=== PATIENT | male | born 1965 | race Caucasian/White ===

== ENCOUNTER 2017-03-22 09:59 | Inpatient (IN) | payer OTHER ==
[2017-03-22] VITALS (16 sets, daily range): BP systolic 146–196; BP diastolic 76–104; PULSE 64–115; RESP 16–24; TEMP 97.8–98.7; O2SAT 94–100
[~2017-03-22] VITALS: Ht 175.3 cm; Wt 85.0 kg
[~2017-03-22 09:59] MED LIST: AMIO200T PO; ASPI81CH CHEW; BRIL90TA PO; FURO1TAB60 PO; LIPI10TA PO; LISI-515 PO; METF500T PO; METO-309 PO; POTA-163 PO; Spironolactone PO
[2017-03-22] MEDS ORDERED: SODIUM CHLORIDE 0.9% FLUSH 10 ML FLUSH IVF PRN ×2 (10:30→12:15)
--- NOTE | 2017-03-22 10:34 | PD ---
HPI Chief Complaint: Cardiac Complaint Time Seen by Provider: 10:12 Travel History International Travel<30 days: No Contact w/Intl Traveler<30days: No Traveled to known affect area: No History of Present Illness HPI This patient reports that he had about 30 minutes of dizziness today while he was watching TV and then his defibrillator fired. Positive that it shocked him. One time it went off. No syncope or chest pain. Patient stopped taking his cardiac medicines one or 2 months ago. He has not followed up with physician recently. He is a daily alcohol drinker. He was drinking this morning. Duration 2 hours. Symptoms severity was moderate. No alleviating factors. PFSH Past Medical History Hx Anticoagulant Therapy: Yes (BRILINTA) Arthritis: No Heart Rhythm Problems: Yes Cancer: No Cardiac Catheterization: Yes Cardiovascular Problems: Yes (DEFIB/ 3 STENTS ) High Cholesterol: Yes Chest Pain: Yes Congestive Heart Failure: Yes Diabetes: Yes Diminished Hearing: No Endocrine: Yes Gastrointestinal Disorders: No Genitourinary: No Hypertension: Yes Immune Disorder: No Implanted Vascular Access Dvce: Yes Musculoskeletal: No Neurologic: No Psychiatric: No Reproductive: No Respiratory: Yes (PE) Immunizations Current: Yes Past Surgical History Abdominal Surgery: No AICD: Yes Cardiac Surgery: Yes (CATH W/STENTS) Coronary Stent: Yes Ear Surgery: No Endocrine Surgery: No Eye Surgery: No Genitourinary Surgery: No Neurologic Surgery: No Oral Surgery: No Thoracic Surgery: Yes (AICD ON 08/2016) Other Surgery: Yes Social History Alcohol Use: Yes ( BEER DAILY) Tobacco Use: Yes (3-4 CIG/DAY) Substance Use: No Allergies-Medications (Allergen,Severity, Reaction): Coded Allergies: No Known Allergies (Unverified , 09/08/16) Reported Meds & Prescriptions Reported Meds & Active Scripts Active Lopressor (Metoprolol Tartrate) 50 Mg Tab 50 Mg PO BID 30 Days Amiodarone (Amiodarone HCl) 200 Mg Tab 200 Mg PO DAILY 30 Days Potassium Chloride ER (Potassium Chloride) 20 Meq Tab 20 Meq PO DAILY [Spironolactone] 25 MG Tab 25 Mg PO DAILY 30 Days Metformin (Metformin HCl) 500 Mg Tab 500 Mg PO BIDPC With meals Lasix (Furosemide) 40 Mg Tab 40 Mg PO DAILY 30 Days Lipitor (Atorvastatin Calcium) 10 Mg Tab 40 Mg PO HS 30 Days Brilinta (Ticagrelor) 90 Mg Tab 90 Mg PO BID Reported Aspirin 81 Mg Chew 81 Mg CHEW DAILY Review of Systems General / Constitutional: No: Fever Eyes: No: Visual changes HENT: Positive: Lightheadedness, No: Headaches Cardiovascular: No: Chest Pain or Discomfort Respiratory: No: Shortness of Breath Gastrointestinal: No: Abdominal Pain Genitourinary: No: Dysuria Musculoskeletal: No: Pain Skin: No Rash Neurologic: Positive: Dizziness, No: Weakness Psychiatric: Positive: Substance Abuse, No: Depression Endocrine: No: Polydipsia Hematologic/Lymphatic: No: Easy Bruising Physical Exam Narrative GENERAL: Disheveled , well-developed patient in no apparent distress. SKIN: Focused skin assessment reveals no rash and nodules. Skin is Warm and dry. Multiple tattoos HEAD: Atraumatic. Normocephalic. EYES: Pupils equal and round. No scleral icterus. No injection or drainage. ENT: No nasal bleeding or discharge. Mucous membranes pink and moist. NECK: Trachea midline. No JVD. CARDIOVASCULAR: Regular rate and rhythm. No murmur appreciated. RESPIRATORY: No accessory muscle use. Clear to auscultation. Breath sounds equal bilaterally. GASTROINTESTINAL: Abdomen soft, non-tender, nondistended. Hepatic and splenic margins not palpable. MUSCULOSKELETAL: No obvious deformities. No clubbing. No cyanosis. No edema. NEUROLOGICAL: Awake and alert. No obvious cranial nerve deficits. Motor grossly within normal limits. Normal speech. PSYCHIATRIC: Appropriate mood and affect; insight and judgment poor. Data Data Last Documented VS Vital Signs Date Time Temp Pulse Resp B/P Pulse Ox O2 Delivery O2 Flow Rate FiO2 03/22/17 10:30 160/89 03/22/17 10:27 93 16 94 Room Air 03/22/17 10:15 98.1 Orders Electrocardiogram (03/22/17 10:23) Basic Metabolic Panel (Bmp) (03/22/17 10:23) Ckmb (Isoenzyme) Profile (03/22/17 10:23) Complete Blood Count With Diff (03/22/17 10:23) Magnesium (Mg) (03/22/17 10:23) Prothrombin Time / Inr (Pt) (03/22/17 10:23) Act Partial Throm Time (Ptt) (03/22/17 10:23) Troponin I (03/22/17 10:23) Ecg Monitoring (03/22/17 10:23) Iv Access Insert/Monitor (03/22/17 10:23) Oximetry (03/22/17 10:23) Sodium Chloride 0.9% Flush (Ns Flush) (03/22/17 10:30) Alcohol (Ethanol) (03/22/17 10:23) CKMB (03/22/17 10:25) CKMB% (03/22/17 10:25) Amiodarone Inj (Cordarone Inj) (03/22/17 12:15) Amiodarone Inj (Cordarone Inj) (03/22/17 12:30) Sodium Chloride 0.9% Flush (Ns Flush) (03/22/17 12:15) Amiodarone Inj (Cordarone Inj) (03/22/17 12:15) Labs Laboratory Tests Test 03/22/17 10:25 White Blood Count 8.2 TH/MM3 Red Blood Count 4.73 MIL/MM3 Hemoglobin 14.9 GM/DL Hematocrit 45.1 % Mean Corpuscular Volume 95.3 FL Mean Corpuscular Hemoglobin 31.5 PG Mean Corpuscular Hemoglobin 33.0 % Concent Red Cell Distribution Width 13.4 % Platelet Count 233 TH/MM3 Mean Platelet Volume 8.6 FL Neutrophils (%) (Auto) 58.5 % Lymphocytes (%) (Auto) 30.8 % Monocytes (%) (Auto) 8.5 % Eosinophils (%) (Auto) 1.3 % Basophils (%) (Auto) 0.9 % Neutrophils # (Auto) 4.8 TH/MM3 Lymphocytes # (Auto) 2.5 TH/MM3 Monocytes # (Auto) 0.7 TH/MM3 Eosinophils # (Auto) 0.1 TH/MM3 Basophils # (Auto) 0.1 TH/MM3 CBC Comment DIFF FINAL Differential Comment Prothrombin Time 10.1 SEC Prothromb Time International 0.9 RATIO Ratio Activated Partial 25.4 SEC Thromboplast Time Sodium Level 138 MEQ/L Potassium Level 4.0 MEQ/L Chloride Level 107 MEQ/L Carbon Dioxide Level 19.9 MEQ/L Anion Gap 11 MEQ/L Blood Urea Nitrogen 12 MG/DL Creatinine 1.17 MG/DL Estimat Glomerular Filtration 66 ML/MIN Rate Random Glucose 226 MG/DL Calcium Level 8.7 MG/DL Magnesium Level 2.3 MG/DL Total Creatine Kinase 119 U/L Creatine Kinase MB 1.2 NG/ML Troponin I 0.06 NG/ML Ethyl Alcohol Level 85 MG/DL MDM Medical Decision Making Medical Screen Exam Complete: Yes Emergency Medical Condition: Yes Medical Record Reviewed: Yes Differential Diagnosis Ventricular tachycardia, ventricular fibrillation, noncompliance, alcohol intoxication Narrative Course I have reviewed the patient's electronic medical record. Reviewed his cardiology consultation from September 2016. He has history of stopping his medicines and then going into ventricular tachycardia storm. He has challenging IV placement I placed a left external jugular IV Reviewed his EKG which shows sinus rhythm at 96 without ectopy. No acute ST elevation but he does have inferior lead Q waves CBC is normal Metabolic profile shows minor hyperglycemia CK is normal Troponin is 0.06 Magnesium is normal Coagulation studies are normal Extended cardiac monitoring reveals sinus rhythm without ectopy Defibrillator rep has been called in to interrogate the device. I reviewed with the defibrillator rep. This patient had 4 separate shocks yesterday between 9 AM and noon. He had 4 episodes of ventricular tachycardia between 220 240 beats that degenerated into ventricular fibrillation which triggered the shocks. Each time the device worked properly Patient is currently intoxicated with an alkaline level of 85 He's been off his amiodarone for one or 2 months I reviewed with community support associate Dr. Moffett. He recommended loading him back with IV amiodarone and placing him on amiodarone drip and CIC admission. Patient is agreeable. I've placed a call to the medical residents for admission Critical Care Narrative Aggregate critical care time was 40 minutes. Time to perform other separately billable procedures was not included in the critical care time. My time did not include minutes spent treating any other patients simultaneously or on activities that did not directly contribute to the patient's treatment. The services I provided to this patient were to treat and/or prevent clinically significant deterioration that could result in: Ventricular fibrillation, cardiopulmonary arrest, myocardial damage I provided critical care services requiring my management, as noted below: Chart data review, documentation time, medication orders and management, vital sign assessments/reviewing monitor data, ordering and reviewing lab tests, ordering and interpreting/reviewing x-rays and diagnostic studies, care of the patient and discussion of the patient with the admitting physicians. Diagnosis Primary Impression: Ventricular fibrillation, paroxysmal Additional Impressions: Ventricular tachycardia AICD discharge Alcohol intoxication Qualified Code: F10.920 - Alcohol intoxication, uncomplicated Admitting Information Admitting Physician Requests: Admit Benson Dai MD Mar 22, 2017 10:34
[2017-03-22 10:59] LABS: AUTOMATED NEUTROPHIL # 4.8 TH/MM3 (1.8-7.7); BASOPHIL # 0.1 TH/MM3 (0-0.2); BASOPHIL % 0.9 % (0.0-2.0); EOSINOPHIL # 0.1 TH/MM3 (0-0.4); EOSINOPHIL % 1.3 % (0.0-4.0); HEMATOCRIT 45.1 % (39.0-51.0); HEMO FLAGS DIFF FINAL; LYMPH % 30.8 % (9.0-44.0); LYMPHOCYTE # 2.5 TH/MM3 (1.0-4.8); MEAN CELL VOLUME 95.3 FL (80.0-100.0); MEAN CORPUSCULAR HEMOGLOBIN 31.5 PG (27.0-34.0); MONO % 8.5 % (0.0-8.0); NEUT % 58.5 % (16.0-70.0); PLATELET COUNT 233 TH/MM3 (150-450); RED BLOOD COUNT 4.73 MIL/MM3 (4.50-5.90); RED CELL DISTRIBUTION WIDTH 13.4 % (11.6-17.2); WHITE BLOOD COUNT 8.2 TH/MM3 (4.0-11.0)
[2017-03-22 11:12] LABS: APTT (PATIENT) 25.4 SEC (24.3-30.1); INTERNATIONAL NORMALIZED RATIO 0.9 RATIO; PROTHROMBIN TIME - PATIENT 10.1 SEC (9.8-11.6)
[2017-03-22 11:19] LABS: ANION GAP 11 MEQ/L (5-15); BICARBONATE 19.9 MEQ/L (21.0-32.0); BLOOD UREA NITROGEN 12 MG/DL (7-18); CHLORIDE 107 MEQ/L (98-107); GLOMERULAR FILTRATION RATE 66 ML/MIN (>89); MAGNESIUM 2.3 MG/DL (1.5-2.5); SODIUM (NA) 138 MEQ/L (136-145)
[2017-03-22 11:24] LABS: CREATINE KINASE 119 U/L (39-308)
[2017-03-22 11:36] LABS: CKMB 1.2 NG/ML (0.5-3.6)
[2017-03-22] MEDS ORDERED: AMIODARONE INJ 150 MG in DEXTROSE 5% IN WATER 100ML INJ 97 ML IV ONE ×4 (12:15)
[2017-03-22] MEDS ORDERED: AMIODARONE INJ 900 MG in D5W 500 ML (EXCEL BAG) 482 ML IV SCH (12:30)
[2017-03-22] MEDS ORDERED: SODIUM CHLORIDE 0.9% FLUSH 10 ML FLUSH IV FLUSH PRN ×2 (13:00→14:00)
[2017-03-22] MEDS ORDERED: SODIUM CHLORIDE 0.9% FLUSH 10 ML FLUSH IV FLUSH SCH (13:00)
[2017-03-22] MEDS: AMIODARONE INJ 450 MG in D5W (EXCEL BAG) 241 ML IV SCH ×2 (13:37→21:39)
--- NOTE | 2017-03-22 13:55 | HHI.HP ---
HPI Service Family Medicine Primary Care Physician No Primary Care Physician Admission Diagnosis V FIB, V tach, defib firing,alcohol intox Diagnoses: International Travel<30 Days: No Contact w/Intl Traveler<30days: No Known Affected Area: No History of Present Illness Patient is a 51 year old male with a past history of chronic alcohol use and coronary artery disease with prior placement of defibrillator. He presents today due to his defibrillator going off multiple times in the last 24 hours. He denied having any chest pain or shortness of breath yesterday but was experiencing these symptoms on exam as his defibrillator had just discharged again. He is currently experiencing a headache, is seeing some spots, feels dizzy, short of breath and has sharp chest pain which started following defibrillator discharge. He admitted to alcohol use, with his last drink being 2 -3 cans of beer before 9am today, followed by his defibrillator discharging. He denied recently feeling ill, denied sick contacts, denied nausea, vomiting, and pain anywhere else. Patient smokes about one half packs of cigarettes per day but denied other recreational drug use. 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 (Jono Evans MD R2) Review of Systems Constitutional: DENIES: Fatigue, Fever, Chills Eyes: COMPLAINS OF: Blurred vision Respiratory: DENIES: Cough, Shortness of breath Cardiovascular: COMPLAINS OF: Chest pain, Palpitations, DENIES: Syncope Gastrointestinal: DENIES: Abdominal pain, Black stools, Diarrhea, Nausea, Vomiting Musculoskeletal: DENIES: Joint pain Integumentary: DENIES: Rash (Jono Evans MD R2) Past Family Social History Past Medical History Coronary artery disease s/p stents x 3 Diabetes mellitus on metformin Hyperlipidemia Tobacco abuse Alcohol abuse Withdrawal from EtOH Past Surgical History Pacemaker in August 2016 Left lower extremity orthopedic repair n.o.s. (Jono Evans MD R2) Allergies: Coded Allergies: No Known Allergies (Unverified , 09/08/16) Family History Non contributory Social History Smokes cigarettes since a teenager - 1/2 ppd EtOH drinks 16 x 16 ounce beers a day Unemployed, lives with significant other Cocaine use prior but denies current use. (Jono Evans MD R2) Physical Exam Vital Signs Vital Signs Date Time Temp Pulse Resp B/P Pulse Ox O2 Delivery O2 Flow Rate FiO2 03/22/17 13:16 96 03/22/17 13:16 170/91 03/22/17 10:30 160/89 03/22/17 10:27 93 16 160/89 94 Room Air 03/22/17 10:20 Room Air 03/22/17 10:15 98.1 96 16 190/101 95 03/22/17 10:01 97.8 115 24 194/101 100 Physical Exam Physical Exam: Vitals: afebrile, blood pressure 170/91 mmHg, Pulse 117 bpm, pulse oximetry 96% on room air. General: patient was sitting up in bed, appeared uncomfortable taking slow deep breaths. Able to communicate properly and oriented to person, place and time. Cardio: Pulses equal in all 4 extremities, heart rate with occasional irregular beats but no murmurs, rubs or gallops. No JVD was noted on exam. Pulmonary: AP diameter of chest was not increased; breath sounds were appreciated in all lung areas and were clear to auscultation with no crackles or wheezes. Abdominal: abdomen was symmetrical, non-distended, non-tender, and soft with no voluntary or involuntary guarding. EXT: Well perfused, 5/5 strength throughout, fine tremors on extension of hands. Laboratory Laboratory Tests Test 03/22/17 10:25 White Blood Count 8.2 Red Blood Count 4.73 Hemoglobin 14.9 Hematocrit 45.1 Mean Corpuscular Volume 95.3 Mean Corpuscular Hemoglobin 31.5 Mean Corpuscular Hemoglobin 33.0 Concent Red Cell Distribution Width 13.4 Platelet Count 233 Mean Platelet Volume 8.6 Neutrophils (%) (Auto) 58.5 Lymphocytes (%) (Auto) 30.8 Monocytes (%) (Auto) 8.5 Eosinophils (%) (Auto) 1.3 Basophils (%) (Auto) 0.9 Neutrophils # (Auto) 4.8 Lymphocytes # (Auto) 2.5 Monocytes # (Auto) 0.7 Eosinophils # (Auto) 0.1 Basophils # (Auto) 0.1 CBC Comment DIFF FINAL Differential Comment Prothrombin Time 10.1 Prothromb Time International 0.9 Ratio Activated Partial 25.4 Thromboplast Time Sodium Level 138 Potassium Level 4.0 Chloride Level 107 Carbon Dioxide Level 19.9 Anion Gap 11 Blood Urea Nitrogen 12 Creatinine 1.17 Estimat Glomerular Filtration 66 Rate Random Glucose 226 Calcium Level 8.7 Magnesium Level 2.3 Total Creatine Kinase 119 Creatine Kinase MB 1.2 Troponin I 0.06 Ethyl Alcohol Level 85 (Jono Evans MD R2) Result Diagram: 03/22/17 1025 03/22/17 1025 Septic Shock Reassessment Heart: Regular rate and rhythm Lungs: Clear Skin: Warm Peripheral Pulses: Bounding Right Radial Bounding Left Radial (Jono Evans MD R2) Assessment and Plan Assessment and Plan Mr. Inman is a 51-year-old male, with a past medical history of severe coronary artery disease / status post stents 3, alcohol abuse, type 2 diabetes mellitus, and hyperlipidemia, presenting to [place] emergency department after his cardiac defibrillator fired while he was at rest. On interrogation, he was found to have a short run of ventricular tachycardia. He will be admitted to the cardiac intensive care unit on amiodarone drip, and continuous cardiopulmonary telemetry. Code Status Full code. (Jono Evans MD R2) Attending Attestation The patient has been seen and examined. The chart and all resident notes have been reviewed. I agree that inpatient care is appropriate and that a two midnight stay is expected for the reasons documented in the resident history and physical. I have discussed this with the resident and certify the resident s order for inpatient admission. Patient seen and examined with the resident team this am Case reviewed and discussed Please refer to resident H&P for further details regarding HPI, ROS, PMH, SurgHx , FH and SocHx In summary, patient is a 51yoM with a history of VT arrest, SD s/p PCI and ICD placement, alcohol dependence and medical non-adherence. He presented to the ED after defibrillator shock after stopping his necessary cardiac medications, including his Amiodarone and anti-platelet therapy. He was placed on an Amiodarone gtt and is seen this am. He denies further shocks overnight. Per nursing, no acute events. He denies chest pain. GENERAL: wdwn, NAD, mildly tremulous SKIN: Warm and dry. No rashes, tattoos. HEAD: Normocephalic. AT EYES: No scleral icterus. No injection or drainage. ENT: OP clear. MMM. NC in place. NECK: Supple, trachea midline. CARDIOVASCULAR: Regular rate and rhythm without audible murmurs, gallops, or rubs. RESPIRATORY: Breath sounds equal bilaterally. There is mild bibasilar crackles. NO wheezing. No accessory muscle use. GASTROINTESTINAL: Abdomen soft, non-tender, nondistended. Normal active BS. No rebound. MUSCULOSKELETAL: No cyanosis, or edema. NO calf tenderness. BACK: Nontender without obvious deformity. No CVA tenderness. NEURO: Awake and alert. Normal speech. A/P: 51yoM admitted with: defibrillator shock Hx VT arrest, SD s/p PCI, ICD placement Medical non-adherence Alcoholism Tobaccoism HTN DM HL Amiodarone gtt Cardiology consulted, appreciate recs Monitor electrolytes resume Amio, DAPT Telemetry Resume home meds as appropriate Monitor for chest pain [facility] protocol Counseled extensively on EtOH, tob Case management assistance with Patient Assistance Program Lovenox Patient seen and examined. Case reviewed and discussed Agree with plan of care as discussed with me and documented in the resident note. (Aissatou Gilliam MD) Problem List: (1) Alcohol ingestion Status: Acute Plan: Patient appears tremulous on exam. Likely to withdrawal. Drinks 16 16 ounce beers per day. [facility] protocol in place. We'll monitor for signs of delirium tremens. (2) Hypertension Status: Chronic Plan: BP elevated on admission to 188/99. Continue home lisinopril 20 mg daily, spironolactone 25 mg BID, and Lasix 40 mg daily. Hold beta gorge while on amiodarone gtt or as guided by cardiology. Clonidine 0.1 mg PO q 6 hr systolic > 180 mm Hg. (3) Diabetes mellitus Status: Chronic Plan: Glucose on admission was 226. Start low dose insulin (NovoLOG sliding scale). Hold home metformin. (4) AICD discharge Status: Acute Plan: Consult cardiology. Previous cardiac catheterization (August 2016, performed by Dr. Rincon) showed moderate left ventricular dysfunction with an EF of 35%, single vessel disease, with a total occlusion of the right coronary artery. A drug-eluting stent was placed at that time. He has been off of his Aspirin and Brilinta. Restart during hospitalization. (5) CAD (coronary artery disease) Status: Chronic Plan: Troponin on admission was 0.06. EKG grossly unchanged since September 2016. Restart antiplatelet therapy. Trend EKG and cardiac enzymes q 6 hours. CXR. Nitro 0.4 mg sublingual PRN chest pain. Amiodarone gtt for arrhythmia. (6) History of pulmonary embolus (PE) Status: Chronic Plan: Previous pulmonary embolism was after surgery on left leg )provoked). SInce, has not had any issues with clotting. Wells Criteria score 1.5, (Low risk). Perc rule was negative (screening out for d-dimer level). (7) Disorders of fluid, electrolyte, and acid-base balance Status: Acute Plan: Fluids: NS 50 ml/hr (approximately half maintenance). DVT: Lovenox 40 mg SubQ daily. Nutrition: Reg meal as tolerated GI prophylaxis: Not indicated. wdw Dr. Gilliam sdw Eneida Clemons (note assisted by MS4). (Jono Evans MD R2) Jono Evans MD R2 Mar 22, 2017 13:55 Aissatou Gilliam MD Mar 23, 2017 15:53
[2017-03-22] MEDS: SODIUM CHLOR 0.9% 1000 ML INJ 1,000 ML IV SCH (14:00)
[2017-03-22] MEDS ORDERED: LORazepam 2 MG/ML VIAL IV PUSH PRN ×3 (14:00)
[2017-03-22] MEDS ORDERED: ONDANSETRON HCL 4 MG/2 ML VIAL IVP PRN (14:00)
[2017-03-22] MEDS ORDERED: NALOXONE HCL 0.4 MG/ML AMP IV PRN (14:00)
[2017-03-22] MEDS ORDERED: LORazepam 2 MG TAB PO PRN (14:00)
[2017-03-22] MEDS ORDERED: TEMAZEPAM 15 MG CAP PO PRN ×2 (14:00→15:15)
[2017-03-22] MEDS ORDERED: FLUMAZENIL 0.5 MG/5 ML VIAL IV PUSH PRN (14:00)
[2017-03-22] MEDS ORDERED: SPIR25 PO (14:20)
--- NOTE | 2017-03-22 14:30 | RADRPT ---
EXAM DATE/TIME: 03/22/2017 13:59 [facility] COMPARISON: CHEST SINGLE AP, September 08, 2016, 2:02. INDICATIONS : Chest pain, defibrillator went off twice today MEDICAL HISTORY : Cardiovascular disease. SURGICAL HISTORY : Defibrillator ENCOUNTER: Initial ACUITY: 1 day PAIN SCORE: 5/10 LOCATION: Bilateral chest FINDINGS: Pacemaker is implanted in the left chest. The heart and pulmonary vascularity are normal. Portions of the bony skeleton visualized are unremarkable. CONCLUSION: Pacer, otherwise negative. Juarez Miguel MD FACR on March 22, 2017 at 14:24 Board Certified Radiologist. This report was verified electronically.
[2017-03-22] MEDS: ENOXAPARIN SODIUM 40 MG/0.4 ML SYRINGE SQ SCH (15:09)
[2017-03-22] MEDS: LORazepam 2 MG/ML VIAL IV PUSH PRN ×2 (15:09→18:13)
[2017-03-22] MEDS ORDERED: NITROGLYCERIN 0.4 MG SL 25 TABS/BTL SL PRN (15:15)
[2017-03-22] MEDS ORDERED: cloNIDine HCL 0.1 MG TAB PO PRN (15:15)
[2017-03-22] MEDS ORDERED: ASPIRIN 81 MG CHEW TAB CHEW ONE (15:15)
--- NOTE | 2017-03-22 15:18 | PD.CONS ---
HPI Service Cardiology Consult Requested By Primary Care Physician No Primary Care Physician History of Present Illness 51 y/o M with alcoholic, hx of DT's, noncompliance with medications, VT arrest, MA s/p PCI and s/p AICD that presents with several defibrillator shocks in the setting of noncompliance with medications. Patient stop taking his Amiodarone. Device has been interrogated confirming several appropriate shock due to VT. He remains intoxicated however denies chest pain. Cardiology has been consulted for further management and evaluation. He has been given Amiodorome bolus and started on a drip. Review of Systems Consitutional: DENIES: Fatigue, Fever, Chills, Weight gain, Weight loss Eyes: DENIES: Amaurosis Fugax, Change in vision HEENT: DENIES: Lightheadedness, Change in hearing Respiratory: DENIES: See HPI, Cough, Snoring, Shortness of breath, Wheezing, Sputum production Cardiovascular: DENIES: See HPI, Chest pain, Palpitations, Syncope, Tachycardia Gastrointestinal: DENIES: Nausea, Vomiting, Change in bowel habits, Reflux, Bloody stools, Melena Genitourinary: DENIES: Urinary incontinence, Difficulty voiding Integumentary: DENIES: Rash Neurologic: DENIES: Tingling or numbness, Memory problems, Poor Balance, Stroke symptoms Musculoskeletal: DENIES: Joint pain, Muscle pain, Limited range of motion, Back pain Psychiatric: DENIES: Anxiety, Depression, Sleep disturbances Hematologic: DENIES: Bruising tendencies, Bleeding tendencies Endocrine: DENIES: Weight gain, Weight loss, Thyroid disease Past Family Social History Allergies: Coded Allergies: No Known Allergies (Unverified , 09/08/16) Past Medical History Inferior MA 2016 Noncompliance AICD Past Surgical History AICD Reported Medications Reported Meds & Active Scripts Active Lopressor (Metoprolol Tartrate) 50 Mg Tab 50 Mg PO BID 30 Days Amiodarone (Amiodarone HCl) 200 Mg Tab 200 Mg PO DAILY 30 Days Potassium Chloride ER (Potassium Chloride) 20 Meq Tab 20 Meq PO DAILY Lisinopril 20 Mg Tab 20 Mg PO DAILY Metformin (Metformin HCl) 500 Mg Tab 500 Mg PO BIDPC With meals Lasix (Furosemide) 40 Mg Tab 40 Mg PO DAILY 30 Days Lipitor (Atorvastatin Calcium) 10 Mg Tab 40 Mg PO HS 30 Days Brilinta (Ticagrelor) 90 Mg Tab 90 Mg PO BID Reported Aldactone (Spironolactone) 25 Mg Tab 25 Mg PO DAILY Aspirin 81 Mg Chew 81 Mg CHEW DAILY Active Ordered Medications Current Medications Medications (Trade) Dose Ordered Sig/Karma Route Start Time Stop Time Status Last Admin (NS Flush) 2 ml UNSCH PRN IVF 03/22/17 10:30 Sodium Chloride 2 ml 2 ml UNSCH PRN IVF 03/22/17 12:15 Amiodarone HCl 450 mg/Dextrose 250 ml @ 0 mls/hr CONTINUOUS IV 03/22/17 13:30 03/22/17 13:37 (NS 1000 ml Inj) 1,000 ml @ 100 mls/hr Q10H IV 03/22/17 14:00 03/22/17 14:00 (NS Flush) 2 ml UNSCH PRN IV FLUSH 03/22/17 14:00 (NS Flush) 2 ml BID IV FLUSH 03/22/17 21:00 (Zofran Inj) 4 mg Q6H PRN IVP 03/22/17 14:00 (Restoril) 15 mg HS PRN PO 03/22/17 14:00 (Lovenox Inj) 40 mg Q24H SQ 03/22/17 15:00 (Narcan Inj) 0.4 mg UNSCH PRN IV 03/22/17 14:00 (Danielle-Colace) 1 tab BID PO 03/22/17 21:00 (Romazicon Inj) 0.2 mg Q1M PRN IV PUSH 03/22/17 14:00 (Ativan) 1 mg Q4H PRN PO 03/22/17 14:00 (Ativan Inj) 1 mg Q4H PRN IV PUSH 03/22/17 14:00 (Ativan) 2 mg Q2H PRN PO 03/22/17 14:00 (Ativan Inj) 2 mg Q2H PRN IV PUSH 03/22/17 14:00 (Ativan Inj) 2 mg Q1H PRN IV PUSH 03/22/17 14:00 (Ativan Inj) 2 mg Q15M PRN IV PUSH 03/22/17 14:00 Physical Exam Vital Signs Vital Signs Date Time Temp Pulse Resp B/P Pulse Ox O2 Delivery O2 Flow Rate FiO2 03/22/17 14:42 183/99 03/22/17 14:38 98.5 88 16 183/99 100 Room Air 03/22/17 13:16 96 03/22/17 13:16 170/91 03/22/17 10:30 160/89 03/22/17 10:27 93 16 160/89 94 Room Air 03/22/17 10:20 Room Air 03/22/17 10:15 98.1 96 16 190/101 95 03/22/17 10:01 97.8 115 24 194/101 100 Physical Exam GENERAL: Well-nourished, well-developed patient. SKIN: Warm and dry. HEAD: Normocephalic. EYES: No scleral icterus. No injection or drainage. NECK: Supple, trachea midline. No JVD or lymphadenopathy. CARDIOVASCULAR: Regular rate and rhythm without murmurs, gallops, or rubs. RESPIRATORY: Breath sounds equal bilaterally. No accessory muscle use. GASTROINTESTINAL: Abdomen soft, non-tender, nondistended. EXTREMITIES: No cyanosis, or edema. NEUROLOGICAL: Awake, alert, and oriented x 3. Non-focal. Laboratory Laboratory Tests Test 03/22/17 10:25 White Blood Count 8.2 Red Blood Count 4.73 Hemoglobin 14.9 Hematocrit 45.1 Mean Corpuscular Volume 95.3 Mean Corpuscular Hemoglobin 31.5 Mean Corpuscular Hemoglobin 33.0 Concent Red Cell Distribution Width 13.4 Platelet Count 233 Mean Platelet Volume 8.6 Neutrophils (%) (Auto) 58.5 Lymphocytes (%) (Auto) 30.8 Monocytes (%) (Auto) 8.5 Eosinophils (%) (Auto) 1.3 Basophils (%) (Auto) 0.9 Neutrophils # (Auto) 4.8 Lymphocytes # (Auto) 2.5 Monocytes # (Auto) 0.7 Eosinophils # (Auto) 0.1 Basophils # (Auto) 0.1 CBC Comment DIFF FINAL Differential Comment Prothrombin Time 10.1 Prothromb Time International 0.9 Ratio Activated Partial 25.4 Thromboplast Time Sodium Level 138 Potassium Level 4.0 Chloride Level 107 Carbon Dioxide Level 19.9 Anion Gap 11 Blood Urea Nitrogen 12 Creatinine 1.17 Estimat Glomerular Filtration 66 Rate Random Glucose 226 Calcium Level 8.7 Magnesium Level 2.3 Total Creatine Kinase 119 Creatine Kinase MB 1.2 Troponin I 0.06 Ethyl Alcohol Level 85 Result Diagram: 03/22/17 1025 03/22/17 1025 Assessment and Plan Problem List: (1) AICD discharge Assessment and Plan: VT storm likely precipitated by discontinuation of home medications. He has been reloaded with Amiodarone. He has a normal LHC last year thus I dont think we need to pursue another on this admission. Agree with admission for medication optimization. Also restart home dose of Beta Blockers. Recommendations: 1. Cont Amio IV per protocol, after 24 hrs and no more episodes of VT start Amiodarone 200mg PO BID 2. Restart Beta Blockers 3. Telemetry monitoring 4. Avoid electrolytes abnormalities. 5. Cont DAPT with ASA and Brilinta 6. Cont statin 7. CIWA protocol per primary team Thank you for the opportunity to participate in the care of this patient (2) Hypertension (3) Diabetes mellitus (4) Alcohol intoxication (5) Ventricular tachycardia (6) Tobacco use disorder Problem Qualifiers (1) Alcohol intoxication: Qualified Code: F10.920 - Alcohol intoxication, uncomplicated Moffett-Agapito Shepard MD Mar 22, 2017 15:18
[2017-03-22] MEDS ORDERED: DEXTROSE 50% IN WATER 50 ML VIAL(D50) IV PRN (15:30)
[2017-03-22] MEDS ORDERED: GLUCAGON 1 MG/ML VIAL OTHER PRN (15:30)
[2017-03-22] MEDS: LISINOPRIL 20 MG TAB PO SCH (15:31)
[2017-03-22] MEDS: SPIRONOLACTONE 25 MG TAB PO SCH (15:31)
[2017-03-22] MEDS: INSULIN ASPART SUPPLEMENTAL SCALE SQ SCH ×2 (16:05→20:43)
[2017-03-22] MEDS: DOCUSATE SODIUM 50 MG/SENNA 8.6 MG TAB PO SCH (20:40)
[2017-03-22] MEDS: TICAGRELOR 90 MG TAB PO SCH (20:40)
[2017-03-22] MEDS: METOPROLOL TARTRATE 50 MG TAB PO SCH (20:40)
[2017-03-22] MEDS: ATORVASTATIN 40 MG TAB PO SCH (20:41)
[2017-03-22] MEDS: LORazepam 1 MG TAB PO PRN (20:41)
[2017-03-22] MEDS: SODIUM CHLORIDE 0.9% FLUSH 10 ML FLUSH IV FLUSH SCH (20:44)
[2017-03-23] VITALS (23 sets, daily range): BP systolic 129–151; BP diastolic 69–93; PULSE 55–72; RESP 16–18; TEMP 97.7–98.7; O2SAT 98–100
[2017-03-23] MEDS: LORazepam 1 MG TAB PO PRN ×2 (06:38→20:47)
[2017-03-23] MEDS: INSULIN ASPART SUPPLEMENTAL SCALE SQ SCH ×4 (06:38→20:54)
[2017-03-23] MEDS: TICAGRELOR 90 MG TAB PO SCH ×2 (07:52→21:00)
[2017-03-23] MEDS: LISINOPRIL 20 MG TAB PO SCH (07:52)
[2017-03-23] MEDS: ASPIRIN 81 MG CHEW TAB CHEW SCH (07:52)
[2017-03-23] MEDS: METOPROLOL TARTRATE 50 MG TAB PO SCH ×2 (07:52→20:47)
[2017-03-23] MEDS: SPIRONOLACTONE 25 MG TAB PO SCH (07:52)
[2017-03-23] MEDS: FUROSEMIDE 40 MG TAB PO SCH (07:53)
[2017-03-23] MEDS: DOCUSATE SODIUM 50 MG/SENNA 8.6 MG TAB PO SCH ×2 (07:53→20:47)
[2017-03-23] MEDS: SODIUM CHLORIDE 0.9% FLUSH 10 ML FLUSH IV FLUSH SCH ×2 (07:53→20:47)
[2017-03-23] MEDS: SODIUM CHLOR 0.9% 1000 ML INJ 1,000 ML IV SCH ×3 (07:53→20:00)
[2017-03-23 08:45] LABS: AUTOMATED NEUTROPHIL # 4.5 TH/MM3 (1.8-7.7); BASOPHIL % 0.5 % (0.0-2.0); EOSINOPHIL # 0.1 TH/MM3 (0-0.4); EOSINOPHIL % 1.7 % (0.0-4.0); HEMATOCRIT 43.2 % (39.0-51.0); HEMO FLAGS DIFF FINAL; LYMPH % 21.2 % (9.0-44.0); LYMPHOCYTE # 1.4 TH/MM3 (1.0-4.8); MEAN CELL VOLUME 94.3 FL (80.0-100.0); MEAN CORPUSCULAR HEMOGLOBIN 32.2 PG (27.0-34.0); MEAN CORPUSCULAR HGB CONC 34.1 % (32.0-36.0); MONO % 10.2 % (0.0-8.0); NEUT % 66.4 % (16.0-70.0); PLATELET COUNT 217 TH/MM3 (150-450); RED BLOOD COUNT 4.58 MIL/MM3 (4.50-5.90); RED CELL DISTRIBUTION WIDTH 12.9 % (11.6-17.2); WHITE BLOOD COUNT 6.8 TH/MM3 (4.0-11.0)
[2017-03-23 09:21] LABS: ANION GAP 10 MEQ/L (5-15); AST (GOT) 25 U/L (15-37); BICARBONATE 22.6 MEQ/L (21.0-32.0); BLOOD UREA NITROGEN 10 MG/DL (7-18); CHLORIDE 106 MEQ/L (98-107); GLOMERULAR FILTRATION RATE 67 ML/MIN (>89); POTASSIUM 3.8 MEQ/L (3.5-5.1); SODIUM (NA) 139 MEQ/L (136-145)
[2017-03-23 09:22] LABS: ALT (GPT) 35 U/L (12-78)
[2017-03-23 09:24] LABS: ALKALINE PHOSPHATASE 70 U/L (45-117); TOTAL BILIRUBIN ADULT 0.7 MG/DL (0.2-1.0)
[2017-03-23 11:00] LABS: AMPHETAMINE, URINE NEG (NEG); BARBITURATES, URINE NEG (NEG); COCAINE, URINE NEG (NEG)
[2017-03-23] MEDS: ENOXAPARIN SODIUM 40 MG/0.4 ML SYRINGE SQ SCH (14:35)
[2017-03-23 17:14] LABS: HEMOGLOBIN A1a 1.3 %; HEMOGLOBIN A1b 1.9 %; HEMOGLOBIN Ao 82.4 %
--- NOTE | 2017-03-23 17:59 | PD.CARD.PN ---
Subjective Subjective Remarks no complaints no overnight events no events on telemetry Objective Medications Current Medications Medications (Trade) Dose Ordered Sig/Karma Route Start Time Stop Time Status Last Admin (NS Flush) 2 ml UNSCH PRN IVF 03/22/17 10:30 Sodium Chloride 2 ml 2 ml UNSCH PRN IVF 03/22/17 12:15 Amiodarone HCl 450 mg/Dextrose 250 ml @ 0 mls/hr CONTINUOUS IV 03/22/17 13:30 03/23/17 21:00 03/22/17 21:39 (NS 1000 ml Inj) 1,000 ml @ 100 mls/hr Q10H IV 03/22/17 14:00 03/23/17 07:53 (NS Flush) 2 ml UNSCH PRN IV FLUSH 03/22/17 14:00 (NS Flush) 2 ml BID IV FLUSH 03/22/17 21:00 (Zofran Inj) 4 mg Q6H PRN IVP 03/22/17 14:00 (Restoril) 15 mg HS PRN PO 03/22/17 14:00 (Lovenox Inj) 40 mg Q24H SQ 03/22/17 15:00 03/23/17 14:35 (Narcan Inj) 0.4 mg UNSCH PRN IV 03/22/17 14:00 (Danielle-Colace) 1 tab BID PO 03/22/17 21:00 03/22/17 20:40 (Romazicon Inj) 0.2 mg Q1M PRN IV PUSH 03/22/17 14:00 (Ativan) 1 mg Q4H PRN PO 03/22/17 14:00 03/23/17 06:38 (Ativan Inj) 1 mg Q4H PRN IV PUSH 03/22/17 14:00 (Ativan) 2 mg Q2H PRN PO 03/22/17 14:00 03/22/17 22:48 (Ativan Inj) 2 mg Q2H PRN IV PUSH 03/22/17 14:00 03/22/17 18:13 (Ativan Inj) 2 mg Q1H PRN IV PUSH 03/22/17 14:00 (Ativan Inj) 2 mg Q15M PRN IV PUSH 03/22/17 14:00 (Aspirin Chew) 81 mg DAILY CHEW 03/23/17 09:00 03/23/17 07:52 (Lipitor) 40 mg HS PO 03/22/17 21:00 03/22/17 20:41 (Lasix) 40 mg DAILY PO 03/23/17 09:00 03/23/17 07:53 (Prinivil) 20 mg DAILY PO 03/22/17 15:15 03/23/17 07:52 (Aldactone) 25 mg DAILY PO 03/22/17 15:15 03/23/17 07:52 (Brilinta) 90 mg BID PO 03/22/17 21:00 03/23/17 07:52 (Nitrostat Sl) 0.4 mg Q5M PRN SL 03/22/17 15:15 (Lopressor) 50 mg Q12HR PO 03/22/17 21:00 03/23/17 07:52 (Catapres) 0.1 mg Q6H PRN PO 03/22/17 15:15 (D50w (Vial) Inj) 50 ml UNSCH PRN IV 03/22/17 15:30 (Glucagon Inj) 1 mg UNSCH PRN OTHER 03/22/17 15:30 (Cordarone) 400 mg Q12HR PO 03/23/17 21:00 Vital Signs / I&O Vital Signs Date Time Temp Pulse Resp B/P Pulse Ox O2 Delivery O2 Flow Rate FiO2 03/23/17 17:04 72 03/23/17 16:33 67 03/23/17 15:16 Nasal Cannula 2.00 03/23/17 15:06 60 03/23/17 15:06 97.8 71 16 129/70 100 03/23/17 14:00 67 03/23/17 13:06 65 03/23/17 12:02 62 03/23/17 11:21 97.7 55 16 136/69 100 03/23/17 11:21 65 03/23/17 10:00 58 03/23/17 09:23 65 03/23/17 08:15 65 03/23/17 08:15 97.9 66 18 147/93 98 03/23/17 05:00 60 03/23/17 04:00 63 03/23/17 04:00 98.7 70 18 144/75 98 03/23/17 03:00 58 03/23/17 02:00 58 03/23/17 01:00 60 03/23/17 00:00 55 03/23/17 00:00 98.1 60 18 146/90 98 03/22/17 23:00 64 03/22/17 22:00 64 03/22/17 21:00 76 03/22/17 20:00 75 03/22/17 20:00 98.7 79 18 146/76 97 03/22/17 19:00 72 03/22/17 18:00 152/84 03/22/17 18:00 84 I/O 03/22/17 03/22/17 03/22/17 03/23/17 03/23/17 03/23/17 07:00 15:00 23:00 07:00 15:00 23:00 Intake Total 360 ml 2130 ml Output Total 1000 ml 3650 ml Balance -640 ml -1520 ml Intake Oral 360 ml 960 ml IV Total 1170 ml Output Urine Total 1000 ml 3650 ml # Bowel Movements 1 Physical Exam GENERAL: Well-nourished, well-developed patient. SKIN: Warm and dry. HEAD: Normocephalic. EYES: No scleral icterus. No injection or drainage. NECK: Supple, trachea midline. No JVD or lymphadenopathy. CARDIOVASCULAR: Regular rate and rhythm without murmurs, gallops, or rubs. RESPIRATORY: Breath sounds equal bilaterally. No accessory muscle use. GASTROINTESTINAL: Abdomen soft, non-tender, nondistended. EXTREMITIES: No cyanosis, or edema. NEUROLOGICAL: Awake, alert, and oriented x 3. Non-focal. Laboratory Laboratory Tests Test 03/22/17 03/23/17 03/23/17 22:38 07:50 10:25 Troponin I 0.06 NG/ML White Blood Count 6.8 TH/MM3 Red Blood Count 4.58 MIL/MM3 Hemoglobin 14.7 GM/DL Hematocrit 43.2 % Mean Corpuscular Volume 94.3 FL Mean Corpuscular Hemoglobin 32.2 PG Mean Corpuscular Hemoglobin 34.1 % Concent Red Cell Distribution Width 12.9 % Platelet Count 217 TH/MM3 Mean Platelet Volume 8.7 FL Neutrophils (%) (Auto) 66.4 % Lymphocytes (%) (Auto) 21.2 % Monocytes (%) (Auto) 10.2 % Eosinophils (%) (Auto) 1.7 % Basophils (%) (Auto) 0.5 % Neutrophils # (Auto) 4.5 TH/MM3 Lymphocytes # (Auto) 1.4 TH/MM3 Monocytes # (Auto) 0.7 TH/MM3 Eosinophils # (Auto) 0.1 TH/MM3 Basophils # (Auto) 0.0 TH/MM3 CBC Comment DIFF FINAL Differential Comment Sodium Level 139 MEQ/L Potassium Level 3.8 MEQ/L Chloride Level 106 MEQ/L Carbon Dioxide Level 22.6 MEQ/L Anion Gap 10 MEQ/L Blood Urea Nitrogen 10 MG/DL Creatinine 1.16 MG/DL Estimat Glomerular Filtration 67 ML/MIN Rate Random Glucose 175 MG/DL Calcium Level 8.2 MG/DL Total Bilirubin 0.7 MG/DL Aspartate Amino Transf 25 U/L (AST/SGOT) Alanine Aminotransferase 35 U/L (ALT/SGPT) Alkaline Phosphatase 70 U/L Total Protein 6.7 GM/DL Albumin 3.2 GM/DL Urine Opiates Screen NEG Urine Barbiturates Screen NEG Urine Amphetamines Screen NEG Urine Benzodiazepines Screen NEG Urine Cocaine Screen NEG Urine Cannabinoids Screen NEG Assessment and Plan Problem List: (1) AICD discharge Assessment and Plan: D/C Amio drip after 24hrs, then start Amiodarone PO 200mg BID Cont BB I (2) Hypertension (3) Diabetes mellitus (4) Alcohol intoxication (5) Ventricular tachycardia (6) Tobacco use disorder Problem Qualifiers (1) Alcohol intoxication: Qualified Code: F10.920 - Alcohol intoxication, uncomplicated Moffett-Agapito Shepard MD Mar 23, 2017 17:59
[2017-03-23] MEDS: AMIODARONE 200 MG TAB PO SCH (20:47)
[2017-03-23] MEDS: ATORVASTATIN 40 MG TAB PO SCH (20:47)
[2017-03-23] MEDS ORDERED: AMIODARONE 200 MG TAB PO SCH (21:00)
--- NOTE | 2017-03-23 22:19 | EKG ---
Date Performed: 03/22/2017 Time Performed: 10:12:29 PTAGE: 51 years EKG: Sinus rhythm PROBABLE INFERIOR MYOCARDIAL INFARCTION Since previous tracing, no significant change noted ABNORMAL ECG PREVIOUS TRACING : 10/13/2016 09.11 DOCTOR: Kassidy Shell Interpretating Date/Time 03/23/2017 22:18:31
--- NOTE | 2017-03-23 22:21 | EKG ---
Date Performed: 03/22/2017 Time Performed: 21:51:46 PTAGE: 51 years EKG: Sinus rhythm Prolonged QT interval Inferior infarct - age undetermined Since previous tracing, no significant marion nge noted Abnormal ECG PREVIOUS TRACING : 03/22/2017 17.49.24 DOCTOR: Kassidy Shell Interpretating Date/Time 03/23/2017 22:19:42
--- NOTE | 2017-03-23 22:21 | EKG ---
Date Performed: 03/22/2017 Time Performed: 17:49:24 PTAGE: 51 years EKG: Sinus rhythm . Inferior infarct - age undetermined Possible anterior infarct - age undetermined Lateral T wave marion nges may be due to myocardial ischemia Since previous tracing, no significant change noted Abnormal E CG PREVIOUS TRACING : 03/22/2017 10.12.29 DOCTOR: Kassidy Shell Interpretating Date/Time 03/23/2017 22:19:05
[2017-03-24] VITALS (13 sets, daily range): BP systolic 130–142; BP diastolic 68–89; PULSE 54–68; RESP 16; TEMP 97.7–98.2; O2SAT 98–99
[2017-03-24] MEDS: LORazepam 1 MG TAB PO PRN (04:45)
[2017-03-24] MEDS: SODIUM CHLOR 0.9% 1000 ML INJ 1,000 ML IV SCH (05:21)
[2017-03-24 06:07] LABS: BICARBONATE 25.3 MEQ/L (21.0-32.0); POTASSIUM 3.9 MEQ/L (3.5-5.1)
[2017-03-24] MEDS: INSULIN ASPART SUPPLEMENTAL SCALE SQ SCH ×2 (06:15→10:37)
[2017-03-24] MEDS: TICAGRELOR 90 MG TAB PO SCH (08:35)
[2017-03-24] MEDS: LISINOPRIL 20 MG TAB PO SCH (08:35)
[2017-03-24] MEDS: SPIRONOLACTONE 25 MG TAB PO SCH (08:35)
[2017-03-24] MEDS: ASPIRIN 81 MG CHEW TAB CHEW SCH (08:35)
[2017-03-24] MEDS: METOPROLOL TARTRATE 50 MG TAB PO SCH (08:35)
[2017-03-24] MEDS: DOCUSATE SODIUM 50 MG/SENNA 8.6 MG TAB PO SCH (08:35)
[2017-03-24] MEDS: FUROSEMIDE 40 MG TAB PO SCH (08:35)
[2017-03-24] MEDS: AMIODARONE 200 MG TAB PO SCH (08:35)
[2017-03-24] MEDS: SODIUM CHLORIDE 0.9% FLUSH 10 ML FLUSH IV FLUSH SCH (08:37)
--- NOTE | 2017-03-24 09:08 | HHI.FPPN ---
Subjective Remarks Patient was afebrile overnight with no acute events and stable vital signs. Patient spoke to Case Management and would like to work on obtaining insurance. He complains of shortness of breath which began when his defibrillator fired in the ED on admission and continues such that the patient does not feel comfortable without oxygen. He denies any leg swelling or discomfort. He denies chest pain but felt "some flutters" last night. Denies symptoms of alcohol withdrawal, however required Ativan twice last night. (Khalida Waldron MD R3) Objective Vitals Vital Signs Date Time Temp Pulse Resp B/P Pulse Ox O2 Delivery O2 Flow Rate FiO2 03/24/17 08:14 64 03/24/17 07:00 59 03/24/17 07:00 97.7 54 16 142/89 99 03/24/17 06:00 60 03/24/17 05:00 61 03/24/17 04:00 63 03/24/17 04:00 97.8 62 16 130/68 98 03/24/17 03:00 61 03/24/17 02:00 60 03/24/17 01:00 60 03/24/17 00:00 55 03/23/17 23:00 64 03/23/17 22:00 64 03/23/17 21:00 62 03/23/17 20:57 98 21 03/23/17 20:00 97.9 68 16 151/75 98 03/23/17 20:00 70 03/23/17 19:00 66 03/23/17 18:00 69 03/23/17 17:04 72 03/23/17 16:33 67 03/23/17 15:16 Nasal Cannula 2.00 03/23/17 15:06 60 03/23/17 15:06 97.8 71 16 129/70 100 03/23/17 14:00 67 03/23/17 13:06 65 03/23/17 12:02 62 03/23/17 11:21 97.7 55 16 136/69 100 03/23/17 11:21 65 03/23/17 10:00 58 03/23/17 09:23 65 I/O 03/23/17 03/23/17 03/23/17 03/24/17 03/24/17 03/24/17 07:00 15:00 23:00 07:00 15:00 23:00 Intake Total 360 ml 2130 ml 240 ml Output Total 1000 ml 3650 ml 675 ml Balance -640 ml -1520 ml -435 ml Intake Oral 360 ml 960 ml 240 ml IV Total 1170 ml Output Urine Total 1000 ml 3650 ml 675 ml # Bowel Movements 1 0 (Khalida Waldron MD R3) Result Diagram: 03/23/17 0750 03/24/17 0515 Objective Remarks Gen.: No acute distress Head: Normocephalic. Atraumatic. EENT: Pupils equal round and reactive to light. Nose without drainage. Airway intact. Throat without injection. Cardiovascular: Regular rate and rhythm. No murmurs, rubs or gallops. Respiratory: Lungs clear to auscultation bilaterally. No wheezes or rhonchi. Abdomen: Soft, nontender, nondistended. No peritoneal signs. Musculoskeletal: No gross deformities. No edema. No calf swelling or tenderness. Negative homans sign. Skin: No obvious rashes or erythema. Neuro: Sensory and motor grossly intact. Cranial nerves II through XII grossly intact. Psych: Appropriate mood and affect (Khalida Waldron MD R3) Urinary Catheter: No (Khalida Waldron MD R3) Vascular Central Line Catheter: No (Khalida Waldron MD R3) A/P Assessment and Plan Mr. Inman is a 51-year-old male, with a past medical history of severe coronary artery disease / status post stents 3, alcohol abuse, type 2 diabetes mellitus, and hyperlipidemia, presenting to [place] emergency department after his cardiac defibrillator fired while he was at rest. On interrogation, he was found to have a short run of ventricular tachycardia. Discharge Planning To home today (Khalida Waldron MD R3) Attending Attestation Patient seen and examined. Case reviewed and discussed Agree with plan of care as discussed with me and documented in the resident note. Improved, tolerating PO Amio. 9 beat run VTach on telemetry No chest pain Counseled again extensively regarding alcohol and tobacco use as well as medication compliance (Aissatou Gilliam MD) Problem List: (1) Shortness of breath Status: Acute Plan: Patient complains of continued shortness of breath since his defibrillator firing. He has not tachypneic or hypoxic however does not feel comfortable unless he is wearing oxygen. Currently on 2 L nasal cannula. Stat d-dimer within normal limits. (2) AICD discharge Status: Acute Plan: Status post defibrillator discharge. Patient has been off all of his home medications including amiodarone, metoprolol, aspirin and Brilinta. Patient was started on amiodarone bolus and drip with good results, transitioned to by mouth. No further cardiac events. Restart home medications. Patient likely to be discharged today. Cardiology consulted, appreciate their recommendations. (3) Alcohol ingestion Status: Acute Plan: Patient showed no signs of alcohol withdrawal, appeared comfortable. Required 1mg of Ativan twice last night. CIWA protocol in place. We'll monitor for signs of delirium tremens. (4) Hypertension Status: Chronic Plan: Normotensive with medication. Continue home lisinopril 20 mg daily, spironolactone 25 mg BID, and Lasix 40 mg daily. Restarted beta gorge and oral amiodarone as per cardiology. Clonidine 0.1 mg PO q 6 hr systolic > 180 mm Hg. (5) Diabetes mellitus Status: Chronic Plan: Glucose on admission was 226. Start low dose insulin (NovoLOG sliding scale). Hold home metformin. (6) CAD (coronary artery disease) Status: Chronic Plan: Troponin on admission was 0.06, ACS rule out negative. EKG grossly unchanged since September 2016. Patient status post stent placement. Patient has been off his anticoagulation secondary to not having insurance. Restart antiplatelet therapy. (7) History of pulmonary embolus (PE) Status: Chronic Plan: Previous pulmonary embolism was after surgery on left leg (provoked). Since, has not had any issues with clotting. Given patient's persistent shortness of breath, obtaining stat d-dimer. (8) Disorders of fluid, electrolyte, and acid-base balance Status: Acute Plan: Fluids: NS 50 ml/hr (approximately half maintenance). DVT: Lovenox 40 mg SubQ daily. Nutrition: Reg meal as tolerated GI prophylaxis: Not indicated. (Khalida Waldron MD R3) Khalida Waldron MD R3 Mar 24, 2017 09:08 Aissatou Gilliam MD Mar 24, 2017 16:04
[2017-03-24] MEDS ORDERED: AMIO200T PO (11:06)
[2017-03-24] MEDS ORDERED: FURO40TA PO (11:06)
[2017-03-24] MEDS ORDERED: ATOR40TA16 PO (11:06)
[2017-03-24] MEDS ORDERED: LISI-515 PO (11:06)
[2017-03-24] MEDS ORDERED: SPIR25 PO (11:06)
[2017-03-24] MEDS ORDERED: METO-309 PO (11:06)
[2017-03-24] MEDS ORDERED: BRIL90TA PO (11:06)
[2017-03-24] MEDS ORDERED: METF500T PO (11:06)
[2017-03-24] MEDS ORDERED: ASPI81CH25 CHEW (11:06)
--- NOTE | 2017-03-24 11:07 | HHI.DCPOC ---
Discharge Care Plan Goals to Promote Your Health * To prevent worsening of your condition and complications take all medications as prescribed * To maintain your health at the optimal level follow all discharge instructions Directions to Meet Your Goals Take your medications as prescribed Follow your dietary instruction Follow activity as directed Keep your appointments as scheduled Take your immunizations and boosters as scheduled If your symptoms worsen call your PCP, if no PCP go to Urgent Care Center or Emergency Room Smoking is Dangerous to Your Health. Avoid second hand smoke Call the 24-hour hour crisis hotline for domestic abuse at Khalida Waldron MD R3 Mar 24, 2017 11:07
--- NOTE | 2017-03-24 11:13 | HHI.DS ---
Discharge Summary Admission Date Mar 22, 2017 at 12:25 Discharge Date: Mar 24, 2017 Admitting Diagnosis V FIB, V tach, defib firing,alcohol intox (1) Shortness of breath Diagnosis: Principal Plan: Patient complains of continued shortness of breath since his defibrillator firing. He has not tachypneic or hypoxic however does not feel comfortable unless he is wearing oxygen. Currently on 2 L nasal cannula. Stat d-dimer within normal limits. (2) AICD discharge Diagnosis: Principal Plan: Status post defibrillator discharge. Patient has been off all of his home medications including amiodarone, metoprolol, aspirin and Brilinta. Patient was started on amiodarone bolus and drip with good results, transitioned to by mouth. No further cardiac events. Restart home medications. Patient likely to be discharged today. Cardiology consulted, appreciate their recommendations. (3) Alcohol ingestion Diagnosis: Principal Plan: Patient showed no signs of alcohol withdrawal, appeared comfortable. Required 1mg of Ativan twice last night. CIWA protocol in place. We'll monitor for signs of delirium tremens. (4) Hypertension Diagnosis: Principal Plan: Normotensive with medication. Continue home lisinopril 20 mg daily, spironolactone 25 mg BID, and Lasix 40 mg daily. Restarted beta gorge and oral amiodarone as per cardiology. Clonidine 0.1 mg PO q 6 hr systolic > 180 mm Hg. (5) Diabetes mellitus Diagnosis: Principal Plan: Glucose on admission was 226. Start low dose insulin (NovoLOG sliding scale). Hold home metformin. (6) CAD (coronary artery disease) Diagnosis: Secondary Plan: Troponin on admission was 0.06, ACS rule out negative. EKG grossly unchanged since September 2016. Patient status post stent placement. Patient has been off his anticoagulation secondary to not having insurance. Restart antiplatelet therapy. (7) History of pulmonary embolus (PE) Diagnosis: Secondary Plan: Previous pulmonary embolism was after surgery on left leg (provoked). Since, has not had any issues with clotting. Given patient's persistent shortness of breath, obtaining stat d-dimer. [facility] Cardiology Brief History History of present illness: Patient is a 51 year old male with a past history of chronic alcohol use and coronary artery disease with prior placement of defibrillator. He presents today due to his defibrillator going off multiple times in the last 24 hours. He denied having any chest pain or shortness of breath yesterday but was experiencing these symptoms on exam as his defibrillator had just discharged again. He is currently experiencing a headache , is seeing some spots, feels dizzy, short of breath and has sharp chest pain which started following defibrillator discharge. He admitted to alcohol use, with his last drink being 2-3 cans of beer before 9am today, followed by his defibrillator discharging. He denied recently feeling ill, denied sick contacts , denied nausea, vomiting, and pain anywhere else. Patient smokes about one half packs of cigarettes per day but denied other recreational drug use. He does not follow with a primary care physician or cloth roll winder. CBC/BMP: 03/23/17 0750 03/24/17 0515 Significant Findings Laboratory Tests Test 03/22/17 03/22/17 03/22/17 03/23/17 10:25 16:35 22:38 07:50 Monocytes (%) (Auto) 8.5 % (0.0-8.0) 10.2 % (0.0-8.0) Carbon Dioxide Level 19.9 MEQ/L (21.0-32.0) Estimat Glomerular Filtration 66 ML/MIN (>89) 67 ML/MIN (>89) Rate Random Glucose 226 MG/DL 175 MG/DL (74-106) (74-106) Troponin I 0.06 NG/ML 0.07 NG/ML 0.06 NG/ML (0.02-0.05) (0.02-0.05) (0.02-0.05) Ethyl Alcohol Level 85 MG/DL (0-5) Hemoglobin A1c 7.7 % (4.3-6.0) Calcium Level 8.2 MG/DL (8.5-10.1) Albumin 3.2 GM/DL (3.4-5.0) Test 03/24/17 05:15 Estimat Glomerular Filtration 63 ML/MIN (>89) Rate Random Glucose 180 MG/DL (74-106) Imaging Last Impressions Chest X-Ray 03/22/17 1349 Signed Impressions: Service Date/Time: Wednesday, March 22, 2017 13:59 - CONCLUSION: Pacer, otherwise negative. Juarez Miguel MD FACR PE at Discharge Gen.: No acute distress Head: Normocephalic. Atraumatic. EENT: Pupils equal round and reactive to light. Nose without drainage. Airway intact. Throat without injection. Cardiovascular: Regular rate and rhythm. No murmurs, rubs or gallops. Respiratory: Lungs clear to auscultation bilaterally. No wheezes or rhonchi. Abdomen: Soft, nontender, nondistended. No peritoneal signs. Musculoskeletal: No gross deformities. No edema. No calf swelling or tenderness. Negative homans sign. Skin: No obvious rashes or erythema. Neuro: Sensory and motor grossly intact. Cranial nerves II through XII grossly intact. Psych: Appropriate mood and affect Hospital Course Patient admitted from the emergency department where he experienced several discharges of his AICD secondary to ventricular fibrillation. Was started on an amiodarone bolus/drip. He responded clinically and remained in sinus rhythm. His home medications were started including furosemide, metoprolol, brilinta and the patient was transitioned to by mouth amiodarone after 24 hours on the amiodarone drip without any dysrhythmias. The patient did have persistent shortness of breath however a d-dimer was negative and he never became hypoxic. He was discharged in stable condition with refills of his home medications and extensive counseling as to the importance of medication compliance, and follow-up with both cardiology and PCP. Pt Condition on Discharge: Stable Discharge Disposition: Discharge Home Discharge Instructions DIET: Follow Instructions for: Heart Healthy Diet Activities you can perform: Regular-No Restrictions Follow up Referrals: Cardiology - 2 Weeks with Kuldip Moser MD PCP Follow-up - 1 Week New Medications: Amiodarone (Amiodarone) 200 Mg Tab 200 MG PO Q12HR #60 TAB Aspirin (Aspirin Low Strength) 81 Mg Chew 81 MG CHEW DAILY #30 EA Atorvastatin (Atorvastatin) 40 Mg Tab 40 MG PO HS #30 TAB Furosemide (Furosemide) 40 Mg Tab 40 MG PO DAILY #30 TAB Lisinopril (Lisinopril) 20 Mg Tab 20 MG PO DAILY #30 TAB Metoprolol Tartrate (Lopressor) 50 Mg Tab 50 MG PO Q12HR #60 TAB Spironolactone (Aldactone) 25 Mg Tab 25 MG PO DAILY #30 TAB Ticagrelor (Brilinta) 90 Mg Tab 90 MG PO BID #60 TAB Continued Medications: Amiodarone (Amiodarone) 200 Mg Tab 200 MG PO DAILY control heart rythem Days 30 TAB Metformin (Metformin) 500 Mg Tab 500 MG PO BIDPC With meals Blood Sugar Management #60 Ref 0 TAB (This prescription has been renewed) Metoprolol Tartrate (Lopressor) 50 Mg Tab 50 MG PO BID control heart rhythm Days 30 TAB Potassium Chloride ER (Potassium Chloride ER) 20 Meq Tab 20 MEQ PO DAILY Electrolyte Replacement #7 Ref 0 TAB Discontinued Medications: Aspirin (Aspirin) 81 Mg Chew 81 MG CHEW DAILY Ref 0 TAB Atorvastatin (Lipitor) 10 Mg Tab 40 MG PO HS Cholesterol Management Days 30 TAB Furosemide (Lasix) 40 Mg Tab 40 MG PO DAILY CHF Days 30 TAB Lisinopril (Lisinopril) 20 Mg Tab 20 MG PO DAILY Blood Pressure Management #30 TAB Spironolactone (Aldactone) 25 Mg Tab 25 MG PO DAILY #30 Ref 0 TAB Ticagrelor (Brilinta) 90 Mg Tab 90 MG PO BID Blood Clot Prevention #60 Ref 3 TAB Khalida Waldron MD R3 Mar 24, 2017 11:13
== END 2017-03-24 13:46 | disposition home or self-care (01) | DRG 309 ==
LOC: NEPE 09:59 → NEDA 12:25 → HCIS 15:23
PROVIDERS: ADMIT Family Medicine; ATTEND Family Medicine
DX: I47.2 Ventricular tachycardia (principal); F10.239 Alcohol dependence with withdrawal, unspecified; I25.82 Chronic total occlusion of coronary artery; I10 Essential (primary) hypertension; F17.210 Nicotine dependence, cigarettes, uncomplicated; I25.10 Atherosclerotic heart disease of native coronary artery without angina pectoris; E11.9 Type 2 diabetes mellitus without complications; F10.229 Alcohol dependence with intoxication, unspecified; E78.5 Hyperlipidemia, unspecified; Z91.19 Patient's noncompliance with other medical treatment and regimen; Z79.84 Long term (current) use of oral hypoglycemic drugs; Z79.01 Long term (current) use of anticoagulants; Z95.5 Presence of coronary angioplasty implant and graft; Y90.4 Blood alcohol level of 80-99 mg/100 ml; Z95.810 Presence of automatic (implantable) cardiac defibrillator; Z86.711 Personal history of pulmonary embolism; I25.2 Old myocardial infarction
CPT/HCPCS: 71010; 80048; 80053; 80307; 82550; 82552; 82948; 83036; 83735; 84484; 85025; 85379; 85610; 85730; 93005; 94150; J0282; J1650; J1815; J2060; J7030; J7060

== ENCOUNTER 2017-04-05 04:00 | Observation (INO) | payer OTHER ==
[~2017-04-05] VITALS: Ht 175.3 cm; Wt 82.0 kg
[~2017-04-05 04:00] MED LIST changes: -ASPI81CH CHEW; +ASPI81CH25 CHEW; +ATOR40TA16 PO; -FURO1TAB60 PO; +FURO40TA PO; -LIPI10TA PO; +SPIR25 PO; -Spironolactone PO
[2017-04-05 04:04] VITALS: BP 152/84; PULSE 70; RESP 17; TEMP 98.6; O2SAT 99
--- NOTE | 2017-04-05 04:38 | PD ---
HPI Chief Complaint: Chest Pain Time Seen by Provider: 04:16 Travel History International Travel<30 days: No Contact w/Intl Traveler<30days: No Traveled to known affect area: No History of Present Illness HPI The patient is a 51-year-old male that complains of a sharp chest pain in the left anterior chest since 2:00 this morning. He does have shortness of breath but denies any nausea or diaphoresis. He states he has numbness on the right arm. He denies any syncopal or near syncopal spells. The patient does have a history of coronary artery disease and does have an internal defibrillator in place. He does smoke one fourth pack a day, have elevated cholesterol, hypertension and ike-[id number] diabetes. He is already had 3 coronary stents. He also has a history of congestive heart failure. His last stress test was over a year ago. He does not have a tube worker or primary care physician and does not have insurance. He states he is currently applying for disability. PFSH Past Medical History Hx Anticoagulant Therapy: Yes (BRILINTA) Arthritis: No Heart Rhythm Problems: Yes Cancer: No Cardiac Catheterization: Yes Cardiovascular Problems: Yes High Cholesterol: Yes Chest Pain: Yes Congestive Heart Failure: Yes Diabetes: Yes Patient Takes Glucophage: Yes Diminished Hearing: No Endocrine: Yes Gastrointestinal Disorders: No Genitourinary: No Hypertension: Yes Immune Disorder: No Implanted Vascular Access Dvce: Yes Musculoskeletal: No Neurologic: No Psychiatric: No Reproductive: No Respiratory: Yes (smoker) Immunizations Current: Yes Thyroid Disease: No Tetanus Vaccination: < 5 Years Influenza Vaccination: Yes Past Surgical History Abdominal Surgery: No AICD: Yes Cardiac Surgery: Yes (CATH W/STENTS) Coronary Stent: Yes (X3) Ear Surgery: No Endocrine Surgery: No Eye Surgery: No Genitourinary Surgery: No Neurologic Surgery: No Oral Surgery: No Thoracic Surgery: Yes (AICD ON 08/2016) Other Surgery: Yes Social History Alcohol Use: Yes (OCC) Tobacco Use: Yes (3-4 CIG/DAY) Substance Use: No Allergies-Medications (Allergen,Severity, Reaction): Coded Allergies: No Known Allergies (Unverified , 04/05/17) Reported Meds & Prescriptions Reported Meds & Active Scripts Active Brilinta (Ticagrelor) 90 Mg Tab 90 Mg PO BID Lisinopril 20 Mg Tab 20 Mg PO DAILY Furosemide 40 Mg Tab 40 Mg PO DAILY Atorvastatin (Atorvastatin Calcium) 40 Mg Tab 40 Mg PO HS Aspirin Low Strength (Aspirin) 81 Mg Chew 81 Mg CHEW DAILY Metformin (Metformin HCl) 500 Mg Tab 500 Mg PO BIDPC With meals Lopressor (Metoprolol Tartrate) 50 Mg Tab 50 Mg PO BID 30 Days Amiodarone (Amiodarone HCl) 200 Mg Tab 200 Mg PO DAILY 30 Days Review of Systems Except as stated in HPI: all other systems reviewed are Neg Physical Exam Narrative GENERAL: The patient is alert, oriented 3 and minimal apparent distress with his chest discomfort. His vital signs show blood pressure 152/84 but are otherwise normal. SKIN: Focused skin assessment warm/dry. HEAD: Atraumatic. Normocephalic. EYES: Pupils equal and round. No scleral icterus. No injection or drainage. ENT: No nasal bleeding or discharge. Mucous membranes pink and moist. NECK: Trachea midline. No JVD. No neck vein distention is noted. CARDIOVASCULAR: Regular rate and rhythm. No murmur appreciated. RESPIRATORY: No accessory muscle use. Clear to auscultation. Breath sounds equal bilaterally. GASTROINTESTINAL: Abdomen soft, non-tender, nondistended. Hepatic and splenic margins not palpable. MUSCULOSKELETAL: No obvious deformities. No clubbing. No cyanosis. No edema. I cannot reproduce the patient's chest pain by pressing on the chest wall. NEUROLOGICAL: Awake and alert. No obvious cranial nerve deficits. Motor grossly within normal limits. Normal speech. PSYCHIATRIC: Appropriate mood and affect; insight and judgment normal. Data Data Last Documented VS Vital Signs Date Time Temp Pulse Resp B/P Pulse Ox O2 Delivery O2 Flow Rate FiO2 04/05/17 06:20 63 18 139/77 97 Room Air 04/05/17 04:04 98.6 Orders Electrocardiogram (04/05/17 04:33) B-Type Natriuretic Peptide (04/05/17 04:33) Complete Blood Count With Diff (04/05/17 04:33) Comprehensive Metabolic Panel (04/05/17 04:33) Magnesium (Mg) (04/05/17 04:33) Prothrombin Time / Inr (Pt) (04/05/17 04:33) Act Partial Throm Time (Ptt) (04/05/17 04:33) Troponin I (04/05/17 04:33) Ecg Monitoring (04/05/17 04:33) Bilateral Bp Monitoring (04/05/17 04:33) Iv Access Insert/Monitor (04/05/17 04:33) Oximetry (04/05/17 04:33) Oxygen Administration (04/05/17 04:33) Aspirin Chew (Aspirin Chew) (04/05/17 04:45) Sodium Chloride 0.9% Flush (Ns Flush) (04/05/17 04:45) Nitroglycerin Sl (Nitrostat Sl) (04/05/17 04:45) Chest, Pa & Lat (04/05/17 04:33) Labs Laboratory Tests Test 04/05/17 04:41 White Blood Count 8.8 TH/MM3 Red Blood Count 4.64 MIL/MM3 Hemoglobin 15.0 GM/DL Hematocrit 43.3 % Mean Corpuscular Volume 93.2 FL Mean Corpuscular Hemoglobin 32.4 PG Mean Corpuscular Hemoglobin 34.7 % Concent Red Cell Distribution Width 13.1 % Platelet Count 269 TH/MM3 Mean Platelet Volume 9.2 FL Neutrophils (%) (Auto) 57.1 % Lymphocytes (%) (Auto) 30.1 % Monocytes (%) (Auto) 10.0 % Eosinophils (%) (Auto) 1.5 % Basophils (%) (Auto) 1.3 % Neutrophils # (Auto) 5.0 TH/MM3 Lymphocytes # (Auto) 2.6 TH/MM3 Monocytes # (Auto) 0.9 TH/MM3 Eosinophils # (Auto) 0.1 TH/MM3 Basophils # (Auto) 0.1 TH/MM3 CBC Comment DIFF FINAL Differential Comment Prothrombin Time 10.2 SEC Prothromb Time International 0.9 RATIO Ratio Activated Partial 25.4 SEC Thromboplast Time Sodium Level 138 MEQ/L Potassium Level 4.1 MEQ/L Chloride Level 105 MEQ/L Carbon Dioxide Level 25.9 MEQ/L Anion Gap 7 MEQ/L Blood Urea Nitrogen 18 MG/DL Creatinine 1.38 MG/DL Estimat Glomerular Filtration 55 ML/MIN Rate Random Glucose 137 MG/DL Calcium Level 8.6 MG/DL Magnesium Level 2.0 MG/DL Total Bilirubin 0.6 MG/DL Aspartate Amino Transf 31 U/L (AST/SGOT) Alanine Aminotransferase 28 U/L (ALT/SGPT) Alkaline Phosphatase 56 U/L Troponin I 0.04 NG/ML Total Protein 7.2 GM/DL Albumin 3.7 GM/DL MDM Medical Decision Making Medical Screen Exam Complete: Yes Emergency Medical Condition: Yes Medical Record Reviewed: Yes Interpretation(s) The CBC is normal. The coagulation profile is normal. The complete metabolic profile shows a creatinine of 1.38, GFR of 55, glucose of 137 but is otherwise unremarkable. The troponin I is normal. Differential Diagnosis Unstable angina, acute coronary syndrome, chest wall pain, pleuritic pain, gastrointestinal pain, electrolyte disorder, anemia, renal insufficiency, congestive heart failure Narrative Course The patient has chest pain etiology undetermined. He will be admitted to the chest pain center. He has numerous risk factors and a stress test over a year may be out of date for this individual. Diagnosis Primary Impression: Chest pain of unknown etiology Admitting Information Admitting Physician Requests: Observation Emmanuel Rosenbaum MD Apr 05, 2017 04:38 Admitting Physician Requests: Observation Emmanuel Rosenbaum MD Apr 05, 2017 04:38
[2017-04-05] MEDS ORDERED: ASPIRIN 81 MG CHEW TAB PO ONE (04:45)
[2017-04-05] MEDS ORDERED: SODIUM CHLORIDE 0.9% FLUSH 10 ML FLUSH IVF PRN (04:45)
[2017-04-05 04:51] LABS: BASOPHIL # 0.1 TH/MM3 (0-0.2); BASOPHIL % 1.3 % (0.0-2.0); EOSINOPHIL # 0.1 TH/MM3 (0-0.4); EOSINOPHIL % 1.5 % (0.0-4.0); HEMATOCRIT 43.3 % (39.0-51.0); HEMO FLAGS DIFF FINAL; LYMPH % 30.1 % (9.0-44.0); LYMPHOCYTE # 2.6 TH/MM3 (1.0-4.8); MEAN CELL VOLUME 93.2 FL (80.0-100.0); MEAN CORPUSCULAR HEMOGLOBIN 32.4 PG (27.0-34.0); MEAN CORPUSCULAR HGB CONC 34.7 % (32.0-36.0); NEUT % 57.1 % (16.0-70.0); PLATELET COUNT 269 TH/MM3 (150-450); RED BLOOD COUNT 4.64 MIL/MM3 (4.50-5.90); RED CELL DISTRIBUTION WIDTH 13.1 % (11.6-17.2); WHITE BLOOD COUNT 8.8 TH/MM3 (4.0-11.0)
[2017-04-05] MEDS: NITROGLYCERIN 0.4 MG SL 25 TABS/BTL SL SCH ×3 (04:54→05:03)
[2017-04-05 05:03] VITALS: BP 116/73; PULSE 60; RESP 18; O2SAT 97
[2017-04-05 05:11] LABS: APTT (PATIENT) 25.4 SEC (24.3-30.1); INTERNATIONAL NORMALIZED RATIO 0.9 RATIO; PROTHROMBIN TIME - PATIENT 10.2 SEC (9.8-11.6)
[2017-04-05 05:13] LABS: ALT (GPT) 28 U/L (12-78); ANION GAP 7 MEQ/L (5-15); AST (GOT) 31 U/L (15-37); BICARBONATE 25.9 MEQ/L (21.0-32.0); BLOOD UREA NITROGEN 18 MG/DL (7-18); CHLORIDE 105 MEQ/L (98-107); GLOMERULAR FILTRATION RATE 55 ML/MIN (>89); SODIUM (NA) 138 MEQ/L (136-145)
[2017-04-05 05:14] LABS: POTASSIUM 4.1 MEQ/L (3.5-5.1)
--- NOTE | 2017-04-05 05:14 | RADRPT ---
EXAM DATE/TIME: 04/05/2017 04:46 [facility] COMPARISON: No previous studies available for comparison. INDICATIONS : Pt. having chest pain and right arm numbness this morning. MEDICAL HISTORY : Congestive heart failure. Diabetes mellitus type II. Hypertension. Coronary artery stent SURGICAL HISTORY : Pacemaker. ENCOUNTER: Initial ACUITY: 1 day PAIN SCORE: 7/10 LOCATION: Bilateral chest FINDINGS: PA and lateral views of the chest demonstrate the lungs to be symmetrically aerated without evidence of mass, infiltrate or effusion. The cardiomediastinal contours are unremarkable. Osseous structure s are intact. Cardiac pacer again noted. CONCLUSION: No acute cardiopulmonary disease demonstrated. Star Herrmann MD on April 05, 2017 at 5:12 Board Certified Radiologist. This report was verified electronically.
[2017-04-05 05:15] LABS: ALKALINE PHOSPHATASE 56 U/L (45-117); TOTAL BILIRUBIN ADULT 0.6 MG/DL (0.2-1.0)
[2017-04-05 06:20] VITALS: BP 139/77; PULSE 63; RESP 18; O2SAT 97
[2017-04-05 07:51] VITALS: BP 149/85; PULSE 69; RESP 15; TEMP 97.9; O2SAT 99
[2017-04-05] MEDS ORDERED: TICAGRELOR 90 MG TAB PO SCH (09:00)
[2017-04-05] MEDS ORDERED: PANTOPRAZOLE SOD 40 MG DELAYED RELEASE TAB PO SCH (09:00)
[2017-04-05] MEDS ORDERED: ACETAMINOPHEN/HYDROcodone 325 MG/7.5 MG TAB PO PRN (09:00)
[2017-04-05] MEDS ORDERED: LISINOPRIL 20 MG TAB PO SCH (09:00)
[2017-04-05] MEDS ORDERED: SODIUM CHLORIDE 0.9% FLUSH 5 ML FLUSH IVF PRN (09:00)
[2017-04-05] MEDS ORDERED: ACETAMINOPHEN 500 MG CPLT PO PRN (09:00)
[2017-04-05] MEDS ORDERED: ONDANSETRON HCL 4 MG/2 ML VIAL IV PRN (09:00)
[2017-04-05] MEDS ORDERED: AMIODARONE 200 MG TAB PO SCH (09:00)
[2017-04-05] MEDS ORDERED: METOPROLOL TARTRATE 50 MG TAB PO SCH (09:00)
[2017-04-05] MEDS ORDERED: SODIUM CHLORIDE 0.9% FLUSH 5 ML FLUSH IVF SCH (09:00)
[2017-04-05] MEDS ORDERED: FUROSEMIDE 40 MG TAB PO SCH (09:00)
[2017-04-05 09:07] VITALS: BP 138/70; PULSE 67; RESP 16; TEMP 98; O2SAT 100
[2017-04-05 09:38] LABS: CREATINE KINASE 119 U/L (39-308)
[2017-04-05 09:52] LABS: CKMB 0.8 NG/ML (0.5-3.6)
--- NOTE | 2017-04-05 09:57 | HHI.HP ---
HPI Primary Care Physician No Primary Care Physician Chief Complaint Chest pain History of Present Illness This is a 51-year-old male with history of coronary artery disease and cardiomyopathy with history of a defibrillator as well as stents. He presents to ED with a complaint of feeling weird when he woke up this morning. Did not specifically have chest discomfort but felt as if his defibrillator was about the fire. He has a hard time describing that sensation. He was in the hospital earlier this month for chest pain and for his defibrillator firing. He was seen in consultation by cardiology. He had at that time not been compliant with his medications and was placed back on his medications. He does not believe the defibrillator has fired since. He does not follow election watcher and states he has no primary care physician. He states he is uninsured. Review of Systems General: Patient denies fevers, chills recent, and recent travel HEENT: Patient denies headache, sore throat, difficulty swallowing. Cardiovascular: Has the chest discomfort as mentioned above. Denies sensation of heart beating rapidly or irregularly. No syncope. [place] like he could pass out. Respiratory: Denies shortness of breath or inspirational chest discomfort. Denies coughing wheezing or hemoptysis. GI: Patient denies nausea, vomiting, diarrhea, abdominal pain, bloody stools. Musculoskeletal: Patient denies joint pain or edema. Denies calf pain or edema. Neurovascular: Patient denies numbness, tingling, weakness in extremities. Denies headache. Endocrine: Denies polyuria and polydipsia. Hematologic: Denies easy bruising. Skin: Denies rash or itching. Past Family Social History Allergies: Coded Allergies: No Known Allergies (Unverified , 04/05/17) Past Medical History Coronary disease with stenting. Last stent was in April 2016. Last cardiac catheterization was August 2016 and at that time stent was patent and other coronary arteries were normal. Hypertension, cardiomyopathy, hyperlipidemia, diabetes, tobacco abuse, and alcohol abuse. Past Surgical History Cardiac catheterizations with stenting. Defibrillator. Reported Medications Reported Meds & Active Scripts Active Brilinta (Ticagrelor) 90 Mg Tab 90 Mg PO BID Lisinopril 20 Mg Tab 20 Mg PO DAILY Furosemide 40 Mg Tab 40 Mg PO DAILY Atorvastatin (Atorvastatin Calcium) 40 Mg Tab 40 Mg PO HS Aspirin Low Strength (Aspirin) 81 Mg Chew 81 Mg CHEW DAILY Metformin (Metformin HCl) 500 Mg Tab 500 Mg PO BIDPC With meals Lopressor (Metoprolol Tartrate) 50 Mg Tab 50 Mg PO BID 30 Days Amiodarone (Amiodarone HCl) 200 Mg Tab 200 Mg PO DAILY 30 Days Active Ordered Medications Current Medications Medications (Trade) Dose Ordered Sig/Karma Route Start Time Stop Time Status Last Admin (Cordarone) 200 mg DAILY PO 04/05/17 09:00 (Lipitor) 40 mg HS PO 04/05/17 21:00 (Lasix) 40 mg DAILY PO 04/05/17 09:00 (Prinivil) 20 mg DAILY PO 04/05/17 09:00 (Lopressor) 50 mg BID PO 04/05/17 09:00 (Brilinta) 90 mg BID PO 04/05/17 09:00 (NS Flush) 2 ml UNSCH PRN IVF 04/05/17 09:00 (NS Flush) 2 ml BID IVF 04/05/17 09:00 (Tylenol) 500 mg Q4H PRN PO 04/05/17 09:00 ([place] 7.5-325 Mg) 1 tab Q4H PRN PO 04/05/17 09:00 (Zofran Inj) 4 mg Q6H PRN IV 04/05/17 09:00 (Protonix) 40 mg DAILY PO 04/05/17 09:00 (Aspirin) 325 mg DAILY PO 04/06/17 09:00 Family History There is family history of CAD. Social History Patient continues to smoke cigarettes. He smokes about one quarter pack a day. He drinks alcohol but will not elaborate how much. Denies illicit drugs. Physical Exam Vital Signs Vital Signs Date Time Temp Pulse Resp B/P Pulse Ox O2 Delivery O2 Flow Rate FiO2 04/05/17 09:07 98.0 67 16 138/70 100 04/05/17 07:51 97.9 69 15 149/85 99 Room Air 04/05/17 06:20 63 18 139/77 97 Room Air 04/05/17 05:03 60 18 116/73 97 Room Air 04/05/17 04:06 Room Air 04/05/17 04:04 98.6 70 17 152/84 99 Physical Exam GENERAL: This is a well-nourished, well-developed patient, in no apparent distress. Patient speaks in clear complete sentences. Patient is pleasant. HEENT: Head is atraumatic and normocephalic. Neck is supple without lymphadenopathy and trachea is midline. No JVD or carotid bruits. CARDIOVASCULAR: Regular rate and rhythm without murmurs, gallops, or rubs. RESPIRATORY: Clear to auscultation. Breath sounds equal bilaterally. No wheezes , rales, or rhonchi. Chest wall is nontender. No use of accessory muscles. GASTROINTESTINAL: Abdomen is nontender, nondistended. Abdomen soft. No obvious pulsatile mass or bruit. No CVA tenderness. Strong femoral pulses bilaterally. Normal bowel sounds in all quadrants. MUSCULOSKELETAL: Patient is moving upper and lower extremities freely. No calf tenderness or edema, no Homans sign. Strong pulses in upper and lower extremities. NEUROLOGICAL: Patient is alert and oriented. Cranial nerves 2-12 are grossly intact. No focal deficits and speech is clear. SKIN: No rash and turgor is normal. Laboratory Laboratory Tests Test 04/05/17 04/05/17 04:41 08:12 White Blood Count 8.8 Red Blood Count 4.64 Hemoglobin 15.0 Hematocrit 43.3 Mean Corpuscular Volume 93.2 Mean Corpuscular Hemoglobin 32.4 Mean Corpuscular Hemoglobin 34.7 Concent Red Cell Distribution Width 13.1 Platelet Count 269 Mean Platelet Volume 9.2 Neutrophils (%) (Auto) 57.1 Lymphocytes (%) (Auto) 30.1 Monocytes (%) (Auto) 10.0 Eosinophils (%) (Auto) 1.5 Basophils (%) (Auto) 1.3 Neutrophils # (Auto) 5.0 Lymphocytes # (Auto) 2.6 Monocytes # (Auto) 0.9 Eosinophils # (Auto) 0.1 Basophils # (Auto) 0.1 CBC Comment DIFF FINAL Differential Comment Prothrombin Time 10.2 Prothromb Time International 0.9 Ratio Activated Partial 25.4 Thromboplast Time Sodium Level 138 Potassium Level 4.1 Chloride Level 105 Carbon Dioxide Level 25.9 Anion Gap 7 Blood Urea Nitrogen 18 Creatinine 1.38 Estimat Glomerular Filtration 55 Rate Random Glucose 137 Calcium Level 8.6 Magnesium Level 2.0 Total Bilirubin 0.6 Aspartate Amino Transf 31 (AST/SGOT) Alanine Aminotransferase 28 (ALT/SGPT) Alkaline Phosphatase 56 Troponin I 0.04 0.03 Total Protein 7.2 Albumin 3.7 Total Creatine Kinase 119 Result Diagram: 04/05/17 0441 04/05/17 0441 Imaging Last 24 hours Impressions Chest X-Ray 04/05/17 0433 Signed Impressions: Service Date/Time: Wednesday, April 05, 2017 04:46 - CONCLUSION: No acute cardiopulmonary disease demonstrated. Star Herrmann MD Course EKGs have sinus rhythm without significant ST segment depressions or elevations. Assessment and Plan Assessment and Plan * Atypical chest pain: Patient is denying chest pain to me. He states he had a weird feeling. He has been seen by Dr. Nico Ha of cardiology in the chest pain center. His defibrillator will be interrogated. The plan will be as follows: If defibrillator has fired since his last admission he will have a stress test. If the defibrillator has not fired he will have serial cardiac enzymes and EKGs for ruling out purposes and will be discharged home. He needs to follow-up with local primary care doctor as well as a election watcher. * Cardiomyopathy: Patient has a defibrillator. Continue current medications. Follow-up with her election watcher. * Hypertension: Continue current medication. * Hyperlipidemia: Continue current medication. * Diabetes: Continue current medication. * Tobacco abuse: Patient has been counseled on the importance of smoking cessation. Patient is stable at this time. He is agreeable to this plan. Jeremy Urias Apr 05, 2017 09:57
--- NOTE | 2017-04-05 10:25 | HHI.DCPOC ---
Discharge Care Plan Diagnosis: (1) Chest pain (2) CAD (coronary artery disease) (3) Tobacco use disorder (4) Diabetes mellitus (5) H/O heart artery stent (6) Hypertension (7) Hyperlipidemia (8) Cardiomyopathy Goals to Promote Your Health * To prevent worsening of your condition and complications * To maintain your health at the optimal level Directions to Meet Your Goals Take your medications as prescribed Follow your dietary instruction Follow activity as directed Keep your appointments as scheduled Take your immunizations and boosters as scheduled If your symptoms worsen call your PCP, if no PCP go to Urgent Care Center or Emergency Room Smoking is Dangerous to Your Health. Avoid second hand smoke Call the 24-hour hour crisis hotline for domestic abuse at Jeremy Urias Apr 05, 2017 10:25
--- NOTE | 2017-04-05 15:01 | EKG ---
Date Performed: 04/05/2017 Time Performed: 04:06:47 PTAGE: 51 years EKG: Sinus rhythm POSSIBLE INFERIOR MYOCARDIAL INFARCTION ABNORMAL ECG PREVIOUS TRACING : 03/22/2017 21.51 Since previous tracing, no significant change noted DOCTOR: Nico Ha Interpretating Date/Time 04/05/2017 14:59:37
--- NOTE | 2017-04-05 15:03 | EKG ---
Date Performed: 04/05/2017 Time Performed: 08:05:33 PTAGE: 51 years EKG: Sinus rhythm NONSPECIFIC T-WAVE ABNORMALITY BORDERLINE ECG OLD INFERIOR [place] PREVIOUS TRACING : 04/05/2017 04.06 Since previous tracing, no significant change noted DOCTOR: Nico Ha Interpretating Date/Time 04/05/2017 15:02:12
[2017-04-05] MEDS ORDERED: ATORVASTATIN 40 MG TAB PO SCH (21:00)
[2017-04-06] MEDS ORDERED: ASPIRIN 325 MG TAB PO SCH (09:00)
== END 2017-04-05 11:20 | disposition home or self-care (01) ==
LOC: NEPC 04:00 → NEDA 06:34 → NEPFCDU 08:33
PROVIDERS: ADMIT Family Medicine; ATTEND Family Medicine
DX: R07.89 Other chest pain (principal); R06.02 Shortness of breath; R94.31 Abnormal electrocardiogram [ECG] [EKG]; R20.0 Anesthesia of skin; I42.9 Cardiomyopathy, unspecified; I25.10 Atherosclerotic heart disease of native coronary artery without angina pectoris; I11.0 Hypertensive heart disease with heart failure; I50.9 Heart failure, unspecified; E78.00 Pure hypercholesterolemia, unspecified; E78.5 Hyperlipidemia, unspecified; E11.9 Type 2 diabetes mellitus without complications; F17.210 Nicotine dependence, cigarettes, uncomplicated; F10.10 Alcohol abuse, uncomplicated; Z79.899 Other long term (current) drug therapy; Z79.82 Long term (current) use of aspirin; Z79.01 Long term (current) use of anticoagulants; Z95.5 Presence of coronary angioplasty implant and graft; Z95.810 Presence of automatic (implantable) cardiac defibrillator; Z82.49 Family history of ischemic heart disease and other diseases of the circulatory system
CPT/HCPCS: 71020; 80053; 82550; 82552; 83735; 83880; 84484; 85025; 85610; 85730; 93005; 99285; G0378

== ENCOUNTER 2017-12-06 16:52 | Emergency (ER) | payer OTHER ==
[~2017-12-06 16:52] MED LIST changes: -POTA-163 PO; -SPIR25 PO
[2017-12-06 16:54] VITALS: BP 128/88; PULSE 92; RESP 18; TEMP 98.1; O2SAT 97
[2017-12-06] MEDS ORDERED: SODIUM CHLOR 0.9% 1000 ML INJ 1,000 ML IV SCH (17:28)
[2017-12-06] MEDS ORDERED: KETOROLAC TROMETHAMINE 30 MG/ML (IVP) VIAL IVP ONE (17:30)
[2017-12-06] MEDS ORDERED: SODIUM CHLORIDE 0.9% FLUSH 10 ML FLUSH IV FLUSH PRN (17:30)
[2017-12-06] MEDS ORDERED: CLINDAMYCIN 600 MG/NS PREMIX 50 ML IV ONE (17:30)
--- NOTE | 2017-12-06 17:38 | PD ---
HPI Chief Complaint: General Weakness Time Seen by Provider: 17:26 Travel History International Travel<30 days: No Contact w/Intl Traveler<30days: No Traveled to known affect area: No History of Present Illness HPI 51-year-old male presents emergency department with history of dental pain and swelling to the right lower jaw for 4 days. Patient states this has gotten worse in the past 4 days. He denies significant fever but has had chills. He also states bilateral lower extremity weakness which is worsened in the past 2 days. He has overall malaise is weakness as well. He denies back pain or changes in his bowel or bladder. He denies abdominal pain or chest pain. Pain notes the swelling in the right jaw is extended down into the neck. He denies difficulty swallowing however. Pain in the face is about an 8 out of 10. He has no pain in the lower extremities unless he is walking any distance. He has had no nausea or vomiting. He has had no diarrhea. He has no known drug allergies. PFSH Past Medical History Hx Anticoagulant Therapy: Yes (BRILINTA) Arthritis: No Heart Rhythm Problems: Yes Cancer: No Cardiac Catheterization: Yes Cardiovascular Problems: Yes (DEFIBRILATOR) High Cholesterol: Yes Chest Pain: Yes Congestive Heart Failure: No Diabetes: Yes Diminished Hearing: No Endocrine: Yes Gastrointestinal Disorders: No Genitourinary: No Hypertension: Yes Immune Disorder: No Implanted Vascular Access Dvce: Yes Musculoskeletal: No Neurologic: No Psychiatric: No Reproductive: No Respiratory: Yes (smoker) Immunizations Current: Yes Thyroid Disease: No Past Surgical History Abdominal Surgery: No AICD: Yes Cardiac Surgery: Yes (CATH W/STENTS) Coronary Artery Bypass Graft: No Coronary Stent: Yes (X3) Ear Surgery: No Endocrine Surgery: No Eye Surgery: No Genitourinary Surgery: No Neurologic Surgery: No Oral Surgery: No Thoracic Surgery: Yes (AICD ON 08/2016) Other Surgery: Yes Social History Alcohol Use: Yes (OCC) Tobacco Use: Yes (3-4 CIG/DAY) Substance Use: No Allergies-Medications (Allergen,Severity, Reaction): Coded Allergies: No Known Allergies (Unverified Allergy, Unknown, 12/13/17) Uncoded Allergies: IMPLANTED DEFIBRILLATOR (Adverse Reaction, Severe, 12/13/17) Non-conditional Biotronik implanted defibrilator. Not MRI conditional. AW 12/13/17 Reported Meds & Prescriptions Reported Meds & Active Scripts Active Metformin (Metformin HCl) 500 Mg Tab 500 Mg PO BIDPC With meals Lopressor (Metoprolol Tartrate) 50 Mg Tab 50 Mg PO BID 30 Days Reported Amlodipine (Amlodipine Besylate) 2.5 Mg Tab 2.5 Mg PO DAILY Spironolactone 25 Mg Tab 25 Mg PO DAILY Lisinopril 40 Mg Tab 40 Mg PO DAILY Review of Systems Except as stated in HPI: all other systems reviewed are Neg General / Constitutional: Positive: Fever, Chills Eyes: No: Visual changes HENT: Positive: Headaches (Subjective), Lightheadedness, Dental Difficulties, No: Vertigo, Sore Throat, Rhinitis, Rhinorrhea, Congestion, Nosebleed, Neck Stiffness, Neck Pain, Earache Cardiovascular: No: Chest Pain or Discomfort Respiratory: No: Cough (See history present), Shortness of Breath, Wheezing Gastrointestinal: Positive: Nausea, No: Vomiting, Diarrhea, Abdominal Pain Genitourinary: No: Urgency, Frequency, Dysuria Musculoskeletal: Positive: Myalgias, Weakness, No: Arthralgias, Limited ROM ( See history of present), Pain Skin: No Rash Neurologic: No: Weakness Psychiatric: No: Depression Endocrine: No: Polydipsia Hematologic/Lymphatic: No: Easy Bruising Physical Exam Narrative GENERAL: Patient appears ill and possibly septic. SKIN: Warm and dry. Normal color. Normal turgor. No rash HEAD: Atraumatic. Normocephalic. Patient has large swelling to the right lower jaw. He has tenderness in the #29 through 31 tooth. EYES: Pupils equal and round. No scleral icterus. No injection or drainage. ENT: No nasal bleeding or discharge. Mucous membranes pink and moist. Pharynx is clear. Airways patent. Uvula is midline. No significant tonsillitis per NECK: Trachea midline. Supple with mild tenderness in the left anterior neck without signs of Abdullahi's angina. No significant lymphadenopathy is noted. CARDIOVASCULAR: Regular rate and rhythm. RESPIRATORY: No accessory muscle use. Clear to auscultation. Breath sounds equal bilaterally. GASTROINTESTINAL: Abdomen soft, non-tender, nondistended. Hepatic and splenic margins not palpable. MUSCULOSKELETAL: Extremities without clubbing, cyanosis, or edema. No obvious deformities. Patient is able to stand but feels weak. Deep tendon reflexes are NEUROLOGICAL: Awake and alert. No obvious cranial nerve deficits. Motor grossly within normal limits. Five out of 5 muscle strength in the arms and legs. Normal speech. PSYCHIATRIC: Appropriate mood and affect; insight and judgment normal. Data Data Last Documented VS Orders Orders Complete Blood Count With Diff (12/06/17 17:00) Creatine Kinase (Cpk) (12/06/17 17:00) Urinalysis - C+S If Indicated (12/06/17 17:00) Lactic Acid (12/06/17 17:28) Iv Access Insert/Monitor (12/06/17 17:28) Ecg Monitoring (12/06/17 17:28) Oximetry (12/06/17 17:28) Sodium Chlor 0.9% 1000 Ml Inj (Ns 1000 M (12/06/17 17:28) Sodium Chloride 0.9% Flush (Ns Flush) (12/06/17 17:30) Chest, Single Ap (12/06/17 17:28) Ketorolac Inj (Toradol Inj) (12/06/17 17:30) Clindamycin 600 Mg/Ns Premix (Cleocin 60 (12/06/17 17:30) Comprehensive Metabolic Panel (12/06/17 17:40) Sodium Chlor 0.9% 1000 Ml Inj (Ns 1000 M (12/06/17 19:30) Insulin Human Regular Inj (Novolin R Inj (12/06/17 19:30) Blood Glucose (12/06/17 21:01) Ed Discharge Order (12/06/17 21:38) Labs Laboratory Tests Test 12/06/17 17:40 12/06/17 18:10 White Blood Count 9.2 TH/MM3 Red Blood Count 4.88 MIL/MM3 Hemoglobin 15.3 GM/DL Hematocrit 43.9 % Mean Corpuscular Volume 89.9 FL Mean Corpuscular Hemoglobin 31.4 PG Mean Corpuscular Hemoglobin Concent 34.9 % Red Cell Distribution Width 13.4 % Platelet Count 302 TH/MM3 Mean Platelet Volume 8.2 FL Neutrophils (%) (Auto) 64.6 % Lymphocytes (%) (Auto) 23.7 % Monocytes (%) (Auto) 10.7 % Eosinophils (%) (Auto) 0.4 % Basophils (%) (Auto) 0.6 % Neutrophils # (Auto) 5.9 TH/MM3 Lymphocytes # (Auto) 2.2 TH/MM3 Monocytes # (Auto) 1.0 TH/MM3 Eosinophils # (Auto) 0.0 TH/MM3 Basophils # (Auto) 0.1 TH/MM3 CBC Comment DIFF FINAL Differential Comment Blood Urea Nitrogen 26 MG/DL Creatinine 1.59 MG/DL Random Glucose 486 MG/DL Total Protein 9.1 GM/DL Albumin 4.1 GM/DL Calcium Level 10.1 MG/DL Alkaline Phosphatase 82 U/L Aspartate Amino Transf (AST/SGOT) 12 U/L Alanine Aminotransferase (ALT/SGPT) 21 U/L Total Bilirubin 0.3 MG/DL Sodium Level 127 MEQ/L Potassium Level 4.8 MEQ/L Chloride Level 92 MEQ/L Carbon Dioxide Level 27.1 MEQ/L Anion Gap 8 MEQ/L Estimat Glomerular Filtration Rate 47 ML/MIN Lactic Acid Level 2.2 mmol/L Total Creatine Kinase 108 U/L Urine Color LIGHT-YELLOW Urine Turbidity CLEAR Urine pH 5.5 Urine Specific [place] 1.030 Urine Protein NEG mg/dL Urine Glucose (UA) 1000 mg/dL Urine Ketones NEG mg/dL Urine Occult Blood NEG Urine Nitrite NEG Urine Bilirubin NEG Urine Urobilinogen LESS THAN 2.0 MG/DL Urine Leukocyte Esterase NEG Urine WBC LESS THAN 1 /hpf Microscopic Urinalysis Comment CULT NOT INDICATED MDM Medical Decision Making Medical Screen Exam Complete: Yes Emergency Medical Condition: Yes Differential Diagnosis Dental abscess. Sepsis. Electrolyte imbalance. Dehydration. Narrative Course Patient appears medically stable at time of exam. Labs ordered including CBC, CMP, lactic acid, CRP and urinalysis. Chest x-ray is ordered. IV access is obtained the patient is given 1000 mL's normal saline bolus. 1900 hrs., the patient was turned over to Doc Jones PA-C for final disposition. Scripts Metformin (Metformin) 500 Mg Tab 500 MG PO BIDPC for Blood Sugar Management, #60 TAB 0 Refills With meals Prov: Gen Crenshaw MD 12/06/17 Condition: Stable Blayne Connolly Dec 06, 2017 17:38
[2017-12-06 17:44] VITALS: O2SAT 97
--- NOTE | 2017-12-06 17:51 | RADRPT ---
EXAM DATE/TIME: 12/06/2017 17:46 [facility] COMPARISON: CHEST SINGLE AP, March 22, 2017, 13:59. INDICATIONS : Fever and pain in legs. MEDICAL HISTORY : Congestive heart failure. Diabetes mellitus type II. Hypertension. SURGICAL HISTORY : Coronary artery stent. Defibrillator. ENCOUNTER: Initial ACUITY: 1 day PAIN SCORE: 4/10 LOCATION: Bilateral chest FINDINGS: Stable single lead pacemaker obscuring a portion of the left lung base. No new focal pleural or paren chymal opacities are noted. Cardiomediastinal contours are within normal limits. Remainder of exam is unchanged. CONCLUSION: 1. No acute abnormality or significant interval change. Yinka Becerril MD on December 06, 2017 at 17:49 Board Certified Radiologist. This report was verified electronically.
[2017-12-06 17:52] LABS: AUTOMATED NEUTROPHIL # 5.9 TH/MM3 (1.8-7.7); BASOPHIL # 0.1 TH/MM3 (0-0.2); BASOPHIL % 0.6 % (0.0-2.0); EOSINOPHIL % 0.4 % (0.0-4.0); HEMATOCRIT 43.9 % (39.0-51.0); HEMOGLOBIN 15.3 GM/DL (13.0-17.0); LYMPH % 23.7 % (9.0-44.0); LYMPHOCYTE # 2.2 TH/MM3 (1.0-4.8); MEAN CELL VOLUME 89.9 FL (80.0-100.0); MEAN CORPUSCULAR HEMOGLOBIN 31.4 PG (27.0-34.0); MEAN CORPUSCULAR HGB CONC 34.9 % (32.0-36.0); MEAN PLATELET VOLUME 8.2 FL (7.0-11.0); MONO % 10.7 % (0.0-8.0); NEUT % 64.6 % (16.0-70.0); PLATELET COUNT 302 TH/MM3 (150-450); RED BLOOD COUNT 4.88 MIL/MM3 (4.50-5.90); RED CELL DISTRIBUTION WIDTH 13.4 % (11.6-17.2); WHITE BLOOD COUNT 9.2 TH/MM3 (4.0-11.0)
[2017-12-06 18:30] LABS: ALBUMIN 4.1 GM/DL (3.4-5.0); ALKALINE PHOSPHATASE 82 U/L (45-117); ALT (GPT) 21 U/L (12-78); AST (GOT) 12 U/L (15-37); BICARBONATE 27.1 MEQ/L (21.0-32.0); BLOOD UREA NITROGEN 26 MG/DL (7-18); CALCIUM 10.1 MG/DL (8.5-10.1); CHLORIDE 92 MEQ/L (98-107); CREATININE 1.59 MG/DL (0.60-1.30); GLOMERULAR FILTRATION RATE 47 ML/MIN (>89); SODIUM (NA) 127 MEQ/L (136-145); TOTAL BILIRUBIN ADULT 0.3 MG/DL (0.2-1.0); TOTAL PROTEIN 9.1 GM/DL (6.4-8.2)
[2017-12-06 18:34] LABS: GLUCOSE,RANDOM 486 MG/DL (74-106)
[2017-12-06 18:43] LABS: BILIRUBIN, URINE NEG (NEG); BLOOD, URINE NEG (NEG); GLUCOSE,URINE 1000 mg/dL (NEG); KETONE, URINE NEG (NEG); NITRITE,URINE NEG (NEG); PH, URINE 5.5 (5.0-8.5); URINE COLOR LIGHT-YELLOW (YELLW/STRAW); URINE LEUKOCYTE ESTERASE NEG (NEG)
[2017-12-06] MEDS ORDERED: AMIO0.1T PO (19:01)
[2017-12-06] MEDS ORDERED: SODIUM CHLOR 0.9% 1000 ML INJ 1,000 ML IV ONE (19:30)
[2017-12-06] MEDS ORDERED: INSULIN HUMAN REGULAR 1,000 UNITS/10 ML VIAL IV PUSH ONE (19:30)
[2017-12-06] MEDS ORDERED: CLEO300C2 PO (21:43)
[2017-12-06] MEDS ORDERED: NORC5TAB PO (21:43)
[2017-12-06] MEDS ORDERED: METF500T PO (21:43)
--- NOTE | 2017-12-06 21:49 | PD ---
Physical Exam Date Seen by Provider: Dec 06, 2017 Time Seen by Provider: 21:45 Data Data Last Documented VS Vital Signs Date Time Temp Pulse Resp B/P (MAP) Pulse Ox O2 Delivery O2 Flow Rate FiO2 12/06/17 17:44 97 Room Air 12/06/17 16:54 98.1 92 18 Orders Orders Complete Blood Count With Diff (12/06/17 17:00) Creatine Kinase (Cpk) (12/06/17 17:00) Urinalysis - C+S If Indicated (12/06/17 17:00) Lactic Acid (12/06/17 17:28) Iv Access Insert/Monitor (12/06/17 17:28) Ecg Monitoring (12/06/17 17:28) Oximetry (12/06/17 17:28) Sodium Chlor 0.9% 1000 Ml Inj (Ns 1000 M (12/06/17 17:28) Sodium Chloride 0.9% Flush (Ns Flush) (12/06/17 17:30) Chest, Single Ap (12/06/17 17:28) Ketorolac Inj (Toradol Inj) (12/06/17 17:30) Clindamycin 600 Mg/Ns Premix (Cleocin 60 (12/06/17 17:30) Comprehensive Metabolic Panel (12/06/17 17:40) Sodium Chlor 0.9% 1000 Ml Inj (Ns 1000 M (12/06/17 19:30) Insulin Human Regular Inj (Novolin R Inj (12/06/17 19:30) Blood Glucose (12/06/17 21:01) Ed Discharge Order (12/06/17 21:38) Labs Laboratory Tests Test 12/06/17 17:40 12/06/17 18:10 White Blood Count 9.2 TH/MM3 Red Blood Count 4.88 MIL/MM3 Hemoglobin 15.3 GM/DL Hematocrit 43.9 % Mean Corpuscular Volume 89.9 FL Mean Corpuscular Hemoglobin 31.4 PG Mean Corpuscular Hemoglobin Concent 34.9 % Red Cell Distribution Width 13.4 % Platelet Count 302 TH/MM3 Mean Platelet Volume 8.2 FL Neutrophils (%) (Auto) 64.6 % Lymphocytes (%) (Auto) 23.7 % Monocytes (%) (Auto) 10.7 % Eosinophils (%) (Auto) 0.4 % Basophils (%) (Auto) 0.6 % Neutrophils # (Auto) 5.9 TH/MM3 Lymphocytes # (Auto) 2.2 TH/MM3 Monocytes # (Auto) 1.0 TH/MM3 Eosinophils # (Auto) 0.0 TH/MM3 Basophils # (Auto) 0.1 TH/MM3 CBC Comment DIFF FINAL Differential Comment Blood Urea Nitrogen 26 MG/DL Creatinine 1.59 MG/DL Random Glucose 486 MG/DL Total Protein 9.1 GM/DL Albumin 4.1 GM/DL Calcium Level 10.1 MG/DL Alkaline Phosphatase 82 U/L Aspartate Amino Transf (AST/SGOT) 12 U/L Alanine Aminotransferase (ALT/SGPT) 21 U/L Total Bilirubin 0.3 MG/DL Sodium Level 127 MEQ/L Potassium Level 4.8 MEQ/L Chloride Level 92 MEQ/L Carbon Dioxide Level 27.1 MEQ/L Anion Gap 8 MEQ/L Estimat Glomerular Filtration Rate 47 ML/MIN Lactic Acid Level 2.2 mmol/L Total Creatine Kinase 108 U/L Urine Color LIGHT-YELLOW Urine Turbidity CLEAR Urine pH 5.5 Urine Specific [place] 1.030 Urine Protein NEG mg/dL Urine Glucose (UA) 1000 mg/dL Urine Ketones NEG mg/dL Urine Occult Blood NEG Urine Nitrite NEG Urine Bilirubin NEG Urine Urobilinogen LESS THAN 2.0 MG/DL Urine Leukocyte Esterase NEG Urine WBC LESS THAN 1 /hpf Microscopic Urinalysis Comment CULT NOT INDICATED MDM Medical Record Reviewed: Yes Supervised Visit with SCOTTIE: Yes Interpretation(s) Last 24 hours Impressions Chest X-Ray [id number]/06/[id number] Signed Impressions: Service Date/Time: Wednesday, December 06, 2017 17:46 - CONCLUSION: 1. No acute abnormality or significant interval change. Yinka Becerril MD CBC & BMP Diagram 12/06/17 17:40 Total Protein 9.1 H, Albumin 4.1, Calcium Level 10.1, Alkaline Phosphatase 82, Aspartate Amino Transf (AST/SGOT) 12 L, Alanine Aminotransferase (ALT/SGPT) 21, Total Bilirubin 0.3 Last 24 hours Impressions Chest X-Ray [id number]/06/[id number] Signed Impressions: Service Date/Time: Wednesday, December 06, 2017 17:46 - CONCLUSION: 1. No acute abnormality or significant interval change. Yinka Becerril MD Differential Diagnosis . Narrative Course IV access is obtained. Routine laboratory sent for analysis. Patient given clindamycin 600 mg IV. Patient's blood glucose was elevated almost 500. He was given 10 units of regular insulin IV and 2 L of normal saline. His blood glucose has improved now the patient is feeling improved. I have agreed to refill his metformin. He is aware that he will most likely require additional glucose control. He is also given prescription for clindamycin and Lortab. He is encouraged to follow-up with the [facility] the next 1-2 days for recheck. We will also need to see a dentist. Diagnosis Primary Impression: Hyperglycemia Additional Impressions: Diabetes mellitus Dental abscess with facial cellulitis Weakness Referrals: [facility] 1 day Patient Instructions: General Instructions Additional Instruction: Rest. Saltwater gargles. Schuyler oil on cotton balls. 3 Advil every 6 hours. Clindamycin, hydrocodone, and metformin. He will most likely need additional glucose management in addition to your metformin. Follow-up with the [facility] tomorrow for recheck. follow-up with a dentist as soon as possible. And return to the ER if any problems. Med/Other Pt SpecificInfo: Prescription(s) given Scripts Hydrocodone-Acetaminophen ([place]) 5 Mg-325 Mg Tab 1 TAB PO Q6H Y for PAIN, #10 TAB 0 Refills Prov: Gen Crenshaw MD 12/06/17 Clindamycin (Cleocin) 300 Mg Cap 300 MG PO Q6H for Infection for 10 Days, #40 CAP 0 Refills Prov: Gen Crenshaw MD 12/06/17 Metformin (Metformin) 500 Mg Tab 500 MG PO BIDPC for Blood Sugar Management, #60 TAB 0 Refills With meals Prov: Gen Crenshaw MD 12/06/17 Disposition: 01 DISCHARGE HOME Condition: Stable Doc Shah Dec 06, 2017 21:49
== END 2017-12-06 21:58 | disposition home or self-care (01) ==
LOC: NEPD 16:52
DX: E11.65 Type 2 diabetes mellitus with hyperglycemia (principal); L03.211 Cellulitis of face; K04.7 Periapical abscess without sinus; R53.1 Weakness; I11.0 Hypertensive heart disease with heart failure; I50.9 Heart failure, unspecified; E78.00 Pure hypercholesterolemia, unspecified; F17.210 Nicotine dependence, cigarettes, uncomplicated; Z95.810 Presence of automatic (implantable) cardiac defibrillator; Z79.84 Long term (current) use of oral hypoglycemic drugs; Z79.899 Other long term (current) drug therapy
CPT/HCPCS: 71045; 80053; 81001; 82550; 83605; 85025; 96361; 96365; 96375; 99284; J1815; J1885; J7030

== ENCOUNTER 2017-12-13 11:45 | Observation (INO) | payer OTHER ==
[2017-12-13] VITALS (9 sets, daily range): BP systolic 103–119; BP diastolic 56–69; PULSE 64–82; RESP 16–20; TEMP 97.8–98.7; O2SAT 96–98
[~2017-12-13] VITALS: Ht 175.3 cm; Wt 89.0 kg
[~2017-12-13 11:45] MED LIST changes: +AMIO0.1T PO; -AMIO200T PO; -ASPI81CH25 CHEW; -ATOR40TA16 PO; -BRIL90TA PO; +CLEO300C2 PO; -FURO40TA PO; +NORC5TAB PO
[2017-12-13] MEDS ORDERED: SPIR25TA PO (12:03)
[2017-12-13] MEDS ORDERED: AMLO2.5T PO (12:03)
[2017-12-13] MEDS ORDERED: LISI40TA PO (12:03)
--- NOTE | 2017-12-13 12:13 | PD ---
HPI Chief Complaint: Diabetic Time Seen by Provider: 12:13 Travel History International Travel<30 days: No Contact w/Intl Traveler<30days: No Traveled to known affect area: No History of Present Illness HPI 51-year-old male came to the emergency room with history of high blood sugar. Patient says that he has history of diabetes and today it was more than 400. He also woke up this morning and noticed that his left arm was normal. Has had tingling and numbness of his left foot for over a week now. Patient says that he was in the emergency room one week ago for high blood sugar. He went to see his primary care the next day who refilled his prescription for metformin. Patient takes 500 mg twice a day which he has been taking like he supposed to. He says he has been eating healthy but does not understand why his blood sugar continues to be high. No history of fever or chills. No history of vomiting or diarrhea. No speech issues. No history of syncope. [facility] Past Medical History Narrative Medical List of his past medical, surgical, social and family history is reviewed from the nursing note. Hx Anticoagulant Therapy: Yes (BRILINTA) Arthritis: No Heart Rhythm Problems: Yes Cancer: No Cardiac Catheterization: Yes Cardiovascular Problems: Yes (DEFIBRILATOR) High Cholesterol: Yes Chest Pain: Yes Congestive Heart Failure: No Cerebrovascular Accident: Yes (2013) Diabetes: Yes Patient Takes Glucophage: Yes Diminished Hearing: No Endocrine: Yes Gastrointestinal Disorders: No Genitourinary: No Heparin Induced Thrombocytopen: No Hypertension: Yes Immune Disorder: No Implanted Vascular Access Dvce: Yes Musculoskeletal: No Neurologic: No Psychiatric: No Reproductive: No Respiratory: Yes (smoker) Immunizations Current: Yes Thyroid Disease: No Influenza Vaccination: No Past Surgical History Abdominal Surgery: No AICD: Yes Cardiac Surgery: Yes (CATH W/STENTS) Coronary Artery Bypass Graft: No Coronary Stent: Yes (X3) Ear Surgery: No Endocrine Surgery: No Eye Surgery: No Genitourinary Surgery: No Neurologic Surgery: No Oral Surgery: No Thoracic Surgery: Yes (AICD ON 08/2016) Other Surgery: Yes Social History Alcohol Use: No Tobacco Use: No Substance Use: No Allergies-Medications (Allergen,Severity, Reaction): Coded Allergies: No Known Allergies (Unverified Allergy, Unknown, 12/13/17) Uncoded Allergies: IMPLANTED DEFIBRILLATOR (Adverse Reaction, Severe, 12/13/17) Non-conditional Biotronik implanted defibrilator. Not MRI conditional. AW 12/13/17 Comments No known drug allergies. Reported Meds & Prescriptions Reported Meds & Active Scripts Active Lopressor (Metoprolol Tartrate) 50 Mg Tab 50 Mg PO BID 30 Days Reported Amlodipine (Amlodipine Besylate) 2.5 Mg Tab 2.5 Mg PO DAILY Spironolactone 25 Mg Tab 25 Mg PO DAILY Lisinopril 40 Mg Tab 40 Mg PO DAILY Narrative Medication List of his home medications reviewed from the nursing note. Review of Systems Except as stated in HPI: all other systems reviewed are Neg Neurologic: Positive: Paresthesia Physical Exam Narrative GENERAL: Awake, alert, no obvious distress SKIN: Focused skin assessment warm/dry. HEAD: Atraumatic. Normocephalic. EYES: Pupils equal and round. No scleral icterus. No injection or drainage. ENT: No nasal bleeding or discharge. Mucous membranes pink and moist. NECK: Trachea midline. No JVD. CARDIOVASCULAR: Regular rate and rhythm. No murmur appreciated. RESPIRATORY: No accessory muscle use. Clear to auscultation. Breath sounds equal bilaterally. GASTROINTESTINAL: Abdomen soft, non-tender, nondistended. Hepatic and splenic margins not palpable. MUSCULOSKELETAL: No obvious deformities. No clubbing. No cyanosis. No edema. Left upper extremity numbness NEUROLOGICAL: Awake and alert. No obvious cranial nerve deficits. Motor grossly within normal limits. Normal speech. PSYCHIATRIC: Appropriate mood and affect; insight and judgment normal. Data Data Last Documented VS Vital Signs Date Time Temp Pulse Resp B/P (MAP) Pulse Ox O2 Delivery O2 Flow Rate FiO2 12/13/17 12:48 18 98 Room Air 12/13/17 12:23 73 12/13/17 12:23 98.3 Orders Orders Complete Blood Count With Diff (12/13/17 12:34) Comprehensive Metabolic Panel (12/13/17 12:34) Beta Hydroxybutyrate (Acetone) (12/13/17 12:34) Urinalysis - C+S If Indicated (12/13/17 12:34) Blood Gas Venous (Vbg) (12/13/17 12:34) Ecg Monitoring (12/13/17 12:34) Iv Access Insert/Monitor (12/13/17 12:34) Oximetry (12/13/17 12:34) NPO (12/13/17 12:34) Sodium Chlor 0.9% 1000 Ml Inj (Ns 1000 M (12/13/17 12:34) Sodium Chloride 0.9% Flush (Ns Flush) (12/13/17 12:45) Ct Brain W/O Iv Contrast(Rout) (12/13/17 ) Insulin Human Regular Inj (Novolin R Inj (12/13/17 12:45) Admit Order (Ed Use Only) (12/13/17 14:17) Labs Laboratory Tests Test 12/13/17 12:47 12/13/17 12:51 White Blood Count 7.5 TH/MM3 Red Blood Count 4.44 MIL/MM3 Hemoglobin 13.3 GM/DL Hematocrit 39.3 % Mean Corpuscular Volume 88.6 FL Mean Corpuscular Hemoglobin 30.0 PG Mean Corpuscular Hemoglobin Concent 33.9 % Red Cell Distribution Width 13.1 % Platelet Count 343 TH/MM3 Mean Platelet Volume 8.1 FL Neutrophils (%) (Auto) 65.2 % Lymphocytes (%) (Auto) 22.8 % Monocytes (%) (Auto) 10.9 % Eosinophils (%) (Auto) 0.6 % Basophils (%) (Auto) 0.5 % Neutrophils # (Auto) 4.9 TH/MM3 Lymphocytes # (Auto) 1.7 TH/MM3 Monocytes # (Auto) 0.8 TH/MM3 Eosinophils # (Auto) 0.0 TH/MM3 Basophils # (Auto) 0.0 TH/MM3 CBC Comment DIFF FINAL Differential Comment Blood Urea Nitrogen 24 MG/DL Creatinine 1.53 MG/DL Random Glucose 390 MG/DL Total Protein 7.9 GM/DL Albumin 3.6 GM/DL Calcium Level 9.5 MG/DL Alkaline Phosphatase 62 U/L Aspartate Amino Transf (AST/SGOT) 11 U/L Alanine Aminotransferase (ALT/SGPT) 16 U/L Total Bilirubin 0.4 MG/DL Sodium Level 129 MEQ/L Potassium Level 4.4 MEQ/L Chloride Level 95 MEQ/L Carbon Dioxide Level 24.7 MEQ/L Anion Gap 9 MEQ/L Estimat Glomerular Filtration Rate 49 ML/MIN Hemoglobin A1c 11.2 % Troponin I LESS THAN 0.02 NG/ML B-Hydroxybutyrate 0.10 MMOL/L Blood Gas Puncture Site LINE Blood Gas Patient Temperature 98.6 Venous Blood pH 7.41 Venous Blood Partial Pressure CO2 39 mmHg Venous Blood Partial Pressure O2 40 mmHg Venous Blood HCO3 24 mmol/L Venous Blood Oxygen Saturation 73 % Venous Blood Oxygen Content 13.2 Vol % Venous Blood Base Excess 0.1 mmol/L MDM Medical Decision Making Medical Screen Exam Complete: Yes Emergency Medical Condition: Yes Medical Record Reviewed: Yes Interpretation(s) Twelve-lead EKG was reviewed by me. Normal sinus rhythm, normal axis, nonspecific ST-T wave changes. Heart rate of 70 bpm. Differential Diagnosis CVA, neuropathy, DKA, hyperglycemia Narrative Course 1:56 PM patient was given IV fluid bolus and subcutaneous insulin. Repeat blood sugar is 356. Head CT is negative. I decided to admit the patient for observation for workup of the tingling and numbness. Awaiting for the hospitalist to call back. Procedures EKG Prior to Arrival: No Diagnosis Primary Impression: Hyperglycemia Additional Impression: TIA (transient ischemic attack) Qualified Codes: G45.9 - Transient cerebral ischemic attack, unspecified Admitting Information Admitting Physician Requests: Observation Scripts Walker with Front Wheels (Walker with Front Wheels) 1 Mis Mis EA .XX DIRECTED, #1 0 Refills Prov: Jalil Fontenot MD, R3 12/15/17 Aspirin (Px Aspirin) 325 Mg Tab 325 MG PO DAILY, #30 TAB 0 Refills Prov: Jalil Fontenot MD, R3 12/15/17 Metformin ER (Metformin ER) 1,000 Mg Kelly 2000 MG PO DAILY for Blood Sugar Management, #60 TAB 0 Refills With evening meal Prov: Jalil Fontenot MD, R3 12/15/17 Atorvastatin (Atorvastatin) 40 Mg Tab 40 MG PO HS, #30 TAB 0 Refills Prov: Jalil Fontenot MD, R3 12/15/17 Adilson Toure MD Dec 13, 2017 12:13
[2017-12-13] MEDS ORDERED: SODIUM CHLOR 0.9% 1000 ML INJ 1,000 ML IV ONE (12:34)
[2017-12-13] MEDS ORDERED: INSULIN HUMAN REGULAR 1,000 UNITS/10 ML VIAL SQ ONE (12:45)
[2017-12-13] MEDS ORDERED: SODIUM CHLORIDE 0.9% FLUSH 10 ML FLUSH IVF PRN (12:45)
[2017-12-13 13:00] LABS: AUTOMATED NEUTROPHIL # 4.9 TH/MM3 (1.8-7.7); BASOPHIL % 0.5 % (0.0-2.0); EOSINOPHIL % 0.6 % (0.0-4.0); HEMATOCRIT 39.3 % (39.0-51.0); HEMOGLOBIN 13.3 GM/DL (13.0-17.0); LYMPH % 22.8 % (9.0-44.0); LYMPHOCYTE # 1.7 TH/MM3 (1.0-4.8); MEAN CELL VOLUME 88.6 FL (80.0-100.0); MEAN CORPUSCULAR HGB CONC 33.9 % (32.0-36.0); MEAN PLATELET VOLUME 8.1 FL (7.0-11.0); MONO % 10.9 % (0.0-8.0); MONOCYTE # 0.8 TH/MM3 (0-0.9); NEUT % 65.2 % (16.0-70.0); PLATELET COUNT 343 TH/MM3 (150-450); RED BLOOD COUNT 4.44 MIL/MM3 (4.50-5.90); RED CELL DISTRIBUTION WIDTH 13.1 % (11.6-17.2); WHITE BLOOD COUNT 7.5 TH/MM3 (4.0-11.0)
[2017-12-13 13:17] LABS: ALBUMIN 3.6 GM/DL (3.4-5.0); AST (GOT) 11 U/L (15-37); BICARBONATE 24.7 MEQ/L (21.0-32.0); BLOOD UREA NITROGEN 24 MG/DL (7-18); CALCIUM 9.5 MG/DL (8.5-10.1); CHLORIDE 95 MEQ/L (98-107); CREATININE 1.53 MG/DL (0.60-1.30); GLOMERULAR FILTRATION RATE 49 ML/MIN (>89); GLUCOSE,RANDOM 390 MG/DL (74-106); SODIUM (NA) 129 MEQ/L (136-145)
[2017-12-13 13:18] LABS: ALT (GPT) 16 U/L (12-78)
[2017-12-13 13:20] LABS: ALKALINE PHOSPHATASE 62 U/L (45-117); TOTAL BILIRUBIN ADULT 0.4 MG/DL (0.2-1.0); TOTAL PROTEIN 7.9 GM/DL (6.4-8.2)
--- NOTE | 2017-12-13 13:37 | RADRPT ---
EXAM DATE/TIME: 12/13/2017 13:30 [facility] COMPARISON: No previous studies available for comparison. INDICATIONS : Left sided numbness, slurred speech, and headache all week RADIATION DOSE: 38.98 CTDIvol (mGy) MEDICAL HISTORY : Hypertension. Cardiovascular disease Diabetes mellitus type 2. SURGICAL HISTORY : None. ENCOUNTER: Initial ACUITY: 1 week PAIN SCALE: 5/10 LOCATION: cranial TECHNIQUE: Multiple contiguous axial images were obtained of the head. Using automated exposure control and adj ustment of the mA and/or kV according to patient size, radiation dose was kept as low as reasonably a chievable to obtain optimal diagnostic quality images. DICOM format image data is available electro nically for review and comparison. FINDINGS: CEREBRUM: The ventricles are normal for age. No evidence of midline shift, mass lesion, hemorrhage or acute in farction. No extra-axial fluid collections are seen. POSTERIOR FOSSA: The cerebellum and brainstem are intact. The 4th ventricle is midline. The cerebellopontine angle i s unremarkable. EXTRACRANIAL: The visualized portion of the orbits is intact. SKULL: The calvaria is intact. No evidence of skull fracture. CONCLUSION: Negative for acute process. MRI may give more information. Juarez Miguel MD FACR on December 13, 2017 at 13:36 Board Certified Radiologist. This report was verified electronically.
--- NOTE | 2017-12-13 14:38 | HHI.HP ---
HPI Service Family Medicine Primary Care Physician Unknown Admission Diagnosis TIA, hypoglycemia Diagnoses: International Travel<30 Days: No Contact w/Intl Traveler<30days: No Known Affected Area: No History of Present Illness 51 year old male with hx of poorly controlled DM, CAD with 3 [place] and stent placement; he presents because earlier this morning he had left hand and foot numbness. His mom had a stroke in her 50s and she encouraged him to come to the ED for treatment. Initially his hold left arm was feeling numb, but now the numbness and tingling is mostly located in the 3rd-5th digits of his left hand and big toe on the left. He also has had a constant 5/10 headache which is sharp and has not gone away. He denies any double vision but does state that he is seeing dots from time to time. He does not have a history of migraines and this has never happened to him before. He has felt like vomiting earlier in the day, but now feels better. He denies chest pain. Normally he is able to walk blocks without becoming SOB, but recently after only a few blocks he will stop b/c his legs are tired. 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 Moser every 3 months. He recently saw a PCP for the first time, Dr. Pan last Wednesday. He says he had his metformin refilled and he was going to follow him up this week for a repeat exam. (Jalil Fontenot MD, R3) Review of Systems Constitutional: COMPLAINS OF: Fatigue, DENIES: Fever, Chills Eyes: DENIES: Blurred vision, Diplopia, Vision loss, Photosensitivity, Double Vision Ears, nose, mouth, throat: DENIES: Tinnitus, Vertigo, Throat pain Respiratory: DENIES: Apneas, Cough, Snoring, Wheezing Cardiovascular: DENIES: Chest pain, Palpitations, Syncope Gastrointestinal: COMPLAINS OF: Nausea, DENIES: Abdominal pain, Black stools, Bloody stools, Constipation, Diarrhea, Vomiting Neurologic: COMPLAINS OF: Headache, DENIES: Abnormal gait Psychiatric: DENIES: Anxiety, Confusion (Jalil Fontenot MD, R3) Past Family Social History Past Medical History Coronary disease with stenting x 3. Last stent was in April 2016. Last cardiac catheterization was August 2016 and at that time stent was patent and other coronary arteries were normal. Hypertension, cardiomyopathy, hyperlipidemia, diabetes (poorly controlled) tobacco abuse (quit 7 months ago), Alcohol abuse (no longer drinks) Past Surgical History Cardiac catheterizations with stenting. Defibrillator. Reported Medications Reported Meds & Active Scripts Active Metformin (Metformin HCl) 500 Mg Tab 500 Mg PO BIDPC With meals Lopressor (Metoprolol Tartrate) 50 Mg Tab 50 Mg PO BID 30 Days Reported Amlodipine (Amlodipine Besylate) 2.5 Mg Tab 2.5 Mg PO DAILY Spironolactone 25 Mg Tab 25 Mg PO DAILY Lisinopril 40 Mg Tab 40 Mg PO DAILY (Jalil Fontenot MD, R3) Allergies: Coded Allergies: No Known Allergies (Unverified Allergy, Unknown, 12/13/17) Uncoded Allergies: IMPLANTED DEFIBRILLATOR (Adverse Reaction, Severe, 12/13/17) Non-conditional Biotronik implanted defibrilator. Not MRI conditional. AW 12/13/17 Active Ordered Medications Active Medications Insulin Human Regular (NovoLIN R INJ) 10 units ONCE ONCE SQ Last administered on 12/13/17at 12:49; Admin Dose 10 UNITS; Start 12/13/17 at 12:45; Stop 12/13/17 at 12:46; Status DC Sodium Chloride 1,000 ml @ 2,000 mls/hr Q30M ONCE IV Last administered on at 12:49; Admin Dose 2,000 MLS/HR; Start 12/13/17 at 12:34; Stop 12/13/17 at 13:03; Status DC Sodium Chloride (NS Flush) 2 ml UNSCH PRN IVF; Start 12/13/17 at 12:45 Family History Mom with stroke at 58 and DM Grandma with DM Social History Patient quit cigarettes 7 months ago. Prior was smoking 1/2 PPD from 18 years of age. Alcohol: none; quit 7 months ago Denies illicit drugs. (Jalil Fontenot MD, R3) Physical Exam Vital Signs Vital Signs Date Time Temp Pulse Resp B/P (MAP) Pulse Ox O2 Delivery O2 Flow Rate FiO2 12/13/17 12:48 18 98 Room Air 12/13/17 12:23 73 18 97 Room Air 12/13/17 12:23 98.3 71 18 104/56 (72) 97 Room Air 12/13/17 11:53 77 17 104/56 (72) 97 Physical Exam GENERAL: This is a well-nourished, well-developed patient, in no apparent distress. SKIN: No rashes, ecchymoses or lesions. Cool and dry. Multiple tatooes HEAD: Atraumatic. Normocephalic. No temporal or scalp tenderness. EYES: Pupils equal round and reactive. Extraocular motions intact. No scleral icterus. No injection or drainage. ENT: Nose without bleeding, purulent drainage or septal hematoma. Throat without erythema, tonsillar hypertrophy or exudate. Uvula midline. Airway patent. NECK: Trachea midline. No JVD or lymphadenopathy. Supple, nontender, no meningeal signs. CARDIOVASCULAR: Regular rate and rhythm without murmurs, gallops, or rubs. RESPIRATORY: Clear to auscultation. Breath sounds equal bilaterally. No wheezes , rales, or rhonchi. GASTROINTESTINAL: Abdomen soft, non-tender, nondistended. No hepato-splenomegaly , or palpable masses. No guarding. MUSCULOSKELETAL: Extremities without clubbing, cyanosis, or edema. No joint tenderness, effusion, or edema noted. No calf tenderness. Negative Homans sign bilaterally. NEUROLOGICAL: Awake and alert. Cranial nerves II through XII intact. Motor grossly within normal limits. Sensory deficit in an ulnar distribution on left hand 3rd-5th digits with numbness. Left big toe with decreased sensation. Normal safety and security officer strength. Five out of 5 muscle strength in all muscle groups. Normal speech. Laboratory Laboratory Tests Test 12/13/17 12:47 12/13/17 12:51 White Blood Count 7.5 Red Blood Count 4.44 Hemoglobin 13.3 Hematocrit 39.3 Mean Corpuscular Volume 88.6 Mean Corpuscular Hemoglobin 30.0 Mean Corpuscular Hemoglobin Concent 33.9 Red Cell Distribution Width 13.1 Platelet Count 343 Mean Platelet Volume 8.1 Neutrophils (%) (Auto) 65.2 Lymphocytes (%) (Auto) 22.8 Monocytes (%) (Auto) 10.9 Eosinophils (%) (Auto) 0.6 Basophils (%) (Auto) 0.5 Neutrophils # (Auto) 4.9 Lymphocytes # (Auto) 1.7 Monocytes # (Auto) 0.8 Eosinophils # (Auto) 0.0 Basophils # (Auto) 0.0 CBC Comment DIFF FINAL Differential Comment Blood Urea Nitrogen 24 Creatinine 1.53 Random Glucose 390 Total Protein 7.9 Albumin 3.6 Calcium Level 9.5 Alkaline Phosphatase 62 Aspartate Amino Transf (AST/SGOT) 11 Alanine Aminotransferase (ALT/SGPT) 16 Total Bilirubin 0.4 Sodium Level 129 Potassium Level 4.4 Chloride Level 95 Carbon Dioxide Level 24.7 Anion Gap 9 Estimat Glomerular Filtration Rate 49 B-Hydroxybutyrate 0.10 Blood Gas Puncture Site LINE Blood Gas Patient Temperature 98.6 Venous Blood pH 7.41 Venous Blood Partial Pressure CO2 39 Venous Blood Partial Pressure O2 40 Venous Blood HCO3 24 Venous Blood Oxygen Saturation 73 Venous Blood Oxygen Content 13.2 Venous Blood Base Excess 0.1 (Jalil Fontenot MD, R3) Result Diagram: 12/13/17 1247 12/13/[address]- negative for acute process (Jalil Fontenot MD, R3) Caprini VTE Risk Assessment Caprini VTE Risk Assessment: Mod/High Risk (score >= 2) Caprini Risk Assessment Model Point Value = 1 Point Value = 2 Point Value = 3 Point Value = 5 Age 41-60 Minor surgery BMI > 25 kg/m2 Swollen legs Varicose veins or History of unexplained or recurrent spontaneous Oral contraceptives or hormone replacement Sepsis (< 1 month) Serious lung disease, including pneumonia (< 1 month) Abnormal pulmonary function Acute myocardial infarction Congestive heart failure (< 1 month) History of inflammatory bowel disease Medical patient at bed rest Age 61-74 Arthroscopic surgery Major open surgery (> 45 min) Laparoscopic surgery (> 45 min) Malignancy Confined to bed (> 72 hours) Immobilizing plaster cast Central venous access Age >= 75 History of VTE Family history of VTE Factor V Leiden Prothrombin [id number] Lupus anticoagulant Anticardiolipin antibodies Elevated serum homocysteine Heparin-induced thrombocytopenia Other congenital or acquired thrombophilia Stroke (< 1 month) Elective arthroplasty Hip, pelvis, or leg fracture Acute spinal cord injury (< 1 month) Prophylaxis Regimen Total Risk Factor Score Risk Level Prophylaxis Regimen 0-1 Low Early ambulation 2 Moderate Order ONE of the following: *Sequential Compression Device (SCD) *Heparin 5000 units SQ BID 3-4 Higher Order ONE of the following medications: *Heparin 5000 units SQ TID *Enoxaparin/Lovenox 40 mg SQ daily (WT < 150 kg, CrCl > 30 mL/min) *Enoxaparin/Lovenox 30 mg SQ daily (WT < 150 kg, CrCl > 10-29 mL/min) *Enoxaparin/Lovenox 30 mg SQ BID (WT < 150 kg, CrCl > 30 mL/min) AND/OR *Sequential Compression Device (SCD) 5 or more Highest Order ONE of the following medications: *Heparin 5000 units SQ TID (Preferred with Epidurals) *Enoxaparin/Lovenox 40 mg SQ daily (WT < 150 kg, CrCl > 30 mL/min) *Enoxaparin/Lovenox 30 mg SQ daily (WT < 150 kg, CrCl > 10-29 mL/min) *Enoxaparin/Lovenox 30 mg SQ BID (WT < 150 kg, CrCl > 30 mL/min) AND *Sequential Compression Device (SCD) (Jalil Fontenot MD, R3) Assessment and Plan Assessment and Plan 51-year-old poorly controlled diabetic with CAD presents with findings concerning for TIA versus stroke and hyperglycemia. Treatment as below. Code Status Full Discussed Condition With Dr. Cardenas (Jalil Fontenot MD, R3) Attending Attestation Patient seen and examined. Case reviewed and discussed with the resident team. Agree with plan of care as discussed with me and documented in the resident note. saw him briefly in ED. agree with CVA workup (Virgie Cardenas MD) Problem List: (1) TIA (transient ischemic attack) ICD Codes: G45.9 - Transient cerebral ischemic attack, unspecified Status: Acute Plan: Concern for TIA versus stroke CT within normal limits Patient given aspirin in the ED, will continue aspirin daily MRI and ultrasound carotids now Neuro checks Consider neurology consult depending on results of imaging. It is possible he has neuropathy from control diabetes. (2) Diabetes mellitus ICD Codes: E11.9 - Type 2 diabetes mellitus without complications Status: Chronic Plan: Poorly controlled at this time Currently patient getting metformin 500 twice a day. Diabetic education Repeat HgA1c (03/22/17--> 7.7) Patient has recently established with a primary care physician. Ideally, patient will be maximized on metformin. And then start on glyburide. While inpatient, will cover with sliding scale insulin. Consider long-acting insulin. (3) KALINA (acute kidney injury) ICD Codes: N17.9 - Acute kidney failure, unspecified Status: Acute Plan: Cr. 1.53 (1.59 on 12/06); this could be a new baseline, however 03/2017 baseline was 1.2 Likely pre-renal vs chronic injury from DM/HTN. Start IVF at 125 ml/hr (4) Hypertension ICD Codes: I10 - Essential (primary) hypertension Status: Chronic Plan: Holding lisinopril Continue amlodipine and spirinolactone (5) CAD (coronary artery disease) ICD Codes: I25.10 - Atherosclerotic heart disease of [place] coronary artery without angina pectoris Status: Chronic Plan: [employer] is Dr. Moser Will obtain troponin stat given concerning HPI and history EKG reviewed as NSR, HR 70 (6) FEN/PPX Status: Acute Plan: Fluids: tolerating PO Electrolytes: monitor and replace as needed Nutrition: diabetic diet PPX: heparin, scds (Jalil Fontenot MD, R3) Problem Qualifiers (1) TIA (transient ischemic attack): Qualified Codes: G45.9 - Transient cerebral ischemic attack, unspecified (2) Diabetes mellitus: Qualified Codes: E11.8 - Type 2 diabetes mellitus with unspecified complications (3) Hypertension: Qualified Codes: I10 - Essential (primary) hypertension (4) CAD (coronary artery disease): Qualified Codes: I25.10 - Atherosclerotic heart disease of [place] coronary artery without angina pectoris Jalil Fontenot MD, R3 Dec 13, 2017 14:38 Virgie Cardenas MD Dec 14, 2017 14:06
[2017-12-13] MEDS ORDERED: LACTULOSE SYRUP 20 GM/30 ML CUP PO PRN (15:30)
[2017-12-13] MEDS: ASPIRIN 325 MG TAB PO SCH (15:30)
[2017-12-13] MEDS ORDERED: BISACODYL 10 MG SUPP RECTAL PRN (15:30)
[2017-12-13] MEDS ORDERED: GLUCAGON 1 MG/ML VIAL OTHER PRN (15:30)
[2017-12-13] MEDS ORDERED: ONDANSETRON HCL 4 MG/2 ML VIAL IVP PRN (15:30)
[2017-12-13] MEDS ORDERED: NALOXONE HCL 0.4 MG/ML AMP IV PUSH PRN (15:30)
[2017-12-13] MEDS ORDERED: MAGNESIUM HYDROXIDE SUSP 30 ML CUP PO PRN (15:30)
[2017-12-13] MEDS ORDERED: PILL SPLITTER OTHER PRN (15:30)
[2017-12-13] MEDS ORDERED: ZOLPIDEM TARTRATE 5 MG TAB PO PRN (15:30)
[2017-12-13] MEDS ORDERED: SODIUM CHLORIDE 0.9% FLUSH 10 ML FLUSH IV FLUSH PRN (15:30)
[2017-12-13] MEDS ORDERED: DEXTROSE 50% IN WATER 50 ML VIAL(D50) IV PUSH PRN (15:30)
[2017-12-13] MEDS ORDERED: SENNOSIDES 8.6 MG TAB PO PRN (15:30)
[2017-12-13] MEDS: HEPARIN SODIUM - SQ 10,000 UNITS/ML VIAL SQ SCH (15:50)
[2017-12-13] MEDS: ACETAMINOPHEN 325 MG TAB PO PRN ×2 (16:30→20:55)
--- NOTE | 2017-12-13 16:37 | RADRPT ---
EXAM DATE/TIME: 12/13/2017 15:35 [facility] COMPARISON: No previous studies available for comparison. INDICATIONS : Cerebral vascular accident. MEDICAL HISTORY : Hypercholesterolemia. Hypertension. Cardiac disorder. Irregular heart beat. Dibetes. SURGICAL HISTORY : Cath with stent. Cardiac cath. Orthopedic surgery. Nerve/ tendon repair. ENCOUNTER: Initial ACUITY: 1 day PAIN SCORE: 0/10 LOCATION: Bilateral neck PEAK SYSTOLIC VELOCITIES (cm/sec): ICA/CCA RATIO: Right: 0.6 Left: 0.6 ICA: Right: 58 Left: 71 CCA: Right: 103 Left: 118 ECA: Right: 62 Left: 89 VERTEBRAL: Right: absent Left: 37 antegrade Elevated flow velocities and ICA/CCA ratios have been found to correlate with increased degrees of vessel stenosis, calculated as percentage of diameter relative to a normal segment of distal ICA/CCA FINDINGS: RIGHT CAROTID: No significant stenosis is visualized. The waveforms are within normal limits. LEFT CAROTID: No significant stenosis is visualized. The waveforms are within normal limits. VERTEBRAL ARTERIES: Right vertebral is not visualized.. MISCELLANEOUS: None. CONCLUSION: Negative for hemodynamically significant carotid stenosis. Right vertebral not visualized. Juarez Miguel MD FACR on December 13, 2017 at 16:35 Board Certified Radiologist. This report was verified electronically.
[2017-12-13 16:49] LABS: BILIRUBIN, URINE NEG (NEG); BLOOD, URINE NEG (NEG); GLUCOSE,URINE 1000 mg/dL (NEG); KETONE, URINE NEG (NEG); MUCUS URINE FEW /lpf (OCC); NITRITE,URINE NEG (NEG); PH, URINE 5.5 (5.0-8.5); SQUAMOUS EPITHELIAL CELL URINE <1 /hpf (0-5); URINE COLOR YELLOW (YELLW/STRAW); URINE LEUKOCYTE ESTERASE NEG (NEG)
[2017-12-13] MEDS: INSULIN ASPART SUPPLEMENTAL SCALE SQ SCH ×2 (17:00→23:15)
[2017-12-13] MEDS: SODIUM CHLOR 0.9% 1000 ML INJ 1,000 ML IV SCH (17:14)
[2017-12-13] MEDS: SODIUM CHLORIDE 0.9% FLUSH 10 ML FLUSH IV FLUSH SCH (20:53)
[2017-12-13] MEDS: DOCUSATE SODIUM 50 MG/SENNA 8.6 MG TAB PO SCH (20:54)
[2017-12-13] MEDS: METOPROLOL TARTRATE 50 MG TAB PO SCH (20:54)
[2017-12-13] MEDS ORDERED: ATORVASTATIN 10 MG TAB PO SCH (21:00)
[2017-12-13 22:23] LABS: HEMOGLOBIN A1C 11.2 % (4.3-6.0)
[2017-12-14] VITALS (12 sets, daily range): BP systolic 11–129; BP diastolic 61–79; PULSE 60–82; RESP 16–20; TEMP 97.5–98.5; O2SAT 96–97
[2017-12-14] MEDS: SODIUM CHLOR 0.9% 1000 ML INJ 1,000 ML IV SCH ×3 (01:36→18:19)
[2017-12-14] MEDS ORDERED: CALCIUM CARBONATE 500 MG CHEWABLE TAB CHEW PRN (03:15)
[2017-12-14] MEDS: HEPARIN SODIUM - SQ 10,000 UNITS/ML VIAL SQ SCH ×2 (04:07→17:22)
[2017-12-14 06:57] LABS: BASOPHIL % 0.4 % (0.0-2.0); EOSINOPHIL # 0.1 TH/MM3 (0-0.4); EOSINOPHIL % 0.8 % (0.0-4.0); HEMATOCRIT 35.4 % (39.0-51.0); HEMOGLOBIN 12.3 GM/DL (13.0-17.0); LYMPH % 33.5 % (9.0-44.0); LYMPHOCYTE # 2.4 TH/MM3 (1.0-4.8); MEAN CELL VOLUME 87.1 FL (80.0-100.0); MEAN CORPUSCULAR HEMOGLOBIN 30.3 PG (27.0-34.0); MEAN CORPUSCULAR HGB CONC 34.8 % (32.0-36.0); MEAN PLATELET VOLUME 7.9 FL (7.0-11.0); MONO % 10.8 % (0.0-8.0); MONOCYTE # 0.8 TH/MM3 (0-0.9); NEUT % 54.5 % (16.0-70.0); PLATELET COUNT 289 TH/MM3 (150-450); RED BLOOD COUNT 4.07 MIL/MM3 (4.50-5.90); RED CELL DISTRIBUTION WIDTH 12.9 % (11.6-17.2); WHITE BLOOD COUNT 7.3 TH/MM3 (4.0-11.0)
[2017-12-14 07:30] LABS: BICARBONATE 24.2 MEQ/L (21.0-32.0); CHOLESTEROL/ HDL RATIO 4.57 RATIO; CREATININE 1.15 MG/DL (0.60-1.30); HDL CHOLESTEROL 44.4 MG/DL (40.0-60.0)
[2017-12-14] MEDS: INSULIN ASPART SUPPLEMENTAL SCALE SQ SCH ×4 (08:43→21:00)
[2017-12-14] MEDS: METOPROLOL TARTRATE 50 MG TAB PO SCH ×2 (08:43→21:40)
[2017-12-14] MEDS: DOCUSATE SODIUM 50 MG/SENNA 8.6 MG TAB PO SCH ×2 (08:44→21:40)
[2017-12-14] MEDS: ASPIRIN 325 MG TAB PO SCH (08:44)
[2017-12-14] MEDS: SODIUM CHLORIDE 0.9% FLUSH 10 ML FLUSH IV FLUSH SCH ×2 (08:46→21:41)
[2017-12-14] MEDS: ACETAMINOPHEN 325 MG TAB PO PRN (08:50)
[2017-12-14] MEDS ORDERED: SPIRONOLACTONE 25 MG TAB PO SCH (09:00)
[2017-12-14] MEDS ORDERED: amLODIPine BESYLATE 5 MG TAB PO SCH (09:00)
[2017-12-14] MEDS ORDERED: KETOROLAC TROMETHAMINE 30 MG/ML (IVP) VIAL IV PUSH ONE (09:45)
[2017-12-14] MEDS ORDERED: PNEUMOCOCCAL POLYVALENT INJ 25 MCG/0.5 ML SYR IM ONE (10:00)
[2017-12-14] MEDS ORDERED: INFLUENZA VIRUS VACCINE (QUADRIVALENT) 0.5 ML SYR IM ONE (10:00)
[2017-12-14] MEDS: FLUTICASONE PROPIONATE 50 MCG/ACT 16 GM NASAL SPRAY NASAL SCH ×2 (10:23→21:40)
--- NOTE | 2017-12-14 13:39 | RADRPT ---
EXAM DATE/TIME: 12/14/2017 00:00 [facility] COMPARISON: No previous studies available for comparison. INDICATIONS : Numbness left great toe, diabetes mellitus, hypertension TECHNIQUE: Four-cuff ankle and brachial pressures were obtained. Pulse cuff waveform tracings of the ankles were recorded, and ankle-brachial indices were calculated. PRESSURES (mmHg): Brachial (arm): Right IV SITE Left 124 Ankle: Right 74 Left 57 ROMI: Right 0.60 Left 0.46 TBI: Right 0.27 Left 0.00 PULSED CUFF WAVEFORMS: There is blunting of the waveforms at the level of the ankles bilaterally. CONCLUSION: Findings of moderate to severe disease bilaterally. CT angiography of the abdominal aorta and lower e xtremities is recommended for further evaluation if clinically indicated. There also findings of smal l vessel vascular disease with abnormal toe brachial indices bilaterally Nico Thompson MD on December 14, 2017 at 13:38 Board Certified Radiologist. This report was verified electronically.
--- NOTE | 2017-12-14 14:05 | HHI.HP ---
[facility] Service Family Medicine Primary Care Physician Unknown Admission Diagnosis TIA, hypoglycemia Diagnoses: (1) TIA (transient ischemic attack) Diagnosis: Principal (2) Diabetes mellitus Diagnosis: Principal (3) KALINA (acute kidney injury) Diagnosis: Principal (4) Hypertension (5) CAD (coronary artery disease) Diagnosis: Principal (6) FEN/PPX Diagnosis: Principal International Travel<30 Days: No Contact w/Intl Traveler<30days: No Known Affected Area: No History of Present Illness Mr Inman is a 51 year old male with hx of poorly controlled DM, CAD with 3 HI and stent placement plus a defibrillator because of repeated serious arrhythmias ; he presents because yesterday morning he had left hand and foot numbness. His mom had a stroke in her 50s and she encouraged him to come to the ED for treatment. Initially his whole left arm was feeling numb, but now the numbness and tingling is mostly located in the 3rd-5th digits of his left hand and big toe on the left. He also has had a constant 5/10 headache which is sharp and has not gone away. He denies any double vision but does state that he is seeing "dots from time to time" which he could not localize to one eye. He does not have a history of migraines and this has never happened to him before. He has felt like vomiting earlier in the day, but now feels better. He denies chest pain. Normally he is able to walk blocks without becoming SOB, but recently after only a few blocks he will stop b/c his legs are tired. 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 Moser every 3 months. He recently saw a PCP for the first time, Dr. Pan last Wednesday. He says he had his metformin refilled and he was going to follow him up this week for a repeat exam. A stroke workup was ordered but he could not have an MRI because of his defibrillator. He is better today than yesterday but still has some sxs in his left hand and foot. He also for the first time today reported that when the ambulance came to his house, they noted slurred speech. He reports being able to speak and swallow without problems now. He stated he stopped his anticoagulation 3 years ago after having a PE and now was not taking any aspirin pr plavix, etc. He does have some chronic foot numbness after an old injury and is not certain this am what is old vs new as far as his foot goes. His headaches do not involve any eye tearing or nose watering though he has has nasal congestion for a good 2 weeks. He does have pain in the back and side of his head at times and also reports pain near his eyes and at times a throbbing quality to his headaches. Review of Systems Other Constitutional: COMPLAINS OF: Fatigue, DENIES: Fever, Chills Eyes: DENIES: Blurred vision, Diplopia, Vision loss, Photosensitivity, Double Vision Ears, nose, mouth, throat: DENIES: Tinnitus, Vertigo, Throat pain Respiratory: DENIES: Apneas, Cough, Snoring, Wheezing Cardiovascular: DENIES: Chest pain, Palpitations, Syncope Gastrointestinal: COMPLAINS OF: Nausea, DENIES: Abdominal pain, Black stools, Bloody stools, Constipation, Diarrhea, Vomiting Neurologic: COMPLAINS OF: Headache, DENIES: Abnormal gait Psychiatric: DENIES: Anxiety, Confusion Past Family Social History Past Medical History Coronary disease with stenting x 3. Last stent was in April 2016. Last cardiac catheterization was August 2016 and at that time stent was patent and other coronary arteries were normal. Hypertension, cardiomyopathy, hyperlipidemia, diabetes (poorly controlled) tobacco abuse (quit 7 months ago), Alcohol abuse (no longer drinks) Past Surgical History Cardiac catheterizations with stenting. Defibrillator. Allergies: Coded Allergies: No Known Allergies (Unverified Allergy, Unknown, 12/13/17) Uncoded Allergies: IMPLANTED DEFIBRILLATOR (Adverse Reaction, Severe, 12/13/17) Non-conditional Biotronik implanted defibrilator. Not MRI conditional. AW 12/13/17 Family History Mom with stroke at 58 and DM Grandma with DM Social History Patient quit cigarettes 7 months ago. Prior was smoking 1/2 PPD from 18 years of age. Alcohol: none; quit 7 months ago Denies illicit drugs. Physical Exam Vital Signs Vital Signs Date Time Temp Pulse Resp B/P (MAP) Pulse Ox O2 Delivery O2 Flow Rate FiO2 12/14/17 12:11 98.0 60 18 115/62 (79) 97 12/14/17 08:15 98.5 80 18 120/61 (80) 97 12/14/17 07:25 74 12/14/17 04:27 97.7 66 16 111/69 (83) 97 12/14/17 04:16 62 12/14/17 00:16 65 12/13/17 23:56 97.9 72 16 119/68 (85) 96 12/13/17 20:10 82 12/13/17 20:06 98.7 78 20 108/58 (75) 97 12/13/17 17:53 70 12/13/17 16:53 97.8 79 19 111/69 (83) 96 12/13/17 15:08 64 18 103/68 (80) 98 Room Air Physical Exam GENERAL: This is a well-nourished, well-developed patient, in no apparent distress. SKIN: No rashes, ecchymoses or lesions. Cool and dry. Multiple tatooes HEAD: Atraumatic. Normocephalic. EYES: Pupils equal round and reactive. Extraocular motions intact. No scleral icterus. No injection or drainage. ENT: Nose without bleeding, purulent drainage or septal hematoma. Throat without erythema, tonsillar hypertrophy or exudate. Uvula midline. Airway patent. NECK: Trachea midline. No JVD or lymphadenopathy. Supple, nontender, no meningeal signs. CARDIOVASCULAR: Regular rate and rhythm without murmurs, gallops, or rubs. RESPIRATORY: Clear to auscultation. Breath sounds equal bilaterally. No wheezes , rales, or rhonchi. GASTROINTESTINAL: Abdomen soft, non-tender, nondistended. No hepato-splenomegaly , or palpable masses. No guarding. MUSCULOSKELETAL: Extremities without clubbing, cyanosis, or edema. No joint tenderness, effusion, or edema noted. No calf tenderness. Negative Homans sign bilaterally. NEUROLOGICAL: Awake and alert. Cranial nerves II through XII intact. Motor grossly within normal limits. Sensory deficit in an ulnar distribution on left hand 3rd-5th digits with numbness. Left big toe with decreased sensation. Normal program project manager strength. Five out of 5 muscle strength in all muscle groups with perhaps slight decreased strength in left arm compared to right. Normal speech with very slight "thickness" without rapid fluency but not sure of his norm at this time Laboratory Laboratory Tests Test 12/13/17 16:40 12/14/17 06:10 12/14/17 06:18 Urine Color YELLOW Urine Turbidity CLEAR Urine pH 5.5 Urine Specific [place] 1.022 Urine Protein NEG Urine Glucose (UA) 1000 Urine Ketones NEG Urine Occult Blood NEG Urine Nitrite NEG Urine Bilirubin NEG Urine Urobilinogen LESS THAN 2.0 Urine Leukocyte Esterase NEG Urine RBC LESS THAN 1 Urine WBC LESS THAN 1 Urine Squamous Epithelial Cells <1 Urine Mucus FEW Microscopic Urinalysis Comment CULT NOT INDICATED White Blood Count 7.3 Red Blood Count 4.07 Hemoglobin 12.3 Hematocrit 35.4 Mean Corpuscular Volume 87.1 Mean Corpuscular Hemoglobin 30.3 Mean Corpuscular Hemoglobin Concent 34.8 Red Cell Distribution Width 12.9 Platelet Count 289 Mean Platelet Volume 7.9 Neutrophils (%) (Auto) 54.5 Lymphocytes (%) (Auto) 33.5 Monocytes (%) (Auto) 10.8 Eosinophils (%) (Auto) 0.8 Basophils (%) (Auto) 0.4 Neutrophils # (Auto) 4.0 Lymphocytes # (Auto) 2.4 Monocytes # (Auto) 0.8 Eosinophils # (Auto) 0.1 Basophils # (Auto) 0.0 CBC Comment DIFF FINAL Differential Comment Blood Urea Nitrogen 16 Creatinine 1.15 Random Glucose 215 Calcium Level 9.0 Sodium Level 133 Potassium Level 4.3 Chloride Level 102 Carbon Dioxide Level 24.2 Anion Gap 7 Estimat Glomerular Filtration Rate 68 Triglycerides Level 113 Cholesterol Level 203 LDL Cholesterol 136 HDL Cholesterol 44.4 Cholesterol/HDL Ratio 4.57 Vitamin B12 Level 570 Thyroid Stimulating Hormone 3rd Gen 1.660 Result Diagram: 12/14/1710 12/14/[address]- negative for acute process Caprini VTE Risk Assessment Caprini VTE Risk Assessment: Mod/High Risk (score >= 2) Caprini Risk Assessment Model Point Value = 1 Point Value = 2 Point Value = 3 Point Value = 5 Age 41-60 Minor surgery BMI > 25 kg/m2 Swollen legs Varicose veins or History of unexplained or recurrent spontaneous Oral contraceptives or hormone replacement Sepsis (< 1 month) Serious lung disease, including pneumonia (< 1 month) Abnormal pulmonary function Acute myocardial infarction Congestive heart failure (< 1 month) History of inflammatory bowel disease Medical patient at bed rest Age 61-74 Arthroscopic surgery Major open surgery (> 45 min) Laparoscopic surgery (> 45 min) Malignancy Confined to bed (> 72 hours) Immobilizing plaster cast Central venous access Age >= 75 History of VTE Family history of VTE Factor V Leiden Prothrombin [id number] Lupus anticoagulant Anticardiolipin antibodies Elevated serum homocysteine Heparin-induced thrombocytopenia Other congenital or acquired thrombophilia Stroke (< 1 month) Elective arthroplasty Hip, pelvis, or leg fracture Acute spinal cord injury (< 1 month) Prophylaxis Regimen Total Risk Factor Score Risk Level Prophylaxis Regimen 0-1 Low Early ambulation 2 Moderate Order ONE of the following: *Sequential Compression Device (SCD) *Heparin 5000 units SQ BID 3-4 Higher Order ONE of the following medications: *Heparin 5000 units SQ TID *Enoxaparin/Lovenox 40 mg SQ daily (WT < 150 kg, CrCl > 30 mL/min) *Enoxaparin/Lovenox 30 mg SQ daily (WT < 150 kg, CrCl > 10-29 mL/min) *Enoxaparin/Lovenox 30 mg SQ BID (WT < 150 kg, CrCl > 30 mL/min) AND/OR *Sequential Compression Device (SCD) 5 or more Highest Order ONE of the following medications: *Heparin 5000 units SQ TID (Preferred with Epidurals) *Enoxaparin/Lovenox 40 mg SQ daily (WT < 150 kg, CrCl > 30 mL/min) *Enoxaparin/Lovenox 30 mg SQ daily (WT < 150 kg, CrCl > 10-29 mL/min) *Enoxaparin/Lovenox 30 mg SQ BID (WT < 150 kg, CrCl > 30 mL/min) AND *Sequential Compression Device (SCD) Assessment and Plan Assessment and Plan 51-year-old poorly controlled diabetic with CAD presents with findings concerning for TIA versus stroke and hyperglycemia. Treatment as below. Problem List: (1) TIA (transient ischemic attack) ICD Codes: G45.9 - Transient cerebral ischemic attack, unspecified Status: Acute Plan: Concern for TIA versus stroke CT within normal limits Patient given aspirin in the ED, will continue aspirin daily MRI and ultrasound carotids now Neuro checks neurology consult as he cannot get an MRI and help is appreciated in management. It is possible he has neuropathy from diabetes plus an old injury to his left foot. he has been in the ED for greater than 24 hours so head of bed does not need to be flat at this time. will hold most of his BP meds but concern for serious cardiac problems if his beta blockers are held so we will keep him on these for now (2) Diabetes mellitus ICD Codes: E11.9 - Type 2 diabetes mellitus without complications Status: Chronic Plan: Poorly controlled at this time Currently patient getting metformin 500 twice a day. Diabetic education Repeat HgA1c (03/22/17--> 7.7 now very high) Patient has recently established with a primary care physician. Ideally, patient will be maximized on metformin. And then start on glyburide or another agent. While inpatient, will cover with sliding scale insulin. Consider long-acting insulin. (3) KALINA (acute kidney injury) ICD Codes: N17.9 - Acute kidney failure, unspecified Status: Acute Plan: Cr. 1.53 (1.59 on 12/06); this could be a new baseline, however 03/2017 baseline was 1.2 Likely pre-renal vs chronic injury from DM/HTN. Start IVF at 125 ml/hr (4) Hypertension ICD Codes: I10 - Essential (primary) hypertension Status: Chronic Plan: Holding lisinopril hold amlodipine and spironolactone (5) CAD (coronary artery disease) ICD Codes: I25.10 - Atherosclerotic heart disease of [place] coronary artery without angina pectoris Status: Chronic Plan: Web Graphic Designer is Dr. Moser Will obtain troponin stat given concerning HPI and history EKG reviewed as NSR, HR 70 (6) FEN/PPX Status: Acute Plan: Fluids: tolerating PO Electrolytes: monitor and replace as needed Nutrition: diabetic diet PPX: heparin, scds Problem Qualifiers (1) TIA (transient ischemic attack): Qualified Codes: G45.9 - Transient cerebral ischemic attack, unspecified (2) Diabetes mellitus: Qualified Codes: E11.8 - Type 2 diabetes mellitus with unspecified complications (3) Hypertension: Qualified Codes: I10 - Essential (primary) hypertension (4) CAD (coronary artery disease): Qualified Codes: I25.10 - Atherosclerotic heart disease of [place] coronary artery without angina pectoris Virgie Cardenas MD Dec 14, 2017 14:05
--- NOTE | 2017-12-14 14:47 | PD.CONS ---
History of Present Illness Service Neurology Consult Requested By medical Reason for Consult numbness Primary Care Physician Unknown History of Present Illness 51 year old male with hx of poorly controlled DM, CAD with 3 DC and stent placement, not taking any antiplatelets admitted for left sided numbness since yesterday, abrupt onset. no weakness. no face, neck pain. currently, states numbness only in left hand. was in left arm and distal toes. no headache, no neck/shoulder/elbow pain. no trauma. glucose >300. hba1c 11. carotid u/s nml. ct brain nml. no hx of tia/stroke. no hx of afib. no hx of dvt/pe. has distal foot paresthesias that occur at night. Review of Systems as above and admit hp Past Family Social History Past Medical History Coronary disease with stenting Hypertension, cardiomyopathy, hyperlipidemia, diabetes Past Surgical History Cardiac cath with stenting. Defibrillator. Reported Medications Reported Meds & Active Scripts Active Metformin (Metformin HCl) 500 Mg Tab 500 Mg PO BIDPC With meals Lopressor (Metoprolol Tartrate) 50 Mg Tab 50 Mg PO BID 30 Days Reported Amlodipine (Amlodipine Besylate) 2.5 Mg Tab 2.5 Mg PO DAILY Spironolactone 25 Mg Tab 25 Mg PO DAILY Lisinopril 40 Mg Tab 40 Mg PO DAILY Allergies: Coded Allergies: No Known Allergies (Unverified Allergy, Unknown, 12/13/17) Uncoded Allergies: IMPLANTED DEFIBRILLATOR (Adverse Reaction, Severe, 12/13/17) Non-conditional Biotronik implanted defibrilator. Not MRI conditional. AW 12/13/17 Family History Mom with stroke at 58 and DM Social History Patient quit tob 7 months ago Alcohol: none; quit 7 months ago Denies illicit drugs is in the process of acquiring disability Review of Systems All other ROS: ROS reviewed as documented in chart Past Family Social History Allergies: Coded Allergies: No Known Allergies (Unverified Allergy, Unknown, 12/13/17) Uncoded Allergies: IMPLANTED DEFIBRILLATOR (Adverse Reaction, Severe, 12/13/17) Non-conditional Biotronik implanted defibrilator. Not MRI conditional. AW 12/13/17 Active Ordered Medications Current Medications Medications (Trade) Dose Ordered Sig/Karma Route Start Time Stop Time Status Last Admin (Norvasc) 2.5 mg DAILY PO 12/14/17 09:00 Future Hold 2/27/18 08:43 (Lopressor) 50 mg BID PO 12/13/17 21:00 12/14/17 08:43 (Aldactone) 25 mg DAILY PO 12/14/17 09:00 Future Hold 12/14/17 08:43 (Pill Splitter) 1 ea UNSCH PRN OTHER 12/13/17 15:30 (Aspirin) 325 mg DAILY PO 12/13/17 15:30 12/14/17 08:44 (Lipitor) 10 mg HS PO 12/13/17 21:00 12/13/17 20:54 (Heparin Inj) 5,000 units Q12H SQ 12/13/17 16:00 12/14/17 04:07 (NS Flush) 2 ml UNSCH PRN IV FLUSH 12/13/17 15:30 (NS Flush) 2 ml BID IV FLUSH 12/13/17 21:00 (Tylenol) 650 mg Q4H PRN PO 12/13/17 15:30 12/14/17 08:50 (Zofran Inj) 4 mg Q6H PRN IVP 12/13/17 15:30 (Ambien) 5 mg HS PRN PO 12/13/17 15:30 (Narcan Inj) 0.4 mg UNSCH PRN IV PUSH 12/13/17 15:30 (Danielle-Colace) 1 tab BID PO 12/13/17 21:00 12/13/17 20:54 (Milk Of Magnesia Liq) 30 ml Q12H PRN PO 12/13/17 15:30 (Senokot) 17.2 mg Q12H PRN PO 12/13/17 15:30 (Dulcolax Supp) 10 mg DAILY PRN RECTAL 12/13/17 15:30 (Lactulose Liq) 30 ml DAILY PRN PO 12/13/17 15:30 (D50w (Vial) Inj) 50 ml UNSCH PRN IV PUSH 12/13/17 15:30 (Glucagon Inj) 1 mg UNSCH PRN OTHER 12/13/17 15:30 (NovoLOG SUPPLEMENTAL SCALE) 1 ACHS SLIDING SCALE SQ 12/13/17 17:00 12/14/17 08:43 Sodium Chloride 1,000 ml @ 125 mls/hr Q8H IV 12/13/17 16:45 12/14/17 08:46 (Tums Chew) 500 mg Q2H PRN CHEW 12/14/17 03:15 12/14/17 04:07 (Flonase Albaro Spr) 1 spray BID NASAL 12/14/17 09:45 12/14/17 10:23 Exam I&O / VS Vital Signs Date Time Temp Pulse Resp B/P (MAP) Pulse Ox O2 Delivery O2 Flow Rate FiO2 12/14/17 12:11 98.0 60 18 115/62 (79) 97 12/14/17 12:00 76 12/14/17 08:15 98.5 80 18 120/61 (80) 97 12/14/17 07:25 74 12/14/17 04:27 97.7 66 16 111/69 (83) 97 12/14/17 04:16 62 12/14/17 00:16 65 12/13/17 23:56 97.9 72 16 119/68 (85) 96 12/13/17 20:10 82 12/13/17 20:06 98.7 78 20 108/58 (75) 97 12/13/17 17:53 70 12/13/17 16:53 97.8 79 19 111/69 (83) 96 12/13/17 15:08 64 18 103/68 (80) 98 Room Air General: Alert and Oriented, No acute distress Eye: EOMI, Normal conjuctiva Respiratory: Non-labored respirations Cardiology: Normal rate Neurologic: Alert, Oriented, CN II-XII intact, Normal DTR's Psychiatric: Cooperative, Appropriate mood & affect Exam Comments ox 3, no aphasia. eomi, ou 3-2mm, face sym, left arm upto elbow reduced pin. reduced pin in sock distribution patrick le, msr 1+, no clonus, planter flexor, no drift, 5/5 all 4 ext Review/Management Diagnosis/Plan: (1) TIA (transient ischemic attack) ICD Codes: G45.9 - Transient cerebral ischemic attack, unspecified Status: Acute Plan: possible tiny infarct causing pure sensory stroke. has reduced pin in left hand up arm, not following peripheral nerve or dermatomal distribution dm neuropathy also possible recs aspirin/statin ldl <70 f/u echo, cta's bp/glucose control defer to cardiology to r/o afib, consider krys if ef <35%, cardioembolic source is possible and consideration of coumadin, however, pt appears poorly compliant and has not been on antiplatelets p.t. d/c planning (2) DM polyneuropathy ICD Codes: E11.42 - Type 2 diabetes mellitus with diabetic polyneuropathy Status: Chronic Plan: glucose control (3) Diabetes mellitus ICD Codes: E11.9 - Type 2 diabetes mellitus without complications Status: Chronic Plan: glucose control. compliance with diet and medication (4) Hypertension ICD Codes: I10 - Essential (primary) hypertension Status: Chronic Plan: bp <120/80 Problem Qualifiers (1) TIA (transient ischemic attack): Qualified Codes: G45.9 - Transient cerebral ischemic attack, unspecified (2) Diabetes mellitus: Qualified Codes: E11.8 - Type 2 diabetes mellitus with unspecified complications (3) Hypertension: Qualified Codes: I10 - Essential (primary) hypertension Benigno Wang MD Dec 14, 2017 14:47
[2017-12-14] MEDS ORDERED: IOHEXOL 350 MG/ML 10 ML VIAL (for RAD DIAG) IVCONTRAST ONE (15:03)
--- NOTE | 2017-12-14 15:42 | RADRPT ---
EXAM DATE/TIME: 12/14/2017 14:43 [facility] COMPARISON: No previous studies available for comparison. INDICATIONS : Transient ischemic attack, evaluate for occlusion. IV CONTRAST: 72 cc Omnipaque 350 (iohexol) IV ; Cumulative dose for multiple exams. RADIATION DOSE: 10.22 CTDIvol (mGy) ; Combined studies MEDICAL HISTORY : Cerebrovascular disease. Cardiovascular disease Hypertension.Diabetes SURGICAL HISTORY : Defibrillator. ENCOUNTER: Initial ACUITY: 1 day PAIN SCALE: 1/10 LOCATION: cranial TECHNIQUE: Volumetric scanning was performed using a multi-row detector CT scanner. The data was post processed with a variety of visualization algorithms including full volume maximum intensity projection, multi -planar sliding thin slab reformation, curved planar reformation, and surface rendering techniques. Using automated exposure control and adjustment of the mA and/or kV according to patient size, radiat ion dose was kept as low as reasonably achievable to obtain optimal diagnostic quality images. DICO M format image data is available electronically for review and comparison. FINDINGS: There is motion artifact. There is excellent visualization of the major intracranial arteries out to the second-order branch ve ssels. There is no evidence for aneurysm, vessel truncation or stenosis, and no evidence for vascula r malformation. There does appear to be hypoplastic right A1 segment. Anterior cerebral artery. No definite aneurysm identified. Posterior communicating arteries noted. CONCLUSION: Limited study due to patient motion but no large vessel stenosis or aneurysm seen. Shawn Dacosta MD on December 14, 2017 at 15:40 Board Certified Radiologist. This report was verified electronically.
--- NOTE | 2017-12-14 15:43 | RADRPT ---
EXAM DATE/TIME: 12/14/2017 14:43 [facility] COMPARISON: No previous studies available for comparison. INDICATIONS : Transient ischemic attack, evaluate for occlusion. IV CONTRAST: 72 cc Omnipaque 350 (iohexol) IV ; Cumulative dose for multiple exams. RADIATION DOSE: 10.22 CTDIvol (mGy) ; Combined studies MEDICAL HISTORY : Cerebrovascular disease. Cardiovascular disease Hypertension.diabetes SURGICAL HISTORY : Defibrillator. ENCOUNTER: Initial ACUITY: 1 day PAIN SCALE: 1/10 LOCATION: neck Elevated flow velocities and ICA/CCA ratios have been found to correlate with increased degrees of vessel stenosis, calculated as percentage of diameter relative to a normal segment of distal ICA/CCA. TECHNIQUE: Volumetric scanning was performed using a multirow detector CT scanner. The data was post processed with a variety of visualization algorithms including full-volume maximum intensity projection, multip lanar sliding thin-slab reformation, curved-planar reformation, and surface-rendering techniques. Us ing automated exposure control and adjustment of the mA and/or kV according to patient size, radiatio n dose was kept as low as reasonably achievable to obtain optimal diagnostic quality images. DICOM f ormat image data is available electronically for review and comparison. FINDINGS: AORTIC ARCH: There is a three-vessel origin of the great vessels from the aorta. No evidence of ostial narrowing. RIGHT CAROTID: The common carotid artery is intact. Limited visualization of the proximal internal carotid artery. The external carotid artery is intact. LEFT CAROTID: The common carotid artery is intact. Limited visualization of the proximal internal carotid artery. The external carotid artery is intact. VERTEBRALS: The vertebral arteries have a symmetric diameter. No stenotic lesions are seen. CONCLUSION: 1. Limited study due to patient motion. No definite carotid stenosis/occlusion. Shawn Dacosta MD on December 14, 2017 at 15:42 Board Certified Radiologist. This report was verified electronically.
[2017-12-14] MEDS ORDERED: ATORVASTATIN 40 MG TAB PO SCH (21:00)
--- NOTE | 2017-12-14 22:52 | EKG ---
Date Performed: 12/13/2017 Time Performed: 12:24:32 PTAGE: 51 years EKG: Sinus rhythm LOW QRS VOLTAGE IN PRECORDIAL LEADS INFERIOR MYOCARDIAL INFARCTION ABNORMAL ECG Since the prior trac ing, there has been no significant change DOCTOR: Zheng Key Interpretating Date/Time 12/14/2017 22:49:46
[2017-12-15] MEDS: SODIUM CHLOR 0.9% 1000 ML INJ 1,000 ML IV SCH ×2 (00:45→10:20)
[2017-12-15] MEDS: HEPARIN SODIUM - SQ 10,000 UNITS/ML VIAL SQ SCH (03:49)
[2017-12-15 05:06] VITALS: BP 128/58; PULSE 73; RESP 16; TEMP 98.2; O2SAT 96
[2017-12-15 06:58] LABS: AUTOMATED NEUTROPHIL # 3.8 TH/MM3 (1.8-7.7); BASOPHIL % 0.6 % (0.0-2.0); EOSINOPHIL # 0.1 TH/MM3 (0-0.4); EOSINOPHIL % 1.1 % (0.0-4.0); HEMATOCRIT 36.4 % (39.0-51.0); HEMOGLOBIN 12.3 GM/DL (13.0-17.0); LYMPH % 31.9 % (9.0-44.0); LYMPHOCYTE # 2.1 TH/MM3 (1.0-4.8); MEAN CELL VOLUME 88.1 FL (80.0-100.0); MEAN CORPUSCULAR HEMOGLOBIN 29.7 PG (27.0-34.0); MEAN CORPUSCULAR HGB CONC 33.7 % (32.0-36.0); MEAN PLATELET VOLUME 8.2 FL (7.0-11.0); MONOCYTE # 0.7 TH/MM3 (0-0.9); NEUT % 56.4 % (16.0-70.0); PLATELET COUNT 293 TH/MM3 (150-450); RED BLOOD COUNT 4.13 MIL/MM3 (4.50-5.90); WHITE BLOOD COUNT 6.7 TH/MM3 (4.0-11.0)
[2017-12-15 07:20] LABS: BICARBONATE 26.1 MEQ/L (21.0-32.0); CALCIUM 9.2 MG/DL (8.5-10.1); CREATININE 1.19 MG/DL (0.60-1.30)
[2017-12-15 08:00] VITALS: PULSE 65
[2017-12-15] MEDS: DOCUSATE SODIUM 50 MG/SENNA 8.6 MG TAB PO SCH (09:00)
[2017-12-15] MEDS: SODIUM CHLORIDE 0.9% FLUSH 10 ML FLUSH IV FLUSH SCH (09:00)
[2017-12-15] MEDS: METOPROLOL TARTRATE 50 MG TAB PO SCH (09:07)
[2017-12-15] MEDS: INSULIN ASPART SUPPLEMENTAL SCALE SQ SCH ×2 (09:07→13:52)
[2017-12-15] MEDS: ASPIRIN 325 MG TAB PO SCH (09:08)
[2017-12-15] MEDS: FLUTICASONE PROPIONATE 50 MCG/ACT 16 GM NASAL SPRAY NASAL SCH (09:08)
[2017-12-15 09:24] VITALS: BP 124/76; PULSE 67; RESP 18; TEMP 98.1; O2SAT 97
--- NOTE | 2017-12-15 09:27 | HHI.PR ---
Review/Management Diagnosis/Plan: (1) TIA (transient ischemic attack) ICD Codes: G45.9 - Transient cerebral ischemic attack, unspecified Status: Acute Plan: possible tiny infarct causing pure sensory stroke. has reduced pin in left hand up arm, not following peripheral nerve or dermatomal distribution dm neuropathy also possible cta's brain/carotids- negative recs neuro stable aspirin/statin ldl <70 f/u echo-pending bp/glucose control defer to cardiology to r/o afib, consider krys if ef <35%, cardioembolic source is possible and consideration of coumadin, however, pt appears poorly compliant and has not been on antiplatelets p.t. neuro sign off d/c planning (2) DM polyneuropathy ICD Codes: E11.42 - Type 2 diabetes mellitus with diabetic polyneuropathy Status: Chronic Plan: glucose control (3) Diabetes mellitus ICD Codes: E11.9 - Type 2 diabetes mellitus without complications Status: Chronic Plan: glucose control. compliance with diet and medication (4) Hypertension ICD Codes: I10 - Essential (primary) hypertension Status: Chronic Plan: bp <120/80 Subjective Subjective Comments No acute events reported No headache No chest pain No dyspnea Active Medications Current Medications Medications (Trade) Dose Ordered Sig/Karam Route Start Time Stop Time Status Last Admin (Norvasc) 2.5 mg DAILY PO 12/14/17 09:00 Future Hold 12/14/17 08:43 (Lopressor) 50 mg BID PO 12/13/17 21:00 12/15/17 09:07 (Aldactone) 25 mg DAILY PO 12/14/17 09:00 Future Hold 12/14/17 08:43 (Pill Splitter) 1 ea UNSCH PRN OTHER 12/13/17 15:30 (Aspirin) 325 mg DAILY PO 12/13/17 15:30 12/15/17 09:08 (Heparin Inj) 5,000 units Q12H SQ 12/13/17 16:00 12/15/17 03:49 (NS Flush) 2 ml UNSCH PRN IV FLUSH 12/13/17 15:30 (NS Flush) 2 ml BID IV FLUSH 12/13/17 21:00 12/14/17 21:41 (Tylenol) 650 mg Q4H PRN PO 12/13/17 15:30 12/14/17 08:50 (Zofran Inj) 4 mg Q6H PRN IVP 12/13/17 15:30 (Ambien) 5 mg HS PRN PO 12/13/17 15:30 (Narcan Inj) 0.4 mg UNSCH PRN IV PUSH 12/13/17 15:30 (Danielle-Colace) 1 tab BID PO 12/13/17 21:00 12/14/17 21:40 (Milk Of Magnesia Liq) 30 ml Q12H PRN PO 12/13/17 15:30 (Senokot) 17.2 mg Q12H PRN PO 12/13/17 15:30 (Dulcolax Supp) 10 mg DAILY PRN RECTAL 12/13/17 15:30 (Lactulose Liq) 30 ml DAILY PRN PO 12/13/17 15:30 (D50w (Vial) Inj) 50 ml UNSCH PRN IV PUSH 12/13/17 15:30 (Glucagon Inj) 1 mg UNSCH PRN OTHER 12/13/17 15:30 (NovoLOG SUPPLEMENTAL SCALE) 1 ACHS SLIDING SCALE SQ 12/13/17 17:00 12/15/17 09:07 Sodium Chloride 1,000 ml @ 125 mls/hr Q8H IV 12/13/17 16:45 12/14/17 18:19 (Tums Chew) 500 mg Q2H PRN CHEW 12/14/17 03:15 12/14/17 04:07 (Flonase Albaro Spr) 1 spray BID NASAL 12/14/17 09:45 12/15/17 09:08 (Lipitor) 40 mg HS PO 12/14/17 21:00 12/14/17 21:40 Allergies Allergies Coded Allergies No Known Allergies (Unverified Allergy, Unknown, 12/13/17) Uncoded Allergies IMPLANTED DEFIBRILLATOR ( Adverse Reaction, Severe, 12/13/17) Review of Systems All other ROS: ROS reviewed as documented in chart Exam I&O / VS Vital Signs Date Time Temp Pulse Resp B/P (MAP) Pulse Ox O2 Delivery O2 Flow Rate FiO2 12/15/17 05:06 98.2 73 16 128/58 (81) 96 12/14/17 23:16 98.0 71 20 112/62 (79) 96 12/14/17 23:00 67 12/14/17 19:24 97.5 74 16 127/75 (92) 97 12/14/17 17:26 98.5 69 18 129/79 (96) 97 12/14/17 16:31 82 12/14/17 12:11 98.0 60 18 115/62 (79) 97 12/14/17 12:00 76 General: Alert and Oriented, No acute distress Eye: EOMI, Normal conjuctiva Respiratory: Non-labored respirations Cardiology: Normal rate Neurologic: Alert, Oriented, CN II-XII intact, Normal DTR's Psychiatric: Cooperative, Appropriate mood & affect Exam Comments ox 3, no aphasia. eomi, ou 3-2mm, face sym, left arm upto elbow reduced pin. reduced pin in sock distribution patrick le, msr 1+, no clonus, planter flexor, no drift, 5/5 all 4 ext Objective Micro and Labs Laboratory Tests Test 12/15/17 06:08 White Blood Count 6.7 Red Blood Count 4.13 Hemoglobin 12.3 Hematocrit 36.4 Mean Corpuscular Volume 88.1 Mean Corpuscular Hemoglobin 29.7 Mean Corpuscular Hemoglobin Concent 33.7 Red Cell Distribution Width 13.0 Platelet Count 293 Mean Platelet Volume 8.2 Neutrophils (%) (Auto) 56.4 Lymphocytes (%) (Auto) 31.9 Monocytes (%) (Auto) 10.0 Eosinophils (%) (Auto) 1.1 Basophils (%) (Auto) 0.6 Neutrophils # (Auto) 3.8 Lymphocytes # (Auto) 2.1 Monocytes # (Auto) 0.7 Eosinophils # (Auto) 0.1 Basophils # (Auto) 0.0 CBC Comment DIFF FINAL Differential Comment Blood Urea Nitrogen 15 Creatinine 1.19 Random Glucose 223 Calcium Level 9.2 Sodium Level 135 Potassium Level 4.3 Chloride Level 102 Carbon Dioxide Level 26.1 Anion Gap 7 Estimat Glomerular Filtration Rate 65 Problem Qualifiers (1) TIA (transient ischemic attack): Qualified Codes: G45.9 - Transient cerebral ischemic attack, unspecified (2) Diabetes mellitus: Qualified Codes: E11.8 - Type 2 diabetes mellitus with unspecified complications (3) Hypertension: Qualified Codes: I10 - Essential (primary) hypertension Benigno Wang MD Dec 15, 2017 09:27
--- NOTE | 2017-12-15 09:34 | HHI.FPPN ---
Subjective Remarks Patient is doing well this morning. He states his numbness in his left hand may be mildly improved. The numbness in his left toe is improved. His is at the bedside. He denies chest pain, nausea, vomiting, fever, chills. He understands he has poorly controlled diabetes, severe peripheral vascular disease. He understands he needs to follow up closely with his primary physician and specialists. He understands if he remains noncompliant with his medications he may have a bad outcome including . (Jalil Fontenot MD, R3) Objective Vitals Vital Signs Date Time Temp Pulse Resp B/P (MAP) Pulse Ox O2 Delivery O2 Flow Rate FiO2 12/15/17 05:06 98.2 73 16 128/58 (81) 96 12/14/17 23:16 98.0 71 20 112/62 (79) 96 12/14/17 23:00 67 12/14/17 19:24 97.5 74 16 127/75 (92) 97 12/14/17 17:26 98.5 69 18 129/79 (96) 97 12/14/17 16:31 82 12/14/17 12:11 98.0 60 18 115/62 (79) 97 12/14/17 12:00 76 I/O 12/14/17 12/14/17 12/14/17 12/15/17 12/15/17 12/15/17 07:00 15:00 23:00 07:00 15:00 23:00 Intake Total 1000 ml 890 ml Output Total 1020 ml Balance 1000 ml -130 ml Intake Oral 240 ml IV Total 1000 ml 650 ml Output Urine Total 1020 ml # Voids 3 (Jalil Fontenot MD, R3) Result Diagram: 12/15/17 0608 12/15/17 0608 Imaging Last Impressions Neck CTA 12/14/17 0000 Signed Impressions: Service Date/Time: Thursday, December 14, 2017 14:43 - CONCLUSION: 1. Limited study due to patient motion. No definite carotid stenosis/occlusion. Shawn Dacosta MD Head CTA 12/14/17 0000 Signed Impressions: Service Date/Time: Thursday, December 14, 2017 14:43 - CONCLUSION: Limited study due to patient motion but no large vessel stenosis or aneurysm seen. Shawn Dacosta MD Head CT 12/13/17 0000 Signed Impressions: Service Date/Time: Wednesday, December 13, 2017 13:30 - CONCLUSION: Negative for acute process. MRI may give more information. Juarez Miguel MD FACR Carotid Artery Ultrasound 12/13/17 0000 Signed Impressions: Service Date/Time: Wednesday, December 13, 2017 15:35 - CONCLUSION: Negative for hemodynamically significant carotid stenosis. Right vertebral not visualized. Juarez Miguel MD FACR Objective Remarks GENERAL: This is a well-nourished, well-developed patient, in no apparent distress. SKIN: No rashes, ecchymoses or lesions. Cool and dry. Multiple tattoos HEAD: Atraumatic. Normocephalic. EYES: Pupils equal round and reactive. Extraocular motions intact. No scleral icterus. No injection or drainage. ENT: Nose without bleeding, purulent drainage or septal hematoma. Throat without erythema, tonsillar hypertrophy or exudate. Uvula midline. Airway patent. NECK: Trachea midline. No JVD or lymphadenopathy. Supple, nontender, no meningeal signs. CARDIOVASCULAR: Regular rate and rhythm without murmurs, gallops, or rubs. Unable to palpate dorsalis pedis or posterior tibial pulses RESPIRATORY: Clear to auscultation. Breath sounds equal bilaterally. No wheezes , rales, or rhonchi. GASTROINTESTINAL: Abdomen soft, non-tender, nondistended. No hepato-splenomegaly , or palpable masses. No guarding. MUSCULOSKELETAL: Extremities without clubbing, cyanosis, or edema. No joint tenderness, effusion, or edema noted. No calf tenderness. Negative Homans sign bilaterally. NEUROLOGICAL: Awake and alert. Cranial nerves II through XII intact. Motor grossly within normal limits. Sensory deficit in an ulnar distribution on left hand 3rd-5th digits with numbness. Left big toe with decreased sensation. Normal athlete marketing agent strength. Five out of 5 muscle strength in all muscle groups with perhaps slight decreased strength in left arm compared to right. Normal speech with very slight "thickness" without rapid fluency but not sure of his norm at this time (Jalil Fontenot MD, R3) A/P Assessment and Plan 51-year-old poorly controlled diabetic with CAD presents with findings concerning for TIA versus stroke and hyperglycemia. He also has severe peripheral vascular disease. Treatment as below. Discharge Planning Likely today, pending echo PT requests home with home health PT. (Jalil Fontenot MD, R3) Attending Attestation Patient seen and examined. Case reviewed and discussed with the resident team. Agree with plan of care as discussed with me and documented in the resident note. appreciate help of Neurology (Virgie Cardenas MD) Problem List: (1) TIA (transient ischemic attack) ICD Codes: G45.9 - Transient cerebral ischemic attack, unspecified Status: Acute Plan: Concern for TIA versus stroke CT within normal limits Neurology consulted. Unable to perform MRI, given pacemaker defibrillator. CTA head and neck performed and reviewed as above. Continue recommendations per neurology: aspirin, atorvastatin PT recs home with home health PT Echo today pending. Refer to cardiology outpatient (Dr. Moser) for consideration for Loop recorder (2) PVD (peripheral vascular disease) ICD Codes: I73.9 - Peripheral vascular disease, unspecified Status: Acute Plan: He will need to be followed by vascular surgery as an outpatient. ROMI reviewed as moderate to severe peripheral vascular disease. Counseled graded increase of activities. Continue medication management as described elsewhere. (3) Diabetes mellitus ICD Codes: E11.9 - Type 2 diabetes mellitus without complications Status: Chronic Plan: Poorly controlled at this time Currently patient getting metformin 500 twice a day. Diabetic education Repeat HgA1c (03/22/17--> 7.7 now very high) Patient has recently established with a primary care physician. Ideally, patient will be maximized on metformin. And then start on glyburide or another agent. While inpatient, will cover with sliding scale insulin. Consider long-acting insulin. (4) KALINA (acute kidney injury) ICD Codes: N17.9 - Acute kidney failure, unspecified Status: Resolved Plan: Resolved. (5) Hypertension ICD Codes: I10 - Essential (primary) hypertension Status: Chronic Plan: Holding lisinopril, amlodipine and spironolactone while inpatient (6) CAD (coronary artery disease) ICD Codes: I25.10 - Atherosclerotic heart disease of [place] coronary artery without angina pectoris Status: Chronic Plan: Energy And Sustainability Manager is Dr. Moser EKG reviewed as NSR, HR 70 (7) FEN/PPX Status: Acute Plan: Fluids: tolerating PO Electrolytes: monitor and replace as needed Nutrition: diabetic diet PPX: heparin, scds (Jalil Fontenot MD, R3) Problem Qualifiers (1) TIA (transient ischemic attack): Qualified Codes: G45.9 - Transient cerebral ischemic attack, unspecified (2) Diabetes mellitus: Qualified Codes: E11.8 - Type 2 diabetes mellitus with unspecified complications (3) Hypertension: Qualified Codes: I10 - Essential (primary) hypertension (4) CAD (coronary artery disease): Qualified Codes: I25.10 - Atherosclerotic heart disease of [place] coronary artery without angina pectoris Jalil Fontenot MD, R3 Dec 15, 2017 09:34 Virgie Cardenas MD Dec 19, 2017 12:01
[2017-12-15] MEDS ORDERED: ATOR40TA16 PO (09:37)
[2017-12-15] MEDS ORDERED: ASA325 PO (09:37)
[2017-12-15] MEDS ORDERED: METF-382 PO (09:37)
--- NOTE | 2017-12-15 09:39 | HHI.FF ---
Face to Face Verification Diagnosis: (1) TIA (transient ischemic attack) (2) Diabetes mellitus (3) PVD (peripheral vascular disease) Physical Therapy Order: Evaluate and Treat, Improve ambulation, Strength and gait training Home Health Nursing Order: Medical education Signs/symptoms of disease process Diabetic education Medication education-adverse effect I have seen patient Roger Inman on 12/15/17. My clinical findings support the need for the requested home health care services because: Ltd mobility - disease progression Deconditioned w/ increased weakness Med compliance is questionable High risk of falls I certify that my clinical findings support that this patient is homebound because: Unsteady gait/balance Unsafe to leave home unassisted Jalil Fontenot MD, R3 Dec 15, 2017 09:39
[2017-12-15] MEDS ORDERED: WALKER WHEELS/F1 MIS (09:41)
--- NOTE | 2017-12-15 09:42 | HHI.DCPOC ---
Discharge Care Plan Diagnosis: (1) TIA (transient ischemic attack) (2) PVD (peripheral vascular disease) (3) Hyperglycemia (4) KALINA (acute kidney injury) (5) Diabetes mellitus Goals to Promote Your Health * To prevent worsening of your condition and complications * To maintain your health at the optimal level Directions to Meet Your Goals Take your medications as prescribed Follow your dietary instruction Follow activity as directed Keep your appointments as scheduled Take your immunizations and boosters as scheduled If your symptoms worsen call your PCP, if no PCP go to Urgent Care Center or Emergency Room Smoking is Dangerous to Your Health. Avoid second hand smoke Call the 24-hour hour crisis hotline for domestic abuse at Jalli Fontenot MD, R3 Dec 15, 2017 09:42
[2017-12-15 12:04] VITALS: BP 126/73; PULSE 69; RESP 18; TEMP 97.9; O2SAT 97
[2017-12-15 15:34] VITALS: BP 113/75; PULSE 75; RESP 18; TEMP 98; O2SAT 97
--- NOTE | 2017-12-15 16:38 | ECHRPT ---
Indication: CVA/TIA CONCLUSIONS Moderately dilated left ventricle. Wall thickness is normal. The left ventricular systolic function is mildly reduced with an estimated ejection fraction in the range of 45- 50%. There is trace tricuspid valve regurgitation. BP: 120 / 61 HR: 80 Rhythm: MEASUREMENTS (Male / Female) Normal Values Technical Quality:Good 2D ECHO LV Diastolic Diameter PLAX 5.9 cm 4.2 - 5.9 / 3.9 - 5.3 cm LV Systolic Diameter PLAX 4.8 cm IVS Diastolic Thickness 0.8 cm 0.6 - 1.0 / 0.6 - 0.9 cm LVPW Diastolic Thickness 0.6 cm 0.6 - 1.0 / 0.6 - 0.9 cm LV Relative Wall Thickness 0.2 LA Systolic Diameter LX 3.6 cm 3.0 - 4.0 / 2.7 - 3.8 cm M-MODE Aortic Root Diameter MM 3.3 cm AV Cusp Separation MM 2.2 cm DOPPLER Mitral E Point Velocity 69.6 cm/s Mitral A Point Velocity 93.3 cm/s Mitral E to A Ratio 0.7 TR Peak Velocity 217.0 cm/s TR Peak Gradient 18.8 mmHg FINDINGS LEFT VENTRICLE Moderately dilated left ventricle. Wall thickness is normal. The left ventricular systolic function is mildly reduced with an estimated ejection fraction in the range of 45- 50%. RIGHT VENTRICLE Normal right ventricular size and systolic function. LEFT ATRIUM The left atrial size is normal. RIGHT ATRIUM The right atrial size is normal. ATRIAL SEPTUM Normal atrial septal thickness without atrial level shunting by limited color doppler interrogation. AORTA The aortic root and proximal ascending aorta are normal in size on limited imaging. MITRAL VALVE Structurally normal mitral valve. No mitral valve stenosis or regurgitation. AORTIC VALVE Trileaflet aortic valve. No aortic valve stenosis or regurgitation. TRICUSPID VALVE There is trace tricuspid valve regurgitation. PULMONARY VALVE The pulmonary valve is not well visualized. VESSELS The inferior vena cava is normal in size. PERICARDIUM No pericardial effusion. Liam Howard MD, FACC, [facility] [place]ronically Signed[place] Final Date:15 December 2017 16:38
--- NOTE | 2017-12-16 08:50 | HHI.DS ---
Discharge Summary Admission Date Dec 13, 2017 at 14:18 Discharge Date: Dec 15, 2017 Admitting Diagnosis TIA, hypoglycemia (1) TIA (transient ischemic attack) Diagnosis: Principal Plan: Concern for TIA versus stroke CT within normal limits Neurology consulted. Unable to perform MRI, given pacemaker defibrillator. CTA head and neck performed and reviewed as above. Continue recommendations per neurology: aspirin, atorvastatin PT recs home with home health PT Echo today pending. Refer to cardiology outpatient (Dr. Moser) for consideration for Loop recorder ICD Codes: G45.9 - Transient cerebral ischemic attack, unspecified Status: Acute (2) PVD (peripheral vascular disease) Diagnosis: Secondary Plan: He will need to be followed by vascular surgery as an outpatient. ROMI reviewed as moderate to severe peripheral vascular disease. Counseled graded increase of activities. Continue medication management as described elsewhere. ICD Codes: I73.9 - Peripheral vascular disease, unspecified Status: Acute (3) Diabetes mellitus Diagnosis: Secondary Plan: Poorly controlled at this time Currently patient getting metformin 500 twice a day. Diabetic education Repeat HgA1c (03/22/17--> 7.7 now very high) Patient has recently established with a primary care physician. Ideally, patient will be maximized on metformin. And then start on glyburide or another agent. While inpatient, will cover with sliding scale insulin. Consider long-acting insulin. ICD Codes: E11.9 - Type 2 diabetes mellitus without complications Status: Chronic (4) KALINA (acute kidney injury) Diagnosis: Secondary Plan: Resolved. ICD Codes: N17.9 - Acute kidney failure, unspecified Status: Resolved (5) Hypertension Diagnosis: Secondary Plan: Holding lisinopril, amlodipine and spironolactone while inpatient ICD Codes: I10 - Essential (primary) hypertension Status: Chronic (6) CAD (coronary artery disease) Diagnosis: Secondary Plan: Past[employer] Helper is Dr. Moser EKG reviewed as NSR, HR 70 ICD Codes: I25.10 - Atherosclerotic heart disease of [place] coronary artery without angina pectoris Status: Chronic (7) FEN/PPX Diagnosis: Secondary Plan: Fluids: tolerating PO Electrolytes: monitor and replace as needed Nutrition: diabetic diet PPX: heparin, scds Status: Acute Consultants Neurology Brief History Mr Inman is a 51 year old male with hx of poorly controlled DM, CAD with 3 AL and stent placement plus a defibrillator because of repeated serious arrhythmias ; he presents because yesterday morning he had left hand and foot numbness. His mom had a stroke in her 50s and she encouraged him to come to the ED for treatment. Initially his whole left arm was feeling numb, but now the numbness and tingling is mostly located in the 3rd-5th digits of his left hand and big toe on the left. He also has had a constant 5/10 headache which is sharp and has not gone away. He denies any double vision but does state that he is seeing "dots from time to time" which he could not localize to one eye. He does not have a history of migraines and this has never happened to him before. He has felt like vomiting earlier in the day, but now feels better. He denies chest pain. Normally he is able to walk blocks without becoming SOB, but recently after only a few blocks he will stop b/c his legs are tired. He does follow with marine insurance claim examiner Dr. Moser every 3 months. He recently saw a PCP for the first time, Dr. Pan last Wednesday. He says he had his metformin refilled and he was going to follow him up this week for a repeat exam. A stroke workup was ordered but he could not have an MRI because of his defibrillator. He is better today than yesterday but still has some sxs in his left hand and foot. He also for the first time today reported that when the ambulance came to his house, they noted slurred speech. He reports being able to speak and swallow without problems now. He stated he stopped his anticoagulation 3 years ago after having a PE and now was not taking any aspirin pr plavix, etc. He does have some chronic foot numbness after an old injury and is not certain this am what is old vs new as far as his foot goes. His headaches do not involve any eye tearing or nose watering though he has has nasal congestion for a good 2 weeks. He does have pain in the back and side of his head at times and also reports pain near his eyes and at times a throbbing quality to his headaches. CBC/BMP: 12/15/17 0608 12/15/17 0608 Significant Findings Laboratory Tests Test 12/13/17 12:47 12/13/17 12:51 12/13/17 16:40 12/14/17 06:10 Red Blood Count 4.44 MIL/MM3 (4.50-5.90) 4.07 MIL/MM3 (4.50-5.90) Monocytes (%) (Auto) 10.9 % (0.0-8.0) 10.8 % (0.0-8.0) Blood Urea Nitrogen 24 MG/DL (7-18) Creatinine 1.53 MG/DL (0.60-1.30) Random Glucose 390 MG/DL (74-106) Aspartate Amino Transf (AST/SGOT) 11 U/L (15-37) Sodium Level 129 MEQ/L (136-145) Chloride Level 95 MEQ/L (98-107) Estimat Glomerular Filtration Rate 49 ML/MIN (>89) Hemoglobin A1c 11.2 % (4.3-6.0) Troponin I LESS THAN 0.02 NG/ML Venous Blood pH 7.41 (7.360-7.400) Venous Blood Partial Pressure CO2 39 mmHg (44-48) Urine Glucose (UA) 1000 mg/dL (NEG) Urine Mucus FEW /lpf (OCC) Hemoglobin 12.3 GM/DL (13.0-17.0) Hematocrit 35.4 % (39.0-51.0) Test 12/14/17 06:18 12/15/17 06:08 Random Glucose 215 MG/DL (74-106) 223 MG/DL (74-106) Sodium Level 133 MEQ/L (136-145) 135 MEQ/L (136-145) Estimat Glomerular Filtration Rate 68 ML/MIN (>89) 65 ML/MIN (>89) Cholesterol Level 203 MG/DL (120-200) LDL Cholesterol 136 MG/DL (0-99) Red Blood Count 4.13 MIL/MM3 (4.50-5.90) Hemoglobin 12.3 GM/DL (13.0-17.0) Hematocrit 36.4 % (39.0-51.0) Monocytes (%) (Auto) 10.0 % (0.0-8.0) Imaging Last Impressions Neck CTA 12/14/17 0000 Signed Impressions: Service Date/Time: Thursday, December 14, 2017 14:43 - CONCLUSION: 1. Limited study due to patient motion. No definite carotid stenosis/occlusion. Shawn Dacosta MD Head CTA 12/14/17 0000 Signed Impressions: Service Date/Time: Thursday, December 14, 2017 14:43 - CONCLUSION: Limited study due to patient motion but no large vessel stenosis or aneurysm seen. Shawn Dacosta MD Head CT 12/13/17 0000 Signed Impressions: Service Date/Time: Wednesday, December 13, 2017 13:30 - CONCLUSION: Negative for acute process. MRI may give more information. Juarez Miguel MD FACR Carotid Artery Ultrasound 12/13/17 0000 Signed Impressions: Service Date/Time: Wednesday, December 13, 2017 15:35 - CONCLUSION: Negative for hemodynamically significant carotid stenosis. Right vertebral not visualized. Juarez Miguel MD FACR Echocardiogram: Moderately dilated left ventricle. Wall thickness is normal. Ejection fraction 45-50%. ROMI: Findings of moderate to severe disease bilaterally. PE at Discharge GENERAL: This is a well-nourished, well-developed patient, in no apparent distress. SKIN: No rashes, ecchymoses or lesions. Cool and dry. Multiple tattoos HEAD: Atraumatic. Normocephalic. EYES: Pupils equal round and reactive. Extraocular motions intact. No scleral icterus. No injection or drainage. ENT: Nose without bleeding, purulent drainage or septal hematoma. Throat without erythema, tonsillar hypertrophy or exudate. Uvula midline. Airway patent. NECK: Trachea midline. No JVD or lymphadenopathy. Supple, nontender, no meningeal signs. CARDIOVASCULAR: Regular rate and rhythm without murmurs, gallops, or rubs. Unable to palpate dorsalis pedis or posterior tibial pulses RESPIRATORY: Clear to auscultation. Breath sounds equal bilaterally. No wheezes , rales, or rhonchi. GASTROINTESTINAL: Abdomen soft, non-tender, nondistended. No hepato-splenomegaly , or palpable masses. No guarding. MUSCULOSKELETAL: Extremities without clubbing, cyanosis, or edema. No joint tenderness, effusion, or edema noted. No calf tenderness. Negative Homans sign bilaterally. NEUROLOGICAL: Awake and alert. Cranial nerves II through XII intact. Motor grossly within normal limits. Sensory deficit in an ulnar distribution on left hand 3rd-5th digits with numbness. Left big toe with decreased sensation. Normal driving teacher strength. Five out of 5 muscle strength in all muscle groups with perhaps slight decreased strength in left arm compared to right. Normal speech with very slight "thickness" without rapid fluency but not sure of his norm at this time Hospital Course 51-year-old noncompliant male with poorly controlled diabetes, previous smoker, severe peripheral vascular disease presents with likely TIA versus stroke. We are unable to perform an MRI given the patient has a defibrillator/pacemaker. He did undergo head CTA, neck CTA, vascular ultrasound, head CT which did not show acute disease. An ROMI was performed which showed severe peripheral vascular disease. The patient understood that he has severe vascular disease which will make him at increased risk for stroke, heart attacks, leg cramping. Patient understood that if he continues to be noncompliant he could end up back in the hospital with significant morbidity and even mortality. All questions were answered. He knows he needs to follow up closely with his primary care physician regarding his diabetes. He understands he needs to follow with his marine insurance claim examiner for the possibility of a loop recorder. He understands he needs to follow with his neurologist because of our concern for stroke. He understands the changes made to his medications, including increasing metformin , taking an aspirin daily and taking a statin medication. PT recommended home with home health PT. However the patient does not have insurance and case management states that he will not have home health services. Pt Condition on Discharge: Stable Discharge Disposition: Disch w/ Home Health Serv Discharge Instructions DIET: Follow Instructions for: Diabetic Diet Activities you can perform: See Additionl Instruction Other Activity Instructions: per PT Follow up Referrals: Cardiology - 2-3 Days with Kuldip Moser MD Neurology - 2 Weeks with Benigno Wang MD PCP Follow-up - 1 Week Vascular Surgery - 2 Weeks New Medications: Metformin ER (Metformin ER) 1,000 Mg Kelly 2000 MG PO DAILY for Blood Sugar Management, #60 TAB 0 Refills With evening meal Walker with Front Wheels (Walker with Front Wheels) 1 Mis Mis EA .XX DIRECTED, #1 0 Refills Aspirin (Px Aspirin) 325 Mg Tab 325 MG PO DAILY, #30 TAB 0 Refills Atorvastatin (Atorvastatin) 40 Mg Tab 40 MG PO HS, #30 TAB 0 Refills Continued Medications: Amlodipine (Amlodipine) 2.5 Mg Tab 2.5 MG PO DAILY for Blood Pressure Management, #30 TAB 0 Refills Lisinopril (Lisinopril) 40 Mg Tab 40 MG PO DAILY for Blood Pressure Management, #30 TAB 0 Refills Metoprolol Tartrate (Lopressor) 50 Mg Tab 50 MG PO BID for control heart rhythm for 30 Days, TAB Spironolactone (Spironolactone) 25 Mg Tab 25 MG PO DAILY, #30 TAB 0 Refills Discontinued Medications: Metformin (Metformin) 500 Mg Tab 500 MG PO BIDPC for Blood Sugar Management, #60 TAB 0 Refills With meals Jalil Fontenot MD, R3 Dec 16, 2017 08:50
== END 2017-12-15 18:19 | disposition home or self-care (01) ==
LOC: NEPE 11:45 → NEDA 14:18 → NEPHCDU 16:34
PROVIDERS: ADMIT Family Medicine; ATTEND Family Medicine
DX: G45.9 Transient cerebral ischemic attack, unspecified (principal); N17.9 Acute kidney failure, unspecified; I25.10 Atherosclerotic heart disease of native coronary artery without angina pectoris; I11.9 Hypertensive heart disease without heart failure; I42.9 Cardiomyopathy, unspecified; R94.31 Abnormal electrocardiogram [ECG] [EKG]; E78.00 Pure hypercholesterolemia, unspecified; E11.42 Type 2 diabetes mellitus with diabetic polyneuropathy; E11.51 Type 2 diabetes mellitus with diabetic peripheral angiopathy without gangrene; E11.65 Type 2 diabetes mellitus with hyperglycemia; Z87.891 Personal history of nicotine dependence; Z79.899 Other long term (current) drug therapy; Z79.84 Long term (current) use of oral hypoglycemic drugs; Z86.73 Personal history of transient ischemic attack (TIA), and cerebral infarction without residual deficits; Z91.19 Patient's noncompliance with other medical treatment and regimen; Z23 Encounter for immunization
CPT/HCPCS: 70450; 70496; 70498; 80048; 80053; 80061; 81001; 82010; 82607; 82805; 82948; 83036; 84443; 84484; 85025; 90471; 90686; 90732; 92507; 92522; 93005; 93306; 93880; 93922; 96361; 96372; 96374; 97110; 97162; 97166; 99285; G0378; G8987; G8988; G8999; G9158; G9186; J1644; J1815; J1885; J7030; Q9967; G0009; Q2038

== ENCOUNTER 2018-01-04 11:23 | Emergency (ER) | payer OTHER ==
[~2018-01-04 11:23] MED LIST changes: -AMIO0.1T PO; +AMLO2.5T PO; +ASA325 PO; +ATOR40TA16 PO; -CLEO300C2 PO; -LISI-515 PO; +LISI40TA PO; +METF-382 PO; -METF500T PO; -NORC5TAB PO; +SPIR25TA PO; +WALKER WHEELS/F1 MIS
[2018-01-04 12:22] VITALS: BP 133/75; PULSE 60; RESP 18; TEMP 97.7; O2SAT 100
--- NOTE | 2018-01-04 13:33 | RADRPT ---
EXAM DATE/TIME: 01/04/2018 13:14 [facility] COMPARISON: No previous studies available for comparison. INDICATIONS : Left foot swelling for several days. MEDICAL HISTORY : Cerebrovascular disease. Cardiovascular disease. Hypertension. Diabetes. SURGICAL HISTORY : Defibrillator. ENCOUNTER: Initial ACUITY: 2 days PAIN SCORE: 8/10 LOCATION: Left foot. FINDINGS: Three view examination of the left foot demonstrates no dislocation, or fracture. Mild soft tissue swelling. The tarsal bones appear intact. The interphalangeal and metatarsophalangeal joints are int act. The calcaneus is intact. Bony mineralization is normal. CONCLUSION: No acute fracture joint dislocation. Mild soft tissue swelling. Calvin Manrique MD on January 04, 2018 at 13:30 Board Certified Radiologist. This report was verified electronically.
--- NOTE | 2018-01-04 13:37 | PD ---
HPI Chief Complaint: Pain: Acute or Chronic Time Seen by Provider: 13:28 Travel History International Travel<30 days: No Contact w/Intl Traveler<30days: No Traveled to known affect area: No History of Present Illness HPI 52 YO M with PMH of CAD, PAD, TIA, HTN, DM presents to the ED for evaluation of left foot pain and edema. Pain is rated 8/10,throbbing, shooting, mostly in digits 3 and 4. No relieving or exacerbating factors reported. The patient can identify no injury. He has never had a diabetic foot check. He does not take blood thinners. PFSH Past Medical History Hx Anticoagulant Therapy: Yes (BRILINTA) Arthritis: No Blood Disorders: No Heart Rhythm Problems: No Cancer: No Cardiac Catheterization: Yes Cardiovascular Problems: Yes High Cholesterol: Yes Chemotherapy: No Chest Pain: Yes Congestive Heart Failure: No Cerebrovascular Accident: Yes Diabetes: Yes Diminished Hearing: No Endocrine: Yes Gastrointestinal Disorders: No Genitourinary: No Heparin Induced Thrombocytopen: No Hypertension: Yes Immune Disorder: No Implanted Vascular Access Dvce: Yes Musculoskeletal: No Neurologic: Yes (TIA) Psychiatric: No Reproductive: No Respiratory: No Immunizations Current: Yes Radiation Therapy: No Thyroid Disease: No Past Surgical History Abdominal Surgery: No AICD: Yes Body Medical Devices: Defibrillator Cardiac Surgery: Yes (CATH W/STENTS) Coronary Artery Bypass Graft: No Coronary Stent: Yes (X3) Ear Surgery: No Endocrine Surgery: No Eye Surgery: No Genitourinary Surgery: No Neurologic Surgery: No Oral Surgery: No Thoracic Surgery: Yes (AICD ON 08/2016) Other Surgery: Yes Social History Alcohol Use: No Tobacco Use: No Substance Use: No Allergies-Medications (Allergen,Severity, Reaction): Coded Allergies: No Known Allergies (Unverified Allergy, Unknown, 12/13/17) Uncoded Allergies: IMPLANTED DEFIBRILLATOR (Adverse Reaction, Severe, 12/13/17) Non-conditional Biotronik implanted defibrilator. Not MRI conditional. AW 12/13/17 Reported Meds & Prescriptions Reported Meds & Active Scripts Active Tramadol (Tramadol HCl) 50 Mg Tab 50 Mg PO Q6H PRN Walker with Front Wheels (Device) 1 Mis Mis Ea .XX DIRECTED Px Aspirin (Aspirin) 325 Mg Tab 325 Mg PO DAILY Metformin ER (Metformin HCl) 1,000 Mg Kelly 2,000 Mg PO DAILY With evening meal Atorvastatin (Atorvastatin Calcium) 40 Mg Tab 40 Mg PO HS Lopressor (Metoprolol Tartrate) 50 Mg Tab 50 Mg PO BID 30 Days Reported Amlodipine (Amlodipine Besylate) 2.5 Mg Tab 2.5 Mg PO DAILY Spironolactone 25 Mg Tab 25 Mg PO DAILY Lisinopril 40 Mg Tab 40 Mg PO DAILY Review of Systems Except as stated in HPI: all other systems reviewed are Neg Physical Exam Narrative GENERAL: Well-nourished, well-developed white male in no acute distress. SKIN: Focused skin assessment warm/dry. HEAD: Normocephalic. EYES: No scleral icterus. No injection or drainage. NECK: Supple, trachea midline. No JVD or lymphadenopathy. CARDIOVASCULAR: Regular rate and rhythm without murmurs, gallops, or rubs. RESPIRATORY: Breath sounds equal bilaterally. No accessory muscle use. GASTROINTESTINAL: Abdomen soft, non-tender, nondistended. MUSCULOSKELETAL: No cyanosis, or edema. FOCUSED LEFT LOWER EXTREMITY EXAM: Dopplerable DP and PT pulses. Foot is pink, warm, moderately edematous, diffusely TTP. Patient retains full, active ROM of the foot and ankle.Hohmann sign positive. Sensation intact to light touch distally. Cap refill ~2sec. BACK: Nontender without obvious deformity. No CVA tenderness. Data Data Last Documented VS Vital Signs Date Time Temp Pulse Resp B/P (MAP) Pulse Ox O2 Delivery O2 Flow Rate FiO2 01/04/18 12:22 97.7 60 18 133/75 (94) 100 Orders Orders Foot, Complete ([id number]) (01/04/18 13:04) Ice/Cold Pack (01/04/18 13:04) Us Leg Venous Doppler (01/04/18 13:34) Mandatory Outpatient Referral (01/04/18 15:16) Ed Discharge Order (01/04/18 15:17) [facility] Medical Decision Making Medical Screen Exam Complete: Yes Emergency Medical Condition: Yes Differential Diagnosis DVT versus CAD versus diabetic neuropathy versus FB versus other Narrative Course 52 YO M with PMH of CAD, PAD, TIA, HTN, DM presents to the ED for evaluation of left foot pain and edema. Pain is rated 8/10,throbbing, shooting, mostly in digits 3 and 4. No relieving or exacerbating factors reported. The patient can identify no injury. He has never had a diabetic foot check. He does not take blood thinners. Vitals reviewed. On exam there are dopplerable DP and PT pulses. Foot is pink, warm, moderately edematous, diffusely TTP. Patient retains full, active ROM of the foot and ankle. + Hohmann sign. Sensation intact to light touch distally. Cap refill ~2sec. x-ray the foot reveals no bony injury or foreign body. Ultrasound of the leg reveals no evidence of DVT. I reviewed the patient's record. He had a arterial segment Doppler with ankle brachial indices at last visit. This revealed moderate to severe PAD with small vessel vascular disease and abnormal toe brachial indices bilaterally. I suspect his symptoms are related to his PAD. Mandatory outpatient consult was placed with the on-call vascular surgeon, Dr. Armenta. Patient was prescribed a short course of pain medications. He was informed of the mandatory follow-up process and instructed to see Dr. Armenta as soon as possible. He is also instructed to return for worsening symptoms. He indicated understanding of the instructions and is agreeable to the care plan. The patient is stable and discharged home. Diagnosis Primary Impression: PAD (peripheral artery disease) Additional Impression: Claudication of left lower extremity Referrals: Neurologist Vascular Surgeon Additional Instructions: Rest, elevate the foot. A mandatory outpatient referral has been placed on your behalf. Follow up with Dr. Armenta as discussed. Take pain medications as prescribed. Return to the ED for WORSENING SYMPTOMS or any urgent or emergent medical condition. Med/Other Pt SpecificInfo: Prescription(s) given Scripts Tramadol (Tramadol) 50 Mg Tab 50 MG PO Q6H Y for PAIN, #12 TAB 0 Refills Prov: Roger Burdick MD 01/04/18 Disposition: 01 DISCHARGE HOME Condition: Stable Nhung Tyson Jan 04, 2018 13:37
--- NOTE | 2018-01-04 14:56 | RADRPT ---
EXAM DATE/TIME: 01/04/2018 14:04 [facility] COMPARISON: No previous studies available for comparison. INDICATIONS : Left leg pain. MEDICAL HISTORY : Hypercholesterolemia. Hypertension. Cardiac disorder. Irregular heart beat. Dibetes. SURGICAL HISTORY : Cath with stent. Cardiac cath. Orthopedic surgery. Nerve/ tendon repair. ENCOUNTER: Initial ACUITY: 2 weeks PAIN SCORE: 4/10 LOCATION: Left leg. TECHNIQUE: Venous ultrasound of the leg was performed from the inguinal ligament to the proximal calf. Real-janee e, color Doppler and spectral tracing, compression and augmentation techniques were used. FINDINGS: There is normal compressibility of the deep venous system from the inguinal region to the proximal ca lf. No echogenic clot is seen in the lumen of the common femoral, femoral, popliteal, and posterior tibial veins. There is a normal response of the venous system to proximal and distal augmentation an d respiration. CONCLUSION: No evidence of DVT. Calvin Manrique MD on January 04, 2018 at 14:53 Board Certified Radiologist. This report was verified electronically.
[2018-01-04] MEDS ORDERED: TRAM50TA PO (15:12)
== END 2018-01-04 15:32 | disposition home or self-care (01) ==
LOC: NED 11:23 → NEPK 15:32
DX: I73.9 Peripheral vascular disease, unspecified (principal); E11.9 Type 2 diabetes mellitus without complications; E78.00 Pure hypercholesterolemia, unspecified; I10 Essential (primary) hypertension; Z79.84 Long term (current) use of oral hypoglycemic drugs
CPT/HCPCS: 73630; 93971

== ENCOUNTER 2018-04-18 10:49 | Observation (INO) ==
--- NOTE | 2018-04-18 11:35 | ED ---
HPI General Chief Complaint: Neuro Symptoms/Deficit Stated Complaint: Dizzy/weakness Time Seen by Provider: 04/18/18 11:14 History of Present Illness HPI Narrative: Patient presents to the emergency department complaining of dizziness upon awakening yesterday. States that he has difficulty standing up in his fingertips bilaterally and his lips are numb and he is seeing spots. States that he feels like his a few blade wants to golf but it does not. Frontal headache since yesterday, constant, nonradiating, 5 out of 10, aggravated by bending over, no alleviating factors, not help with Tylenol or aspirin. There is a month ago he had a mini stroke in his left lower extremity weakness secondary to that. Related Data Allergies Allergy/AdvReac Type Severity Reaction Status Date / Time No Known Allergies Allergy Unverified 04/18/18 11:24 Review of Systems ROS Unobtainable All other systems reviewed negative except as stated in HPI [facility] Family History Family History Other Family history of acute myocardial infarction Social History Social History Substance History: No History of Abuse Second Hand Smoke Exposure: No Smoking Status: Former smoker Tobacco Type: Cigarettes How Often Do You Have a Drink Containing Alcohol: 2 to 4 times a month Recent Travel in [facility] within the Last 8 Weeks: No Recent Out of Country Travel within the Last 8 Weeks: No Exam Narrative Exam Narrative: GENERAL: No acute distress. SKIN: Focused skin assessment warm/dry. HEAD: Atraumatic. Normocephalic. EYES: Extra Ocular muscles intact bilaterally. No scleral icterus. No injection or drainage. ENT: No nasal bleeding or discharge. Mucous membranes pink and moist. NECK: Trachea midline. No JVD. CARDIOVASCULAR: Regular rate and rhythm. No murmur appreciated. RESPIRATORY: No accessory muscle use. Clear to auscultation. Breath sounds equal bilaterally. GASTROINTESTINAL: Abdomen soft, non-tender, nondistended. Hepatic and splenic margins not palpable. MUSCULOSKELETAL: No obvious deformities. No clubbing. No cyanosis. No edema. NEUROLOGICAL: Awake and alert. No obvious cranial nerve deficits. Motor grossly within normal limits. Normal speech. Patient able to ambulate with walker which she normally uses. PSYCHIATRIC: Appropriate mood and affect; insight and judgment normal. Course Initial Documented Vital Signs Temperature 98.0 F 04/18/18 10:54 Pulse Rate 73 04/18/18 10:54 Respiratory Rate 18 04/18/18 10:54 Blood Pressure 136/71 04/18/18 10:54 Pulse Oximetry 99 04/18/18 10:54 Last Documented Vital Signs Temperature 97.8 F 04/18/18 12:00 Pulse Rate 72 04/18/18 12:00 Respiratory Rate 16 04/18/18 12:00 Blood Pressure 128/76 04/18/18 12:00 Pulse Oximetry 99 04/18/18 12:00 NIH Stroke Scale NIH Stroke Scale Level of Consciousness: 0-Alert Orientation Questions: 0-Answers both correct Responds to Commands: 0-Both tasks correct Gaze Eye Movement: 0-Horizontal movement WNL Visual Tsang: 0-No visual field defect Facial Movement: 0-Normal Motor Functions Arm LEFT: 0-No drift Motor Functions Arm RIGHT: 0-No drift Motor Functions Leg LEFT: 0-No drift Motor Functions Leg RIGHT: 0-No drift Limb Ataxia: 0-No ataxia Sensory Loss: 0-No sensory loss Best Language: 0-Normal Articulation: 0-Normal Extinction or Inattention Sensory: 0-Absent Total: 0 Medical Decision Making MDM Narrative Medical decision making narrative: Patient presents to the emergency department complaining of dizziness, paresthesias. Patient placed on a cardiac nurse, IV access obtained, and labs/EKG/chest x-ray/head CT ordered. ECG: Sinus rhythm, rate 64, TC 398, normal axis wave in 2 3 aVF, wave inversion in lead I. Head CT and chest x-ray showed no acute process. Slightly increased creatinine , u/a+ glc. Will admit patient for r/o CVA vs TIA. Differential Diagnosis Differential Diagnosis: CVA, TIA, ACS, electrolyte abnormality Lab Data Result diagrams: 04/18/18 12:00 04/18/18 12:00 Lab Results 04/18/18 04/18/18 04/18/18 Range/Units 12:00 12:00 12:00 WBC 7.8 (4.0-11.0) th/mm3 RBC 5.22 (4.50-5.90) mil/mm3 Hgb 15.1 (13.0-17.0) gm/dL Hct 45.5 (39.0-51.0) % MCV 87.0 (80.0-100.0) fL MCH 29.0 (27.0-34.0) pg MCHC 33.3 (32.0-36.0) % RDW 14.2 (11.6-17.2) % Plt Count 264 (150-450) th/mm3 MPV 8.6 (7.0-11.0) fL Neut % (Auto) 61.3 (16.0-70.0) % Lymph % (Auto) 27.2 (9.0-44.0) % [place] % (Auto) 10.0 H (0.0-8.0) % Eos % (Auto) 1.0 (0.0-4.0) % Baso % (Auto) 0.5 (0.0-2.0) % Neut # (Auto) 4.8 (1.8-7.7) th/mm3 Lymph # (Auto) 2.1 (1.0-4.8) th/mm3 [place] # (Auto) 0.8 (0.0-0.9) th/mm3 Eos # (Auto) 0.1 (0.0-0.4) th/mm3 Baso # (Auto) 0.0 (0.0-0.2) th/mm3 WBC Differential . Differential Comment Auto diff final PT 10.6 (9.8-11.6) sec INR 1.0 Ratio APTT 24.8 (24.3-30.1) sec Sodium 135 L (136-145) meq/L Potassium 4.5 (3.5-5.1) meq/L Chloride 102 (98-107) meq/L Carbon Dioxide 23.5 (21.0-32.0) meq/L Anion Gap 10 (5-15) meq/L BUN 27 H (7-18) mg/dL Creatinine 1.67 H (0.60-1.30) mg/dL Estimated GFR 44 L (>89) mL/min Random Glucose 102 (74-106) mg/dL Calcium 9.5 (8.5-10.1) mg/dL Magnesium 2.2 (1.5-2.5) mg/dL Total Bilirubin 0.3 (0.2-1.0) mg/dL AST 10 L (15-37) U/L ALT 14 (12-78) U/L Alkaline Phosphatase 57 (45-117) U/L Total Creatine Kinase 41 (39-308) U/L Troponin I Less than 0.02 L (0.02-0.05) ng/mL Total Protein 8.0 (6.4-8.2) g/dL Albumin 4.2 (3.4-5.0) g/dL 04/18/18 04/18/18 Range/Units 12:00 12:00 WBC (4.0-11.0) th/mm3 RBC (4.50-5.90) mil/mm3 Hgb (13.0-17.0) gm/dL Hct (39.0-51.0) % MCV (80.0-100.0) fL MCH (27.0-34.0) pg MCHC (32.0-36.0) % RDW (11.6-17.2) % Plt Count (150-450) th/mm3 MPV (7.0-11.0) fL Neut % (Auto) (16.0-70.0) % Lymph % (Auto) (9.0-44.0) % [place] % (Auto) (0.0-8.0) % Eos % (Auto) (0.0-4.0) % Baso % (Auto) (0.0-2.0) % Neut # (Auto) (1.8-7.7) th/mm3 Lymph # (Auto) (1.0-4.8) th/mm3 [place] # (Auto) (0.0-0.9) th/mm3 Eos # (Auto) (0.0-0.4) th/mm3 Baso # (Auto) (0.0-0.2) th/mm3 WBC Differential Differential Comment PT (9.8-11.6) sec INR Ratio APTT (24.3-30.1) sec Sodium (136-145) meq/L Potassium (3.5-5.1) meq/L Chloride (98-107) meq/L Carbon Dioxide (21.0-32.0) meq/L Anion Gap (5-15) meq/L BUN (7-18) mg/dL Creatinine (0.60-1.30) mg/dL Estimated GFR (>89) mL/min Random Glucose (74-106) mg/dL Calcium (8.5-10.1) mg/dL Magnesium Cancelled (1.5-2.5) mg/dL Total Bilirubin (0.2-1.0) mg/dL AST (15-37) U/L ALT (12-78) U/L Alkaline Phosphatase (45-117) U/L Total Creatine Kinase Cancelled (39-308) U/L Troponin I (0.02-0.05) ng/mL Total Protein (6.4-8.2) g/dL Albumin (3.4-5.0) g/dL Imaging Data Radiologist's impression: ITS Impressions Chest X-Ray 04/18/18 11:28 CONCLUSION: No acute intrathoracic disease. Head CT 04/18/18 11:28 CONCLUSION: 1. No focal or acute intracranial hemorrhage. 2. 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 Discharge Plan Discharge Disposition Patient Disposition: 30 Still Patient Discharge Condition Condition: Stable Discharge Details Discharge Problem: Transient cerebral ischemia Physicians Team ED Provider: Saira Dean Primary Care Provider: Shreyas Bull Attending Provider: Julee Hernandez Discharge Interventions Interventions: Vital Signs Last Done: 04/18/18 12:00 Status ED Status: Admitted Observation Patient
--- NOTE | 2018-04-18 12:03 | XR ---
EXAM DATE: 04/18/2018 11:58 AM EDT AGE/SEX: 52 years / Male INDICATIONS: Chest discomfort, short of breath, vertigo, numbness in lips CLINICAL DATA: This is the patient's initial encounter. Patient reports that signs and symptoms have been present for 3 days and indicates a pain score of 2/10. MEDICAL/SURGICAL HISTORY: Cardiovascular disease. Hypertension. Diabetes. Defibrillator. Cor onary artery stent. COMPARISON: No prior exams available for comparison. FINDINGS: A single AP view of the chest demonstrates the lungs to be symmetrically aerated without evidence of mass, infiltrate or effusion. The cardiomediastinal contours are unremarkable. There is a pacemaker overlying the left chest. Osseous structures are intact. Old healed right rib fracture. CONCLUSION: No acute intrathoracic disease. Electronically signed by: Calvin Manrique MD 04/18/2018 12:02 PM EDT
[2018-04-18 12:44] LABS: Baso % (Auto) 0.5 % (0.0-2.0); Eos # (Auto) 0.1 th/mm3 (0.0-0.4); Hematocrit 45.5 % (39.0-51.0); Hemoglobin 15.1 gm/dL (13.0-17.0); Lymph # (Auto) 2.1 th/mm3 (1.0-4.8); Lymph % (Auto) 27.2 % (9.0-44.0); Mean Corpuscular HGB Conc 33.3 % (32.0-36.0); Mean Platelet Volume 8.6 fL (7.0-11.0); Mono # (Auto) 0.8 th/mm3 (0.0-0.9); Neut # (Auto) 4.8 th/mm3 (1.8-7.7); Neut % (Auto) 61.3 % (16.0-70.0); Platelet Count 264 th/mm3 (150-450); Red Blood Count 5.22 mil/mm3 (4.50-5.90); Red Cell Distribution Width 14.2 % (11.6-17.2); White Blood Count 7.8 th/mm3 (4.0-11.0)
[2018-04-18 12:55] LABS: Activated Partial Thrombo Time 24.8 sec (24.3-30.1); Prothrombin Time 10.6 sec (9.8-11.6)
[2018-04-18 13:15] LABS: Alanine Aminotransferase 14 U/L (12-78); Albumin 4.2 g/dL (3.4-5.0); Anion Gap 10 meq/L (5-15); Aspartate Aminotransferase 10 U/L (15-37); Blood Urea Nitrogen 27 mg/dL (7-18); Calcium 9.5 mg/dL (8.5-10.1); Carbon Dioxide 23.5 meq/L (21.0-32.0); Chloride 102 meq/L (98-107); Glomerular Filtration Rate 44 mL/min (>89); Glucose,Random 102 mg/dL (74-106); Magnesium 2.2 mg/dL (1.5-2.5); Potassium 4.5 meq/L (3.5-5.1); Sodium 135 meq/L (136-145)
[2018-04-18 13:18] LABS: Alkaline Phosphatase 57 U/L (45-117)
[2018-04-18 13:19] LABS: Creatine Kinase 41 U/L (39-308)
--- NOTE | 2018-04-18 14:21 | P.HPFP ---
<Pamela Gooden - Last Filed: 04/18/18 20:45> History of Present Illness Primary Care Physician: Shreyas Bull History of Present Illness: Mr. Inman is a 52-year-old white male with past medical history of multiple MIs , TIA, DM, hypertension presenting with numbness in his fingertips and lips. States that yesterday he had a really bad headache. He describes his headache as a 6 out of 10 pressure type pain that was in the top of his head, nonradiating. Nothing makes it better or worse. He took some Tylenol which did not help with the pain. He last felt this type of headache with his last TIA in November. Yesterday he also felt his heart racing and he felt like his defibrillator was trying to go off, but did not. He also felt dizzy, tried to stand up, and was unsteady on his feet. He states that the numbness in his lips have now resolved, but all the fingertips of his left hand are still numb. Patient has a history of 3 MIs w/ 3 stents placed (the last of which was last year), PE from a DVT in his legs after surgery (3 years ago). He states that he is not on anticoagulation currently because he is not able to afford it. - Diagnosis (1) Transient cerebral ischemia (2) Acute kidney injury (3) Diabetes mellitus (4) HTN (hypertension) (5) CHF (congestive heart failure) (6) Nutrition, metabolism, and development symptoms (7) DVT prophylaxis - Inpatient Certification If this patient has been admitted as an Inpatient: I certify that the inpatient services were ordered in accordance with Medicare regulations governing the order. This includes certification that hospital inpatient services are reasonable and necessary and in the case of services not specified as inpatient-only under 42 CFR 419.22(n), that they are appropriately provided as inpatient services in accordance to with the 2-midnight benchmark under 43 CFR 412.3(e) Review of Systems Constitutional: Denies chills, Denies fever(s), Denies night sweats Eyes: Reports blurry vision (wear glasses), Reports requires corrective lenses, Denies change in vision Ears, Nose, Mouth, and Throat: Reports headache(s), Denies difficulty swallowing Cardiovascular: Reports rapid, pounding, or irregular heartbeat (for a while, see Dr. Moser), Denies chest pain, Denies shortness of breath causing sudden awakening Respiratory: Denies shortness of breath Gastrointestinal: Denies abdominal pain, Denies constipation, Denies nausea, Denies vomiting Genitourinary: Denies difficulty urinating Musculoskeletal: Reports muscle weakness (left side, residual from prior cva), Reports tingling Neurologic: Reports abnormal walking (off balance), Reports dizziness, Reports headache(s), Reports tingling/numbness/burning sensations PMFSH - History History Provided By: Patient - Medical History Medical History: Medical History (Last Updated 04/18/18 @ 18:26 by Pamela Gooden MD, R1) Myocardial infarct (Acute) Cardiac defibrillator in place (Acute) TIA (transient ischemic attack) - Family History Family History: Family History (Last Updated 04/18/18 @ 12:31 by Nasra Pringle) Other Family history of acute myocardial infarction - Tobacco History Second Hand Smoke Exposure: No Tobacco Use In Past 30 Days: No Smoking Status: Former smoker Tobacco Type: Cigarettes - Alcohol History How Often Do You Have a Drink Containing Alcohol: 2 to 4 times a month - Substance Use History Substance History: No History of Abuse - Travel History Recent Travel in the [place] Within the Last 8 Weeks: No Recent Travel Out of the Country Within the Last 8 Weeks: No - Immunization History Tetanus Immunization: >5 Years Hx Influenza Vaccine This Season: No Medications and Allergies Allergies Allergy/AdvReac Type Severity Reaction Status Date / Time No Known Allergies Allergy Verified 04/18/18 13:43 Home Medications Medication Instructions Recorded Confirmed Type amlodipine [Norvasc] 2.5 mg PO DAILY 04/18/18 04/18/18 History lisinopril 10 mg PO DAILY 04/18/18 04/18/18 History metformin 1,000 mg PO BID 04/18/18 04/18/18 History metoprolol tartrate 50 mg PO BID 04/18/18 04/18/18 History spironolactone 25 mg PO DAILY 04/18/18 04/18/18 History Exam Vital signs: Vital Signs 04/18/18 10:54 04/18/18 12:00 04/18/18 13:49 Temperature 98.0 F 97.8 F 98.1 F Pulse Rate 73 72 58 L Respiratory Rate 18 16 18 Blood Pressure 136/71 128/76 100/58 L Pulse Oximetry 99 99 98 Intake & Output 04/17/18 04/18/18 04/18/18 18:59 06:59 18:59 Weight 84.368 kg Narrative: GENERAL: SKIN: Warm and dry. Multiple tattoos HEAD: Atraumatic. Normocephalic. EYES: Pupils equal and round. No scleral icterus. No injection or drainage. ENT: No nasal bleeding or discharge. Mucous membranes pink and moist. NECK: Trachea midline. No JVD. CARDIOVASCULAR: Regular rate and rhythm. No murmurs, rubs, or gallops detected RESPIRATORY: No accessory muscle use. Clear to auscultation. Breath sounds equal bilaterally. GASTROINTESTINAL: Abdomen soft, non-tender, nondistended. Hepatic and splenic margins not palpable. MUSCULOSKELETAL: Extremities without clubbing, cyanosis, or edema. No obvious deformities. NEUROLOGICAL: Awake and alert. Left facial nerve impairment expressed by asymmetrical smile. Left UE 4/5 strength. Left LE 3/5 strength. Right UE and LE 5/5 strength. Decreased sensation of left hand. Slightly slurred speech. PSYCHIATRIC: Appropriate mood and affect; insight and judgment normal. Results - Labs Result diagrams: 04/18/18 12:00 04/18/18 12:00 Abnormal lab results 04/18/18 04/18/18 Range/Units 12:00 12:00 [place] % (Auto) 10.0 H (0.0-8.0) % Sodium 135 L (136-145) meq/L BUN 27 H (7-18) mg/dL Creatinine 1.67 H (0.60-1.30) mg/dL Estimated GFR 44 L (>89) mL/min AST 10 L (15-37) U/L Troponin I Less than 0.02 L (0.02-0.05) ng/mL Short CBC 04/18/18 Range/Units 12:00 WBC 7.8 (4.0-11.0) th/mm3 Hgb 15.1 (13.0-17.0) gm/dL Hct 45.5 (39.0-51.0) % Plt Count 264 (150-450) th/mm3 BMP 04/18/18 12:00 Sodium 135 L Potassium 4.5 Chloride 102 Carbon Dioxide 23.5 BUN 27 H Creatinine 1.67 H Calcium 9.5 Cardiac Enzymes 04/18/18 04/18/18 Range/Units 12:00 12:00 Total Creatine Kinase 41 Cancelled (39-308) U/L Troponin I Less than 0.02 L (0.02-0.05) ng/mL Liver Function 04/18/18 Range/Units 12:00 Total Bilirubin 0.3 (0.2-1.0) mg/dL AST 10 L (15-37) U/L ALT 14 (12-78) U/L Alkaline Phosphatase 57 (45-117) U/L Albumin 4.2 (3.4-5.0) g/dL - Imaging Impressions Chest X-Ray 04/18/18 11:28 CONCLUSION: No acute intrathoracic disease. Head CT 04/18/18 11:28 CONCLUSION: 1. No focal or acute intracranial hemorrhage. 2. 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 Caprini VTE Risk Assessment Caprini VTE Risk Assessment: Moderate/High Risk (score >= 2) Caprini Risk Assessment Model: Point Value = 1 Point Value = 2 Point Value = 3 Point Value = 5 Age 41-60 Minor surgery BMI > 25 kg/m2 Swollen legs Varicose veins or History of unexplained or recurrent spontaneous Oral contraceptives or hormone replacement Sepsis (< 1 month) Serious lung disease, including pneumonia (< 1 month) Abnormal pulmonary function Acute myocardial infarction Congestive heart failure (< 1 month) History of inflammatory bowel disease Medical patient at bed rest Age 61-74 Arthroscopic surgery Major open surgery (> 45 min) Laparoscopic surgery (> 45 min) Malignancy Confined to bed (> 72 hours) Immobilizing plaster cast Central venous access Age >= 75 History of VTE Family history of VTE Factor V Leiden Prothrombin [id number] Lupus anticoagulant Anticardiolipin antibodies Elevated serum homocysteine Heparin-induced thrombocytopenia Other congenital or acquired thrombophilia Stroke (< 1 month) Elective arthroplasty Hip, pelvis, or leg fracture Acute spinal cord injury (< 1 month) Prophylaxis Regimen: Total Risk Factor Score Risk Level Prophylaxis Regimen 0-1 Low Early ambulation 2 Moderate Order ONE of the following: *Sequential Compression Device (SCD) *Heparin 5000 units SQ BID 3-4 Higher Order ONE of the following medications: *Heparin 5000 units SQ TID *Enoxaparin/Lovenox 40 mg SQ daily (WT < 150 kg, CrCl > 30 mL/min) *Enoxaparin/Lovenox 30 mg SQ daily (WT < 150 kg, CrCl > 10-29 mL/min) *Enoxaparin/Lovenox 30 mg SQ BID (WT < 150 kg, CrCl > 30 mL/min) AND/OR *Sequential Compression Device (SCD) 5 or more Highest Order ONE of the following medications: *Heparin 5000 units SQ TID (Preferred with Epidurals) *Enoxaparin/Lovenox 40 mg SQ daily (WT < 150 kg, CrCl > 30 mL/min) *Enoxaparin/Lovenox 30 mg SQ daily (WT < 150 kg, CrCl > 10-29 mL/min) *Enoxaparin/Lovenox 30 mg SQ BID (WT < 150 kg, CrCl > 30 mL/min) AND *Sequential Compression Device (SCD) Assessment and Plan - Assessment (1) Transient cerebral ischemia Code(s): G45.9 - Transient cerebral ischemic attack, unspecified Status: Acute Plan: 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 States that his weakness is worse since yesterday with numbness in his left hand. Pt had recently stopped his anticoagulation. NIH stroke scale on initial presentation is [address] w/o contrast on admission, 04/18, shows 1. No focal or acute intracranial hemorrhage. 2. 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 Due to timing of hospital presentation will not be considered for protective measures, such as HOB flat etc -NIH stroke scale daily -If worsening sx will consult Neurology -Consult PT -Consult case management for assistance with anticoagulation therapy cost (2) Acute kidney injury Code(s): N17.9 - Acute kidney failure, unspecified Status: Acute Plan: Creatinine upon admission is 1.67. Last creatinine in 11/2017 was 1.19. Likely prerenal (dehydration) vs intrarenal (DM, HTN) -Start NS at 1/2 maintenance 65 mls/hr -Repeat BMP in AM to trend improvement (3) Diabetes mellitus Code(s): E11.9 - Type 2 diabetes mellitus without complications Status: Chronic Plan: Pt with chronic DM -Hold at home metformin -NovoLog SSI -Hypoglycemic protocol -Bedside glucoses (4) HTN (hypertension) Code(s): I10 - Essential (primary) hypertension Status: Chronic Plan: Medications: -Amlodipine 2.5 mg p.o. daily -Lisinopril 10 mg p.o. daily -Pacemaker will be interrogated by [employer] (5) CHF (congestive heart failure) Code(s): I50.9 - Heart failure, unspecified Status: Chronic Plan: Continue at home medications: -Metoprolol tartrate 50 mg p.o. twice daily -Spironolactone 25 mg p.o. daily (6) Nutrition, metabolism, and development symptoms Code(s): R63.8 - Other symptoms and signs concerning food and fluid intake Status: Acute Plan: Fluids: NS @ 65ml/hr Electrolytes: monitor and replete as needed Nutrition: heart-healthy diet GI Prophylaxis: None indicated at this time (7) DVT prophylaxis Status: Acute Plan: Early ambulation. Lovenox 40mg subQ q24hr/bilateral SCDs <Julee Hernandez - Last Filed: 04/19/18 11:09> History of Present Illness Primary Care Physician: Shreyas Bull - Diagnosis (1) Transient cerebral ischemia (2) Acute kidney injury (3) Diabetes mellitus (4) HTN (hypertension) (5) CHF (congestive heart failure) (6) Nutrition, metabolism, and development symptoms (7) DVT prophylaxis - Inpatient Certification If this patient has been admitted as an Inpatient: I certify that the inpatient services were ordered in accordance with Medicare regulations governing the order. This includes certification that hospital inpatient services are reasonable and necessary and in the case of services not specified as inpatient-only under 42 CFR 419.22(n), that they are appropriately provided as inpatient services in accordance to with the 2-midnight benchmark under 43 CFR 412.3(e) [facility] - Medical History Medical History: Medical History (Last Updated 04/18/18 @ 18:26 by Pamela Gooden MD, R1) Myocardial infarct (Acute) Cardiac defibrillator in place (Acute) TIA (transient ischemic attack) - Family History Family History: Family History (Last Updated 04/18/18 @ 12:31 by Nasra Pringle) Other Family history of acute myocardial infarction Medications and Allergies Active Medications: Active Medications Acetaminophen (Tylenol) 650 mg PO Q4H PRN PRN Reason: Temp > 100.4, pain 1-10 Amlodipine Besylate (Norvasc) 2.5 mg PO DAILY DIANE Last Admin: 07/03/18 09:42 Dose: 2.5 mg Dextrose (D50w Vial) 50 ml IV.PUSH UNSCH PRN PRN Reason: PER HYPOGLYCEMIA PROTOCOL Glucagon (Glucagon Inj) 1 mg OTHER PRN PRN PRN Reason: for Hypoglycemia Protocol Heparin Sodium (Porcine) (Heparin Inj) 5,000 units SQ Q8H [facility] Sodium Chloride (Ns Inj) 1,000 mls @ 65 mls/hr IV.CONT .[id number] [facility] Last Admin: 04/19/18 04:04 Dose: 65 mls/hr Insulin Aspart (Novolog Insulin Suppl Scale Inj) 0 unit SQ ACHS [facility]; Protocol Last Admin: 04/18/18 23:56 Dose: Not Given Lisinopril (Prinivil) 10 mg PO DAILY [facility] Last Admin: 04/19/18 09:42 Dose: 10 mg Metoprolol Tartrate (Lopressor) 50 mg PO BID [facility] Last Admin: 04/19/18 09:42 Dose: 50 mg Miscellaneous (Pill Splitter) 1 each OTHER UNSCH PRN PRN Reason: FOR SPECIFIED MEDS Last Admin: 04/19/18 09:43 Dose: 1 each Senna/Docusate Sodium (Danielle-Colace) 1 tab PO BID [facility] Last Admin: 04/19/18 09:43 Dose: Not Given Spironolactone (Aldactone) 25 mg PO DAILY [facility] Last Admin: 04/19/18 09:42 Dose: 25 mg Exam Vital signs: Vital Signs 04/18/18 12:00 04/18/18 13:49 04/18/18 16:09 Temperature 97.8 F 98.1 F 97.6 F Pulse Rate 72 58 L 56 L Respiratory Rate 16 18 18 Blood Pressure 128/76 100/58 L 110/70 Pulse Oximetry 99 98 99 04/18/18 17:02 04/18/18 17:09 04/18/18 20:31 Temperature 98.0 F 97.8 F Pulse Rate 65 59 L 65 Respiratory Rate 16 17 Blood Pressure 116/67 125/73 Pulse Oximetry 96 95 04/19/18 00:09 04/19/18 04:00 04/19/18 07:40 Temperature 98.1 F 98.0 F 97.4 F L Pulse Rate 65 67 53 L Respiratory Rate 18 16 Blood Pressure 118/74 106/71 115/67 Pulse Oximetry 98 97 99 04/19/18 08:42 Temperature Pulse Rate 65 Respiratory Rate Blood Pressure Pulse Oximetry Intake & Output 04/18/18 04/19/18 04/19/18 18:59 06:59 18:59 Intake Total 300 / 300 Balance 300 / 300 Weight 81.8 kg Intake: Other 300 / 300 Other: Post Void Residual 200 Other Intake Source Saline Solution # Voids 1 Weight On Admission 81.8 kg Results - Labs Result diagrams: 04/19/18 05:35 04/19/18 05:35 Abnormal lab results 04/18/18 04/18/18 04/18/18 Range/Units 12:00 12:00 18:14 [place] % (Auto) 10.0 H (0.0-8.0) % Sodium 135 L (136-145) meq/L Carbon Dioxide (21.0-32.0) meq/L BUN 27 H (7-18) mg/dL Creatinine 1.67 H (0.60-1.30) mg/dL Estimated GFR 44 L (>89) mL/min POC Glucose 125 H (68-110) mg/dl Random Glucose (74-106) mg/dL AST 10 L (15-37) U/L Troponin I Less than 0.02 L (0.02-0.05) ng/mL Triglycerides (42-150) mg/dL Cholesterol (120-200) mg/dL LDL Cholesterol, Calc (0-99) mg/dL 04/18/18 04/18/18 04/19/18 Range/Units 20:46 23:00 01:40 [place] % (Auto) (0.0-8.0) % Sodium (136-145) meq/L Carbon Dioxide (21.0-32.0) meq/L BUN (7-18) mg/dL Creatinine (0.60-1.30) mg/dL Estimated GFR (>89) mL/min POC Glucose 155 H (68-110) mg/dl Random Glucose (74-106) mg/dL AST (15-37) U/L Troponin I Less than 0.02 L Less than 0.02 L (0.02-0.05) ng/mL Triglycerides (42-150) mg/dL Cholesterol (120-200) mg/dL LDL Cholesterol, Calc (0-99) mg/dL 04/19/18 04/19/18 Range/Units 05:35 05:35 [place] % (Auto) 11.4 H (0.0-8.0) % Sodium (136-145) meq/L Carbon Dioxide 20.9 L (21.0-32.0) meq/L BUN 26 H (7-18) mg/dL Creatinine 1.44 H (0.60-1.30) mg/dL Estimated GFR 52 L (>89) mL/min POC Glucose (68-110) mg/dl Random Glucose 113 H (74-106) mg/dL AST 10 L (15-37) U/L Troponin I (0.02-0.05) ng/mL Triglycerides 161 H (42-150) mg/dL Cholesterol 245 H (120-200) mg/dL LDL Cholesterol, Calc 170 H (0-99) mg/dL Short CBC 04/18/18 04/19/18 Range/Units 12:00 05:35 WBC 7.8 7.4 (4.0-11.0) th/mm3 Hgb 15.1 14.2 (13.0-17.0) gm/dL Hct 45.5 41.9 (39.0-51.0) % Plt Count 264 205 (150-450) th/mm3 BMP 04/18/18 04/19/18 12:00 05:35 Sodium 135 L 138 Potassium 4.5 4.1 Chloride 102 106 Carbon Dioxide 23.5 20.9 L BUN 27 H 26 H Creatinine 1.67 H 1.44 H Calcium 9.5 8.8 Cardiac Enzymes 04/18/18 04/18/18 04/18/18 Range/Units 12:00 12:00 20:46 Total Creatine Kinase 41 Cancelled (39-308) U/L Troponin I Less than 0.02 L Less than 0.02 L (0.02-0.05) ng/mL 04/19/18 Range/Units 01:40 Total Creatine Kinase (39-308) U/L Troponin I Less than 0.02 L (0.02-0.05) ng/mL Liver Function 04/18/18 04/19/18 Range/Units 12:00 05:35 Total Bilirubin 0.3 0.3 (0.2-1.0) mg/dL AST 10 L 10 L (15-37) U/L ALT 14 14 (12-78) U/L Alkaline Phosphatase 57 50 (45-117) U/L Albumin 4.2 3.7 (3.4-5.0) g/dL Urine 04/18/18 Range/Units 12:40 Urine Color Straw (Yellw/Straw) Urine Clarity Clear (Clear) Urine pH 8.0 (5.0-8.5) Ur Specific [place] 1.005 (1.002-1.035) Urine Protein Negative (Neg-Trace) mg/dL Urine Glucose (UA) Negative (Negative) mg/dL - Imaging Impressions Chest X-Ray 04/18/18 11:28 CONCLUSION: No acute intrathoracic disease. Head CT 04/18/18 11:28 CONCLUSION: 1. No focal or acute intracranial hemorrhage. 2. 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 Carotid Doppler Study 04/19/18 00:00 CONCLUSION: 1. Right Internal Carotid Artery: Findings indicate <50% stenosis. 2. Left Internal Carotid Artery: Findings indicate <50% stenosis. Caprini VTE Risk Assessment Caprini Risk Assessment Model: Point Value = 1 Point Value = 2 Point Value = 3 Point Value = 5 Age 41-60 Minor surgery BMI > 25 kg/m2 Swollen legs Varicose veins or History of unexplained or recurrent spontaneous Oral contraceptives or hormone replacement Sepsis (< 1 month) Serious lung disease, including pneumonia (< 1 month) Abnormal pulmonary function Acute myocardial infarction Congestive heart failure (< 1 month) History of inflammatory bowel disease Medical patient at bed rest Age 61-74 Arthroscopic surgery Major open surgery (> 45 min) Laparoscopic surgery (> 45 min) Malignancy Confined to bed (> 72 hours) Immobilizing plaster cast Central venous access Age >= 75 History of VTE Family history of VTE Factor V Leiden Prothrombin [id number] Lupus anticoagulant Anticardiolipin antibodies Elevated serum homocysteine Heparin-induced thrombocytopenia Other congenital or acquired thrombophilia Stroke (< 1 month) Elective arthroplasty Hip, pelvis, or leg fracture Acute spinal cord injury (< 1 month) Prophylaxis Regimen: Total Risk Factor Score Risk Level Prophylaxis Regimen 0-1 Low Early ambulation 2 Moderate Order ONE of the following: *Sequential Compression Device (SCD) *Heparin 5000 units SQ BID 3-4 Higher Order ONE of the following medications: *Heparin 5000 units SQ TID *Enoxaparin/Lovenox 40 mg SQ daily (WT < 150 kg, CrCl > 30 mL/min) *Enoxaparin/Lovenox 30 mg SQ daily (WT < 150 kg, CrCl > 10-29 mL/min) *Enoxaparin/Lovenox 30 mg SQ BID (WT < 150 kg, CrCl > 30 mL/min) AND/OR *Sequential Compression Device (SCD) 5 or more Highest Order ONE of the following medications: *Heparin 5000 units SQ TID (Preferred with Epidurals) *Enoxaparin/Lovenox 40 mg SQ daily (WT < 150 kg, CrCl > 30 mL/min) *Enoxaparin/Lovenox 30 mg SQ daily (WT < 150 kg, CrCl > 10-29 mL/min) *Enoxaparin/Lovenox 30 mg SQ BID (WT < 150 kg, CrCl > 30 mL/min) AND *Sequential Compression Device (SCD) Assessment and Plan - Assessment (1) Transient cerebral ischemia Code(s): G45.9 - Transient cerebral ischemic attack, unspecified Status: Acute (2) Acute kidney injury Code(s): N17.9 - Acute kidney failure, unspecified Status: Acute (3) Diabetes mellitus Code(s): E11.9 - Type 2 diabetes mellitus without complications Status: Chronic (4) HTN (hypertension) Code(s): I10 - Essential (primary) hypertension Status: Chronic (5) CHF (congestive heart failure) Code(s): I50.9 - Heart failure, unspecified Status: Chronic (6) Nutrition, metabolism, and development symptoms Code(s): R63.8 - Other symptoms and signs concerning food and fluid intake Status: Acute (7) DVT prophylaxis Status: Acute - Attending Attestation The exam, history, and the medical decision-making described in the above note were completed with the assistance of the resident physician. I reviewed and agree with the findings presented. I attest that I had a [id number] encounter with the patient on the same day, and personally performed and documented my assessment and findings in the medical record. This is late entry due to issues with my [employer] access within the new system. Patient was seen and examined with the resident team and this notes reflects my exam and assessment and plan. Likely TIA vs CVA. <Pamela Gooden G - Last Filed: 04/18/18 20:45> (3) Diabetes mellitus Qualifiers: Diabetes mellitus type: type 2 Diabetes mellitus alf insulin use: without alf use Diabetes mellitus complication status: with unspecified complications Qualified Code(s): E11.8 - Type 2 diabetes mellitus with unspecified complications <Julee Hernandez R - Last Filed: 04/19/18 11:09> (3) Diabetes mellitus Qualifiers: Diabetes mellitus type: type 2 Diabetes mellitus rn long term care insulin use: without rn long term care use Diabetes mellitus complication status: with unspecified complications Qualified Code(s): E11.8 - Type 2 diabetes mellitus with unspecified complications
[2018-04-18] MEDS ORDERED: Acetaminophen 325 MG Tablet PO PRN (14:43)
[2018-04-18] MEDS ORDERED: Enoxaparin Inj 40 MG/0.4 ML Syringe SQ SCH (15:00)
[2018-04-18] MEDS ORDERED: Dextrose 50% in Water 50 ML Vial IV.PUSH PRN (19:00)
[2018-04-18] MEDS: Senna/Docusate Sodium 8.6/50 MG Tablet PO SCH (23:04)
[2018-04-18] MEDS: Metoprolol Tartrate 50 MG Tablet PO SCH (23:04)
[2018-04-18 23:23] LABS: Bilirubin,Urine Negative (Negative); Clarity,Urine Clear (Clear); Color,Urine Straw (Yellw/Straw); Glucose,Urine (UA) Negative (Negative); Leukocyte Esterase,Urine Negative (Negative); Nitrite,Urine Negative (Negative); Specific Gravity,Urine 1.005 (1.002-1.035); Squamous Epithelial Cell,Urine <1 /hpf (0-5)
[2018-04-18] MEDS: Insulin NovoLOG Aspart Correctional Sugar Inj SQ SCH (23:56)
[2018-04-19] MEDS: Sod Chloride 0.9% Inj 1,000 ML IV.CONT SCH ×2 (04:04→13:00)
[2018-04-19] MEDS ORDERED: Heparin - SQ 10,000 UNITS/ML Vial SQ SCH (06:00)
[2018-04-19 07:07] LABS: Alanine Aminotransferase 14 U/L (12-78); Albumin 3.7 g/dL (3.4-5.0); Anion Gap 11 meq/L (5-15); Aspartate Aminotransferase 10 U/L (15-37); Blood Urea Nitrogen 26 mg/dL (7-18); Calcium 8.8 mg/dL (8.5-10.1); Carbon Dioxide 20.9 meq/L (21.0-32.0); Chloride 106 meq/L (98-107); Glomerular Filtration Rate 52 mL/min (>89); Glucose,Random 113 mg/dL (74-106); Potassium 4.1 meq/L (3.5-5.1); Sodium 138 meq/L (136-145); Triglycerides 161 mg/dL (42-150)
[2018-04-19 07:09] LABS: Alkaline Phosphatase 50 U/L (45-117); Chol/HDL Ratio 5.72 Ratio; Cholesterol 245 mg/dL (120-200); HDL Cholesterol 42.8 mg/dL (40.0-60.0); LDL Cholesterol,Calculated 170 mg/dL (0-99); Total Protein 7.2 g/dL (6.4-8.2)
[2018-04-19 07:10] LABS: Baso % (Auto) 0.3 % (0.0-2.0); Eos # (Auto) 0.1 th/mm3 (0.0-0.4); Hematocrit 41.9 % (39.0-51.0); Hemoglobin 14.2 gm/dL (13.0-17.0); Lymph # (Auto) 2.7 th/mm3 (1.0-4.8); Lymph % (Auto) 36.7 % (9.0-44.0); Mean Corpuscular HGB Conc 33.9 % (32.0-36.0); Mean Corpuscular Hemoglobin 29.6 pg (27.0-34.0); Mean Corpuscular Volume 87.5 fL (80.0-100.0); Mean Platelet Volume 9.4 fL (7.0-11.0); Mono # (Auto) 0.8 th/mm3 (0.0-0.9); Mono % (Auto) 11.4 % (0.0-8.0); Neut # (Auto) 3.8 th/mm3 (1.8-7.7); Neut % (Auto) 50.6 % (16.0-70.0); Platelet Count 205 th/mm3 (150-450); Red Blood Count 4.79 mil/mm3 (4.50-5.90); Red Cell Distribution Width 14.1 % (11.6-17.2); White Blood Count 7.4 th/mm3 (4.0-11.0)
--- NOTE | 2018-04-19 08:50 | ECG ---
Date Performed: 04/18/2018 Time Performed: 11:31:31 PTAGE: 52 years EKG: Sinus rhythm WITH OCCASIONAL VENTRICULAR PREMATURE COMPLEXES POSSIBLE INFERIOR MYOCARDIAL INFARCTION ABNORMAL ECG PREVIOUS TRACING : 12/13/2017 12.24 Since the previous tracing, no significant change noted DOCTOR: Nico Ha Interpretating Date/Time 04/19/2018 08:49:32
[2018-04-19] MEDS ORDERED: Lisinopril 10 MG Tablet PO SCH (09:00)
[2018-04-19] MEDS ORDERED: Spironolactone 25 MG Tablet PO SCH (09:00)
[2018-04-19] MEDS ORDERED: amLODIPine 5 MG Tablet PO SCH (09:00)
--- NOTE | 2018-04-19 09:32 | US ---
EXAM DATE: 04/19/2018 9:23 AM EDT AGE/SEX: 52 years / Male INDICATIONS: Cerebrovascular accident. CLINICAL DATA: This is the patient's initial encounter. Patient reports that signs and symptoms have been present for 1 day and indicates a pain score of 0/10. MEDICAL/SURGICAL HISTORY: . Hypercholesterolemia. Hypertension. Cardiac disorder. Irregular hea rt beat. Diabetes. . Cardiac Catheterization with stent. Cardiac cath. Orthopedic surgery. Nerve/ te ndon repair. COMPARISON: No prior exams available for comparison. VELOCITY PARAMETERS: ICA/CCA Ratio: Right 0.8 , Left 0.7 ICA: Right 60 cm/sec, Left 66 cm/sec CCA: Right 76 cm/sec, Left 93 cm/sec ECA: Right 68 cm/sec, Left 63 cm/sec Vertebral: Right 41 cm/sec antegrade, Left 41 cm/sec antegrade FINDINGS: Right Carotid: Minimal plaque throughout the carotid arteries.The waveforms are within normal limits . Left Carotid: Minimal plaque throughout the carotid arteries. The waveforms are within normal limits . Other: None. CONCLUSION: 1. Right Internal Carotid Artery: Findings indicate <50% stenosis. 2. Left Internal Carotid Artery: Findings indicate <50% stenosis. Electronically signed by: Yinka Becerril MD 04/19/2018 9:30 AM EDT
[2018-04-19] MEDS: Metoprolol Tartrate 50 MG Tablet PO SCH (09:42)
[2018-04-19] MEDS: Senna/Docusate Sodium 8.6/50 MG Tablet PO SCH (09:43)
--- NOTE | 2018-04-19 11:29 | ECHRPT ---
Indication: CVA/TIA CONCLUSIONS Normal left ventricular size. Wall thickness is measured at the upper limits of normal. The left ventricular systolic function is low normal with an estimated ejection fraction of 50%. P ossible mid to basal inferior akinesis. No valvular abnormalities. BP: / HR: Rhythm: Sinus MEASUREMENTS (Male / Female) Normal Values Technical Quality:Good 2D ECHO LV Diastolic Diameter PLAX 4.6 cm 4.2 - 5.9 / 3.9 - 5.3 cm LV Systolic Diameter PLAX 4.0 cm IVS Diastolic Thickness 1.1 cm 0.6 - 1.0 / 0.6 - 0.9 cm LVPW Diastolic Thickness 1.1 cm 0.6 - 1.0 / 0.6 - 0.9 cm LV Relative Wall Thickness 0.5 RV Internal Dim ED PLAX 2.7 cm LVOT Diameter 2.1 cm LA Systolic Diameter LX 3.1 cm 3.0 - 4.0 / 2.7 - 3.8 cm LV Ejection Fraction MOD 4C 52.3 % LV Ejection Fraction 4C AL 55.2 % M-MODE LV Diastolic Diameter MM 6.1 cm 4.2 - 5.9 / 3.9 - 5.3 cm LV Systolic Diameter MM 5.3 cm LV Ejection Fraction MM Teich 28.0 % IVS Diastolic Thickness MM 1.1 cm 0.6 - 1.0 / 0.6 - 0.9 cm LVPW Diastolic Thickness MM 0.9 cm 0.6 - 1.0 / 0.6 - 0.9 cm LV Relative Wall Thickness MM 0.3 0.24 - 0.42 / 0.22 - 0.42 Aortic Root Diameter MM 2.2 cm LA Systolic Diameter MM 3.4 cm LA Ao Ratio MM 1.5 AV Cusp Separation MM 2.0 cm DOPPLER AV Peak Velocity 113.0 cm/s AV Peak Gradient 5.1 mmHg LVOT Peak Velocity 97.2 cm/s LVOT Peak Gradient 3.8 mmHg AV Area Cont Eq pk 3.0 cm MV Area PHT 2.0 cm Mitral E Point Velocity 54.8 cm/s Mitral A Point Velocity 76.0 cm/s Mitral E to A Ratio 0.7 LV E' Lateral Velocity 7.1 cm/s Mitral E to LV E' Lateral Ratio 7.7 LV E' Septal Velocity 5.7 cm/s Mitral E to LV E' Septal Ratio 9.7 PV Peak Velocity 103.0 cm/s PV Peak Gradient 4.2 mmHg FINDINGS LEFT VENTRICLE Normal left ventricular size. Wall thickness is measured at the upper limits of normal. The left ventricular systolic function is low normal with an estimated ejection fraction of 50%. P ossible mid to basal inferior akinesis. RIGHT VENTRICLE A pacemaker wire is noted. LEFT ATRIUM The left atrial size is normal. RIGHT ATRIUM The right atrial size is normal. ATRIAL SEPTUM Normal atrial septal thickness without atrial level shunting by limited color doppler interrogation. AORTA The aortic root and proximal ascending aorta are normal in size on limited imaging. MITRAL VALVE Structurally normal mitral valve. No mitral valve stenosis or regurgitation. AORTIC VALVE Trileaflet aortic valve. No aortic valve stenosis or regurgitation. TRICUSPID VALVE Structurally normal tricuspid valve. No tricuspid valve stenosis or regurgitation. PULMONARY VALVE The pulmonary valve is not well visualized. VESSELS The inferior vena cava is normal in size. PERICARDIUM No pericardial effusion. Yosvany Chávez MD (Electronically Signed) Final Date:19 April 2018 11:28
[2018-04-19] MEDS: Insulin NovoLOG Aspart Correctional Sugar Inj SQ SCH ×2 (12:00→13:01)
--- NOTE | 2018-04-19 12:02 | ECG ---
Date Performed: 04/18/2018 Time Performed: 18:47:54 PTAGE: 52 years EKG: SINUS RYTHMN AGE INDETERMINANT OR POSSIBLE RECENT INFERIOR INFARCT Since the PREVIOUS TRACING , no significant change noted PREVIOUS TRACING 04/18/2018 DOCTOR: William Arauz Interpretating Date/Time 04/19/2018 12:01:52
--- NOTE | 2018-04-19 12:04 | ECG ---
Date Performed: 04/19/2018 Time Performed: 00:06:26 PTAGE: 52 years EKG: SINUS BRADYCARDIA PROBABLE INFERIOR MYOCARDIAL INFARCTION ABNORMAL ECG PREVIOUS TRACING : 04/18/2018 18.47 Since the previous tracing, no significant change noted DOCTOR: William Arauz Interpretating Date/Time 04/19/2018 12:02:52
--- NOTE | 2018-04-19 12:22 | P.PNFP ---
Subjective Interval history: Patient seen and examined this morning with the Family medicine team. He states that he feels 50% better. His headache resolved last night. His heart is no longer racing. He does not feel weak, but still has some numbness of his left fingertips. No CP, no shortness of breath, no fever/chills. <GiacomoPamela G - 04/19/18 15:11> Results - Labs Result diagrams: 04/19/18 05:35 04/19/18 05:35 <Julee Hernandez - 04/19/18 16:08> Abnormal lab results 04/18/18 04/18/18 04/18/18 Range/Units 18:14 20:46 23:00 [place] % (Auto) (0.0-8.0) % Carbon Dioxide (21.0-32.0) meq/L BUN (7-18) mg/dL Creatinine (0.60-1.30) mg/dL Estimated GFR (>89) mL/min POC Glucose 125 H 155 H (68-110) mg/dl Random Glucose (74-106) mg/dL AST (15-37) U/L Troponin I Less than 0.02 L (0.02-0.05) ng/mL Triglycerides (42-150) mg/dL Cholesterol (120-200) mg/dL LDL Cholesterol, Calc (0-99) mg/dL 04/19/18 04/19/18 04/19/18 Range/Units 01:40 05:35 05:35 [place] % (Auto) 11.4 H (0.0-8.0) % Carbon Dioxide 20.9 L (21.0-32.0) meq/L BUN 26 H (7-18) mg/dL Creatinine 1.44 H (0.60-1.30) mg/dL Estimated GFR 52 L (>89) mL/min POC Glucose (68-110) mg/dl Random Glucose 113 H (74-106) mg/dL AST 10 L (15-37) U/L Troponin I Less than 0.02 L (0.02-0.05) ng/mL Triglycerides 161 H (42-150) mg/dL Cholesterol 245 H (120-200) mg/dL LDL Cholesterol, Calc 170 H (0-99) mg/dL 04/19/18 Range/Units 12:57 [place] % (Auto) (0.0-8.0) % Carbon Dioxide (21.0-32.0) meq/L BUN (7-18) mg/dL Creatinine (0.60-1.30) mg/dL Estimated GFR (>89) mL/min POC Glucose 135 H (68-110) mg/dl Random Glucose (74-106) mg/dL AST (15-37) U/L Troponin I (0.02-0.05) ng/mL Triglycerides (42-150) mg/dL Cholesterol (120-200) mg/dL LDL Cholesterol, Calc (0-99) mg/dL Short CBC 04/19/18 Range/Units 05:35 WBC 7.4 (4.0-11.0) th/mm3 Hgb 14.2 (13.0-17.0) gm/dL Hct 41.9 (39.0-51.0) % Plt Count 205 (150-450) th/mm3 BMP 04/19/18 05:35 Sodium 138 Potassium 4.1 Chloride 106 Carbon Dioxide 20.9 L BUN 26 H Creatinine 1.44 H Calcium 8.8 Cardiac Enzymes 04/18/18 04/19/18 Range/Units 20:46 01:40 Troponin I Less than 0.02 L Less than 0.02 L (0.02-0.05) ng/mL Liver Function 04/19/18 Range/Units 05:35 Total Bilirubin 0.3 (0.2-1.0) mg/dL AST 10 L (15-37) U/L ALT 14 (12-78) U/L Alkaline Phosphatase 50 (45-117) U/L Albumin 3.7 (3.4-5.0) g/dL Urine 04/18/18 Range/Units 12:40 Urine Color Straw (Yellw/Straw) Urine Clarity Clear (Clear) Urine pH 8.0 (5.0-8.5) Ur Specific [place] 1.005 (1.002-1.035) Urine Protein Negative (Neg-Trace) mg/dL Urine Glucose (UA) Negative (Negative) mg/dL <Julee Hernandez - 04/19/18 16:08> Abnormal lab results 04/18/18 04/18/18 04/18/18 Range/Units 12:00 12:00 18:14 [place] % (Auto) 10.0 H (0.0-8.0) % Sodium 135 L (136-145) meq/L Carbon Dioxide (21.0-32.0) meq/L BUN 27 H (7-18) mg/dL Creatinine 1.67 H (0.60-1.30) mg/dL Estimated GFR 44 L (>89) mL/min POC Glucose 125 H (68-110) mg/dl Random Glucose (74-106) mg/dL AST 10 L (15-37) U/L Troponin I Less than 0.02 L (0.02-0.05) ng/mL Triglycerides (42-150) mg/dL Cholesterol (120-200) mg/dL LDL Cholesterol, Calc (0-99) mg/dL 04/18/18 04/18/18 04/19/18 Range/Units 20:46 23:00 01:40 [place] % (Auto) (0.0-8.0) % Sodium (136-145) meq/L Carbon Dioxide (21.0-32.0) meq/L BUN (7-18) mg/dL Creatinine (0.60-1.30) mg/dL Estimated GFR (>89) mL/min POC Glucose 155 H (68-110) mg/dl Random Glucose (74-106) mg/dL AST (15-37) U/L Troponin I Less than 0.02 L Less than 0.02 L (0.02-0.05) ng/mL Triglycerides (42-150) mg/dL Cholesterol (120-200) mg/dL LDL Cholesterol, Calc (0-99) mg/dL 04/19/18 04/19/18 Range/Units 05:35 05:35 [place] % (Auto) 11.4 H (0.0-8.0) % Sodium (136-145) meq/L Carbon Dioxide 20.9 L (21.0-32.0) meq/L BUN 26 H (7-18) mg/dL Creatinine 1.44 H (0.60-1.30) mg/dL Estimated GFR 52 L (>89) mL/min POC Glucose (68-110) mg/dl Random Glucose 113 H (74-106) mg/dL AST 10 L (15-37) U/L Troponin I (0.02-0.05) ng/mL Triglycerides 161 H (42-150) mg/dL Cholesterol 245 H (120-200) mg/dL LDL Cholesterol, Calc 170 H (0-99) mg/dL Short CBC 04/18/18 04/19/18 Range/Units 12:00 05:35 WBC 7.8 7.4 (4.0-11.0) th/mm3 Hgb 15.1 14.2 (13.0-17.0) gm/dL Hct 45.5 41.9 (39.0-51.0) % Plt Count 264 205 (150-450) th/mm3 BMP 04/18/18 04/19/18 12:00 05:35 Sodium 135 L 138 Potassium 4.5 4.1 Chloride 102 106 Carbon Dioxide 23.5 20.9 L BUN 27 H 26 H Creatinine 1.67 H 1.44 H Calcium 9.5 8.8 Cardiac Enzymes 04/18/18 04/18/18 04/18/18 Range/Units 12:00 12:00 20:46 Total Creatine Kinase 41 Cancelled (39-308) U/L Troponin I Less than 0.02 L Less than 0.02 L (0.02-0.05) ng/mL 04/19/18 Range/Units 01:40 Total Creatine Kinase (39-308) U/L Troponin I Less than 0.02 L (0.02-0.05) ng/mL Liver Function 04/18/18 04/19/18 Range/Units 12:00 05:35 Total Bilirubin 0.3 0.3 (0.2-1.0) mg/dL AST 10 L 10 L (15-37) U/L ALT 14 14 (12-78) U/L Alkaline Phosphatase 57 50 (45-117) U/L Albumin 4.2 3.7 (3.4-5.0) g/dL Urine 04/18/18 Range/Units 12:40 Urine Color Straw (Yellw/Straw) Urine Clarity Clear (Clear) Urine pH 8.0 (5.0-8.5) Ur Specific [place] 1.005 (1.002-1.035) Urine Protein Negative (Neg-Trace) mg/dL Urine Glucose (UA) Negative (Negative) mg/dL <Pamela Gooden - 04/19/18 12:22> - Imaging Impressions Carotid Doppler Study 04/19/18 00:00 CONCLUSION: 1. Right Internal Carotid Artery: Findings indicate <50% stenosis. 2. Left Internal Carotid Artery: Findings indicate <50% stenosis. <Julee Hernandez - 04/19/18 16:08> Impressions Chest X-Ray 04/18/18 11:28 CONCLUSION: No acute intrathoracic disease. Head CT 04/18/18 11:28 CONCLUSION: 1. No focal or acute intracranial hemorrhage. 2. 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 Carotid Doppler Study 04/19/18 00:00 CONCLUSION: 1. Right Internal Carotid Artery: Findings indicate <50% stenosis. 2. Left Internal Carotid Artery: Findings indicate <50% stenosis. <Pamela Gooden 04/19/18 15:11> Physical Exam Vital signs: Vital Signs 04/18/18 16:09 04/18/18 17:02 04/18/18 17:09 Temperature 97.6 F 98.0 F Pulse Rate 56 L 65 59 L Respiratory Rate 18 16 Blood Pressure 110/70 116/67 Pulse Oximetry 99 96 04/18/18 20:31 04/19/18 00:09 04/19/18 04:00 Temperature 97.8 F 98.1 F 98.0 F Pulse Rate 65 65 67 Respiratory Rate 17 18 16 Blood Pressure 125/73 118/74 106/71 Pulse Oximetry 95 98 97 04/19/18 07:40 04/19/18 08:42 04/19/18 11:58 Temperature 97.4 F L 98.3 F Pulse Rate 53 L 65 60 Respiratory Rate 16 Blood Pressure 115/67 132/79 Pulse Oximetry 99 95 04/19/18 12:06 Temperature Pulse Rate 66 Respiratory Rate Blood Pressure Pulse Oximetry Intake & Output 04/18/18 04/19/18 04/19/18 18:59 06:59 18:59 Intake Total 300 / 300 Balance 300 / 300 Weight 81.8 kg Intake: Other 300 / 300 Other: Post Void Residual 200 Other Intake Source Saline Solution # Voids 1 Weight On Admission 81.8 kg <Julee Hernandez - 04/19/18 16:08> Vital Signs 04/18/18 13:49 04/18/18 16:09 04/18/18 17:02 Temperature 98.1 F 97.6 F Pulse Rate 58 L 56 L 65 Respiratory Rate 18 18 Blood Pressure 100/58 L 110/70 Pulse Oximetry 98 99 04/18/18 17:09 04/18/18 20:31 04/19/18 00:09 Temperature 98.0 F 97.8 F 98.1 F Pulse Rate 59 L 65 65 Respiratory Rate 16 17 18 Blood Pressure 116/67 125/73 118/74 Pulse Oximetry 96 95 98 04/19/18 04:00 04/19/18 07:40 04/19/18 08:42 Temperature 98.0 F 97.4 F L Pulse Rate 67 53 L 65 Respiratory Rate 16 Blood Pressure 106/71 115/67 Pulse Oximetry 97 99 04/19/18 11:58 04/19/18 12:06 Temperature 98.3 F Pulse Rate 60 66 Respiratory Rate 16 Blood Pressure 132/79 Pulse Oximetry 95 Intake & Output 04/18/18 04/19/18 04/19/18 18:59 06:59 18:59 Intake Total 300 / 300 Balance 300 / 300 Weight 81.8 kg Intake: Other 300 / 300 Other: Post Void Residual 200 Other Intake Source Saline Solution # Voids 1 Weight On Admission 81.8 kg <Pamela Gooden - 04/19/18 12:22> Narrative: GENERAL: White male sitting up in bed, in no acute distress SKIN: Warm and dry. HEAD: Atraumatic. Normocephalic. EYES: No scleral icterus. No injection or drainage. ENT: No nasal bleeding or discharge NECK: Trachea midline. No JVD. CARDIOVASCULAR: Regular rate and rhythm. RESPIRATORY: No accessory muscle use. Clear to auscultation. Breath sounds equal bilaterally. GASTROINTESTINAL: Abdomen soft, non-tender, nondistended. MUSCULOSKELETAL: Extremities without clubbing, cyanosis, or edema. No obvious deformities. NEUROLOGICAL: Awake and alert. No obvious cranial nerve deficits. Motor grossly within normal limits. Minimally slurred speech. PSYCHIATRIC: Appropriate mood and affect; insight and judgment normal. <Pamela Gooden - 04/19/18 15:11> Assessment and Plan - Assessment (1) Transient cerebral ischemia Code(s): G45.9 - Transient cerebral ischemic attack, unspecified Status: Acute (2) Acute kidney injury Code(s): N17.9 - Acute kidney failure, unspecified Status: Acute (3) Diabetes mellitus Code(s): E11.9 - Type 2 diabetes mellitus without complications Status: Chronic (4) HTN (hypertension) Code(s): I10 - Essential (primary) hypertension Status: Chronic (5) CHF (congestive heart failure) Code(s): I50.9 - Heart failure, unspecified Status: Chronic (6) Nutrition, metabolism, and development symptoms Code(s): R63.8 - Other symptoms and signs concerning food and fluid intake Status: Acute (7) DVT prophylaxis Status: Acute <Julee Hernandez Connie - 04/19/18 16:08> (1) Transient cerebral ischemia Code(s): G45.9 - Transient cerebral ischemic attack, unspecified Status: Acute Plan: 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 States that his weakness is worse since the day before admission with numbness in his left hand. Pt had recently stopped his anticoagulation. Pt feels about 50% better today,04/19, with resolution of his BROOKS and weakness. NIH stroke scale on initial presentation is [address] w/o contrast on admission, 04/18, shows 1. No focal or acute intracranial hemorrhage. 2. 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 Lipid panel Triglyceride 161 Cholesterol 245 LDL 170 HDL 42.8 HbA1c pending Due to timing of hospital presentation was not considered for protective measures, such as HOB flat etc -NIH stroke scale daily, continues to be 0 -If worsening sx will consult Neurology -Consult PT -Consult case management for assistance with anticoagulation therapy cost Will send home with Clustrix one month supply card (2) Acute kidney injury Code(s): N17.9 - Acute kidney failure, unspecified Status: Acute Plan: Creatinine upon admission is 1.67. Last creatinine in 11/2017 was 1.19. Likely prerenal (dehydration) vs intrarenal (DM, HTN) -Start NS at 10/19 maintenance 65 mls/hr -Repeat BMP on 04/19 shows improvement to 1.44 (3) Diabetes mellitus Code(s): E11.9 - Type 2 diabetes mellitus without complications Status: Chronic Plan: Pt with chronic DM -Hold at home metformin -NovoLog SSI -Hypoglycemic protocol -Bedside glucoses (4) HTN (hypertension) Code(s): I10 - Essential (primary) hypertension Status: Chronic Plan: Medications: -Amlodipine 2.5 mg p.o. daily -Lisinopril 10 mg p.o. daily -Pacemaker interrogated by [employer]- WNL (5) CHF (congestive heart failure) Code(s): I50.9 - Heart failure, unspecified Status: Chronic Plan: Continue at home medications: -Metoprolol tartrate 50 mg p.o. twice daily -Spironolactone 25 mg p.o. daily (6) Nutrition, metabolism, and development symptoms Code(s): R63.8 - Other symptoms and signs concerning food and fluid intake Status: Acute Plan: Fluids: NS @ 65ml/hr Electrolytes: monitor and replete as needed Nutrition: heart-healthy diet GI Prophylaxis: None indicated at this time (7) DVT prophylaxis Status: Acute Plan: Early ambulation. Lovenox 40mg subQ q24hr/bilateral SCDs <Pamela Gooden - 04/19/18 14:58> - Assessment and Plan 52yo white male with PMH of TIA, HTN, DM who presented with worsened left sided weakness BROOKS, and numbness in his left hand. Weakness and headache have resolved. Will discharge home today. <Pamela Gooden - 04/19/18 15:11> Discussed Condition With: Dr. Hernandez <Pamela Gooden - 04/19/18 15:11> Discharge Planning: Home today with Eliquis rx for anticoagulation <Pamela Gooden - 04/19/18 15:11> - Attending Attestation The exam, history, and the medical decision-making described in the above note were completed with the assistance of the resident physician. I reviewed and agree with the findings presented. I attest that I had a [id number] encounter with the patient on the same day, and personally performed my exam with the resident team. <Julee Hernandez - 04/19/18 16:08> <Pamela Gooden G - Last Filed: 04/19/18 14:58> (3) Diabetes mellitus Qualifiers: Diabetes mellitus type: type 2 Diabetes mellitus [employer] insulin use: without mcc use Diabetes mellitus complication status: with unspecified complications Qualified Code(s): E11.8 - Type 2 diabetes mellitus with unspecified complications <Julee Hernandez R - Last Filed: 04/19/18 16:08> (3) Diabetes mellitus Qualifiers: Diabetes mellitus type: type 2 Diabetes mellitus mcc insulin use: without mcc use Diabetes mellitus complication status: with unspecified complications Qualified Code(s): E11.8 - Type 2 diabetes mellitus with unspecified complications <Pamela Gooden G - Last Filed: 04/19/18 14:58> (3) Diabetes mellitus Qualifiers: Diabetes mellitus type: type 2 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
[2018-04-19 17:49] LABS: Hemoglobin A1c 6.7 % (4.3-6.0)
== END 2018-04-19 16:16 | disposition home or self-care (01) ==
LOC: NEPC 10:49 → NEDA 10:49 → NEPGCP 10:49
PROVIDERS: ADMIT Family Medicine; ATTEND Family Medicine
DX: Z82.49 Family history of ischemic heart disease and other diseases of the circulatory system; Z79.4 Long term (current) use of insulin; Z86.73 Personal history of transient ischemic attack (TIA), and cerebral infarction without residual deficits; N17.9 Acute kidney failure, unspecified; E11.9 Type 2 diabetes mellitus without complications; I50.9 Heart failure, unspecified; R51 Headache; R47.81 Slurred speech; R20.0 Anesthesia of skin; G45.9 Transient cerebral ischemic attack, unspecified; I11.0 Hypertensive heart disease with heart failure; R20.2 Paresthesia of skin; R42 Dizziness and giddiness; I49.9 Cardiac arrhythmia, unspecified; F17.210 Nicotine dependence, cigarettes, uncomplicated; Z95.810 Presence of automatic (implantable) cardiac defibrillator

== ENCOUNTER 2018-08-21 10:46 | Inpatient (IN) ==
[2018-08-21] MEDS ORDERED: Morphine Inj 4 MG/ML Vial IV.PUSH ONE (11:15)
--- NOTE | 2018-08-21 11:21 | ED ---
HPI General Chief Complaint: Chest Pain Stated Complaint: Right side chest/back sharp pain Time Seen by Provider: 08/21/18 11:05 Source: patient Mode of arrival: ambulatory Limitations: no limitations History of Present Illness HPI narrative: The patient is a 52-year-old male who presents to the emergency department for chest pain. The patient developed chest pain several days ago, located on the right side, radiates from the right anterior lateral aspect of the back. The patient's pain is sharp, intermittent, worse with movement of his right upper extremity. However, the patient states the pain has been progressive, is almost constant. He does have a history of similar pain in the past secondary to pulmonary embolism which was diagnosed up [place], he is currently on Eliquis. The patient does have a prior history of CAD with previous stent placement and AICD placement. Patient denies any defibrillations. He denies any acute shortness of breath, nausea, vomiting, or diaphoresis. Symptoms are moderate. Patient also has increasing pain when he lays on the affected side. The patient did take his Eliquis and aspirin prior to arrival. MD complaint: Reports chest pain STEMI Alert: No Onset (ago): hour(s) Duration: intermittent Onset: during rest Pain location: Reports right chest Severity: moderate Severity scale (1-10): 5 Quality: Reports sharp Pain radiation: Reports back Relieving factors: nothing Exacerbating factors: palpation and movement Treatments prior to arrival chest pain: Reports aspirin Related Data Home Medications Medication Instructions Recorded Confirmed amlodipine [Norvasc] 2.5 mg PO DAILY 04/18/18 08/21/18 lisinopril 10 mg PO DAILY 04/18/18 08/21/18 metformin 1,000 mg PO BID 04/18/18 08/21/18 metoprolol tartrate 50 mg PO BID 04/18/18 08/21/18 spironolactone 25 mg PO DAILY 04/18/18 08/21/18 apixaban [Eliquis] 5 mg PO BID 08/21/18 08/21/18 aspirin 81 mg PO DAILY 08/21/18 08/21/18 lovastatin 40 mg PO DAILY 08/21/18 08/21/18 Allergies Allergy/AdvReac Type Severity Reaction Status Date / Time No Known Allergies Allergy Verified 08/21/18 11:11 Review of Systems ROS: all other systems reviewed are negative [facility] Social History Social History Substance History: No History of Abuse Second Hand Smoke Exposure: No Smoking Status: Former smoker Tobacco Type: Cigarettes How Often Do You Have a Drink Containing Alcohol: Never Recent Travel in [facility] within the Last 8 Weeks: No Recent Out of Country Travel within the Last 8 Weeks: No Exam Narrative Exam Narrative: GENERAL: Awake, alert, pleasant 52-year-old male who appears his stated age and is in no acute respiratory distress. SKIN: Focused skin assessment warm/dry. HEAD: Atraumatic. Normocephalic. EYES: Pupils equal and round. No scleral icterus. No injection or drainage. ENT: No nasal bleeding or discharge. Mucous membranes pink and moist. NECK: Trachea midline. No JVD. CARDIOVASCULAR: Regular rate and rhythm. No murmur appreciated. AICD in place left chest wall. Palpation the right chest wall does not reproduce symptoms. RESPIRATORY: No accessory muscle use. Clear to auscultation. Breath sounds equal bilaterally. GASTROINTESTINAL: Abdomen soft, minimal epigastric tenderness. MUSCULOSKELETAL: No obvious deformities. No clubbing. No cyanosis. No edema. NEUROLOGICAL: Awake and alert. No obvious cranial nerve deficits. Motor grossly within normal limits. Normal speech. PSYCHIATRIC: Appropriate mood and affect; insight and judgment normal. Course Initial Documented Vital Signs Temperature 97.9 F 08/21/18 11:00 Pulse Rate 66 08/21/18 11:00 Respiratory Rate 18 08/21/18 11:00 Blood Pressure 119/73 08/21/18 11:00 Pulse Oximetry 100 08/21/18 11:00 Last Documented Vital Signs Temperature 97.9 F 08/21/18 11:00 Pulse Rate 52 L 08/21/18 14:00 Respiratory Rate 16 08/21/18 14:00 Blood Pressure 100/68 08/21/18 14:00 Pulse Oximetry 100 08/21/18 14:54 Medical Decision Making [facility] Narrative Medical decision making narrative: IV was established, labs were drawn and sent , and the patient was placed on cardiac telemetry monitoring and continuous pulse oximetry monitoring. D-dimer was sent to lab. Chest x-ray was obtained. The patient was administered aspirin, morphine, Zofran, placed on IV fluids. Troponin and CPK were sent to lab. The patient's troponin and CPK are unremarkable. D-dimer 0.22, no indication for CT pulmonary angiogram. The patient's lipase level was greater than 4000. The patient denies alcohol use, therefore, ultrasound of the gallbladder was obtained to evaluate for possible choledocholithiasis. The patient will be admitted for evaluation and workup of his acute pancreatitis. He denies any alcohol use in the last year and denies any illicit drug use. Medical Screen Exam Complete: Yes Emergency Medical Condition: Yes Lab Data Result diagrams: 08/21/18 11:28 08/21/18 12:07 Lab Results 08/21/18 08/21/18 08/21/18 Range/Units 11:28 12:07 12:07 WBC 6.7 (4.0-11.0) th/mm3 RBC 4.65 (4.50-5.90) mil/mm3 Hgb 14.2 (13.0-17.0) gm/dL Hct 41.7 (39.0-51.0) % MCV 89.6 (80.0-100.0) fL MCH 30.5 (27.0-34.0) pg MCHC 34.0 (32.0-36.0) % RDW 13.7 (11.6-17.2) % Plt Count 286 (150-450) th/mm3 MPV 9.3 (7.0-11.0) fL Neut % (Auto) 56.9 (16.0-70.0) % Lymph % (Auto) 31.3 (9.0-44.0) % [place] % (Auto) 10.0 H (0.0-8.0) % Eos % (Auto) 1.2 (0.0-4.0) % Baso % (Auto) 0.6 (0.0-2.0) % Neut # (Auto) 3.8 (1.8-7.7) th/mm3 Lymph # (Auto) 2.1 (1.0-4.8) th/mm3 [place] # (Auto) 0.7 (0.0-0.9) th/mm3 Eos # (Auto) 0.1 (0.0-0.4) th/mm3 Baso # (Auto) 0.0 (0.0-0.2) th/mm3 WBC Differential . Differential Comment Auto diff final D-Dimer Quant (PE/DVT) 0.22 (0.00-0.50) mg/L FEU Sodium 139 (136-145) meq/L Potassium 5.3 H (3.5-5.1) meq/L Chloride 103 (98-107) meq/L Carbon Dioxide 29.9 (21.0-32.0) meq/L Anion Gap 6 (5-15) meq/L BUN 24 H (7-18) mg/dL Creatinine 1.31 H (0.60-1.30) mg/dL Estimated GFR 58 L (>89) mL/min Random Glucose 91 (74-106) mg/dL Calcium 9.4 (8.5-10.1) mg/dL Magnesium (1.5-2.5) mg/dL Total Bilirubin 0.4 (0.2-1.0) mg/dL AST 23 (15-37) U/L ALT 19 (12-78) U/L Alkaline Phosphatase 59 (45-117) U/L Total Creatine Kinase (39-308) U/L Troponin I Less than 0.02 L (0.02-0.05) ng/mL Total Protein 7.8 (6.4-8.2) g/dL Albumin 4.0 (3.4-5.0) g/dL Triglycerides (42-150) mg/dL Cholesterol (120-200) mg/dL LDL Cholesterol, Calc (0-99) mg/dL HDL Cholesterol (40.0-60.0) mg/dL Cholesterol/HDL Ratio Ratio Lipase 4592 H (73-393) U/L 08/21/18 08/21/18 Range/Units 12:07 15:07 WBC (4.0-11.0) th/mm3 RBC (4.50-5.90) mil/mm3 Hgb (13.0-17.0) gm/dL Hct (39.0-51.0) % MCV (80.0-100.0) fL MCH (27.0-34.0) pg MCHC (32.0-36.0) % RDW (11.6-17.2) % Plt Count (150-450) th/mm3 MPV (7.0-11.0) fL Neut % (Auto) (16.0-70.0) % Lymph % (Auto) (9.0-44.0) % [place] % (Auto) (0.0-8.0) % Eos % (Auto) (0.0-4.0) % Baso % (Auto) (0.0-2.0) % Neut # (Auto) (1.8-7.7) th/mm3 Lymph # (Auto) (1.0-4.8) th/mm3 [place] # (Auto) (0.0-0.9) th/mm3 Eos # (Auto) (0.0-0.4) th/mm3 Baso # (Auto) (0.0-0.2) th/mm3 WBC Differential Differential Comment D-Dimer Quant (PE/DVT) (0.00-0.50) mg/L FEU Sodium (136-145) meq/L Potassium (3.5-5.1) meq/L Chloride (98-107) meq/L Carbon Dioxide (21.0-32.0) meq/L Anion Gap (5-15) meq/L BUN (7-18) mg/dL Creatinine (0.60-1.30) mg/dL Estimated GFR (>89) mL/min Random Glucose (74-106) mg/dL Calcium (8.5-10.1) mg/dL Magnesium 2.0 (1.5-2.5) mg/dL Total Bilirubin (0.2-1.0) mg/dL AST (15-37) U/L ALT (12-78) U/L Alkaline Phosphatase (45-117) U/L Total Creatine Kinase 81 (39-308) U/L Troponin I (0.02-0.05) ng/mL Total Protein (6.4-8.2) g/dL Albumin (3.4-5.0) g/dL Triglycerides 108 (42-150) mg/dL Cholesterol 169 (120-200) mg/dL LDL Cholesterol, Calc 89 (0-99) mg/dL HDL Cholesterol 58.1 (40.0-60.0) mg/dL Cholesterol/HDL Ratio 2.90 Ratio Lipase (73-393) U/L Imaging Data Radiologist's impression: Chest X-Ray 08/21/18 11:15 CONCLUSION: No evidence of acute cardiopulmonary process. Left-sided cardiac pacemaker overlying the left lung base. Gallbladder Ultrasound 08/21/18 12:55 CONCLUSION: 1. 7 mm calculus lower pole of the right kidney. 2. Otherwise normal exam; no evidence of acute inflammatory disease, biliary obstructive disease or hydronephrosis. ECG Data EKG Prior to Arrival: No Attestation: I personally reviewed and interpreted this ECG as follows: Interpretation: Care of it EKG reveals some bradycardia with a heart rate of 56. Q waves noted in lead II, III, and aVF. Inverted T waves noted in lead V5 , V6. Discharge Plan Discharge Disposition Patient Disposition: 30 Still Patient Discharge Condition Condition: Stable Discharge Details Diagnosis: Acute pancreatitis Physicians Team ED Provider: Spenser Álvarez Primary Care Provider: Olya Hunt, Attending Provider: Juarez Webster Other Providers: Flori Bacon ; Doc Tolentino Status ED Status: Left Department Discharge Information Discharge Date/Time: 08/21/18 15:39
[2018-08-21 11:51] LABS: Baso % (Auto) 0.6 % (0.0-2.0); Eos # (Auto) 0.1 th/mm3 (0.0-0.4); Eos % (Auto) 1.2 % (0.0-4.0); Hematocrit 41.7 % (39.0-51.0); Hemoglobin 14.2 gm/dL (13.0-17.0); Lymph # (Auto) 2.1 th/mm3 (1.0-4.8); Lymph % (Auto) 31.3 % (9.0-44.0); Mean Corpuscular Hemoglobin 30.5 pg (27.0-34.0); Mean Corpuscular Volume 89.6 fL (80.0-100.0); Mean Platelet Volume 9.3 fL (7.0-11.0); Mono # (Auto) 0.7 th/mm3 (0.0-0.9); Neut # (Auto) 3.8 th/mm3 (1.8-7.7); Neut % (Auto) 56.9 % (16.0-70.0); Platelet Count 286 th/mm3 (150-450); Red Blood Count 4.65 mil/mm3 (4.50-5.90); Red Cell Distribution Width 13.7 % (11.6-17.2); White Blood Count 6.7 th/mm3 (4.0-11.0)
--- NOTE | 2018-08-21 11:58 | XR ---
EXAM DATE: 08/21/2018 11:48 AM EST AGE/SEX: 52 years / Male INDICATIONS: Chest Pain right side CLINICAL DATA: This is the patient's initial encounter. Patient reports that signs and symptoms have been present for 1 day and indicates a pain score of 5/10. MEDICAL/SURGICAL HISTORY: . Cardiovascular disease. Hypertension. Diabetes. . Defibrillator. Coronary artery stent. COMPARISON: [facility] [place], CHEST 1V SINGLE AP, 04/18/2018. . FINDINGS: A single AP view of the chest demonstrates the lungs to be symmetrically aerated without evidence of mass, infiltrate or effusion. The cardiomediastinal contours are unremarkable. Osseous structures a re intact. Pacemaker overlies the left lung base. CONCLUSION: No evidence of acute cardiopulmonary process. Left-sided cardiac pacemaker overlying the left lung base. Electronically signed by: El Bui MD 08/21/2018 11:57 AM EST
[2018-08-21 12:51] LABS: Alanine Aminotransferase 19 U/L (12-78); Alkaline Phosphatase 59 U/L (45-117); Lipase 4592 U/L (73-393); Total Protein 7.8 g/dL (6.4-8.2)
[2018-08-21 13:51] LABS: Anion Gap 6 meq/L (5-15); Aspartate Aminotransferase 23 U/L (15-37); Blood Urea Nitrogen 24 mg/dL (7-18); Calcium 9.4 mg/dL (8.5-10.1); Carbon Dioxide 29.9 meq/L (21.0-32.0); Chloride 103 meq/L (98-107); Glomerular Filtration Rate 58 mL/min (>89); Glucose,Random 91 mg/dL (74-106); Potassium 5.3 meq/L (3.5-5.1); Sodium 139 meq/L (136-145)
--- NOTE | 2018-08-21 14:30 | US ---
EXAM DATE: 08/21/2018 1:49 PM EST AGE/SEX: 52 years / Male INDICATIONS: Right upper quadrant pain. CLINICAL DATA: This is the patient's initial encounter. Patient reports that signs and symptoms have been present for 4 - 6 days and indicates a pain score of 3/10. MEDICAL/SURGICAL HISTORY: Hypercholesterolemia. Hypertension. Diabetes. Deep vein thrombosis. Myocardial infarction. Transient ischemic attack. . Defibrillator. Stent in heart. COMPARISON: No prior exams available for comparison. MEASUREMENTS: Liver:__ 14.9 cm. Common Bile Duct:__ 4mm. FINDINGS: Liver: Normal echotexture without focal lesion or ductal dilatation. Portal Vein: Hepatopedal flow seen in portal vein. Common Duct: No intraluminal mass or stone visualized. Gallbladder: Demonstrates no wall thickening or pericholecystic fluid. No stones visualized. Pancreas: Not well visualized. Right Kidney: Hyperechoic structure measuring 7 mm is identified in the lower pole of the kidney. Other: None. CONCLUSION: 1. 7 mm calculus lower pole of the right kidney. 2. Otherwise normal exam; no evidence of acute inflammatory disease, biliary obstructive disease or hydronephrosis. Electronically signed by: El Bui MD 08/21/2018 2:29 PM EST
[2018-08-21] MEDS ORDERED: Zolpidem Tartrate 5 MG Tablet PO PRN (14:42)
[2018-08-21] MEDS ORDERED: Naloxone Inj 0.4 MG/ML Vial IV.PUSH PRN (14:42)
[2018-08-21] MEDS ORDERED: Dextrose 50% in Water 50 ML Vial IV.PUSH PRN (14:42)
[2018-08-21] MEDS ORDERED: Acetaminophen 325 MG Tablet PO PRN ×2 (14:42)
[2018-08-21] MEDS ORDERED: Morphine Sulfate Inj 2 MG/ML Vial IV.PUSH PRN (14:42)
[2018-08-21] MEDS ORDERED: Bisacodyl 10 MG Supp RECTAL PRN (14:42)
[2018-08-21] MEDS ORDERED: Morphine Inj 4 MG/ML Vial IV.PUSH PRN ×3 (14:42)
--- NOTE | 2018-08-21 15:52 | P.CONGI ---
History of Present Illness Consult date: 08/21/18 Chief complaint: Acute Pancreatitis, Atypical right-sided History of Present Illness: This is a 52-year-old male with pmh of PE, CAD with previous stent placement and AICD placement on Eliquis who presents to the emergency department with progressively worsening right sided chest pain for 4 days. The pain is sharp, worse with movement of his right upper extremity, radiates from the right anterior lateral aspect of the back. Labs revealed lipase of 4592. LFTs wnl, lipid panel pending. Pt used to be heavy drinker but quit over a yr ago. No new medications, no previous hx of pancreatitis. No family hx of pancreatitis. Denies nausea, vomiting, hematemesis, abd pain, diarrhea or change in bowels. Denies fever or chills or dark urine. US showed 7 mm calculus lower pole of the right kidney. Otherwise normal exam; no evidence of acute inflammatory disease, biliary obstructive disease or hydronephrosis. <Kirk Puente - Last Filed: 08/21/18 15:40> Review of Systems All other systems reviewed negative except as stated in HPI <Kirk Puente - Last Filed: 08/21/18 15:40> PMFSH - History History Provided By: Patient - Medical History Medical History: Medical History (Last Updated 08/21/18 @ 11:16 by Mallika Painter) Myocardial infarct (Acute) Cardiac defibrillator in place (Acute) Diabetes type 2, controlled H/O blood clots HTN (hypertension) High cholesterol TIA (transient ischemic attack) - Surgical History Surgical History: Surgical History (Last Updated 08/21/18 @ 11:16 by Mallika Painter) H/O heart artery stent - Family History Family History: Family History (Last Updated 04/18/18 @ 12:31 by Nasra Pringle) Other Family history of acute myocardial infarction - Tobacco History Second Hand Smoke Exposure: No Smoking Status: Former smoker Tobacco Type: Cigarettes - Alcohol History How Often Do You Have a Drink Containing Alcohol: Never - Substance Use History Substance History: No History of Abuse - Travel History Recent Travel in the [place] Within the Last 8 Weeks: No Recent Travel Out of the Country Within the Last 8 Weeks: No - Immunization History Tetanus Immunization: Unsure <Kirk Puente - Last Filed: 08/21/18 15:40> - Medical History Medical History: Medical History (Last Updated 08/21/18 @ 11:16 by Mallika Painter) Myocardial infarct (Acute) Cardiac defibrillator in place (Acute) Diabetes type 2, controlled H/O blood clots HTN (hypertension) High cholesterol TIA (transient ischemic attack) - Surgical History Surgical History: Surgical History (Last Updated 08/21/18 @ 11:16 by Mallika Painter) H/O heart artery stent - Family History Family History: Family History (Last Updated 04/18/18 @ 12:31 by Nasra Pringle) Other Family history of acute myocardial infarction <Flori Bacon - Last Filed: 08/21/18 19:18> Medications and Allergies Active Medications: Active Medications Acetaminophen (Tylenol) 650 mg PO Q4H PRN PRN Reason: Temp > 100.4 Acetaminophen (Tylenol) 650 mg PO Q6H PRN PRN Reason: PAIN SCALE 1 TO 2 Al Hydroxide/Mg Hydroxide (Milk Of Magnesia Liq) 30 ml PO Q12H PRN PRN Reason: Mild Constipation Amlodipine Besylate (Norvasc) 2.5 mg PO DAILY DIANE Apixaban (Eliquis) 5 mg PO BID DIANE Aspirin (Aspirin Chew) 81 mg PO DAILY DIANE Bisacodyl (Dulcolax Supp) 10 mg RECTAL DAILY PRN PRN Reason: SEVERE CONSITIPATION Dextrose (D50w Vial) 50 ml IV.PUSH UNSCH PRN PRN Reason: PER HYPOGLYCEMIA PROTOCOL Glucagon (Glucagon Inj) 1 mg OTHER UNSCH PRN PRN Reason: for Hypoglycemia Protocol Lactated Ringer's (Lr 1000 Ml Inj) 1,000 mls @ 125 mls/hr IV.CONT .Q8H DIANE Last Admin: 08/21/18 15:17 Dose: 125 mls/hr Insulin Aspart (Novolog Insulin Correctional Sugar Inj) 0 unit SQ ACHS AND 3AM DIANE; Protocol Lactulose (Lactulose Liq) 30 ml PO DAILY PRN PRN Reason: SEVERE CONSITIPATION Lisinopril (Prinivil) 10 mg PO DAILY REPLACED BY [facility] Metoprolol Tartrate (Lopressor) 50 mg PO BID REPLACED BY [facility] Miscellaneous (Pill Splitter) 1 each OTHER UNSCH PRN PRN Reason: PILL SPLITTER Morphine Sulfate (Morphine Inj) 2 mg IV.PUSH Q3H PRN PRN Reason: PAIN 3-5; IF UABLE TO TAKE PO Morphine Sulfate (Morphine Inj) 4 mg IV.PUSH Q3H PRN PRN Reason: PAIN 6-10;IF UNABLE TO TAKE PO Morphine Sulfate (Morphine Inj) 4 mg IV.PUSH Q3H PRN PRN Reason: BREAKTHROUGH PAIN Morphine Sulfate (Morphine Inj) 4 mg IV.PUSH Q1H PRN PRN Reason: Pain Scale 7-10 (Intractable) Naloxone HCl (Narcan Inj) 0.4 mg IV.PUSH UNSCH PRN PRN Reason: SEE LABEL COMMENTS Ondansetron HCl (Zofran Inj) 4 mg IV.PUSH Q6H PRN PRN Reason: NAUSEA OR VOMITING Oxycodone/Acetaminophen (Percocet 10/325 Mg) 1 tab PO Q6H PRN PRN Reason: PAIN SCALE 6 TO 10 Oxycodone/Acetaminophen (Percocet 5/325 Mg) 1 tab PO Q6H PRN PRN Reason: PAIN SCALE 3 TO 5 Pravastatin Sodium (Pravachol) 40 mg PO DAILY REPLACED BY [facility] Senna/Docusate Sodium (Danielle-Colace) 1 tab PO BID REPLACED BY [facility] Sennosides (Senokot) 17.2 mg PO Q12H PRN PRN Reason: Moderate Constipation Sodium Chloride (Ns Flush) 2 ml IV.FLUSH BID DIANE Sodium Chloride (Ns Flush) 2 ml IV.FLUSH UNSCH PRN PRN Reason: FLUSH AFTER USING IV ACCESS Spironolactone (Aldactone) 25 mg PO DAILY REPLACED BY [facility] Zolpidem Tartrate (Ambien) 5 mg PO HS PRN PRN Reason: INSOMNIA <Kirk Puente - Last Filed: 08/21/18 15:40> Active Medications: Active Medications Acetaminophen (Tylenol) 650 mg PO Q4H PRN PRN Reason: Temp > 100.4 Acetaminophen (Tylenol) 650 mg PO Q6H PRN PRN Reason: PAIN SCALE 1 TO 2 Al Hydroxide/Mg Hydroxide (Milk Of Magnesia Liq) 30 ml PO Q12H PRN PRN Reason: Mild Constipation Amlodipine Besylate (Norvasc) 2.5 mg PO DAILY REPLACED BY [facility] Apixaban (Eliquis) 5 mg PO BID REPLACED BY [facility] Aspirin (Aspirin Chew) 81 mg PO DAILY REPLACED BY [facility] Bisacodyl (Dulcolax Supp) 10 mg RECTAL DAILY PRN PRN Reason: SEVERE CONSITIPATION Dextrose (D50w Vial) 50 ml IV.PUSH UNSCH PRN PRN Reason: PER HYPOGLYCEMIA PROTOCOL Glucagon (Glucagon Inj) 1 mg OTHER UNSCH PRN PRN Reason: for Hypoglycemia Protocol Lactated Ringer's (Lr 1000 Ml Inj) 1,000 mls @ 125 mls/hr IV.CONT .Q8H DIANE Last Admin: 08/21/18 15:17 Dose: 125 mls/hr Insulin Aspart (Novolog Insulin Correctional Sugar Inj) 0 unit SQ ACHS AND 3AM DIANE; Protocol Last Admin: 08/21/18 16:27 Dose: Not Given Lactulose (Lactulose Liq) 30 ml PO DAILY PRN PRN Reason: SEVERE CONSITIPATION Lisinopril (Prinivil) 10 mg PO DAILY REPLACED BY [facility] Metoprolol Tartrate (Lopressor) 50 mg PO BID REPLACED BY [facility] Miscellaneous (Pill Splitter) 1 each OTHER UNSCH PRN PRN Reason: PILL SPLITTER Morphine Sulfate (Morphine Inj) 2 mg IV.PUSH Q3H PRN PRN Reason: PAIN 3-5; IF UABLE TO TAKE PO Morphine Sulfate (Morphine Inj) 4 mg IV.PUSH Q3H PRN PRN Reason: PAIN 6-10;IF UNABLE TO TAKE PO Last Admin: 08/21/18 16:46 Dose: 4 mg Morphine Sulfate (Morphine Inj) 4 mg IV.PUSH Q3H PRN PRN Reason: BREAKTHROUGH PAIN Morphine Sulfate (Morphine Inj) 4 mg IV.PUSH Q1H PRN PRN Reason: Pain Scale 7-10 (Intractable) Naloxone HCl (Narcan Inj) 0.4 mg IV.PUSH UNSCH PRN PRN Reason: SEE LABEL COMMENTS Ondansetron HCl (Zofran Inj) 4 mg IV.PUSH Q6H PRN PRN Reason: NAUSEA OR VOMITING Last Admin: 08/21/18 19:07 Dose: 4 mg Oxycodone/Acetaminophen (Percocet 10/325 Mg) 1 tab PO Q6H PRN PRN Reason: PAIN SCALE 6 TO 10 Oxycodone/Acetaminophen (Percocet 5/325 Mg) 1 tab PO Q6H PRN PRN Reason: PAIN SCALE 3 TO 5 Pravastatin Sodium (Pravachol) 40 mg PO DAILY REPLACED BY [facility] Senna/Docusate Sodium (Danielle-Colace) 1 tab PO BID REPLACED BY [facility] Sennosides (Senokot) 17.2 mg PO Q12H PRN PRN Reason: Moderate Constipation Sodium Chloride (Ns Flush) 2 ml IV.FLUSH BID DIANE Sodium Chloride (Ns Flush) 2 ml IV.FLUSH UNSCH PRN PRN Reason: FLUSH AFTER USING IV ACCESS Spironolactone (Aldactone) 25 mg PO DAILY DIANE Zolpidem Tartrate (Ambien) 5 mg PO HS PRN PRN Reason: INSOMNIA <Bratu,Flori - Last Filed: 08/21/18 19:18> Allergies Allergy/AdvReac Type Severity Reaction Status Date / Time No Known Allergies Allergy Verified 08/21/18 11:11 Home Medications Medication Instructions Recorded Confirmed Type amlodipine [Norvasc] 2.5 mg PO DAILY 04/18/18 08/21/18 History lisinopril 10 mg PO DAILY 04/18/18 08/21/18 History metformin 1,000 mg PO BID 04/18/18 08/21/18 History metoprolol tartrate 50 mg PO BID 04/18/18 08/21/18 History spironolactone 25 mg PO DAILY 04/18/18 08/21/18 History apixaban [Eliquis] 5 mg PO BID 08/21/18 08/21/18 History aspirin 81 mg PO DAILY 08/21/18 08/21/18 History lovastatin 40 mg PO DAILY 08/21/18 08/21/18 History Exam Vital signs: Vital Signs 08/21/18 11:00 08/21/18 11:15 08/21/18 13:00 Temperature 97.9 F Pulse Rate 66 54 L Respiratory Rate 18 16 Blood Pressure 119/73 96/60 L Pulse Oximetry 100 99 98 08/21/18 14:00 08/21/18 14:54 Temperature Pulse Rate 52 L Respiratory Rate 16 Blood Pressure 100/68 Pulse Oximetry 100 100 Intake & Output 08/20/18 08/21/18 08/21/18 19:59 06:59 18:59 Weight 75.75 kg - Constitutional no acute distress - Routine HEENT Exam Head: Present: normocephalic - Routine Respiratory Exam Present: CTA bilaterally - Routine Cardiovascular Exam Present: RRR - Routine Abdominal Exam Present: soft, normoactive bowel sounds. Absent: tenderness, distended, rebound - Routine Skin Exam Present: intact, dry. Absent: jaundice - Routine Neurological Exam Present: alert, oriented X3 <Kirk Puente - Last Filed: 08/21/18 15:40> Vital signs: Vital Signs 08/21/18 11:00 08/21/18 11:15 08/21/18 13:00 Temperature 97.9 F Pulse Rate 66 54 L Respiratory Rate 18 16 Blood Pressure 119/73 96/60 L Pulse Oximetry 100 99 98 08/21/18 14:00 08/21/18 14:54 08/21/18 17:00 Temperature 97.3 F L Pulse Rate 52 L 54 L Respiratory Rate 16 18 Blood Pressure 100/68 117/62 Pulse Oximetry 100 100 98 08/21/18 18:00 Temperature Pulse Rate 55 L Respiratory Rate Blood Pressure Pulse Oximetry Intake & Output 08/21/18 08/21/18 08/22/18 06:59 18:59 06:59 Weight 75.75 kg <Flori Bacon - Last Filed: 08/21/18 19:18> Results - Labs CBC & Chem 7: 08/21/18 11:28 08/21/18 12:07 Labs: Laboratory Results - last 24 hr 08/21/18 08/21/18 08/21/18 11:28 12:07 12:07 WBC 6.7 RBC 4.65 Hgb 14.2 Hct 41.7 MCV 89.6 MCH 30.5 MCHC 34.0 RDW 13.7 Plt Count 286 MPV 9.3 Neut % (Auto) 56.9 Lymph % (Auto) 31.3 [place] % (Auto) 10.0 H Eos % (Auto) 1.2 Baso % (Auto) 0.6 Neut # (Auto) 3.8 Lymph # (Auto) 2.1 [place] # (Auto) 0.7 Eos # (Auto) 0.1 Baso # (Auto) 0.0 WBC Differential . Differential Comment Auto diff final D-Dimer Quant (PE/DVT) 0.22 Sodium 139 Potassium 5.3 H Chloride 103 Carbon Dioxide 29.9 Anion Gap 6 BUN 24 H Creatinine 1.31 H Estimated GFR 58 L Random Glucose 91 Calcium 9.4 Magnesium Total Bilirubin 0.4 AST 23 ALT 19 Alkaline Phosphatase 59 Total Creatine Kinase Troponin I Less than 0.02 L Total Protein 7.8 Albumin 4.0 Lipase 4592 H 08/21/18 12:07 WBC RBC Hgb Hct MCV MCH MCHC RDW Plt Count MPV Neut % (Auto) Lymph % (Auto) [place] % (Auto) Eos % (Auto) Baso % (Auto) Neut # (Auto) Lymph # (Auto) [place] # (Auto) Eos # (Auto) Baso # (Auto) WBC Differential Differential Comment D-Dimer Quant (PE/DVT) Sodium Potassium Chloride Carbon Dioxide Anion Gap BUN Creatinine Estimated GFR Random Glucose Calcium Magnesium 2.0 Total Bilirubin AST ALT Alkaline Phosphatase Total Creatine Kinase 81 Troponin I Total Protein Albumin Lipase - Imaging Impressions Chest X-Ray 08/21/18 11:15 CONCLUSION: No evidence of acute cardiopulmonary process. Left-sided cardiac pacemaker overlying the left lung base. Gallbladder Ultrasound 08/21/18 12:55 CONCLUSION: 1. 7 mm calculus lower pole of the right kidney. 2. Otherwise normal exam; no evidence of acute inflammatory disease, biliary obstructive disease or hydronephrosis. <Kirk Puente - Last Filed: 08/21/18 15:40> - Labs CBC & Chem 7: 08/21/18 11:28 08/21/18 12:07 Labs: Laboratory Results - last 24 hr 08/21/18 08/21/18 08/21/18 11:28 12:07 12:07 WBC 6.7 RBC 4.65 Hgb 14.2 Hct 41.7 MCV 89.6 MCH 30.5 MCHC 34.0 RDW 13.7 Plt Count 286 MPV 9.3 Neut % (Auto) 56.9 Lymph % (Auto) 31.3 [place] % (Auto) 10.0 H Eos % (Auto) 1.2 Baso % (Auto) 0.6 Neut # (Auto) 3.8 Lymph # (Auto) 2.1 [place] # (Auto) 0.7 Eos # (Auto) 0.1 Baso # (Auto) 0.0 WBC Differential . Differential Comment Auto diff final D-Dimer Quant (PE/DVT) 0.22 Sodium 139 Potassium 5.3 H Chloride 103 Carbon Dioxide 29.9 Anion Gap 6 BUN 24 H Creatinine 1.31 H Estimated GFR 58 L POC Glucose Random Glucose 91 Calcium 9.4 Magnesium Total Bilirubin 0.4 AST 23 ALT 19 Alkaline Phosphatase 59 Total Creatine Kinase Troponin I Less than 0.02 L Total Protein 7.8 Albumin 4.0 Triglycerides Cholesterol LDL Cholesterol, Calc HDL Cholesterol Cholesterol/HDL Ratio Lipase 4592 H TSH Free T4 08/21/18 08/21/18 08/21/18 12:07 12:07 12:07 WBC RBC Hgb Hct MCV MCH MCHC RDW Plt Count MPV Neut % (Auto) Lymph % (Auto) [place] % (Auto) Eos % (Auto) Baso % (Auto) Neut # (Auto) Lymph # (Auto) [place] # (Auto) Eos # (Auto) Baso # (Auto) WBC Differential Differential Comment D-Dimer Quant (PE/DVT) Sodium Potassium Chloride Carbon Dioxide Anion Gap BUN Creatinine Estimated GFR POC Glucose Random Glucose Calcium Magnesium 2.0 Total Bilirubin AST ALT Alkaline Phosphatase Total Creatine Kinase 81 Troponin I Total Protein Albumin Triglycerides Cholesterol LDL Cholesterol, Calc HDL Cholesterol Cholesterol/HDL Ratio Lipase TSH 0.856 Free T4 0.94 08/21/18 08/21/18 15:07 16:24 WBC RBC Hgb Hct MCV MCH MCHC RDW Plt Count MPV Neut % (Auto) Lymph % (Auto) [place] % (Auto) Eos % (Auto) Baso % (Auto) Neut # (Auto) Lymph # (Auto) [place] # (Auto) Eos # (Auto) Baso # (Auto) WBC Differential Differential Comment D-Dimer Quant (PE/DVT) Sodium Potassium Chloride Carbon Dioxide Anion Gap BUN Creatinine Estimated GFR POC Glucose 130 H Random Glucose Calcium Magnesium Total Bilirubin AST ALT Alkaline Phosphatase Total Creatine Kinase Troponin I Total Protein Albumin Triglycerides 108 Cholesterol 169 LDL Cholesterol, Calc 89 HDL Cholesterol 58.1 Cholesterol/HDL Ratio 2.90 Lipase TSH Free T4 - Imaging Impressions Chest X-Ray 08/21/18 11:15 CONCLUSION: No evidence of acute cardiopulmonary process. Left-sided cardiac pacemaker overlying the left lung base. Gallbladder Ultrasound 08/21/18 12:55 CONCLUSION: 1. 7 mm calculus lower pole of the right kidney. 2. Otherwise normal exam; no evidence of acute inflammatory disease, biliary obstructive disease or hydronephrosis. <Flori Bacon - Last Filed: 08/21/18 19:18> Assessment and Plan - Plan - Acute pancreatitis, lipase 4592- Unclear etiology so far, presents to the emergency department with progressively worsening right sided chest pain for 4 days. The pain is sharp, worse with movement of his right upper extremity, radiates from the right anterior lateral aspect of the back. Labs revealed lipase of 4592. LFTs wnl, lipid panel pending. Pt used to be heavy drinker but quit over a yr ago. No new medications, no previous hx of pancreatitis. No family hx of pancreatitis. Denies nausea, vomiting, hematemesis , abd pain, diarrhea or change in bowels. Denies fever or chills or dark urine. US showed 7 mm calculus lower pole of the right kidney. Otherwise normal exam ; no evidence of acute inflammatory disease, biliary obstructive disease or hydronephrosis - pmh of PE, CAD with previous stent placement and AICD placement on Eliquis Plan: - NPO, can have ice chips - CT of a/p - HIDA - Pt can't have MRCP due to AICD placement - Consider EGD sometimes during this admission when more stable - Await lipid panel - Monitor labs - IV hydration - Pain meds - Pt seen and examined by Dr. Bacon and myself and this note is written on her behalf <Kirk Puente - Last Filed: 08/21/18 15:40> - Attending Attestation seen, examined agree with above <Flori Bacon - Last Filed: 08/21/18 19:18>
[2018-08-21] MEDS ORDERED: Hold Metfromin until further notice OTHER ONE (15:54)
[2018-08-21 15:58] LABS: Chol/HDL Ratio 2.9 Ratio; HDL Cholesterol 58.1 mg/dL (40.0-60.0)
[2018-08-21] MEDS ORDERED: Diatrizoate Meglum/Diatrizoate Sod Liq 9 ML UDC PO ONE (16:15)
--- NOTE | 2018-08-21 16:19 | P.HPIM ---
History of Present Illness Service: [facility] Primary Care Physician: Olya Hunt Chief Complaint: RIGHT SIDE CHEST AND BACK WITH SHARP PAIN History of Present Illness: Patient is a 52-year-old gentleman presented emergency department with chest pain. Patient developed chest pain a few days ago located on the right side which radiated from the right anterior lateral aspect of the back. Patient describes the pain is sharp, intermittent, worse with movement of his right upper extremity. However the patient states the pain has been progressive. And constant. He does have a history of similar pain in the past secondary to [place] and he is chronically on Eliquis for this. Patient does have a history of coronary artery disease with history of stent placement and AICD placement as well. Patient denies that his defibrillator has gone off. He denies any shortness of breath, denies any nausea, denies any vomiting. Denies his symptoms have been moderate to severe. He has had increasing pain when he lays on the affected side. He did take his Eliquis and aspirin prior to arrival. He had this atypical sounding chest pain. Pain was 5 out of 10 no real relieving factors. Worse with palp patient and movement He took his aspirin. Past medical history is significant for hypertension, diabetes, chronic anticoagulation history of multiple strokes, history of pulmonary emboli, history of high cholesterol, history of TIAs, history of cardiac defibrillator, history of myocardial infarction, history of cardiac stenting and elevated cholesterol. Patient has pancreatitis We will consult gastroenterology Keep n.p.o. Continue on pain control A.m. labs Continue on fluid Inpatient Certification: I certify that the inpatient services were ordered in accordance with Medicare regulations governing the order. This includes certification that hospital inpatient services are reasonable and necessary and in the case of services not specified as inpatient-only under 42 CFR 419.22(n), that they are appropriately provided as inpatient services in accordance to with the 2-midnight benchmark under 43 CFR 412.3(e) Estimated Total Length of Stay (Days): 3 Plans for Post Hospital Care: Home Review of Systems All other systems reviewed negative except as stated in HPI [facility] - History History Provided By: Patient - Medical History Medical History: Medical History (Last Reviewed 08/21/18 @ 16:05 by Juarez Webster DO) Myocardial infarct (Acute) Cardiac defibrillator in place (Acute) Diabetes type 2, controlled H/O blood clots HTN (hypertension) High cholesterol TIA (transient ischemic attack) - Surgical History Surgical History: Surgical History (Last Reviewed 08/21/18 @ 16:06 by Juarez Webster DO) H/O heart artery stent - Family History Family History: Family History (Last Reviewed 08/21/18 @ 16:06 by Juarez Webster DO) Other Family history of acute myocardial infarction - Tobacco History Second Hand Smoke Exposure: No Tobacco Use In Past 30 Days: No Smoking Status: Former smoker Tobacco Type: Cigarettes - Alcohol History How Often Do You Have a Drink Containing Alcohol: Never - Substance Use History Substance History: No History of Abuse - Travel History History of Recent Travel: No Recent Travel in the [place] Within the Last 8 Weeks: No Recent Travel Out of the Country Within the Last 8 Weeks: No - Immunization History Tetanus Immunization: Unsure Medications and Allergies Active Medications: Active Medications Acetaminophen (Tylenol) 650 mg PO Q4H PRN PRN Reason: Temp > 100.4 Acetaminophen (Tylenol) 650 mg PO Q6H PRN PRN Reason: PAIN SCALE 1 TO 2 Al Hydroxide/Mg Hydroxide (Milk Of Magnesia Liq) 30 ml PO Q12H PRN PRN Reason: Mild Constipation Amlodipine Besylate (Norvasc) 2.5 mg PO DAILY DIANE Apixaban (Eliquis) 5 mg PO BID DIANE Aspirin (Aspirin Chew) 81 mg PO DAILY DIANE Bisacodyl (Dulcolax Supp) 10 mg RECTAL DAILY PRN PRN Reason: SEVERE CONSITIPATION Dextrose (D50w Vial) 50 ml IV.PUSH UNSCH PRN PRN Reason: PER HYPOGLYCEMIA PROTOCOL Glucagon (Glucagon Inj) 1 mg OTHER UNSCH PRN PRN Reason: for Hypoglycemia Protocol Lactated Ringer's (Lr 1000 Ml Inj) 1,000 mls @ 125 mls/hr IV.CONT .Q8H DIANE Last Admin: 08/21/18 15:17 Dose: 125 mls/hr Insulin Aspart (Novolog Insulin Correctional Sugar Inj) 0 unit SQ ACHS AND 3AM DIANE; Protocol Lactulose (Lactulose Liq) 30 ml PO DAILY PRN PRN Reason: SEVERE CONSITIPATION Lisinopril (Prinivil) 10 mg PO DAILY DIANE Metoprolol Tartrate (Lopressor) 50 mg PO BID [facility] Miscellaneous (Pill Splitter) 1 each OTHER UNSCH PRN PRN Reason: PILL SPLITTER Morphine Sulfate (Morphine Inj) 2 mg IV.PUSH Q3H PRN PRN Reason: PAIN 3-5; IF UABLE TO TAKE PO Morphine Sulfate (Morphine Inj) 4 mg IV.PUSH Q3H PRN PRN Reason: PAIN 6-10;IF UNABLE TO TAKE PO Morphine Sulfate (Morphine Inj) 4 mg IV.PUSH Q3H PRN PRN Reason: BREAKTHROUGH PAIN Morphine Sulfate (Morphine Inj) 4 mg IV.PUSH Q1H PRN PRN Reason: Pain Scale 7-10 (Intractable) Naloxone HCl (Narcan Inj) 0.4 mg IV.PUSH UNSCH PRN PRN Reason: SEE LABEL COMMENTS Ondansetron HCl (Zofran Inj) 4 mg IV.PUSH Q6H PRN PRN Reason: NAUSEA OR VOMITING Oxycodone/Acetaminophen (Percocet 10/325 Mg) 1 tab PO Q6H PRN PRN Reason: PAIN SCALE 6 TO 10 Oxycodone/Acetaminophen (Percocet 5/325 Mg) 1 tab PO Q6H PRN PRN Reason: PAIN SCALE 3 TO 5 Pravastatin Sodium (Pravachol) 40 mg PO DAILY [facility] Senna/Docusate Sodium (Danielle-Colace) 1 tab PO BID [facility] Sennosides (Senokot) 17.2 mg PO Q12H PRN PRN Reason: Moderate Constipation Sodium Chloride (Ns Flush) 2 ml IV.FLUSH BID DIANE Sodium Chloride (Ns Flush) 2 ml IV.FLUSH UNSCH PRN PRN Reason: FLUSH AFTER USING IV ACCESS Spironolactone (Aldactone) 25 mg PO DAILY DIANE Zolpidem Tartrate (Ambien) 5 mg PO HS PRN PRN Reason: INSOMNIA Allergies Allergy/AdvReac Type Severity Reaction Status Date / Time No Known Allergies Allergy Verified 08/21/18 11:11 Home Medications Medication Instructions Recorded Confirmed Type amlodipine [Norvasc] 2.5 mg PO DAILY 04/18/18 08/21/18 History lisinopril 10 mg PO DAILY 04/18/18 08/21/18 History metformin 1,000 mg PO BID 04/18/18 08/21/18 History metoprolol tartrate 50 mg PO BID 04/18/18 08/21/18 History spironolactone 25 mg PO DAILY 04/18/18 08/21/18 History apixaban [Eliquis] 5 mg PO BID 08/21/18 08/21/18 History aspirin 81 mg PO DAILY 08/21/18 08/21/18 History lovastatin 40 mg PO DAILY 08/21/18 08/21/18 History Exam Vital signs: Vital Signs 08/21/18 11:00 08/21/18 11:15 08/21/18 13:00 Temperature 97.9 F Pulse Rate 66 54 L Respiratory Rate 18 16 Blood Pressure 119/73 96/60 L Pulse Oximetry 100 99 98 08/21/18 14:00 08/21/18 14:54 Temperature Pulse Rate 52 L Respiratory Rate 16 Blood Pressure 100/68 Pulse Oximetry 100 100 Intake & Output 08/20/18 08/21/18 08/21/18 19:59 06:59 18:59 Weight 75.75 kg Narrative: GENERAL: Awake alert and oriented x3 talkative and cooperative- a little slow to answer SKIN: Warm and dry. HEAD: Atraumatic. Normocephalic. EYES: Pupils equal and round. No scleral icterus. No injection or drainage. EOMI ENT: No nasal bleeding or discharge. Mucous membranes pink and moist. Tongue is midline poor dentition NECK: Trachea midline. No JVD. Supple CARDIOVASCULAR: Regular rate and rhythm. S1-S2 no S3 or S4 RESPIRATORY: No accessory muscle use. Clear to auscultation. Breath sounds equal bilaterally. GASTROINTESTINAL: Abdomen soft, mild to moderate tenderness in the abdomen with some radiation to the right, nondistended. Hepatic and splenic margins not palpable. MUSCULOSKELETAL: Extremities without clubbing, cyanosis, or edema. No obvious deformities. NEUROLOGICAL: Awake and alert. No obvious cranial nerve deficits. Motor grossly within normal limits. 4 out of 5 muscle strength in the arms and legs. Normal speech. PSYCHIATRIC: Appropriate mood and affect; insight and judgment normal. Results - Labs CBC & Chem 7: 08/21/18 11:28 08/21/18 12:07 Labs: Short CBC 08/21/18 Range/Units 11: WBC 6.7 (4.0-11.0) th/mm3 Hgb 14.2 (13.0-17.0) gm/dL Hct 41.7 (39.0-51.0) % Plt Count 286 (150-450) th/mm3 BMP 08/21/18 12:07 Sodium 139 Potassium 5.3 H Chloride 103 Carbon Dioxide 29.9 BUN 24 H Creatinine 1.31 H Calcium 9.4 Cardiac Enzymes 08/21/18 08/21/18 Range/Units 12:07 12:07 Total Creatine Kinase 81 (39-308) U/L Troponin I Less than 0.02 L (0.02-0.05) ng/mL Liver Function 08/21/18 Range/Units 12:07 Total Bilirubin 0.4 (0.2-1.0) mg/dL AST 23 (15-37) U/L ALT 19 (12-78) U/L Alkaline Phosphatase 59 (45-117) U/L Albumin 4.0 (3.4-5.0) g/dL - Imaging Impressions Chest X-Ray 08/21/18 11:15 CONCLUSION: No evidence of acute cardiopulmonary process. Left-sided cardiac pacemaker overlying the left lung base. Gallbladder Ultrasound 08/21/18 12:55 CONCLUSION: 1. 7 mm calculus lower pole of the right kidney. 2. Otherwise normal exam; no evidence of acute inflammatory disease, biliary obstructive disease or hydronephrosis. Caprini VTE Risk Assessment Caprini VTE Risk Assessment: Moderate/High Risk (score >= 2) Caprini Risk Assessment Model: Point Value = 1 Point Value = 2 Point Value = 3 Point Value = 5 Age 41-60 Minor surgery BMI > 25 kg/m2 Swollen legs Varicose veins or History of unexplained or recurrent spontaneous Oral contraceptives or hormone replacement Sepsis (< 1 month) Serious lung disease, including pneumonia (< 1 month) Abnormal pulmonary function Acute myocardial infarction Congestive heart failure (< 1 month) History of inflammatory bowel disease Medical patient at bed rest Age 61-74 Arthroscopic surgery Major open surgery (> 45 min) Laparoscopic surgery (> 45 min) Malignancy Confined to bed (> 72 hours) Immobilizing plaster cast Central venous access Age >= 75 History of VTE Family history of VTE Factor V Leiden Prothrombin [id number] Lupus anticoagulant Anticardiolipin antibodies Elevated serum homocysteine Heparin-induced thrombocytopenia Other congenital or acquired thrombophilia Stroke (< 1 month) Elective arthroplasty Hip, pelvis, or leg fracture Acute spinal cord injury (< 1 month) Prophylaxis Regimen: Total Risk Factor Score Risk Level Prophylaxis Regimen 0-1 Low Early ambulation 2 Moderate Order ONE of the following: *Sequential Compression Device (SCD) *Heparin 5000 units SQ BID 3-4 Higher Order ONE of the following medications: *Heparin 5000 units SQ TID *Enoxaparin/Lovenox 40 mg SQ daily (WT < 150 kg, CrCl > 30 mL/min) *Enoxaparin/Lovenox 30 mg SQ daily (WT < 150 kg, CrCl > 10-29 mL/min) *Enoxaparin/Lovenox 30 mg SQ BID (WT < 150 kg, CrCl > 30 mL/min) AND/OR *Sequential Compression Device (SCD) 5 or more Highest Order ONE of the following medications: *Heparin 5000 units SQ TID (Preferred with Epidurals) *Enoxaparin/Lovenox 40 mg SQ daily (WT < 150 kg, CrCl > 30 mL/min) *Enoxaparin/Lovenox 30 mg SQ daily (WT < 150 kg, CrCl > 10-29 mL/min) *Enoxaparin/Lovenox 30 mg SQ BID (WT < 150 kg, CrCl > 30 mL/min) AND *Sequential Compression Device (SCD) Assessment and Plan - Plan Acute pancreatitis -Suspect secondary to HYPERtriglyceridemia Consult gastroenterology Pain control N.p.o. IV fluids History of myocardial infarction Coronary artery disease with history of cardiac stenting History of AICD placement -Continue on Norvasc, lisinopril, metoprolol, spironolactone, aspirin, and lovastatin History of defibrillator in situ Continue on anticoagulation with the Eliquis and the aspirin Diabetes mellitus type 2 -N.p.o. 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 labs Keep n.p.o. Code Status: Full code Discussed Condition With: RN and patient and emergency room physician and family and GI Discharge Planning: Pending improvement and clearance by GI for discharge
[2018-08-21] MEDS: Insulin NovoLOG Aspart Correctional Sugar Inj SQ SCH ×2 (16:27→21:45)
--- NOTE | 2018-08-21 19:07 | P.CONGS ---
[facility] Gen Surgery Consult Note Consult date: 08/21/18 Reason for consult: other (Pancreatitis) Narrative: CONSULTATION NOTE FOR SURGICAL ATTENDING, DR. KUMAR TOLENTINO Patient recently admitted for chest wall pain He had a workup and lab work showed he had pancreatitis ultrasound did not reveal any gallstones He has not had any pain like this before it started about 4 days ago he does not recall it coming on with any dietary He denies any alcohol intake Denies any nausea or abdominal pain Review of Systems All other systems reviewed negative except as stated in [facility] - History History Provided By: Patient - Medical / Surgical Hx Neg / Unobtainable Surgical History: No Previous Surgery - Medical History Medical History: Medical History (Last Updated 08/21/18 @ 19:09 by Kumar Tolentino MD) Myocardial infarct (Acute) Cardiac defibrillator in place (Chronic) Diabetes type 2, controlled H/O blood clots HTN (hypertension) High cholesterol Hx pulmonary embolism TIA (transient ischemic attack) - Surgical History Surgical History: Surgical History (Last Reviewed 08/21/18 @ 18:58 by Kumar Tolentino MD) H/O heart artery stent - Family History Family History: Family History (Last Reviewed 08/21/18 @ 18:58 by Kumar Tolentino MD) Other Family history of acute myocardial infarction - Social History I have reviewed the patient's Social History: Yes - Tobacco History Second Hand Smoke Exposure: No Tobacco Use In Past 30 Days: No Smoking Status: Former smoker Tobacco Type: Cigarettes - Alcohol History How Often Do You Have a Drink Containing Alcohol: Never - Substance Use History Substance History: No History of Abuse - Travel History History of Recent Travel: No Recent Travel in the [place] Within the Last 8 Weeks: No Recent Travel Out of the Country Within the Last 8 Weeks: No - Immunization History Tetanus Immunization: Unsure Hx Influenza Vaccine This Season: No Medications and Allergies Active Medications: Active Medications Acetaminophen (Tylenol) 650 mg PO Q4H PRN PRN Reason: Temp > 100.4 Acetaminophen (Tylenol) 650 mg PO Q6H PRN PRN Reason: PAIN SCALE 1 TO 2 Al Hydroxide/Mg Hydroxide (Milk Of Magnesia Liq) 30 ml PO Q12H PRN PRN Reason: Mild Constipation Amlodipine Besylate (Norvasc) 2.5 mg PO DAILY [facility] Apixaban (Eliquis) 5 mg PO BID [facility] Aspirin (Aspirin Chew) 81 mg PO DAILY [facility] Bisacodyl (Dulcolax Supp) 10 mg RECTAL DAILY PRN PRN Reason: SEVERE CONSITIPATION Dextrose (D50w Vial) 50 ml IV.PUSH UNSCH PRN PRN Reason: PER HYPOGLYCEMIA PROTOCOL Glucagon (Glucagon Inj) 1 mg OTHER UNSCH PRN PRN Reason: for Hypoglycemia Protocol Lactated Ringer's (Lr 1000 Ml Inj) 1,000 mls @ 125 mls/hr IV.CONT .Q8H DIANE Last Admin: 08/21/18 15:17 Dose: 125 mls/hr Insulin Aspart (Novolog Insulin Correctional Sugar Inj) 0 unit SQ ACHS AND 3AM DIANE; Protocol Last Admin: 08/21/18 16:27 Dose: Not Given Lactulose (Lactulose Liq) 30 ml PO DAILY PRN PRN Reason: SEVERE CONSITIPATION Lisinopril (Prinivil) 10 mg PO DAILY [facility] Metoprolol Tartrate (Lopressor) 50 mg PO BID [facility] Miscellaneous (Pill Splitter) 1 each OTHER UNSCH PRN PRN Reason: PILL SPLITTER Morphine Sulfate (Morphine Inj) 2 mg IV.PUSH Q3H PRN PRN Reason: PAIN 3-5; IF UABLE TO TAKE PO Morphine Sulfate (Morphine Inj) 4 mg IV.PUSH Q3H PRN PRN Reason: PAIN 6-10;IF UNABLE TO TAKE PO Last Admin: 08/21/18 16:46 Dose: 4 mg Morphine Sulfate (Morphine Inj) 4 mg IV.PUSH Q3H PRN PRN Reason: BREAKTHROUGH PAIN Morphine Sulfate (Morphine Inj) 4 mg IV.PUSH Q1H PRN PRN Reason: Pain Scale 7-10 (Intractable) Naloxone HCl (Narcan Inj) 0.4 mg IV.PUSH UNSCH PRN PRN Reason: SEE LABEL COMMENTS Ondansetron HCl (Zofran Inj) 4 mg IV.PUSH Q6H PRN PRN Reason: NAUSEA OR VOMITING Oxycodone/Acetaminophen (Percocet 10/325 Mg) 1 tab PO Q6H PRN PRN Reason: PAIN SCALE 6 TO 10 Oxycodone/Acetaminophen (Percocet 5/325 Mg) 1 tab PO Q6H PRN PRN Reason: PAIN SCALE 3 TO 5 Pravastatin Sodium (Pravachol) 40 mg PO DAILY [facility] Senna/Docusate Sodium (Danielle-Colace) 1 tab PO BID [facility] Sennosides (Senokot) 17.2 mg PO Q12H PRN PRN Reason: Moderate Constipation Sodium Chloride (Ns Flush) 2 ml IV.FLUSH BID DIANE Sodium Chloride (Ns Flush) 2 ml IV.FLUSH UNSCH PRN PRN Reason: FLUSH AFTER USING IV ACCESS Spironolactone (Aldactone) 25 mg PO DAILY [facility] Zolpidem Tartrate (Ambien) 5 mg PO HS PRN PRN Reason: INSOMNIA Allergies Allergy/AdvReac Type Severity Reaction Status Date / Time No Known Allergies Allergy Verified 08/21/18 11:11 Home Medications Medication Instructions Recorded Confirmed Type amlodipine [Norvasc] 2.5 mg PO DAILY 04/18/18 08/21/18 History lisinopril 10 mg PO DAILY 04/18/18 08/21/18 History metformin 1,000 mg PO BID 04/18/18 08/21/18 History metoprolol tartrate 50 mg PO BID 04/18/18 08/21/18 History spironolactone 25 mg PO DAILY 04/18/18 08/21/18 History apixaban [Eliquis] 5 mg PO BID 08/21/18 08/21/18 History aspirin 81 mg PO DAILY 08/21/18 08/21/18 History lovastatin 40 mg PO DAILY 08/21/18 08/21/18 History Exam Vital signs: Vital Signs 08/21/18 11:00 08/21/18 11:15 08/21/18 13:00 Temperature 97.9 F Pulse Rate 66 54 L Respiratory Rate 18 16 Blood Pressure 119/73 96/60 L Pulse Oximetry 100 99 98 08/21/18 14:00 08/21/18 14:54 08/21/18 17:00 Temperature 97.3 F L Pulse Rate 52 L 54 L Respiratory Rate 16 18 Blood Pressure 100/68 117/62 Pulse Oximetry 100 100 98 08/21/18 18:00 Temperature Pulse Rate 55 L Respiratory Rate Blood Pressure Pulse Oximetry Intake & Output 08/20/18 08/21/18 08/21/18 19:59 06:59 18:59 Weight 75.75 kg Narrative: Alert oriented x3 Sitting up in bed appears comfortable Points to his right lower chest where his pain is located. Neck is supple Chest is clear Heart regular rate Abdomen thin soft without rebound or guarding no Wells sign Moves all extremities well no clubbing cyanosis or edema Skin numerous tattoos Neurologic alert oriented without focal deficits cranial nerve intact Results - Labs 08/21/18 11:28 08/21/18 12:07 Laboratory Results - last 24 hr 08/21/18 08/21/18 08/21/18 11:28 12:07 12:07 WBC 6.7 RBC 4.65 Hgb 14.2 Hct 41.7 MCV 89.6 MCH 30.5 MCHC 34.0 RDW 13.7 Plt Count 286 MPV 9.3 Neut % (Auto) 56.9 Lymph % (Auto) 31.3 [place] % (Auto) 10.0 H Eos % (Auto) 1.2 Baso % (Auto) 0.6 Neut # (Auto) 3.8 Lymph # (Auto) 2.1 [place] # (Auto) 0.7 Eos # (Auto) 0.1 Baso # (Auto) 0.0 WBC Differential . Differential Comment Auto diff final D-Dimer Quant (PE/DVT) 0.22 Sodium 139 Potassium 5.3 H Chloride 103 Carbon Dioxide 29.9 Anion Gap 6 BUN 24 H Creatinine 1.31 H Estimated GFR 58 L POC Glucose Random Glucose 91 Calcium 9.4 Magnesium Total Bilirubin 0.4 AST 23 ALT 19 Alkaline Phosphatase 59 Total Creatine Kinase Troponin I Less than 0.02 L Total Protein 7.8 Albumin 4.0 Triglycerides Cholesterol LDL Cholesterol, Calc HDL Cholesterol Cholesterol/HDL Ratio Lipase 4592 H TSH Free T4 08/21/18 08/21/18 08/21/18 12:07 12:07 12:07 WBC RBC Hgb Hct MCV MCH MCHC RDW Plt Count MPV Neut % (Auto) Lymph % (Auto) [place] % (Auto) Eos % (Auto) Baso % (Auto) Neut # (Auto) Lymph # (Auto) [place] # (Auto) Eos # (Auto) Baso # (Auto) WBC Differential Differential Comment D-Dimer Quant (PE/DVT) Sodium Potassium Chloride Carbon Dioxide Anion Gap BUN Creatinine Estimated GFR POC Glucose Random Glucose Calcium Magnesium 2.0 Total Bilirubin AST ALT Alkaline Phosphatase Total Creatine Kinase 81 Troponin I Total Protein Albumin Triglycerides Cholesterol LDL Cholesterol, Calc HDL Cholesterol Cholesterol/HDL Ratio Lipase TSH 0.856 Free T4 0.94 08/21/18 08/21/18 15:07 16:24 WBC RBC Hgb Hct MCV MCH MCHC RDW Plt Count MPV Neut % (Auto) Lymph % (Auto) [place] % (Auto) Eos % (Auto) Baso % (Auto) Neut # (Auto) Lymph # (Auto) [place] # (Auto) Eos # (Auto) Baso # (Auto) WBC Differential Differential Comment D-Dimer Quant (PE/DVT) Sodium Potassium Chloride Carbon Dioxide Anion Gap BUN Creatinine Estimated GFR POC Glucose 130 H Random Glucose Calcium Magnesium Total Bilirubin AST ALT Alkaline Phosphatase Total Creatine Kinase Troponin I Total Protein Albumin Triglycerides 108 Cholesterol 169 LDL Cholesterol, Calc 89 HDL Cholesterol 58.1 Cholesterol/HDL Ratio 2.90 Lipase TSH Free T4 - Imaging Imaging: ITS Impressions Chest X-Ray 08/21/18 11:15 CONCLUSION: No evidence of acute cardiopulmonary process. Left-sided cardiac pacemaker overlying the left lung base. Gallbladder Ultrasound 08/21/18 12:55 CONCLUSION: 1. 7 mm calculus lower pole of the right kidney. 2. Otherwise normal exam; no evidence of acute inflammatory disease, biliary obstructive disease or hydronephrosis. Chest x-ray: report reviewed, image reviewed US - abdomen: report reviewed, image reviewed Assessment and Plan - Assessment (1) Acute pancreatitis Code(s): K85.90 - Acute pancreatitis without necrosis or infection, unspecified Status: Acute Qualifiers: Pancreatitis type: idiopathic Acute pancreatitis complication: unspecified Qualified Code(s): K85.00 - Idiopathic acute pancreatitis without necrosis or infection (2) Diabetes mellitus Code(s): E11.9 - Type 2 diabetes mellitus without complications Status: Chronic Qualifiers: Diabetes mellitus type: type 2 Diabetes mellitus snf insulin use: without snf use Diabetes mellitus complication status: with unspecified complications Qualified Code(s): E11.8 - Type 2 diabetes mellitus with unspecified complications (3) HTN (hypertension) Code(s): I10 - Essential (primary) hypertension Status: Chronic (4) Acute kidney injury Code(s): N17.9 - Acute kidney failure, unspecified Status: Acute (5) CAD (coronary artery disease) Code(s): I25.10 - Atherosclerotic heart disease of [place] coronary artery without angina pectoris Status: Chronic (6) DVT prophylaxis Status: Acute (7) CHF (congestive heart failure) Code(s): I50.9 - Heart failure, unspecified Status: Chronic (8) Myocardial infarct Code(s): I21.9 - Acute myocardial infarction, unspecified Status: Acute (9) Cardiac defibrillator in place Code(s): Z95.810 - Presence of automatic (implantable) cardiac defibrillator Status: Chronic (10) Current use of snf anticoagulation Code(s): Z79.01 - residential (current) use of anticoagulants Status: Chronic (11) Extensive tattoos Code(s): L81.8 - Other specified disorders of pigmentation Status: Chronic (12) History of pulmonary embolus (PE) Code(s): Z86.711 - Personal history of pulmonary embolism Status: Acute - Plan 52-year-old gentleman who has pancreatitis does not have any biliary source at this time with his ultrasound being completely normal. I suspect it may be related to his elevated cholesterol triglycerides. He is getting other imaging and other workup and GI is involved as well. At this time no surgical intervention indicated We will follow during his workup He appeared to understand - Attending Attestation CONSULTATION NOTE FOR SURGICAL ATTENDING, DR. KUMAR TOLENTINO I attest that I had a [id number] encounter with the patient on the same day, and personally performed and documented my assessment and findings in the medical record. The following services were provided during this hospital visit: Chart data review, vital sign assessments/reviewing monitor data Review of consultations notes if present. Medication orders/review and/or management Ordering and/or reviewing lab tests Ordering and/or interpreting/reviewing x-rays and/or diagnostic studies Care of the patient and discussion of the patient with the care team Documentation time To help prompt me to consider important information that might be impacting today's encounter and assessment, Information from prior notes written by myself or my colleagues may have been "brought forward/copy and pasted" into today's note.
--- NOTE | 2018-08-21 20:35 | CT ---
EXAM DATE: 08/21/2018 8:17 PM EST AGE/SEX: 52 years / Male INDICATIONS: Abdominal pain. CLINICAL DATA: This is the patient's initial encounter. Patient reports that signs and symptoms have been present for 1 day and indicates a pain score of 4/10. MEDICAL/SURGICAL HISTORY: Myocardial infarction. Transient ischemic attack. Diabetes. Pulmon dean embolism. Hypertension. Defibrillator. Coronary artery stent. ORAL CONTRAST: Partial prescribed oral contrast ingested. RADIATION DOSE: 7.11 CTDI (mGy) COMPARISON: No prior exams available for comparison. TECHNIQUE: Multiple contiguous axial images were obtained through the abdomen and pelvis following b olus infusion of 95 ml Omnipaque 350 (iohexol) nonionic water-soluble contrast as a single exam dos e. Partial prescribed oral contrast ingested. Using automated exposure control and adjustment of the mA and/or kV according to patient size, radiation dose was kept as low as reasonably achievable to o btain optimal diagnostic quality images. DICOM format image data is available electronically for rev iew and comparison. FINDINGS: The liver, spleen, pancreas and adrenal glands are within normal limits. There are 2 4 mm nonobstructing stones of the lower pole of the right kidney. There is a 2 mm nonobst ructing stone of the lower pole of the left kidney. No ureteral calculus on either side. No hydroneph rosis or hydroureter. No obstruction or acute inflammatory changes are seen of the gastrointestinal tract. Small hiatal her fredo. No free fluid or free air. No lymphadenopathy. Questionable mild inflammatory changes of the prostate and left greater than right seminal vesicles. Atherosclerotic aorta. No aneurysm. Visualized lung bases are clear. Cardiac pacer partly seen. No acute bony abnormality demonstrated. CONCLUSION: 1. Possible mild prostatitis and/or seminal vesiculitis in the proper clinical setting. No abscess o r free fluid. 2. Nonobstructing stones of both kidneys as described. Electronically signed by: Star Herrmann MD 08/21/2018 8:33 PM EST
[2018-08-21] MEDS: Senna/Docusate Sodium 8.6/50 MG Tablet PO SCH (21:44)
[2018-08-21] MEDS: Metoprolol Tartrate 50 MG Tablet PO SCH (21:44)
--- NOTE | 2018-08-21 22:29 | ECG ---
Date Performed: 08/21/2018 Time Performed: 11:16:14 PTAGE: 52 years EKG: SINUS BRADYCARDIA POSSIBLE INFERIOR MYOCARDIAL INFARCTION ABNORMAL ECG PREVIOUS TRACING : 04/19/2018 00.06 Since the previous tracing, no significant change noted DOCTOR: Fran Kaiser Interpretating Date/Time 08/21/2018 22:27:28
[2018-08-22] MEDS: Insulin NovoLOG Aspart Correctional Sugar Inj SQ SCH ×5 (05:46→21:20)
[2018-08-22 07:33] LABS: Baso % (Auto) 0.5 % (0.0-2.0); Eos # (Auto) 0.1 th/mm3 (0.0-0.4); Hematocrit 40.4 % (39.0-51.0); Hemoglobin 13.9 gm/dL (13.0-17.0); Lymph # (Auto) 2.1 th/mm3 (1.0-4.8); Lymph % (Auto) 36.8 % (9.0-44.0); Mean Corpuscular HGB Conc 34.5 % (32.0-36.0); Mean Corpuscular Hemoglobin 30.8 pg (27.0-34.0); Mean Corpuscular Volume 89.4 fL (80.0-100.0); Mean Platelet Volume 8.5 fL (7.0-11.0); Mono # (Auto) 0.5 th/mm3 (0.0-0.9); Mono % (Auto) 9.2 % (0.0-8.0); Neut % (Auto) 52.5 % (16.0-70.0); Platelet Count 227 th/mm3 (150-450); Red Blood Count 4.53 mil/mm3 (4.50-5.90); Red Cell Distribution Width 13.2 % (11.6-17.2); White Blood Count 5.7 th/mm3 (4.0-11.0)
[2018-08-22 07:58] LABS: Alanine Aminotransferase 16 U/L (12-78); Albumin 3.7 g/dL (3.4-5.0); Alkaline Phosphatase 55 U/L (45-117); Anion Gap 8 meq/L (5-15); Aspartate Aminotransferase 11 U/L (15-37); Blood Urea Nitrogen 17 mg/dL (7-18); Carbon Dioxide 27.3 meq/L (21.0-32.0); Chloride 103 meq/L (98-107); Glomerular Filtration Rate 63 mL/min (>89); Glucose,Random 113 mg/dL (74-106); Lipase 490 U/L (73-393); Magnesium 1.8 mg/dL (1.5-2.5); Phosphorus 3.4 mg/dL (2.5-4.9); Sodium 138 meq/L (136-145); Total Protein 7.1 g/dL (6.4-8.2)
[2018-08-22 08:02] LABS: Amylase 203 U/L (25-115)
[2018-08-22] MEDS: amLODIPine 5 MG Tablet PO SCH (09:00)
[2018-08-22] MEDS: Metoprolol Tartrate 50 MG Tablet PO SCH ×2 (09:00→21:19)
[2018-08-22] MEDS ORDERED: Influenza (Quadrivalent) Vaccine 0.5 ML Syringe IM ONE (09:00)
[2018-08-22] MEDS ORDERED: Sincalide Inj 5 MCG Vial IV.PUSH ONE (11:24)
--- NOTE | 2018-08-22 12:17 | NM ---
EXAM DATE: 08/22/2018 12:10 PM EST AGE/SEX: 52 years / Male INDICATIONS: Right upper quadrant pain for two days. CLINICAL DATA: This is the patient's initial encounter. Patient reports that signs and symptoms have been present for 1 day and indicates a pain score of 6/10. MEDICAL/SURGICAL HISTORY: Hypertension. Diabetes mellitus type II. Pulmonary embolus. Defibri llator. Coronary artery stent. COMPARISON: No prior exams available for comparison. DOSE: 4.1 mCi Tc-99m mebrofenin i.v. Medication: 1.5 mcg Cholecystokinin IV No symptomatic response Cholecystokinin was administered by slow infusion over 8 minutes beginning at 60 minutes. TECHNIQUE: Following the intravenous administration of radiotracer, dynamic sequential images were pe rformed with continuous acquisition. Time-activity curves were generated. FINDINGS: Hepatic Kinetics: There is prompt uptake of radiotracer in the liver. No focal defects are seen. Ther e is normal rate of washout from the hepatic parenchyma. Biliary Clearance: Activity is first seen in the extrahepatic biliary system at minutes. There is no rmal excretion into the small bowel. Gallbladder: Activity is first seen in the gallbladder at 15 minutes. Post-CCK: After CCK administration, there is emptying of the gallbladder with a less than 5% ejection fraction. Common bile duct kinetics are normal and there is no evidence of biliary obstruction. No symptomatic response after cholecystokinin infusion. Biliary-Enteric Reflux: None observed. CONCLUSION: 1. Biliary dyskinesia with no significant gallbladder emptying in response to CCK 2. Patent cystic and common bile ducts. 3. Normal appearing hepatic function. Electronically signed by: El Bui MD 08/22/2018 12:15 PM EST
--- NOTE | 2018-08-22 14:10 | P.PNGI ---
Subjective Interval history: Resting in the bed post HIDA scan, still having some right upper quadrant discomfort which radiates up into lower chest No nausea no vomiting, amylase 208, lipase 490 <Rachel Matthew - Last Filed: 08/22/18 14:04> Physical Exam Vital signs: Vital Signs 08/21/18 14:54 08/21/18 17:00 08/21/18 18:00 Temperature 97.3 F L Pulse Rate 54 L 55 L Respiratory Rate 18 Blood Pressure 117/62 Pulse Oximetry 100 98 08/21/18 20:00 08/22/18 00:00 08/22/18 01:33 Temperature 97.7 F 97.6 F Pulse Rate 71 64 59 L Respiratory Rate 20 18 Blood Pressure 112/67 96/55 L Pulse Oximetry 99 99 08/22/18 04:00 08/22/18 08:00 08/22/18 09:00 Temperature 98.8 F 97.9 F Pulse Rate 60 57 L 54 L Respiratory Rate 20 18 Blood Pressure 99/61 L 102/64 Pulse Oximetry 99 96 08/22/18 12:00 Temperature 98.3 F Pulse Rate 64 Respiratory Rate 18 Blood Pressure 120/71 Pulse Oximetry 99 Intake & Output 08/21/18 08/22/18 08/22/18 18:59 06:59 18:59 Intake Total 1999 Output Total 0 / 0 Balance 1999 Weight 75.75 kg 75.8 kg Intake: IV 1999 LR 1000 mL Inj 1,000 ML @ 125 1999 / 1999 mls/hr IV.CONT .Q8H [facility] Rx#: [id number] Output: Emesis 0 / 0 Other: # Voids 2 - Constitutional mild distress, average body habitus, disheveled, cooperative - Routine HEENT Exam Head: Present: normocephalic, atraumatic ENT: Present: mucous membranes moist - Routine Respiratory Exam Present: accessory muscle use (No obvious shortness of breath at rest) - Routine Cardiovascular Exam Present: S1, S2 - Routine Abdominal Exam Present: normoactive bowel sounds (Soft bowel sounds), tenderness (Right upper quadrant tenderness with pain radiating up into lower chest, no obvious distention, mild guarding) <Rachel Matthew - Last Filed: 08/22/18 14:04> Vital signs: Vital Signs 08/21/18 20:00 08/22/18 00:00 08/22/18 01:33 Temperature 97.7 F 97.6 F Pulse Rate 71 64 59 L Respiratory Rate 20 18 Blood Pressure 112/67 96/55 L Pulse Oximetry 99 99 08/22/18 04:00 08/22/18 08:00 08/22/18 09:00 Temperature 98.8 F 97.9 F Pulse Rate 60 57 L 54 L Respiratory Rate 20 18 Blood Pressure 99/61 L 102/64 Pulse Oximetry 99 96 08/22/18 12:00 08/22/18 16:00 Temperature 98.3 F 98.1 F Pulse Rate 62 65 Respiratory Rate 18 18 Blood Pressure 120/71 114/66 Pulse Oximetry 99 96 Intake & Output 08/21/18 08/22/18 08/22/18 18:59 06:59 18:59 Intake Total 1999 1000 / 1000 Output Total 0 / 0 Balance 1999 1000 / 1000 Weight 75.75 kg 75.8 kg Intake: IV 1999 1000 / 1000 LR 1000 mL Inj 1,000 ML @ 125 1999 1000 / 1000 mls/hr IV.CONT .Q8H [facility] Rx#: [id number] Output: Emesis 0 / 0 Other: # Voids 2 Date of Last Bowel Movement 08/21/18 <Flori Bacon - Last Filed: 08/22/18 18:22> Results - Labs CBC & Chem 7: 08/22/18 07:22 08/22/18 07:22 Laboratory Results - last 24 hr 08/21/18 08/21/18 08/21/18 12:07 12:07 15:07 WBC RBC Hgb Hct MCV MCH MCHC RDW Plt Count MPV Neut % (Auto) Lymph % (Auto) [place] % (Auto) Eos % (Auto) Baso % (Auto) Neut # (Auto) Lymph # (Auto) [place] # (Auto) Eos # (Auto) Baso # (Auto) WBC Differential Differential Comment Sodium Potassium Chloride Carbon Dioxide Anion Gap BUN Creatinine Estimated GFR POC Glucose Random Glucose Calcium Phosphorus Magnesium Total Bilirubin AST ALT Alkaline Phosphatase Troponin I Total Protein Albumin Triglycerides 108 Cholesterol 169 LDL Cholesterol, Calc 89 HDL Cholesterol 58.1 Cholesterol/HDL Ratio 2.90 Amylase Lipase TSH 0.856 Free T4 0.94 08/21/18 08/21/18 08/21/18 16:24 18:34 20:56 WBC RBC Hgb Hct MCV MCH MCHC RDW Plt Count MPV Neut % (Auto) Lymph % (Auto) [place] % (Auto) Eos % (Auto) Baso % (Auto) Neut # (Auto) Lymph # (Auto) [place] # (Auto) Eos # (Auto) Baso # (Auto) WBC Differential Differential Comment Sodium Potassium Chloride Carbon Dioxide Anion Gap BUN Creatinine Estimated GFR POC Glucose 130 H 149 H Random Glucose Calcium Phosphorus Magnesium Total Bilirubin AST ALT Alkaline Phosphatase Troponin I Less than 0.02 L Total Protein Albumin Triglycerides Cholesterol LDL Cholesterol, Calc HDL Cholesterol Cholesterol/HDL Ratio Amylase Lipase TSH Free T4 08/22/18 08/22/18 08/22/18 03:40 07:22 07:22 WBC 5.7 RBC 4.53 Hgb 13.9 Hct 40.4 MCV 89.4 MCH 30.8 MCHC 34.5 RDW 13.2 Plt Count 227 MPV 8.5 Neut % (Auto) 52.5 Lymph % (Auto) 36.8 [place] % (Auto) 9.2 H Eos % (Auto) 1.0 Baso % (Auto) 0.5 Neut # (Auto) 3.0 Lymph # (Auto) 2.1 [place] # (Auto) 0.5 Eos # (Auto) 0.1 Baso # (Auto) 0.0 WBC Differential . Differential Comment Auto diff final Sodium 138 Potassium 4.0 D Chloride 103 Carbon Dioxide 27.3 Anion Gap 8 BUN 17 Creatinine 1.21 Estimated GFR 63 L POC Glucose 112 H Random Glucose 113 H Calcium 9.0 Phosphorus 3.4 Magnesium 1.8 Total Bilirubin 0.4 AST 11 L ALT 16 Alkaline Phosphatase 55 Troponin I Total Protein 7.1 D Albumin 3.7 Triglycerides Cholesterol LDL Cholesterol, Calc HDL Cholesterol Cholesterol/HDL Ratio Amylase 203 H Lipase 490 H TSH Free T4 08/22/18 08/22/18 08:15 12:05 WBC RBC Hgb Hct MCV MCH MCHC RDW Plt Count MPV Neut % (Auto) Lymph % (Auto) [place] % (Auto) Eos % (Auto) Baso % (Auto) Neut # (Auto) Lymph # (Auto) [place] # (Auto) Eos # (Auto) Baso # (Auto) WBC Differential Differential Comment Sodium Potassium Chloride Carbon Dioxide Anion Gap BUN Creatinine Estimated GFR POC Glucose 118 H 110 Random Glucose Calcium Phosphorus Magnesium Total Bilirubin AST ALT Alkaline Phosphatase Troponin I Total Protein Albumin Triglycerides Cholesterol LDL Cholesterol, Calc HDL Cholesterol Cholesterol/HDL Ratio Amylase Lipase TSH Free T4 - Imaging Impressions Abdomen/Pelvis CT 08/21/18 00:00 CONCLUSION: 1. Possible mild prostatitis and/or seminal vesiculitis in the proper clinical setting. No abscess or free fluid. 2. Nonobstructing stones of both kidneys as described. Gallbladder Ultrasound 08/21/18 12:55 CONCLUSION: 1. 7 mm calculus lower pole of the right kidney. 2. Otherwise normal exam; no evidence of acute inflammatory disease, biliary obstructive disease or hydronephrosis. Bile Acid Absorption NM 08/22/18 00:00 CONCLUSION: 1. Biliary dyskinesia with no significant gallbladder emptying in response to CCK 2. Patent cystic and common bile ducts. 3. Normal appearing hepatic function. <Rachel Matthew - Last Filed: 08/22/18 14:04> - Labs CBC & Chem 7: 08/22/18 07:22 08/22/18 07:22 Laboratory Results - last 24 hr 08/21/18 08/21/18 08/21/18 12:07 12:07 18:34 WBC RBC Hgb Hct MCV MCH MCHC RDW Plt Count MPV Neut % (Auto) Lymph % (Auto) [place] % (Auto) Eos % (Auto) Baso % (Auto) Neut # (Auto) Lymph # (Auto) [place] # (Auto) Eos # (Auto) Baso # (Auto) WBC Differential Differential Comment Sodium Potassium Chloride Carbon Dioxide Anion Gap BUN Creatinine Estimated GFR POC Glucose Random Glucose Calcium Phosphorus Magnesium Total Bilirubin AST ALT Alkaline Phosphatase Troponin I Less than 0.02 L Total Protein Albumin Amylase Lipase TSH 0.856 Free T4 0.94 08/21/18 08/22/18 08/22/18 20:56 03:40 07:22 WBC RBC Hgb Hct MCV MCH MCHC RDW Plt Count MPV Neut % (Auto) Lymph % (Auto) [place] % (Auto) Eos % (Auto) Baso % (Auto) Neut # (Auto) Lymph # (Auto) [place] # (Auto) Eos # (Auto) Baso # (Auto) WBC Differential Differential Comment Sodium 138 Potassium 4.0 D Chloride 103 Carbon Dioxide 27.3 Anion Gap 8 BUN 17 Creatinine 1.21 Estimated GFR 63 L POC Glucose 149 H 112 H Random Glucose 113 H Calcium 9.0 Phosphorus 3.4 Magnesium 1.8 Total Bilirubin 0.4 AST 11 L ALT 16 Alkaline Phosphatase 55 Troponin I Total Protein 7.1 D Albumin 3.7 Amylase 203 H Lipase 490 H TSH Free T4 08/22/18 08/22/18 08/22/18 07:22 08:15 12:05 WBC 5.7 RBC 4.53 Hgb 13.9 Hct 40.4 MCV 89.4 MCH 30.8 MCHC 34.5 RDW 13.2 Plt Count 227 MPV 8.5 Neut % (Auto) 52.5 Lymph % (Auto) 36.8 [place] % (Auto) 9.2 H Eos % (Auto) 1.0 Baso % (Auto) 0.5 Neut # (Auto) 3.0 Lymph # (Auto) 2.1 [place] # (Auto) 0.5 Eos # (Auto) 0.1 Baso # (Auto) 0.0 WBC Differential . Differential Comment Auto diff final Sodium Potassium Chloride Carbon Dioxide Anion Gap BUN Creatinine Estimated GFR POC Glucose 118 H 110 Random Glucose Calcium Phosphorus Magnesium Total Bilirubin AST ALT Alkaline Phosphatase Troponin I Total Protein Albumin Amylase Lipase TSH Free T4 08/22/18 16:50 WBC RBC Hgb Hct MCV MCH MCHC RDW Plt Count MPV Neut % (Auto) Lymph % (Auto) [place] % (Auto) Eos % (Auto) Baso % (Auto) Neut # (Auto) Lymph # (Auto) [place] # (Auto) Eos # (Auto) Baso # (Auto) WBC Differential Differential Comment Sodium Potassium Chloride Carbon Dioxide Anion Gap BUN Creatinine Estimated GFR POC Glucose 211 H Random Glucose Calcium Phosphorus Magnesium Total Bilirubin AST ALT Alkaline Phosphatase Troponin I Total Protein Albumin Amylase Lipase TSH Free T4 - Imaging Impressions Abdomen/Pelvis CT 08/21/18 00:00 CONCLUSION: 1. Possible mild prostatitis and/or seminal vesiculitis in the proper clinical setting. No abscess or free fluid. 2. Nonobstructing stones of both kidneys as described. Bile Acid Absorption NM 08/22/18 00:00 CONCLUSION: 1. Biliary dyskinesia with no significant gallbladder emptying in response to CCK 2. Patent cystic and common bile ducts. 3. Normal appearing hepatic function. <Flori Bacon - Last Filed: 08/22/18 18:22> Assessment and Plan - Plan - Acute pancreatitis, lipase 4592- Unclear etiology so far, presents to the emergency department with progressively worsening right sided chest pain for 4 days. The pain is sharp, worse with movement of his right upper extremity, radiates from the right anterior lateral aspect of the back. Labs revealed lipase of 4592. LFTs wnl, lipid panel pending. Pt used to be heavy drinker but quit over a yr ago. No new medications, no previous hx of pancreatitis. No family hx of pancreatitis. Denies nausea, vomiting, hematemesis , abd pain, diarrhea or change in bowels. Denies fever or chills or dark urine. US showed 7 mm calculus lower pole of the right kidney. Otherwise normal exam ; no evidence of acute inflammatory disease, biliary obstructive disease or hydronephrosis - pmh of PE, CAD with previous stent placement and AICD placement on Eliquis 08/22/2018 acute pancreatitis with lipase and amylase trending down. 13.9, WBC count 5.7, normal triglyceride level 108, cholesterol 169, LDL 89, HDL 58.1, patient has been on statin for approximately 1 year. HIDA scan results now back showing biliary dyskinesia with activity first seen in the gallbladder at 15 minutes after CCK administration there is emptying of the gallbladder with less than 5% ejection fraction no evidence of biliary obstruction patent cystic and common bile ducts normal appearing hepatic function. Has been evaluated per general surgery and and cholecystectomy has been discussed with patient as a possibility. Patient notes no alcohol and no cigarettes for 1 year. Plan: Diet soft regular food ordered this p.m., encourage patient to eat very slowly and adequately hydrate if begins to have right upper quadrant pain, quit eating Pain management per attending Monitor labs with special attention to lipase and amylase Further recommendations to follow per general surgery Supportive care Patient was seen per myself and Dr. Bacon, note was written on her behalf <Rachel Matthew - Last Filed: 08/22/18 14:04> - Attending Attestation seen, examined agree with above <Flori Bacon - Last Filed: 08/22/18 18:22>
--- NOTE | 2018-08-22 16:34 | P.PNGS ---
Subjective Interval history: DAILY PROGRESS NOTE FOR SURGICAL ATTENDING, DR. KUMAR BASSETT Eating lunch No RUQ tenderness Feeling better overall Physical Exam Vital signs: Vital Signs 08/21/18 17:00 08/21/18 18:00 08/21/18 20:00 Temperature 97.3 F L 97.7 F Pulse Rate 54 L 55 L 71 Respiratory Rate 18 20 Blood Pressure 117/62 112/67 Pulse Oximetry 98 99 08/22/18 00:00 08/22/18 01:33 08/22/18 04:00 Temperature 97.6 F 98.8 F Pulse Rate 64 59 L 60 Respiratory Rate 18 20 Blood Pressure 96/55 L 99/61 L Pulse Oximetry 99 99 08/22/18 08:00 08/22/18 09:00 08/22/18 12:00 Temperature 97.9 F 98.3 F Pulse Rate 57 L 54 L 64 Respiratory Rate 18 18 Blood Pressure 102/64 120/71 Pulse Oximetry 96 99 Intake & Output 08/21/18 08/22/18 08/22/18 18:59 06:59 18:59 Intake Total 1999 Output Total 0 / 0 Balance 1999 Weight 75.75 kg 75.8 kg Intake: IV 1999 1999 LR 1000 mL Inj 1,000 ML @ 125 1999 / 1999 mls/hr IV.CONT .Q8H [facility] Rx#: [id number] Output: Emesis 0 / 0 Other: # Voids 2 Date of Last Bowel Movement 08/21/18 Narrative: Alert and awake Abd: abdomen soft non tender non distended Results - Labs 08/22/18 07:22 08/22/18 07:22 Laboratory Results - last 24 hr 08/21/18 08/21/18 08/21/18 12:07 12:07 18:34 WBC RBC Hgb Hct MCV MCH MCHC RDW Plt Count MPV Neut % (Auto) Lymph % (Auto) [place] % (Auto) Eos % (Auto) Baso % (Auto) Neut # (Auto) Lymph # (Auto) [place] # (Auto) Eos # (Auto) Baso # (Auto) WBC Differential Differential Comment Sodium Potassium Chloride Carbon Dioxide Anion Gap BUN Creatinine Estimated GFR POC Glucose Random Glucose Calcium Phosphorus Magnesium Total Bilirubin AST ALT Alkaline Phosphatase Troponin I Less than 0.02 L Total Protein Albumin Amylase Lipase TSH 0.856 Free T4 0.94 08/21/18 08/22/18 08/22/18 20:56 03:40 07:22 WBC RBC Hgb Hct MCV MCH MCHC RDW Plt Count MPV Neut % (Auto) Lymph % (Auto) [place] % (Auto) Eos % (Auto) Baso % (Auto) Neut # (Auto) Lymph # (Auto) [place] # (Auto) Eos # (Auto) Baso # (Auto) WBC Differential Differential Comment Sodium 138 Potassium 4.0 D Chloride 103 Carbon Dioxide 27.3 Anion Gap 8 BUN 17 Creatinine 1.21 Estimated GFR 63 L POC Glucose 149 H 112 H Random Glucose 113 H Calcium 9.0 Phosphorus 3.4 Magnesium 1.8 Total Bilirubin 0.4 AST 11 L ALT 16 Alkaline Phosphatase 55 Troponin I Total Protein 7.1 D Albumin 3.7 Amylase 203 H Lipase 490 H TSH Free T4 08/22/18 08/22/18 08/22/18 07:22 08:15 12:05 WBC 5.7 RBC 4.53 Hgb 13.9 Hct 40.4 MCV 89.4 MCH 30.8 MCHC 34.5 RDW 13.2 Plt Count 227 MPV 8.5 Neut % (Auto) 52.5 Lymph % (Auto) 36.8 [place] % (Auto) 9.2 H Eos % (Auto) 1.0 Baso % (Auto) 0.5 Neut # (Auto) 3.0 Lymph # (Auto) 2.1 [place] # (Auto) 0.5 Eos # (Auto) 0.1 Baso # (Auto) 0.0 WBC Differential . Differential Comment Auto diff final Sodium Potassium Chloride Carbon Dioxide Anion Gap BUN Creatinine Estimated GFR POC Glucose 118 H 110 Random Glucose Calcium Phosphorus Magnesium Total Bilirubin AST ALT Alkaline Phosphatase Troponin I Total Protein Albumin Amylase Lipase TSH Free T4 - Imaging Imaging: ITS Impressions Abdomen/Pelvis CT 08/21/18 00:00 CONCLUSION: 1. Possible mild prostatitis and/or seminal vesiculitis in the proper clinical setting. No abscess or free fluid. 2. Nonobstructing stones of both kidneys as described. Chest X-Ray 08/21/18 11:15 CONCLUSION: No evidence of acute cardiopulmonary process. Left-sided cardiac pacemaker overlying the left lung base. Gallbladder Ultrasound 08/21/18 12:55 CONCLUSION: 1. 7 mm calculus lower pole of the right kidney. 2. Otherwise normal exam; no evidence of acute inflammatory disease, biliary obstructive disease or hydronephrosis. Bile Acid Absorption NM 08/22/18 00:00 CONCLUSION: 1. Biliary dyskinesia with no significant gallbladder emptying in response to CCK ejection fraction reported 5% 2. Patent cystic and common bile ducts. 3. Normal appearing hepatic function. HIDA scan: report reviewed, image reviewed CT scan - abdomen: report reviewed, image reviewed CT scan - pelvis: report reviewed, image reviewed US - abdomen: report reviewed, image reviewed Assessment and Plan - Assessment (1) Acute pancreatitis Code(s): K85.90 - Acute pancreatitis without necrosis or infection, unspecified Status: Acute (2) Diabetes mellitus Code(s): E11.9 - Type 2 diabetes mellitus without complications Status: Chronic (3) HTN (hypertension) Code(s): I10 - Essential (primary) hypertension Status: Chronic (4) Acute kidney injury Code(s): N17.9 - Acute kidney failure, unspecified Status: Acute (5) CAD (coronary artery disease) Code(s): I25.10 - Atherosclerotic heart disease of [place] coronary artery without angina pectoris Status: Chronic (6) DVT prophylaxis Status: Acute (7) CHF (congestive heart failure) Code(s): I50.9 - Heart failure, unspecified Status: Chronic (8) Myocardial infarct Code(s): I21.9 - Acute myocardial infarction, unspecified Status: Acute (9) Cardiac defibrillator in place Code(s): Z95.810 - Presence of automatic (implantable) cardiac defibrillator Status: Chronic (10) Current use of jail anticoagulation Code(s): Z79.01 - long term acute care registered nurse (current) use of anticoagulants Status: Chronic (11) Extensive tattoos Code(s): L81.8 - Other specified disorders of pigmentation Status: Chronic (12) History of pulmonary embolus (PE) Code(s): Z86.711 - Personal history of pulmonary embolism Status: Acute - Plan 52 year old male with acute pancreatitis -Lipase improved; currently 490 -HIDA scan shows biliary dyskinesia with no significant gallbladder emptying in response to CCK -Low fat diet -May benefit from laparoscopic cholecystectomy -We will continue to follow Reviewed HIDA scan Amylase almost normal With the abnormality seen on the HIDA scan I suspect he has small stones in the gallbladder which may have passed. He still has some right upper chest wall pain abdominal pain. I will hold his blood thinners anticoagulation and plan laparoscopic cholecystectomy on Wednesday - Attending Attestation NOTE FOR SURGICAL ATTENDING, DR. KUMAR BASSETT I agree with above assessment and plan. The exam, history, and the medical decision-making described in the above note were completed with the assistance of the mid-level provider. I reviewed and agree with the findings presented. I attest that I had a [id number] encounter with the patient on the same day, and personally performed and documented my assessment and findings in the medical record. The following services were provided during this hospital visit: Chart data review, vital sign assessments/reviewing monitor data Review of consultations notes if present. Medication orders/review and/or management Ordering and/or reviewing lab tests Ordering and/or interpreting/reviewing x-rays and/or diagnostic studies Care of the patient and discussion of the patient with the care team Documentation time To help prompt me to consider important information that might be impacting today's encounter and assessment, Information from prior notes written by myself or my colleagues may have been "brought forward/copy and pasted" into today's note. (1) Acute pancreatitis Qualifiers: Pancreatitis type: biliary Acute pancreatitis complication: no infection or necrosis Qualified Code(s): K85.10 - Biliary acute pancreatitis without necrosis or infection (2) Diabetes mellitus Qualifiers: Diabetes mellitus type: type 2 Diabetes mellitus jail insulin use: without jail use Diabetes mellitus complication status: with unspecified complications Qualified Code(s): E11.8 - Type 2 diabetes mellitus with unspecified complications
[2018-08-22 17:34] LABS: Hemoglobin A1c 6.3 % (4.3-6.0)
--- NOTE | 2018-08-22 17:50 | P.PNIM ---
Subjective Interval history: Patient complains of hunger today. He denies any current pain, nausea, vomiting. Physical Exam Vital signs: Vital Signs 08/21/18 18:00 08/21/18 20:00 08/22/18 00:00 Temperature 97.7 F 97.6 F Pulse Rate 55 L 71 64 Respiratory Rate 20 18 Blood Pressure 112/67 96/55 L Pulse Oximetry 99 99 08/22/18 01:33 08/22/18 04:00 08/22/18 08:00 Temperature 98.8 F 97.9 F Pulse Rate 59 L 60 57 L Respiratory Rate 20 18 Blood Pressure 99/61 L 102/64 Pulse Oximetry 99 96 08/22/18 09:00 08/22/18 12:00 08/22/18 16:00 Temperature 98.3 F 98.1 F Pulse Rate 54 L 62 65 Respiratory Rate 18 18 Blood Pressure 120/71 114/66 Pulse Oximetry 99 96 Intake & Output 08/21/18 08/22/18 08/22/18 18:59 06:59 18:59 Intake Total 1999 Output Total 0 / 0 Balance 1999 Weight 75.75 kg 75.8 kg Intake: IV 1999 LR 1000 mL Inj 1,000 ML @ 125 1999 mls/hr IV.CONT .Q8H [facility] Rx#: [id number] Output: Emesis 0 / 0 Other: # Voids 2 Date of Last Bowel Movement 08/21/18 Narrative: GENERAL: AAOx3, no acute distress SKIN: Warm and dry. No rashes HEAD: Atruamtic, normocephalic. EYES: No scleral icterus. No injection or drainage. ENT: Moist mucous membranes, patent nares, no erythema of oropharynx. NECK: Supple, trachea midline. No JVD or lymphadenopathy. Normal thyroid. CARDIOVASCULAR: Regular rate and rhythm. No murmurs, gallops, or rubs. RESPIRATORY: Breath sounds clear equal bilaterally. No crackles or wheezes. No accessory muscle use. GASTROINTESTINAL: Abdomen soft, non-tender, nondistended, normal active bowel sounds MUSCULOSKELETAL: No cyanosis, or edema. NEURO: CN II-XII grossly intact, no focal deficits, no slurring of speech Results - Labs CBC & Chem 7: 08/22/18 07:22 08/22/18 07:22 Laboratory Results - last 24 hr 08/21/18 08/21/18 08/21/18 12:07 12:07 18:34 WBC RBC Hgb Hct MCV MCH MCHC RDW Plt Count MPV Neut % (Auto) Lymph % (Auto) [place] % (Auto) Eos % (Auto) Baso % (Auto) Neut # (Auto) Lymph # (Auto) [place] # (Auto) Eos # (Auto) Baso # (Auto) WBC Differential Differential Comment Sodium Potassium Chloride Carbon Dioxide Anion Gap BUN Creatinine Estimated GFR POC Glucose Random Glucose Calcium Phosphorus Magnesium Total Bilirubin AST ALT Alkaline Phosphatase Troponin I Less than 0.02 L Total Protein Albumin Amylase Lipase TSH 0.856 Free T4 0.94 08/21/18 08/22/18 08/22/18 20:56 03:40 07:22 WBC RBC Hgb Hct MCV MCH MCHC RDW Plt Count MPV Neut % (Auto) Lymph % (Auto) [place] % (Auto) Eos % (Auto) Baso % (Auto) Neut # (Auto) Lymph # (Auto) [place] # (Auto) Eos # (Auto) Baso # (Auto) WBC Differential Differential Comment Sodium 138 Potassium 4.0 D Chloride 103 Carbon Dioxide 27.3 Anion Gap 8 BUN 17 Creatinine 1.21 Estimated GFR 63 L POC Glucose 149 H 112 H Random Glucose 113 H Calcium 9.0 Phosphorus 3.4 Magnesium 1.8 Total Bilirubin 0.4 AST 11 L ALT 16 Alkaline Phosphatase 55 Troponin I Total Protein 7.1 D Albumin 3.7 Amylase 203 H Lipase 490 H TSH Free T4 08/22/18 08/22/18 08/22/18 07:22 08:15 12:05 WBC 5.7 RBC 4.53 Hgb 13.9 Hct 40.4 MCV 89.4 MCH 30.8 MCHC 34.5 RDW 13.2 Plt Count 227 MPV 8.5 Neut % (Auto) 52.5 Lymph % (Auto) 36.8 [place] % (Auto) 9.2 H Eos % (Auto) 1.0 Baso % (Auto) 0.5 Neut # (Auto) 3.0 Lymph # (Auto) 2.1 [place] # (Auto) 0.5 Eos # (Auto) 0.1 Baso # (Auto) 0.0 WBC Differential . Differential Comment Auto diff final Sodium Potassium Chloride Carbon Dioxide Anion Gap BUN Creatinine Estimated GFR POC Glucose 118 H 110 Random Glucose Calcium Phosphorus Magnesium Total Bilirubin AST ALT Alkaline Phosphatase Troponin I Total Protein Albumin Amylase Lipase TSH Free T4 08/22/18 16:50 WBC RBC Hgb Hct MCV MCH MCHC RDW Plt Count MPV Neut % (Auto) Lymph % (Auto) [place] % (Auto) Eos % (Auto) Baso % (Auto) Neut # (Auto) Lymph # (Auto) [place] # (Auto) Eos # (Auto) Baso # (Auto) WBC Differential Differential Comment Sodium Potassium Chloride Carbon Dioxide Anion Gap BUN Creatinine Estimated GFR POC Glucose 211 H Random Glucose Calcium Phosphorus Magnesium Total Bilirubin AST ALT Alkaline Phosphatase Troponin I Total Protein Albumin Amylase Lipase TSH Free T4 - Imaging Impressions Abdomen/Pelvis CT 08/21/18 00:00 CONCLUSION: 1. Possible mild prostatitis and/or seminal vesiculitis in the proper clinical setting. No abscess or free fluid. 2. Nonobstructing stones of both kidneys as described. Bile Acid Absorption NM 08/22/18 00:00 CONCLUSION: 1. Biliary dyskinesia with no significant gallbladder emptying in response to CCK 2. Patent cystic and common bile ducts. 3. Normal appearing hepatic function. Assessment and Plan - Plan Acute pancreatitis No obvious gallstone obstruction, HIDA showed gallbladder sludge, negative exam , abdomen benign Consider pancreatitis secondary to hypertriglyceridemia Patient is resuming low-fat diet Appreciate gastroenterology consult h/o myocardial infarction Previous stenting with AICD placement Continue Norvasc, lisinopril, metoprolol, spironolactone, aspirin, lovastatin Continue Eliquis and aspirin Type 2 diabetes Accu-Cheks with sliding scale insulin coverage Diabetic diet DVT prophylaxis Patient has history of DVT and pulmonary embolism Continue Xarelto Discharge planning If no surgery is planned and patient tolerating p.o., he may be discharged home tomorrow
[2018-08-22] MEDS ORDERED: Bismuth Subsalicylate Susp 240 ML Bottle PO SCH (18:00)
[2018-08-22] MEDS: Senna/Docusate Sodium 8.6/50 MG Tablet PO SCH ×2 (18:06→21:20)
[2018-08-22] MEDS: Spironolactone 25 MG Tablet PO SCH (18:06)
[2018-08-22] MEDS: Lisinopril 10 MG Tablet PO SCH (18:06)
[2018-08-23] MEDS: Insulin NovoLOG Aspart Correctional Sugar Inj SQ SCH ×5 (04:05→22:00)
[2018-08-23] MEDS: oxyCODONE/Acetaminophen 10/325 Tablet PO PRN (08:12)
[2018-08-23] MEDS: Spironolactone 25 MG Tablet PO SCH (09:27)
[2018-08-23] MEDS: amLODIPine 5 MG Tablet PO SCH (09:27)
[2018-08-23] MEDS: Lisinopril 10 MG Tablet PO SCH (09:27)
[2018-08-23] MEDS: Metoprolol Tartrate 50 MG Tablet PO SCH ×2 (09:27→21:09)
[2018-08-23] MEDS: Senna/Docusate Sodium 8.6/50 MG Tablet PO SCH ×2 (09:27→21:09)
--- NOTE | 2018-08-23 12:22 | P.PNGS ---
Subjective Patient reports: feels better Interval history: DAILY PROGRESS NOTE FOR SURGICAL ATTENDING, DR. KUMAR BASSETT Patient feels a little better Ready for surgery tomorrow Physical Exam Vital signs: Vital Signs 08/22/18 16:00 08/22/18 20:00 08/23/18 00:00 Temperature 98.1 F 98.1 F 98.2 F Pulse Rate 65 81 57 L Respiratory Rate 18 17 16 Blood Pressure 114/66 119/61 99/55 L Pulse Oximetry 96 97 99 08/23/18 04:00 08/23/18 08:00 Temperature 98.6 F 97.8 F Pulse Rate 78 51 L Respiratory Rate 16 17 Blood Pressure 101/59 L 128/58 L Pulse Oximetry 96 98 Intake & Output 08/22/18 08/23/18 08/23/18 18:59 06:59 18:59 Intake Total 2580 / 2580 2340 / 2340 Output Total 1000 / 1000 Balance 1580 / 1580 2340 / 2340 Weight 76.6 kg Intake: IV 1000 / 1000 1999 / 1999 LR 1000 mL Inj 1,000 ML @ 125 1000 / 1000 2000 / 1999 mls/hr IV.CONT .Q8H [facility] Rx#: [id number] Oral 1580 / 1580 340 / 340 Output: Urine 1000 / 1000 Emesis 0 / 0 Other: # Voids 4 5 1 Date of Last Bowel Movement 08/21/18 # Bowel Movements 0 Narrative: Alert and awake Good respiratory effort Abd: abdomen soft non tender non distended Results - Labs 08/22/18 07:22 08/22/18 07:22 Laboratory Results - last 24 hr 08/21/18 08/22/18 08/22/18 11:28 12:05 16:50 POC Glucose 110 211 H Hemoglobin A1c 6.3 H 08/22/18 08/23/18 08/23/18 19:51 04:03 08:35 POC Glucose 176 H 145 H 141 H Hemoglobin A1c - Imaging Imaging: ITS Impressions Abdomen/Pelvis CT 08/21/18 00:00 CONCLUSION: 1. Possible mild prostatitis and/or seminal vesiculitis in the proper clinical setting. No abscess or free fluid. 2. Nonobstructing stones of both kidneys as described. Chest X-Ray 08/21/18 11:15 CONCLUSION: No evidence of acute cardiopulmonary process. Left-sided cardiac pacemaker overlying the left lung base. Gallbladder Ultrasound 08/21/18 12:55 CONCLUSION: 1. 7 mm calculus lower pole of the right kidney. 2. Otherwise normal exam; no evidence of acute inflammatory disease, biliary obstructive disease or hydronephrosis. Bile Acid Absorption NM 08/22/18 00:00 CONCLUSION: 1. Biliary dyskinesia with no significant gallbladder emptying in response to CCK 2. Patent cystic and common bile ducts. 3. Normal appearing hepatic function. HIDA scan: report reviewed, image reviewed CT scan - abdomen: report reviewed, image reviewed CT scan - pelvis: report reviewed, image reviewed Assessment and Plan - Assessment (1) Acute pancreatitis Code(s): K85.90 - Acute pancreatitis without necrosis or infection, unspecified Status: Acute (2) Diabetes mellitus Code(s): E11.9 - Type 2 diabetes mellitus without complications Status: Chronic (3) HTN (hypertension) Code(s): I10 - Essential (primary) hypertension Status: Chronic (4) Acute kidney injury Code(s): N17.9 - Acute kidney failure, unspecified Status: Acute (5) CAD (coronary artery disease) Code(s): I25.10 - Atherosclerotic heart disease of [place] coronary artery without angina pectoris Status: Chronic (6) DVT prophylaxis Status: Acute (7) CHF (congestive heart failure) Code(s): I50.9 - Heart failure, unspecified Status: Chronic (8) Myocardial infarct Code(s): I21.9 - Acute myocardial infarction, unspecified Status: Acute (9) Cardiac defibrillator in place Code(s): Z95.810 - Presence of automatic (implantable) cardiac defibrillator Status: Chronic (10) Current use of termite treater helper anticoagulation Code(s): Z79.01 - senior care (current) use of anticoagulants Status: Chronic (11) Extensive tattoos Code(s): L81.8 - Other specified disorders of pigmentation Status: Chronic (12) History of pulmonary embolus (PE) Code(s): Z86.711 - Personal history of pulmonary embolism Status: Acute - Plan 52 year old male with acute pancreatitis -Lipase improved; -HIDA scan shows biliary dyskinesia with no significant gallbladder emptying in response to CCK -Low fat diet With the abnormality seen on the HIDA scan I suspect he has small stones in the gallbladder which may have passed. He still has some right upper chest wall pain abdominal pain. I will hold his blood thinners anticoagulation and plan laparoscopic cholecystectomy on Wednesday Discussed Condition With: Dr. Inman - Attending Attestation NOTE FOR SURGICAL ATTENDING, DR. KUMAR BASSETT I attest that I had a [id number] encounter with the patient on the same day, and personally performed and documented my assessment and findings in the medical record. The following services were provided during this hospital visit: Chart data review, vital sign assessments/reviewing monitor data Review of consultations notes if present. Medication orders/review and/or management Ordering and/or reviewing lab tests Ordering and/or interpreting/reviewing x-rays and/or diagnostic studies Care of the patient and discussion of the patient with the care team Documentation time To help prompt me to consider important information that might be impacting today's encounter and assessment, Information from prior notes written by myself or my colleagues may have been "brought forward/copy and pasted" into today's note. (1) Acute pancreatitis Qualifiers: Pancreatitis type: biliary Acute pancreatitis complication: no infection or necrosis Qualified Code(s): K85.10 - Biliary acute pancreatitis without necrosis or infection (2) Diabetes mellitus Qualifiers: Diabetes mellitus type: type 2 Diabetes mellitus termite treater helper insulin use: without halfway use Diabetes mellitus complication status: with unspecified complications Qualified Code(s): E11.8 - Type 2 diabetes mellitus with unspecified complications
--- NOTE | 2018-08-23 14:13 | P.PNGI ---
Subjective Interval history: Resting in the bed feeling somewhat better still having some right upper quadrant and upper abdominal pain off and now monitoring lipase levels which is decreased to 490 No bowel movement day 2 but positive for flatus No acute nausea or vomiting today <Rachel Matthew - Last Filed: 08/23/18 14:13> Physical Exam Vital signs: Vital Signs 08/22/18 16:00 08/22/18 20:00 08/23/18 00:00 Temperature 98.1 F 98.1 F 98.2 F Pulse Rate 65 81 57 L Respiratory Rate 18 17 16 Blood Pressure 114/66 119/61 99/55 L Pulse Oximetry 96 97 99 08/23/18 04:00 08/23/18 08:00 08/23/18 09:00 Temperature 98.6 F 97.8 F Pulse Rate 78 51 L 68 Respiratory Rate 16 17 Blood Pressure 101/59 L 128/58 L Pulse Oximetry 96 98 08/23/18 12:00 Temperature 97.9 F Pulse Rate 66 Respiratory Rate 18 Blood Pressure 126/69 Pulse Oximetry 100 Intake & Output 08/22/18 08/23/18 08/23/18 18:59 06:59 18:59 Intake Total 2580 / 2580 2340 / 2340 Output Total 1000 / 1000 Balance 1580 / 1580 2340 / 2340 Weight 76.6 kg Intake: IV 1000 / 1000 2000 / 2000 LR 1000 mL Inj 1,000 ML @ 125 1000 / 1000 2000 / 2000 mls/hr IV.CONT .Q8H [facility] Rx#: [id number] Oral 1580 / 1580 340 / 340 Output: Urine 1000 / 1000 Emesis 0 / 0 Other: # Voids 4 5 1 Date of Last Bowel Movement 08/21/18 # Bowel Movements 0 - Constitutional mild distress, disheveled, cooperative - Routine HEENT Exam Head: Present: normocephalic ENT: Present: mucous membranes moist - Routine Respiratory Exam Present: accessory muscle use (No obvious shortness of breath) - Routine Cardiovascular Exam Present: S1, S2 - Routine Abdominal Exam Present: soft, normoactive bowel sounds, tenderness (Right upper quadrant and upper abdominal area off and on sharp pain) <Rachel Matthew - Last Filed: 08/23/18 14:13> Vital signs: Vital Signs 08/22/18 20:00 08/23/18 00:00 08/23/18 04:00 Temperature 98.1 F 98.2 F 98.6 F Pulse Rate 81 57 L 78 Respiratory Rate 17 16 16 Blood Pressure 119/61 99/55 L 101/59 L Pulse Oximetry 97 99 96 08/23/18 08:00 08/23/18 09:00 08/23/18 12:00 Temperature 97.8 F 97.9 F Pulse Rate 51 L 68 66 Respiratory Rate 17 18 Blood Pressure 128/58 L 126/69 Pulse Oximetry 98 100 08/23/18 16:00 Temperature 98.1 F Pulse Rate 55 L Respiratory Rate 18 Blood Pressure 125/57 L Pulse Oximetry 100 Intake & Output 08/22/18 08/23/18 08/23/18 18:59 06:59 18:59 Intake Total 2580 / 2580 2340 / 2340 1000 / 1000 Output Total 1000 / 1000 Balance 1580 / 1580 2340 / 2340 1000 / 1000 Weight 76.6 kg Intake: IV 1000 / 1000 2000 / 2000 1000 / 1000 LR 1000 mL Inj 1,000 ML @ 125 1000 / 1000 2000 / 2000 1000 / 1000 mls/hr IV.CONT .Q8H [facility] Rx#: [id number] Oral 1580 / 1580 340 / 340 Output: Urine 1000 / 1000 Emesis 0 / 0 Other: # Voids 4 5 8 Date of Last Bowel Movement 08/21/18 # Bowel Movements 0 <Flori Bacon - Last Filed: 08/23/18 18:44> Results - Labs CBC & Chem 7: 08/22/18 07:22 08/22/18 07:22 Laboratory Results - last 24 hr 08/21/18 08/22/18 08/22/18 11:28 16:50 19:51 POC Glucose 211 H 176 H Hemoglobin A1c 6.3 H 08/23/18 08/23/18 08/23/18 04:03 08:35 12:24 POC Glucose 145 H 141 H 190 H Hemoglobin A1c <Rachel Matthew - Last Filed: 08/23/18 14:13> - Labs CBC & Chem 7: 08/22/18 07:22 08/23/18 15:46 Laboratory Results - last 24 hr 08/21/18 08/22/18 08/23/18 11:28 19:51 04:03 Creatinine Estimated GFR POC Glucose 176 H 145 H Hemoglobin A1c 6.3 H 08/23/18 08/23/18 08/23/18 08:35 12:24 15:46 Creatinine 1.34 H Estimated GFR 56 L POC Glucose 141 H 190 H Hemoglobin A1c 08/23/18 16:52 Creatinine Estimated GFR POC Glucose 154 H Hemoglobin A1c <Flori Bacon - Last Filed: 08/23/18 18:44> Assessment and Plan - Plan - Acute pancreatitis, lipase 4592- Unclear etiology so far, presents to the emergency department with progressively worsening right sided chest pain for 4 days. The pain is sharp, worse with movement of his right upper extremity, radiates from the right anterior lateral aspect of the back. Labs revealed lipase of 4592. LFTs wnl, lipid panel pending. Pt used to be heavy drinker but quit over a yr ago. No new medications, no previous hx of pancreatitis. No family hx of pancreatitis. Denies nausea, vomiting, hematemesis , abd pain, diarrhea or change in bowels. Denies fever or chills or dark urine. US showed 7 mm calculus lower pole of the right kidney. Otherwise normal exam ; no evidence of acute inflammatory disease, biliary obstructive disease or hydronephrosis - pmh of PE, CAD with previous stent placement and AICD placement on Eliquis 08/22/2018 acute pancreatitis with lipase and amylase trending down. 13.9, WBC count 5.7, normal triglyceride level 108, cholesterol 169, LDL 89, HDL 58.1, patient has been on statin for approximately 1 year. HIDA scan results now back showing biliary dyskinesia with activity first seen in the gallbladder at 15 minutes after CCK administration there is emptying of the gallbladder with less than 5% ejection fraction no evidence of biliary obstruction patent cystic and common bile ducts normal appearing hepatic function. Has been evaluated per general surgery and and cholecystectomy has been discussed with patient as a possibility. Patient notes no alcohol and no cigarettes for 1 year. 08/23/2018 acute pancreatitis lipase level continues to trend down , gallbladder disease. Last hemoglobin 13.9 no obvious bleeding, patient still complains of some sharp abdominal pain off and on in the right upper quadrant and mid abdomen which is probably related to his gallbladder. Appreciate general surgery input and plan is for laparoscopic cholecystectomy tomorrow morning. Patient is mildly anxious but ready for the surgery. Lipase level decreased to 490 and monitoring. Encourage patient to take laxatives this p.m. if no bowel movement since he is on day 2 and surgery is planned for tomorrow patient is passing flatus, stool softeners have been ineffective plan for laxative this p.m. patient's Eliquis is on hold. GI should be able to sign off now the patient is being followed per general surgery but will be glad to follow-up with patient outpatient in the office if needed Plan: Diet as tolerated today N.p.o. at midnight for laparoscopic cholecystectomy in a.m. Bowel regimen today no BM day 2, stool softeners ineffective and probably any constipation secondary to pain meds. MiraLAX dose to be given this p.m., if ineffective can give mag citrate x1 Monitor labs Supportive Patient was seen per myself and Dr. Bacon, note was written on her behalf <Rachel Matthew - Last Filed: 08/23/18 14:13> - Attending Attestation seen, examined agree with above gi will sign off call us as needed if dc fu gi 4 weeks <Flori Bacon - Last Filed: 08/23/18 18:44>
[2018-08-23] MEDS: Polyethylene Glycol 3350 17 GM Packet PO SCH (15:06)
--- NOTE | 2018-08-23 18:52 | P.PNIM ---
Subjective Interval history: Patient has elected to have his gallbladder removed, lap beulah is scheduled for the morning tomorrow. Physical Exam Vital signs: Vital Signs 08/22/18 20:00 08/23/18 00:00 08/23/18 04:00 Temperature 98.1 F 98.2 F 98.6 F Pulse Rate 81 57 L 78 Respiratory Rate 17 16 16 Blood Pressure 119/61 99/55 L 101/59 L Pulse Oximetry 97 99 96 08/23/18 08:00 08/23/18 09:00 08/23/18 12:00 Temperature 97.8 F 97.9 F Pulse Rate 51 L 68 66 Respiratory Rate 17 18 Blood Pressure 128/58 L 126/69 Pulse Oximetry 98 100 08/23/18 16:00 Temperature 98.1 F Pulse Rate 55 L Respiratory Rate 18 Blood Pressure 125/57 L Pulse Oximetry 100 Intake & Output 08/22/18 08/23/18 08/23/18 18:59 06:59 18:59 Intake Total 2580 / 2580 2340 / 2340 1000 / 1000 Output Total 1000 / 1000 Balance 1580 / 1580 2340 / 2340 1000 / 1000 Weight 76.6 kg Intake: IV 1000 / 1000 2000 / 2000 1000 / 1000 LR 1000 mL Inj 1,000 ML @ 125 1000 / 1000 2000 / 2000 1000 / 1000 mls/hr IV.CONT .Q8H [facility] Rx#: [id number] Oral 1580 / 1580 340 / 340 Output: Urine 1000 / 1000 Emesis 0 / 0 Other: # Voids 4 5 8 Date of Last Bowel Movement 08/21/18 # Bowel Movements 0 Narrative: GENERAL: AAOx3, no acute distress SKIN: Warm and dry. No rashes HEAD: Atruamtic, normocephalic. EYES: No scleral icterus. No injection or drainage. ENT: Moist mucous membranes, patent nares, no erythema of oropharynx. NECK: Supple, trachea midline. No JVD or lymphadenopathy. Normal thyroid. CARDIOVASCULAR: Regular rate and rhythm. No murmurs, gallops, or rubs. RESPIRATORY: Breath sounds clear equal bilaterally. No crackles or wheezes. No accessory muscle use. GASTROINTESTINAL: Abdomen soft, non-tender, nondistended, normal active bowel sounds MUSCULOSKELETAL: No cyanosis, or edema. NEURO: CN II-XII grossly intact, no focal deficits, no slurring of speech Results - Labs CBC & Chem 7: 08/22/18 07:22 08/23/18 15:46 Laboratory Results - last 24 hr 08/21/18 08/22/18 08/23/18 11:28 19:51 04:03 Creatinine Estimated GFR POC Glucose 176 H 145 H Hemoglobin A1c 6.3 H 08/23/18 08/23/18 08/23/18 08:35 12:24 15:46 Creatinine 1.34 H Estimated GFR 56 L POC Glucose 141 H 190 H Hemoglobin A1c 08/23/18 16:52 Creatinine Estimated GFR POC Glucose 154 H Hemoglobin A1c Assessment and Plan - Plan Acute pancreatitis No obvious gallstone obstruction, HIDA showed gallbladder sludge Patient tolerated diet, having his gallbladder removed tomorrow Appreciate gastroenterology consult h/o myocardial infarction Previous stenting with AICD placement Continue Norvasc, lisinopril, metoprolol, spironolactone, aspirin, lovastatin Continue Eliquis and aspirin Type 2 diabetes Accu-Cheks with sliding scale insulin coverage Diabetic diet DVT prophylaxis Patient has history of DVT and pulmonary embolism Continue Xarelto Discharge planning Patient has elected to have a cholecystectomy, surgery planned for tomorrow, possible discharge tomorrow
[2018-08-23] MEDS ORDERED: Magnesium Citrate Liq 300 ML Bottle PO ONE (20:00)
[2018-08-24] MEDS: Insulin NovoLOG Aspart Correctional Sugar Inj SQ SCH ×5 (03:24→20:58)
[2018-08-24] MEDS: Lisinopril 10 MG Tablet PO SCH (08:19)
[2018-08-24] MEDS: Metoprolol Tartrate 50 MG Tablet PO SCH ×2 (08:19→20:58)
[2018-08-24] MEDS: Senna/Docusate Sodium 8.6/50 MG Tablet PO SCH ×2 (08:19→21:00)
[2018-08-24] MEDS: amLODIPine 5 MG Tablet PO SCH (08:19)
[2018-08-24] MEDS: Spironolactone 25 MG Tablet PO SCH (08:20)
[2018-08-24] MEDS: Polyethylene Glycol 3350 17 GM Packet PO SCH (08:26)
[2018-08-24] MEDS ORDERED: Bupivacaine/Epinephrine PF Inj 0.5% 30 ML Vial ONE (09:57)
[2018-08-24] MEDS ORDERED: Metoprolol Tartrate 25 MG Tablet PO ONE (10:14)
[2018-08-24] MEDS ORDERED: Chlorhexidine Gluconate 2% 1 Pack (2 Cloths) TOPICAL ONE (10:14)
[2018-08-24] MEDS ORDERED: Sodium Chlor 0.9% Inj 500 ML IV.SIG SCH (11:00)
[2018-08-24] MEDS ORDERED: Lidocaine PF 1% Inj 5 ML Syringe INFILTRATN ONE (11:09)
--- NOTE | 2018-08-24 11:09 | P.DIET ---
Nutritional Evaluation Screening comments: [facility] [place] diet acknowledged. Pt was admitted with Dx of Acute Pancreatitis. He has DMT2 and has been on a 2200 ADA diet. HgA1c is 6.3. Pt is currently not available d/t surgery for gall bladder removal. RD will follow and instruct at a later date.
[2018-08-24] MEDS ORDERED: Sugammadex Inj 200 MG/2 ML Vial IV.PUSH ONE ×2 (12:17→12:40)
[2018-08-24] MEDS ORDERED: fentaNYL Citrate Inj 100 MCG/2 ML Ampul ONE (12:41)
--- NOTE | 2018-08-24 12:43 | MP ---
cc: Doc Tolentino MD DATE OF OPERATION: 08/24/2018 PREOPERATIVE DIAGNOSIS: Gallbladder dyskinesia with episode of gallstone pancreatitis. POSTOPERATIVE DIAGNOSIS: Gallbladder dyskinesia with episode of gallstone pancreatitis, pending permanent section. PROCEDURE PERFORMED: Laparoscopic cholecystectomy. ANESTHESIA: General. SURGEON: Doc Tolentino MD. INDICATIONS: This is a pleasant 52-year-old gentleman, who had an attack of what appeared to be a gallstone pancreatitis. He had a HIDA scan, which showed gallbladder dyskinesia. Plans were made for above. PROCEDURE IN DETAIL The patient was taken to the operating room and placed in supine position. After endotracheal anesthesia, his abdomen was prepped with Betadine solution. A timeout was done. A magnet was placed on his ACID. He was given preoperative antibiotics. After prepping and draping, made an incision just below the umbilicus. A Veress needle inserted and a saline load test was performed. The abdomen was insufflated to 15 mmHg. Two of the working ports were placed, one below the xiphoid outside of his tattoo of a big O and another 5 mm below the big O. I was able to see the gallbladder somewhat big, dilated, and floppy. We grasped it superiorly and laterally, and identified the cystic duct, which was very short and coming off a fairly prominent common duct that appeared to curve up into the gallbladder. Able to easily separate this. The cystic artery was doubly ligated and the gallbladder was then teased off the gallbladder bed, and placed in the EndoCatch, and pulled out through the umbilical incision, and passed off the field. We then checked our dissection, found it to be hemostatic and no biliary leakage. Liver was smooth. Peritoneal surfaces were smooth. I see no other gross abnormality. The CO2 was removed. There was excellent hemostasis. We closed the fascia at the umbilicus with 0 Vicryl, and skin at all 3 sites with 4-0 Vicryl. Steri-Strips applied, sterile bandage was applied. The patient tolerated the procedure well and had no immediate postop complications. Doc Tolentino MD JDB/rh , 12:30 PM , 12:36 PM
[2018-08-24] MEDS ORDERED: *Meperidine Inj 25 MG/ML Vial PERIprocedural Use ONLY ONE (13:01)
[2018-08-24] MEDS: oxyCODONE/Acetaminophen 10/325 Tablet PO PRN ×2 (14:12→20:58)
--- NOTE | 2018-08-24 17:23 | P.DS ---
Date of admission: 08/21/18 14:38 Primary care physician: Olya Hunt Brief History from admission: Patient is a 52-year-old gentleman presented emergency department with chest pain. Patient developed chest pain a few days ago located on the right side which radiated from the right anterior lateral aspect of the back. Patient describes the pain is sharp, intermittent, worse with movement of his right upper extremity. However the patient states the pain has been progressive. And constant. He does have a history of similar pain in the past secondary to [place] and he is chronically on Eliquis for this. Patient does have a history of coronary artery disease with history of stent placement and AICD placement as well. Patient denies that his defibrillator has gone off. He denies any shortness of breath, denies any nausea, denies any vomiting. Denies his symptoms have been moderate to severe. He has had increasing pain when he lays on the affected side. He did take his Eliquis and aspirin prior to arrival. He had this atypical sounding chest pain. Pain was 5 out of 10 no real relieving factors. Worse with palp patient and movement He took his aspirin. Past medical history is significant for hypertension, diabetes, chronic anticoagulation history of multiple strokes, history of pulmonary emboli, history of high cholesterol, history of TIAs, history of cardiac defibrillator, history of myocardial infarction, history of cardiac stenting and elevated cholesterol. Patient has pancreatitis We will consult gastroenterology Keep n.p.o. Continue on pain control A.m. labs Continue on fluid DS: Medications - Discharge Medications Prescriptions: oxycodone-acetaminophen 1 tab PO Q6H PRN #12 tab PRN Reason: Acute Pain DS: Summary Hospital Course: 52-year-old male who presented with atypical right-sided chest pain a few days ago on admission to the ER. Workup revealed elevated amylase and he was labeled as pancreatitis. HIDA scan revealed sludge and a hypoactive gallbladder but no evidence of obstructing stone. He has a history of AICD placement and was and underwent interrogation following a lap beulah today. Upon returning from the OR he reported abdominal pain and did not feel ready to go home, was not ready to eat food. He is anticipating that after nights rest he will feel ready for home so I am preparing his discharge now. He is to resume all home meds. I am providing him 3 days of pain medication. He has a follow-up arranged with general surgery for postop care. - Time Spent with Patient Total time spent providing and/or coordinating discharge services: Less than 30 minutes - Quality: VTE Deep Vein Thrombosis/Pulmonary Embolism Present on Admission: No Exam Vital signs: Vital Signs 08/23/18 20:00 08/24/18 00:00 08/24/18 04:00 Temperature 97.9 F 97.7 F 97.9 F Pulse Rate 63 52 L 63 Respiratory Rate 14 16 15 Blood Pressure 125/70 93/54 L 98/64 L Pulse Oximetry 98 98 95 08/24/18 08:00 08/24/18 09:00 08/24/18 12:51 Temperature 97.8 F 97.8 F Pulse Rate 54 L 58 L 86 Respiratory Rate 20 14 Blood Pressure 118/67 159/91 H Pulse Oximetry 99 100 Intake & Output 08/23/18 08/24/18 08/24/18 18:59 06:59 18:59 Intake Total 1000 / 1000 3280 / 3280 1800 / 1800 Output Total 5 / 5 Balance 1000 / 1000 3280 / 3280 1795 / 1795 Weight 77 kg Intake: IV 1000 / 1000 3000 / 3000 1000 / 1000 LR 1000 mL Inj 1,000 ML @ 125 1000 / 1000 3000 / 3000 1000 / 1000 mls/hr IV.CONT .Q8H [facility] Rx#: [id number] Oral 280 / 280 Anesthesia Amount 800 / 800 Output: Estimated Blood Loss 5 / 5 Other: # Voids 8 2 2 Date of Last Bowel Movement 08/21/18 Results Procedures completed during hospitalization: Laparoscopic cholecystectomy on 08/24/2018 Pending studies at discharge: Pending at discharge 08/24/18 13:43 Surgical [PTH] Routine Labs on day of discharge: Labs from last 24 hours 08/24/18 08/24/18 08/24/18 17:09 12:35 08:17 POC Glucose 165 H 149 H 129 H 08/24/18 08/23/18 02:58 20:59 POC Glucose 179 H 198 H - Impressions ITS Impressions Abdomen/Pelvis CT 08/21/18 00:00 CONCLUSION: 1. Possible mild prostatitis and/or seminal vesiculitis in the proper clinical setting. No abscess or free fluid. 2. Nonobstructing stones of both kidneys as described. Chest X-Ray 08/21/18 11:15 CONCLUSION: No evidence of acute cardiopulmonary process. Left-sided cardiac pacemaker overlying the left lung base. Gallbladder Ultrasound 08/21/18 12:55 CONCLUSION: 1. 7 mm calculus lower pole of the right kidney. 2. Otherwise normal exam; no evidence of acute inflammatory disease, biliary obstructive disease or hydronephrosis. Bile Acid Absorption NM 08/22/18 00:00 CONCLUSION: 1. Biliary dyskinesia with no significant gallbladder emptying in response to CCK 2. Patent cystic and common bile ducts. 3. Normal appearing hepatic function. Discharge Plan - Discharge Disposition Patient Disposition: Discharge Home - Discharge Condition Condition: Stable - Discharge Order Discharge Orders: Discharge Order (Routine); Ordered 08/25/18 Ordered By: Anthony Inman General Surgery Clear for Discharge (Routine); Ordered 08/24/18 Ordered By: Doc Tolentino - Physicians Team Primary Care Provider: Olya Hunt, Attending Provider: Anthony Inman Other Providers: Flori Bacon MD ; Doc Tolentino MD
--- NOTE | 2018-08-24 19:55 | ECG ---
Date Performed: 08/23/2018 Time Performed: 13:42:58 PTAGE: 52 years EKG: Sinus rhythm INFERIOR MYOCARDIAL INFARCTION , PROBABLY OLD WITH POSTERIOR EXTENSION ABNORMAL ECG PREVIOUS TRACING : 08/21/2018 11.16 Since the previous tracing, no significant change noted DOCTOR: Tyrone Ayers Interpretating Date/Time 08/24/2018 19:55:05
[2018-08-25] MEDS: Insulin NovoLOG Aspart Correctional Sugar Inj SQ SCH ×3 (04:50→13:46)
--- NOTE | 2018-08-25 09:09 | P.PN ---
Subjective Interval history: Follow up for s/p cholecystectomy. The patient reports feeling better today. He reports his abdomen is still sore, but does get some relief with pain medication. He is tolerating small amount of oral intake. He reports some nausea after taking pain med on empty stomach. Denies fevers/chills. Denies any other medical complaints at this time. Physical Exam Vital signs: Vital Signs 08/24/18 12:51 08/24/18 16:00 08/24/18 20:00 Temperature 97.8 F 97.7 F 97.9 F Pulse Rate 86 69 76 Respiratory Rate 14 20 18 Blood Pressure 159/91 H 156/88 H 130/69 Pulse Oximetry 100 98 96 08/24/18 23:50 08/25/18 00:00 08/25/18 01:23 Temperature 97.8 F Pulse Rate 59 L 80 Respiratory Rate 18 17 Blood Pressure 115/73 Pulse Oximetry 95 08/25/18 04:00 08/25/18 06:46 Temperature 97.8 F Pulse Rate 59 L Respiratory Rate 18 17 Blood Pressure 104/55 L Pulse Oximetry 96 Intake & Output 08/24/18 08/25/18 08/25/18 18:59 06:59 18:59 Intake Total 1800 / 1800 1940 / 1940 1000 / 1000 Output Total 5 / 5 850 / 850 Balance 1795 / 1795 1090 / 1090 1000 / 1000 Weight 77.5 kg Intake: IV 1000 / 1000 1100 / 1100 1000 / 1000 LR 1000 mL Inj 1,000 ML @ 125 1000 / 1000 1000 / 1000 1000 / 1000 mls/hr IV.CONT .Q8H [facility] Rx#: [id number] Ancef Inj 2,000 MG In NS Inj 100 / 100 100 ML @ 100 mls/hr IV.SIG ONCE ONE Rx#:[id number] Oral 0 / 0 840 / 840 Anesthesia Amount 800 / 800 Output: Urine 850 / 850 Estimated Blood Loss 5 / 5 Other: # Voids 4 # Bowel Movements 1 0 Narrative: GENERAL: Well-nourished, well-developed pleasant middle aged male patient in [facility]. SKIN: Warm and dry. No rash. HEENT: Normocephalic. Atraumatic. Pupils equal and round. Mucous membranes pink and moist. CARDIOVASCULAR: Regular rate and rhythm. No murmur appreciated. RESPIRATORY: No accessory muscle use. Clear to auscultation. Breath sounds equal bilaterally. GASTROINTESTINAL: Abdomen soft, nondistended, mild diffuse TTP. Normoactive bowel sounds x4. Midline laparoscopy sites with dressings, CDI. MUSCULOSKELETAL: No obvious deformities. Extremities without clubbing, cyanosis , or edema. NEUROLOGICAL: Awake and alert. No obvious cranial nerve deficits. Motor grossly within normal limits. Moving all extremities spontaneously. Normal speech. PSYCHIATRIC: Appropriate mood and affect; insight and judgment normal. Results - Labs CBC & Chem 7: 08/22/18 07:22 08/23/18 15:46 Laboratory Results - last 24 hr 08/24/18 08/24/18 08/24/18 12:35 17:09 19:33 POC Glucose 149 H 165 H 205 H 08/25/18 08/25/18 04:39 08:24 POC Glucose 173 H 152 H - Imaging Abdomen/Pelvis CT 08/21/18 00:00 CONCLUSION: 1. Possible mild prostatitis and/or seminal vesiculitis in the proper clinical setting. No abscess or free fluid. 2. Nonobstructing stones of both kidneys as described. Chest X-Ray 08/21/18 11:15 CONCLUSION: No evidence of acute cardiopulmonary process. Left-sided cardiac pacemaker overlying the left lung base. Gallbladder Ultrasound 08/21/18 12:55 CONCLUSION: 1. 7 mm calculus lower pole of the right kidney. 2. Otherwise normal exam; no evidence of acute inflammatory disease, biliary obstructive disease or hydronephrosis. Bile Acid Absorption NM 08/22/18 00:00 CONCLUSION: 1. Biliary dyskinesia with no significant gallbladder emptying in response to CCK 2. Patent cystic and common bile ducts. 3. Normal appearing hepatic function. - Procedures Laparoscopic cholecystectomy on 08/24/2018 Assessment and Plan - Plan 52-year-old male with: Acute pancreatitis Lipase elevated at [address] abd/pelvis and GB U/S reviewed and unremarkable HIDA showed gallbladder sludge; Biliary dyskinesia with no significant gallbladder emptying in response to CCK General surgery consulted, suspected small cholelithiasis which have now passed S/p laparoscopic cholecystectomy on 08/24 Pain control with percocet prn; antiemetics prn Diet advanced, patient tolerating oral intake, stable for discharge h/o myocardial infarction Previous stenting with AICD placement Continue Norvasc, lisinopril, metoprolol, spironolactone, aspirin, lovastatin Continue Eliquis and aspirin Type 2 diabetes Accu-Cheks with sliding scale insulin coverage Diabetic diet DVT prophylaxis Patient has history of DVT and pulmonary embolism Continue Xarelto Discharge Planning: Patient tolerating oral intake, stable for discharge. See discharge summary from 08/24.
[2018-08-25 10:00] VITALS: PULSE 55; RESP 18; TEMP 97.6
[2018-08-25] MEDS: Senna/Docusate Sodium 8.6/50 MG Tablet PO SCH (10:10)
[2018-08-25] MEDS: Metoprolol Tartrate 50 MG Tablet PO SCH (10:10)
[2018-08-25] MEDS: Lisinopril 10 MG Tablet PO SCH (10:10)
[2018-08-25] MEDS: Spironolactone 25 MG Tablet PO SCH (10:11)
[2018-08-25] MEDS: Polyethylene Glycol 3350 17 GM Packet PO SCH (10:11)
[2018-08-25] MEDS: amLODIPine 5 MG Tablet PO SCH (10:11)
[2018-08-25] MEDS: oxyCODONE/Acetaminophen 10/325 Tablet PO PRN (11:49)
--- NOTE | 2018-08-25 14:03 | P.PNGS ---
Subjective Interval history: DAILY PROGRESS NOTE FOR SURGICAL ATTENDING, DR. KUMAR BASSETT Alert awake Ready to go home Physical Exam Vital signs: Vital Signs 08/24/18 16:00 08/24/18 20:00 08/24/18 23:50 Temperature 97.7 F 97.9 F Pulse Rate 69 76 59 L Respiratory Rate 20 18 Blood Pressure 156/88 H 130/69 Pulse Oximetry 98 96 08/25/18 00:00 08/25/18 01:23 08/25/18 04:00 Temperature 97.8 F 97.8 F Pulse Rate 80 59 L Respiratory Rate 18 17 18 Blood Pressure 115/73 104/55 L Pulse Oximetry 95 96 08/25/18 06:46 08/25/18 08:00 Temperature 97.6 F Pulse Rate 55 L Respiratory Rate 17 18 Blood Pressure 116/75 Pulse Oximetry 98 Intake & Output 08/24/18 08/25/18 08/25/18 18:59 06:59 18:59 Intake Total 1800 / 1800 1940 / 1940 1000 / 1000 Output Total 5 / 5 850 / 850 Balance 1795 / 1795 1090 / 1090 1000 / 1000 Weight 77.5 kg Intake: IV 1000 / 1000 1100 / 1100 1000 / 1000 LR 1000 mL Inj 1,000 ML @ 125 1000 / 1000 1000 / 1000 1000 / 1000 mls/hr IV.CONT .Q8H [facility] Rx#: [id number] Ancef Inj 2,000 MG In NS Inj 100 / 100 100 ML @ 100 mls/hr IV.SIG ONCE ONE Rx#:[id number] Oral 0 / 0 840 / 840 Anesthesia Amount 800 / 800 Output: Urine 850 / 850 Estimated Blood Loss 5 / 5 Other: # Voids 4 # Bowel Movements 1 0 Narrative: Alert and awake Abd: Soft; minimally tender at umbilicus; incisions c/d/i Results - Labs 08/22/18 07:22 08/23/18 15:46 Laboratory Results - last 24 hr 08/24/18 08/24/18 08/25/18 17:09 19:33 04:39 POC Glucose 165 H 205 H 173 H 08/25/18 08/25/18 08:24 12:11 POC Glucose 152 H 202 H - Imaging Imaging: ITS Impressions Abdomen/Pelvis CT 08/21/18 00:00 CONCLUSION: 1. Possible mild prostatitis and/or seminal vesiculitis in the proper clinical setting. No abscess or free fluid. 2. Nonobstructing stones of both kidneys as described. Chest X-Ray 08/21/18 11:15 CONCLUSION: No evidence of acute cardiopulmonary process. Left-sided cardiac pacemaker overlying the left lung base. Gallbladder Ultrasound 08/21/18 12:55 CONCLUSION: 1. 7 mm calculus lower pole of the right kidney. 2. Otherwise normal exam; no evidence of acute inflammatory disease, biliary obstructive disease or hydronephrosis. Bile Acid Absorption NM 08/22/18 00:00 CONCLUSION: 1. Biliary dyskinesia with no significant gallbladder emptying in response to CCK 2. Patent cystic and common bile ducts. 3. Normal appearing hepatic function. Assessment and Plan - Assessment (1) Acute pancreatitis Code(s): K85.90 - Acute pancreatitis without necrosis or infection, unspecified Status: Acute Plan: 52 year old male with acute pancreatitis -POD1 lap beulah -Tolerating regular diet -Pain controlled -GS clear for DC; follow up in 7-10 days (2) Diabetes mellitus Code(s): E11.9 - Type 2 diabetes mellitus without complications Status: Chronic (3) HTN (hypertension) Code(s): I10 - Essential (primary) hypertension Status: Chronic (4) Acute kidney injury Code(s): N17.9 - Acute kidney failure, unspecified Status: Acute (5) CAD (coronary artery disease) Code(s): I25.10 - Atherosclerotic heart disease of [place] coronary artery without angina pectoris Status: Chronic (6) DVT prophylaxis Status: Acute (7) CHF (congestive heart failure) Code(s): I50.9 - Heart failure, unspecified Status: Chronic (8) Myocardial infarct Code(s): I21.9 - Acute myocardial infarction, unspecified Status: Acute (9) Cardiac defibrillator in place Code(s): Z95.810 - Presence of automatic (implantable) cardiac defibrillator Status: Chronic (10) 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 KUMAR BASSETT I agree with above assessment and plan. The exam, history, and the medical decision-making described in the above note were completed with the assistance of the mid-level provider. I reviewed and agree with the findings presented. The following services were provided during this hospital visit: Chart data review, vital sign assessments/reviewing monitor data Review of consultations notes if present. Medication orders/review and/or management Ordering and/or reviewing lab tests Ordering and/or interpreting/reviewing x-rays and/or diagnostic studies Care of the patient and discussion of the patient with the care team Documentation time To help prompt me to consider important information that might be impacting today's encounter and assessment, Information from prior notes written by myself or my colleagues may have been "brought forward/copy and pasted" into today's note. (1) Acute pancreatitis Qualifiers: Pancreatitis type: biliary Acute pancreatitis complication: no infection or necrosis Qualified Code(s): K85.10 - Biliary acute pancreatitis without necrosis or infection (2) Diabetes mellitus Qualifiers: Diabetes mellitus type: type 2 Diabetes mellitus middle or intermediate school principal insulin use: without penitentiary use Diabetes mellitus complication status: with unspecified complications Qualified Code(s): E11.8 - Type 2 diabetes mellitus with unspecified complications
[2018-08-25 17:12] VITALS: BP 101/70; O2SAT 96
== END 2018-08-25 14:45 | disposition home or self-care (01) ==
LOC: NEPE 10:46 → NEDA 14:38 → N04 15:49
PROVIDERS: ADMIT Hospitalist; ATTEND Hospitalist